=== PATIENT | male | born 1960 | race African-American/Black ===

== ENCOUNTER → 2017-08-28 | Outpatient (CLI) | payer OTHER ==
[2017-08-28 09:51] LABS: BASO % 0.2 %; BASO ABS # 0.02 K/uL (0-0.2); EOS % 3.4 %; HEMOGLOBIN 15.1 g/dL (14.0-18.0); IG# 0.02 K/uL (0.00-0.02); LYMPH % 31.6 %; LYMPH ABS # 2.75 K/uL (1.2-3.4); MEAN CELL VOLUME 85.5 fL (80-100); MEAN CORPUSCULAR HEMOGLOBIN 28.1 pg (25-34); MEAN CORPUSCULAR HGB CONC 32.8 g/dl (32-36); MEAN PLATELET VOLUME 10.1 fL (7.4-10.4); MONO % 9.6 %; MONO ABS # 0.84 K/uL (0.11-0.59); NEUT ABS # 4.78 K/uL (1.4-6.5); PLATELET COUNT 194 K/uL (130-400); RED CELL DISTRIBUTION WIDTH CV 14.9 % (11.5-14.5); RED CELL DISTRIBUTION WIDTH SD 45.9 fL (36.4-46.3); WHITE BLOOD COUNT 8.71 K/uL (4.8-10.8)
== END | disposition home or self-care (01) ==
LOC: C.LABUPUNI 09:37
PROVIDERS: ATTEND Nurse Practitioner Family
DX: Z01.89 Encounter for other specified special examinations (principal)

== ENCOUNTER → 2017-09-04 | Outpatient (CLI) | payer OTHER ==
[2017-09-04 08:37] LABS: BASO % 0.4 %; BASO ABS # 0.03 K/uL (0-0.2); EOS % 4.2 %; EOS ABS # 0.32 K/uL (0-0.5); HEMATOCRIT 47.9 % (42-52); HEMOGLOBIN 16.1 g/dL (14.0-18.0); IG# 0.01 K/uL (0.00-0.02); LYMPH % 31.3 %; LYMPH ABS # 2.39 K/uL (1.2-3.4); MEAN CELL VOLUME 85.1 fL (80-100); MEAN CORPUSCULAR HEMOGLOBIN 28.6 pg (25-34); MEAN CORPUSCULAR HGB CONC 33.6 g/dl (32-36); MEAN PLATELET VOLUME 10.6 fL (7.4-10.4); MONO % 6.9 %; MONO ABS # 0.53 K/uL (0.11-0.59); NEUT % 57.1 %; NEUT ABS # 4.35 K/uL (1.4-6.5); PLATELET COUNT 173 K/uL (130-400); RED CELL DISTRIBUTION WIDTH CV 14.4 % (11.5-14.5); RED CELL DISTRIBUTION WIDTH SD 44.7 fL (36.4-46.3); WHITE BLOOD COUNT 7.63 K/uL (4.8-10.8)
== END ==
LOC: C.LABUPUNI 08:12
PROVIDERS: ATTEND Nurse Practitioner Family
DX: F20.0 Paranoid schizophrenia (principal)

== ENCOUNTER → 2017-09-11 | Outpatient (CLI) | payer OTHER ==
[2017-09-11 09:50] LABS: BASO % 0.4 %; BASO ABS # 0.03 K/uL (0-0.2); HEMATOCRIT 50.2 % (42-52); HEMOGLOBIN 16.4 g/dL (14.0-18.0); IG# 0.02 K/uL (0.00-0.02); LYMPH % 34.9 %; LYMPH ABS # 2.63 K/uL (1.2-3.4); MEAN CELL VOLUME 84.4 fL (80-100); MEAN CORPUSCULAR HEMOGLOBIN 27.6 pg (25-34); MEAN CORPUSCULAR HGB CONC 32.7 g/dl (32-36); MEAN PLATELET VOLUME 10.8 fL (7.4-10.4); MONO % 8.5 %; MONO ABS # 0.64 K/uL (0.11-0.59); NEUT % 51.9 %; NEUT ABS # 3.92 K/uL (1.4-6.5); PLATELET COUNT 167 K/uL (130-400); RED CELL DISTRIBUTION WIDTH CV 14.4 % (11.5-14.5); RED CELL DISTRIBUTION WIDTH SD 44.4 fL (36.4-46.3); WHITE BLOOD COUNT 7.54 K/uL (4.8-10.8)
--- NOTE | 2017-10-16 06:20 | CODING QUERY NO DIAGNOSIS ---
TREATMENT RENDERED WITHOUT A DIAGNOSIS To promote full compliance with coding requirements relating to patient care, physician participation is requested in all cases of masticator uncertainty. Please assist us with providing a diagnosis/symptom for the test(s) below: A diagnosis/symptom was not documented on your Order. A valid diagnosis/symptom is required to bill all insurances. Please remember that we are unable to code a diagnosis of rule out, probable, possible, questionable, or suspected. Tests that require a diagnosis: * CBC WITH DIFF DIAGNOSIS: * DOS: 09/11/17 Provider Signature: Date: Thank you [facility] Once completed, please kindly fax back to [phone] For questions please call [phone]
== END ==
LOC: C.LABUPUNI 09:23
PROVIDERS: ATTEND Nurse Practitioner Family
DX: F20.0 Paranoid schizophrenia (principal)

== ENCOUNTER → 2017-09-18 | Outpatient (CLI) | payer OTHER ==
[2017-09-18 09:10] LABS: BASO % 0.6 %; BASO ABS # 0.04 K/uL (0-0.2); EOS % 3.9 %; EOS ABS # 0.27 K/uL (0-0.5); HEMATOCRIT 50.7 % (42-52); HEMOGLOBIN 16.6 g/dL (14.0-18.0); IG# 0.01 K/uL (0.00-0.02); LYMPH % 38.7 %; LYMPH ABS # 2.71 K/uL (1.2-3.4); MEAN CELL VOLUME 84.9 fL (80-100); MEAN CORPUSCULAR HEMOGLOBIN 27.8 pg (25-34); MEAN CORPUSCULAR HGB CONC 32.7 g/dl (32-36); MEAN PLATELET VOLUME 10.9 fL (7.4-10.4); MONO % 7.7 %; MONO ABS # 0.54 K/uL (0.11-0.59); NEUT ABS # 3.43 K/uL (1.4-6.5); PLATELET COUNT 171 K/uL (130-400); RED CELL DISTRIBUTION WIDTH CV 14.7 % (11.5-14.5); RED CELL DISTRIBUTION WIDTH SD 45.2 fL (36.4-46.3)
== END ==
LOC: C.LABUPUNI 08:43
PROVIDERS: ATTEND Nurse Practitioner Family
DX: F20.0 Paranoid schizophrenia (principal)

== ENCOUNTER → 2017-09-25 | Outpatient (CLI) | payer OTHER ==
[2017-09-25 09:32] LABS: BASO % 0.4 %; BASO ABS # 0.03 K/uL (0-0.2); EOS % 3.1 %; EOS ABS # 0.24 K/uL (0-0.5); HEMATOCRIT 47.2 % (42-52); HEMOGLOBIN 15.7 g/dL (14.0-18.0); IG# 0.02 K/uL (0.00-0.02); LYMPH % 36.5 %; LYMPH ABS # 2.82 K/uL (1.2-3.4); MEAN CELL VOLUME 84.4 fL (80-100); MEAN CORPUSCULAR HEMOGLOBIN 28.1 pg (25-34); MEAN CORPUSCULAR HGB CONC 33.3 g/dl (32-36); MEAN PLATELET VOLUME 10.5 fL (7.4-10.4); MONO % 7.4 %; MONO ABS # 0.57 K/uL (0.11-0.59); NEUT % 52.3 %; NEUT ABS # 4.04 K/uL (1.4-6.5); PLATELET COUNT 164 K/uL (130-400); RED CELL DISTRIBUTION WIDTH CV 14.9 % (11.5-14.5); RED CELL DISTRIBUTION WIDTH SD 45.4 fL (36.4-46.3); WHITE BLOOD COUNT 7.72 K/uL (4.8-10.8)
== END ==
LOC: C.LABUPUNI 08:35
PROVIDERS: ATTEND Nurse Practitioner Family
DX: B18.2 Chronic viral hepatitis C (principal)

== ENCOUNTER → 2017-10-02 | Outpatient (CLI) | payer OTHER ==
[2017-10-02 09:59] LABS: BASO % 0.4 %; BASO ABS # 0.03 K/uL (0-0.2); EOS % 3.7 %; EOS ABS # 0.28 K/uL (0-0.5); HEMATOCRIT 47.3 % (42-52); IG# 0.01 K/uL (0.00-0.02); LYMPH % 40.2 %; LYMPH ABS # 3.03 K/uL (1.2-3.4); MEAN CELL VOLUME 84.5 fL (80-100); MEAN CORPUSCULAR HEMOGLOBIN 28.6 pg (25-34); MEAN CORPUSCULAR HGB CONC 33.8 g/dl (32-36); MEAN PLATELET VOLUME 10.9 fL (7.4-10.4); MONO % 7.7 %; MONO ABS # 0.58 K/uL (0.11-0.59); NEUT % 47.9 %; NEUT ABS # 3.61 K/uL (1.4-6.5); PLATELET COUNT 153 K/uL (130-400); RED CELL DISTRIBUTION WIDTH CV 14.4 % (11.5-14.5); RED CELL DISTRIBUTION WIDTH SD 44.7 fL (36.4-46.3); WHITE BLOOD COUNT 7.54 K/uL (4.8-10.8)
== END ==
LOC: C.LABUPUNI 09:09
PROVIDERS: ATTEND Nurse Practitioner Family
DX: J44.1 Chronic obstructive pulmonary disease with (acute) exacerbation (principal)

== ENCOUNTER → 2017-10-09 | Outpatient (CLI) | payer OTHER ==
[2017-10-09 08:49] LABS: BASO % 0.3 %; BASO ABS # 0.02 K/uL (0-0.2); EOS % 3.2 %; EOS ABS # 0.22 K/uL (0-0.5); HEMATOCRIT 47.5 % (42-52); HEMOGLOBIN 16.1 g/dL (14.0-18.0); IG# 0.02 K/uL (0.00-0.02); LYMPH % 38.5 %; LYMPH ABS # 2.63 K/uL (1.2-3.4); MEAN CELL VOLUME 83.5 fL (80-100); MEAN CORPUSCULAR HEMOGLOBIN 28.3 pg (25-34); MEAN CORPUSCULAR HGB CONC 33.9 g/dl (32-36); MEAN PLATELET VOLUME 11.2 fL (7.4-10.4); MONO % 7.6 %; MONO ABS # 0.52 K/uL (0.11-0.59); NEUT % 50.1 %; NEUT ABS # 3.43 K/uL (1.4-6.5); PLATELET COUNT 139 K/uL (130-400); RED CELL DISTRIBUTION WIDTH CV 14.3 % (11.5-14.5); RED CELL DISTRIBUTION WIDTH SD 43.3 fL (36.4-46.3); WHITE BLOOD COUNT 6.84 K/uL (4.8-10.8)
== END ==
LOC: C.LABUPUNI 08:21
PROVIDERS: ATTEND Nurse Practitioner Family
DX: E78.5 Hyperlipidemia, unspecified (principal)

== ENCOUNTER → 2017-10-16 | Outpatient (CLI) | payer OTHER ==
[2017-10-16 08:41] LABS: BASO % 0.2 %; BASO ABS # 0.02 K/uL (0-0.2); EOS % 2.5 %; EOS ABS # 0.21 K/uL (0-0.5); HEMATOCRIT 47.9 % (42-52); HEMOGLOBIN 16.6 g/dL (14.0-18.0); IG# 0.03 K/uL (0.00-0.02); LYMPH % 23.5 %; LYMPH ABS # 1.97 K/uL (1.2-3.4); MEAN CELL VOLUME 82.7 fL (80-100); MEAN CORPUSCULAR HEMOGLOBIN 28.7 pg (25-34); MEAN CORPUSCULAR HGB CONC 34.7 g/dl (32-36); MEAN PLATELET VOLUME 10.4 fL (7.4-10.4); MONO % 6.8 %; MONO ABS # 0.57 K/uL (0.11-0.59); NEUT % 66.6 %; PLATELET COUNT 150 K/uL (130-400); RED CELL DISTRIBUTION WIDTH CV 14.8 % (11.5-14.5); RED CELL DISTRIBUTION WIDTH SD 44.2 fL (36.4-46.3)
== END ==
LOC: C.LABUPUNI 08:14
PROVIDERS: ATTEND Nurse Practitioner Family
DX: F20.0 Paranoid schizophrenia (principal)

== ENCOUNTER → 2017-10-23 | Outpatient (CLI) | payer OTHER ==
[2017-10-23 09:03] LABS: BASO % 0.2 %; BASO ABS # 0.02 K/uL (0-0.2); EOS % 3.2 %; EOS ABS # 0.32 K/uL (0-0.5); HEMATOCRIT 50.2 % (42-52); IG# 0.02 K/uL (0.00-0.02); LYMPH % 35.8 %; LYMPH ABS # 3.59 K/uL (1.2-3.4); MEAN CELL VOLUME 83.3 fL (80-100); MEAN CORPUSCULAR HEMOGLOBIN 28.2 pg (25-34); MEAN CORPUSCULAR HGB CONC 33.9 g/dl (32-36); MEAN PLATELET VOLUME 10.8 fL (7.4-10.4); MONO % 8.6 %; MONO ABS # 0.86 K/uL (0.11-0.59); NEUT ABS # 5.21 K/uL (1.4-6.5); PLATELET COUNT 186 K/uL (130-400); RED CELL DISTRIBUTION WIDTH CV 14.8 % (11.5-14.5); RED CELL DISTRIBUTION WIDTH SD 44.9 fL (36.4-46.3); WHITE BLOOD COUNT 10.02 K/uL (4.8-10.8)
--- NOTE | 2017-10-28 15:17 | CODING QUERY NO DIAGNOSIS ---
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 Please assist us with providing a diagnosis/symptom for the test(s) below: A diagnosis/symptom was not documented on your Order. A valid diagnosis/symptom is required to bill all insurances. Please remember that we are unable to code a diagnosis of rule out, probable, possible, questionable, or suspected. DOS 10/23/17 Tests that require a diagnosis: * CBC W/AUTO DIFF DIAGNOSIS: Provider Signature: Date: Thank you Mila [facility] Once completed, please kindly fax back to [phone] For questions please call [phone]
== END ==
LOC: C.LABUPUNI 08:40
PROVIDERS: ATTEND Nurse Practitioner Family
DX: M32.9 Systemic lupus erythematosus, unspecified (principal)

== ENCOUNTER → 2017-10-30 | Outpatient (CLI) | payer OTHER ==
[2017-10-30 08:44] LABS: BASO % 0.3 %; BASO ABS # 0.03 K/uL (0-0.2); EOS % 2.5 %; HEMATOCRIT 48.3 % (42-52); HEMOGLOBIN 16.3 g/dL (14.0-18.0); IG# 0.04 K/uL (0.00-0.02); LYMPH % 35.3 %; LYMPH ABS # 4.24 K/uL (1.2-3.4); MEAN CORPUSCULAR HGB CONC 33.7 g/dl (32-36); MEAN PLATELET VOLUME 10.6 fL (7.4-10.4); MONO % 8.3 %; NEUT % 53.3 %; NEUT ABS # 6.39 K/uL (1.4-6.5); PLATELET COUNT 210 K/uL (130-400); RED CELL DISTRIBUTION WIDTH CV 14.5 % (11.5-14.5); RED CELL DISTRIBUTION WIDTH SD 43.9 fL (36.4-46.3)
== END ==
LOC: C.LABUPUNI 07:55
PROVIDERS: ATTEND Nurse Practitioner Family
DX: F20.0 Paranoid schizophrenia (principal)

== ENCOUNTER → 2017-10-31 | Outpatient (CLI) | payer OTHER ==
[2017-10-31 09:46] LABS: BASO % 0.3 %; BASO ABS # 0.02 K/uL (0-0.2); EOS % 3.7 %; EOS ABS # 0.28 K/uL (0-0.5); HEMATOCRIT 45.4 % (42-52); HEMOGLOBIN 15.5 g/dL (14.0-18.0); IG# 0.01 K/uL (0.00-0.02); LYMPH % 35.2 %; MEAN CORPUSCULAR HEMOGLOBIN 28.3 pg (25-34); MEAN CORPUSCULAR HGB CONC 34.1 g/dl (32-36); MEAN PLATELET VOLUME 11.1 fL (7.4-10.4); MONO % 6.5 %; NEUT % 54.2 %; NEUT ABS # 4.15 K/uL (1.4-6.5); PLATELET COUNT 182 K/uL (130-400); RED CELL DISTRIBUTION WIDTH CV 14.5 % (11.5-14.5); RED CELL DISTRIBUTION WIDTH SD 44.5 fL (36.4-46.3); WHITE BLOOD COUNT 7.66 K/uL (4.8-10.8)
[2017-10-31 09:58] LABS: ALBUMIN 3.4 gm/dl (3.4-5.0); AST/SGOT 39 U/L (15-37); BLOOD UREA NITROGEN 15 mg/dl (7-18); CALCIUM 8.2 mg/dl (8.5-10.1); CARBON DIOXIDE 24 mmol/L (21-32); CREATININE 1.21 mg/dl (0.60-1.40); GLUCOSE 69 mg/dl (70-99); POTASSIUM 3.3 mmol/L (3.5-5.1); SODIUM 142 mmol/L (136-145)
[2017-10-31 10:01] LABS: ALKALINE PHOSPHATASE 109 U/L (45-117); ALT/SGPT 59 U/L (12-78)
== END ==
LOC: C.LABUPUNI 09:07
PROVIDERS: ATTEND Nurse Practitioner Family
DX: D72.829 Elevated white blood cell count, unspecified (principal); F20.0 Paranoid schizophrenia

== ENCOUNTER → 2017-11-01 | Outpatient (CLI) | payer OTHER ==
[2017-11-01 10:25] LABS: BLOOD UREA NITROGEN 16 mg/dl (7-18); CALCIUM 8.9 mg/dl (8.5-10.1); CARBON DIOXIDE 21 mmol/L (21-32); CREATININE 1.38 mg/dl (0.60-1.40); GLUCOSE 132 mg/dl (70-99); POTASSIUM 3.6 mmol/L (3.5-5.1); SODIUM 136 mmol/L (136-145)
[2017-11-01 10:31] LABS: HEMATOCRIT 49.1 % (42-52); HEMOGLOBIN 16.5 g/dL (14.0-18.0); MEAN CELL VOLUME 82.7 fL (80-100); MEAN CORPUSCULAR HEMOGLOBIN 27.8 pg (25-34); MEAN CORPUSCULAR HGB CONC 33.6 g/dl (32-36); MEAN PLATELET VOLUME 10.8 fL (7.4-10.4); PLATELET COUNT 149 K/uL (130-400); RED CELL DISTRIBUTION WIDTH CV 14.5 % (11.5-14.5); RED CELL DISTRIBUTION WIDTH SD 44.4 fL (36.4-46.3); WHITE BLOOD COUNT 8.34 K/uL (4.8-10.8)
[2017-11-01 10:50] LABS: BASO % 0.2 %; BASO ABS # 0.02 K/uL (0-0.2); EOS % 3.4 %; EOS ABS # 0.28 K/uL (0-0.5); IG# 0.02 K/uL (0.00-0.02); LYMPH % 25.4 %; LYMPH ABS # 2.12 K/uL (1.2-3.4); MONO % 5.9 %; MONO ABS # 0.49 K/uL (0.11-0.59); NEUT % 64.9 %; NEUT ABS # 5.41 K/uL (1.4-6.5)
== END | disposition home or self-care (01) ==
LOC: C.LABUPUNI 09:30
PROVIDERS: ATTEND Nurse Practitioner Family
DX: B18.2 Chronic viral hepatitis C (principal)

== ENCOUNTER → 2017-11-06 | Outpatient (CLI) | payer OTHER ==
[2017-11-06 08:43] LABS: BASO % 0.3 %; BASO ABS # 0.02 K/uL (0-0.2); EOS % 3.4 %; EOS ABS # 0.24 K/uL (0-0.5); HEMATOCRIT 47.1 % (42-52); IG# 0.01 K/uL (0.00-0.02); LYMPH % 38.7 %; LYMPH ABS # 2.77 K/uL (1.2-3.4); MEAN CELL VOLUME 82.5 fL (80-100); MEAN PLATELET VOLUME 10.6 fL (7.4-10.4); MONO % 8.2 %; MONO ABS # 0.59 K/uL (0.11-0.59); NEUT % 49.3 %; NEUT ABS # 3.53 K/uL (1.4-6.5); PLATELET COUNT 173 K/uL (130-400); RED CELL DISTRIBUTION WIDTH CV 14.5 % (11.5-14.5); RED CELL DISTRIBUTION WIDTH SD 43.4 fL (36.4-46.3); WHITE BLOOD COUNT 7.16 K/uL (4.8-10.8)
== END ==
LOC: C.LABUPUNI 07:43
PROVIDERS: ATTEND Nurse Practitioner Family
DX: E78.5 Hyperlipidemia, unspecified (principal)

== ENCOUNTER → 2017-11-08 | Outpatient (CLI) | payer OTHER ==
[2017-11-08 10:02] LABS: BLOOD UREA NITROGEN 12 mg/dl (7-18); CALCIUM 8.6 mg/dl (8.5-10.1); CARBON DIOXIDE 28 mmol/L (21-32); CREATININE 1.16 mg/dl (0.60-1.40); GLUCOSE 88 mg/dl (70-99); POTASSIUM 3.5 mmol/L (3.5-5.1); SODIUM 141 mmol/L (136-145)
--- NOTE | 2017-11-09 13:49 | CODING QUERY MEDICAL NECESSITY ---
CQTREATMENT RENDERED WITHOUT A DIAGNOSIS To promote full compliance with coding requirements relating to patient care, physician participation is requested in all cases of medical billing coder uncertainty. Please assist us with providing a diagnosis/symptom for the test(s) below: A diagnosis/symptom was not documented on your Order. A valid diagnosis/symptom is required to bill all insurances. Please remember that we are unable to code a diagnosis of rule out, probable, possible, questionable, or suspected. Tests that require a diagnosis: DOS 11/08/17 RENAL PROFILE TESTING Provider Signature: Date: Thank you [facility] Information [facility] Once completed, please kindly fax back to [phone] For questions please call [phone]
== END | disposition home or self-care (01) ==
LOC: C.LABUPUNI 09:28
PROVIDERS: ATTEND Nurse Practitioner Family
DX: I10 Essential (primary) hypertension (principal)

== ENCOUNTER → 2017-11-13 | Outpatient (CLI) | payer OTHER ==
[2017-11-13 09:47] LABS: BASO % 0.3 %; BASO ABS # 0.02 K/uL (0-0.2); EOS % 3.4 %; EOS ABS # 0.25 K/uL (0-0.5); HEMATOCRIT 47.9 % (42-52); HEMOGLOBIN 16.2 g/dL (14.0-18.0); IG# 0.02 K/uL (0.00-0.02); LYMPH % 37.8 %; LYMPH ABS # 2.76 K/uL (1.2-3.4); MEAN CELL VOLUME 82.7 fL (80-100); MEAN CORPUSCULAR HGB CONC 33.8 g/dl (32-36); MEAN PLATELET VOLUME 10.6 fL (7.4-10.4); MONO % 6.4 %; MONO ABS # 0.47 K/uL (0.11-0.59); NEUT % 51.8 %; NEUT ABS # 3.78 K/uL (1.4-6.5); PLATELET COUNT 183 K/uL (130-400); RED CELL DISTRIBUTION WIDTH CV 14.2 % (11.5-14.5); RED CELL DISTRIBUTION WIDTH SD 42.7 fL (36.4-46.3)
== END ==
LOC: C.LABUPUNI 09:14
PROVIDERS: ATTEND Nurse Practitioner Family
DX: F20.0 Paranoid schizophrenia (principal)

== ENCOUNTER → 2017-11-20 | Outpatient (CLI) | payer OTHER ==
[2017-11-20 10:09] LABS: BASO % 0.3 %; BASO ABS # 0.02 K/uL (0-0.2); EOS ABS # 0.29 K/uL (0-0.5); HEMATOCRIT 48.4 % (42-52); HEMOGLOBIN 16.2 g/dL (14.0-18.0); LYMPH % 44.2 %; LYMPH ABS # 3.18 K/uL (1.2-3.4); MEAN CELL VOLUME 84.9 fL (80-100); MEAN CORPUSCULAR HEMOGLOBIN 28.4 pg (25-34); MEAN CORPUSCULAR HGB CONC 33.5 g/dl (32-36); MONO % 6.7 %; MONO ABS # 0.48 K/uL (0.11-0.59); NEUT % 44.8 %; NEUT ABS # 3.23 K/uL (1.4-6.5); PLATELET COUNT 168 K/uL (130-400); RED CELL DISTRIBUTION WIDTH CV 14.5 % (11.5-14.5); RED CELL DISTRIBUTION WIDTH SD 44.9 fL (36.4-46.3)
== END ==
LOC: C.LABUPUNI 09:20
PROVIDERS: ATTEND Nurse Practitioner Family
DX: E78.5 Hyperlipidemia, unspecified (principal)

== ENCOUNTER → 2018-01-22 | Outpatient (CLI) | payer OTHER ==
[2018-01-22 09:43] LABS: BASO % 0.3 %; BASO ABS # 0.02 K/uL (0-0.2); EOS % 3.5 %; EOS ABS # 0.26 K/uL (0-0.5); HEMATOCRIT 48.8 % (42-52); HEMOGLOBIN 16.4 g/dL (14.0-18.0); IG# 0.02 K/uL (0.00-0.02); LYMPH % 39.3 %; LYMPH ABS # 2.89 K/uL (1.2-3.4); MEAN CELL VOLUME 84.3 fL (80-100); MEAN CORPUSCULAR HEMOGLOBIN 28.3 pg (25-34); MEAN CORPUSCULAR HGB CONC 33.6 g/dl (32-36); MEAN PLATELET VOLUME 11.7 fL (7.4-10.4); MONO % 7.5 %; MONO ABS # 0.55 K/uL (0.11-0.59); NEUT % 49.1 %; NEUT ABS # 3.62 K/uL (1.4-6.5); PLATELET COUNT 143 K/uL (130-400); RED CELL DISTRIBUTION WIDTH CV 14.9 % (11.5-14.5); RED CELL DISTRIBUTION WIDTH SD 45.7 fL (36.4-46.3); WHITE BLOOD COUNT 7.36 K/uL (4.8-10.8)
== END ==
LOC: C.LABUPUNI 09:21
PROVIDERS: ATTEND Nurse Practitioner Family
DX: F20.0 Paranoid schizophrenia (principal)

== ENCOUNTER → 2018-01-29 | Outpatient (CLI) | payer OTHER ==
[2018-01-29 10:00] LABS: BASO % 0.4 %; BASO ABS # 0.03 K/uL (0-0.2); EOS % 2.7 %; EOS ABS # 0.21 K/uL (0-0.5); HEMATOCRIT 50.4 % (42-52); HEMOGLOBIN 16.6 g/dL (14.0-18.0); IG# 0.02 K/uL (0.00-0.02); LYMPH % 34.1 %; LYMPH ABS # 2.68 K/uL (1.2-3.4); MEAN CELL VOLUME 84.8 fL (80-100); MEAN CORPUSCULAR HEMOGLOBIN 27.9 pg (25-34); MEAN CORPUSCULAR HGB CONC 32.9 g/dl (32-36); MEAN PLATELET VOLUME 11.5 fL (7.4-10.4); MONO % 7.8 %; MONO ABS # 0.61 K/uL (0.11-0.59); NEUT % 54.7 %; PLATELET COUNT 146 K/uL (130-400); RED CELL DISTRIBUTION WIDTH CV 14.9 % (11.5-14.5); RED CELL DISTRIBUTION WIDTH SD 45.8 fL (36.4-46.3); WHITE BLOOD COUNT 7.85 K/uL (4.8-10.8)
== END ==
LOC: C.LABUPUNI 08:03
PROVIDERS: ATTEND Nurse Practitioner Family
DX: F20.0 Paranoid schizophrenia (principal)

== ENCOUNTER → 2018-02-05 | Outpatient (CLI) | payer OTHER ==
[2018-02-05 10:41] LABS: BASO % 0.3 %; BASO ABS # 0.02 K/uL (0-0.2); EOS % 2.4 %; EOS ABS # 0.19 K/uL (0-0.5); HEMATOCRIT 49.7 % (42-52); HEMOGLOBIN 16.6 g/dL (14.0-18.0); IG# 0.02 K/uL (0.00-0.02); LYMPH % 34.1 %; LYMPH ABS # 2.72 K/uL (1.2-3.4); MEAN CELL VOLUME 84.7 fL (80-100); MEAN CORPUSCULAR HEMOGLOBIN 28.3 pg (25-34); MEAN CORPUSCULAR HGB CONC 33.4 g/dl (32-36); MEAN PLATELET VOLUME 11.6 fL (7.4-10.4); MONO % 7.6 %; MONO ABS # 0.61 K/uL (0.11-0.59); NEUT % 55.3 %; NEUT ABS # 4.42 K/uL (1.4-6.5); PLATELET COUNT 150 K/uL (130-400); RED CELL DISTRIBUTION WIDTH CV 14.9 % (11.5-14.5); RED CELL DISTRIBUTION WIDTH SD 45.7 fL (36.4-46.3); WHITE BLOOD COUNT 7.98 K/uL (4.8-10.8)
== END ==
LOC: C.LABUPUNI 07:54
PROVIDERS: ATTEND Nurse Practitioner Family
DX: F20.0 Paranoid schizophrenia (principal)

== ENCOUNTER → 2018-02-12 | Outpatient (CLI) | payer OTHER ==
[2018-02-12 08:30] LABS: BASO % 0.4 %; BASO ABS # 0.03 K/uL (0-0.2); EOS % 3.4 %; EOS ABS # 0.27 K/uL (0-0.5); HEMATOCRIT 50.3 % (42-52); HEMOGLOBIN 17.2 g/dL (14.0-18.0); IG# 0.02 K/uL (0.00-0.02); LYMPH % 33.2 %; LYMPH ABS # 2.63 K/uL (1.2-3.4); MEAN CORPUSCULAR HEMOGLOBIN 28.7 pg (25-34); MEAN CORPUSCULAR HGB CONC 34.2 g/dl (32-36); MEAN PLATELET VOLUME 11.1 fL (7.4-10.4); MONO % 7.2 %; MONO ABS # 0.57 K/uL (0.11-0.59); NEUT % 55.5 %; PLATELET COUNT 144 K/uL (130-400); RED CELL DISTRIBUTION WIDTH CV 14.6 % (11.5-14.5); RED CELL DISTRIBUTION WIDTH SD 44.7 fL (36.4-46.3); WHITE BLOOD COUNT 7.92 K/uL (4.8-10.8)
== END ==
LOC: C.LABUPUNI 07:43
PROVIDERS: ATTEND Nurse Practitioner Family
DX: F20.0 Paranoid schizophrenia (principal)

== ENCOUNTER → 2018-02-19 | Outpatient (CLI) | payer OTHER ==
[2018-02-19 08:10] LABS: BASO % 0.3 %; BASO ABS # 0.02 K/uL (0-0.2); EOS ABS # 0.21 K/uL (0-0.5); HEMATOCRIT 50.2 % (42-52); HEMOGLOBIN 16.8 g/dL (14.0-18.0); IG# 0.01 K/uL (0.00-0.02); LYMPH % 37.9 %; LYMPH ABS # 2.66 K/uL (1.2-3.4); MEAN CELL VOLUME 84.7 fL (80-100); MEAN CORPUSCULAR HEMOGLOBIN 28.3 pg (25-34); MEAN CORPUSCULAR HGB CONC 33.5 g/dl (32-36); MONO ABS # 0.42 K/uL (0.11-0.59); NEUT % 52.7 %; PLATELET COUNT 135 K/uL (130-400); RED CELL DISTRIBUTION WIDTH CV 14.8 % (11.5-14.5); RED CELL DISTRIBUTION WIDTH SD 45.7 fL (36.4-46.3); WHITE BLOOD COUNT 7.02 K/uL (4.8-10.8)
== END ==
LOC: C.LABUPUNI 07:31
PROVIDERS: ATTEND Nurse Practitioner Family
DX: F20.0 Paranoid schizophrenia (principal)

== ENCOUNTER 2019-10-22 15:25 | Inpatient (IN) ==
[2019-10-22] MEDS ORDERED: LIDOCAINE/EPINEPH/TETRACAINE 1 EA SYR EXT STA (15:37)
[2019-10-22 15:58] LABS: Appearance Urine Clear (Clear); Bilirubin Urine Negative (Negative); Blood Urine Negative (Negative); Color Urine Yellow; Glucose Urine UA Negative (Negative); Ketones Urine Negative (Negative); Leukocyte Esterase Urine Negative (Negative); Nitrite Urine Negative (Negative); Protein Urine Negative (Negative); Specific Gravity Urine 1.007 (1.000-1.030); Urobilinogen Urine Negative (Negative); pH Urine 7.5 (4.5-7.5)
--- NOTE | 2019-10-22 16:07 | XRay Report ---
LEFT HAND 3 VIEWS CLINICAL HISTORY: Third finger injury. FINDINGS: 3 views of the left hand are obtained. No prior studies are available for comparison at the time of dictation. The skeletal structures are well mineralized. No fracture is seen. The joint spac es of the hand are maintained. The overlying soft tissues are normal as visualized. IMPRESSION: No acute bony abnormality is identified. Electronically signed by: Mike Singh M.D. 10/22/2019 4:05 PM
--- NOTE | 2019-10-22 16:09 | Emergency Department Note ---
Impression & Plan Hypoglycemia due to type 2 diabetes mellitus, Schizophrenia, paranoid, chronic, Delusion, Laceration of left hand, Hypoglycemia ED Provider Note Provider: Arya Madison MD DATE OF SERVICE: 10/22/2019 CHIEF COMPLAINT: Left hand injury, mental health issues HISTORY OF PRESENT ILLNESS: Patient is a 60-year-old male presenting via ambulance today after a left hand injury. Patient does have a significant past medical history of COPD, hepatitis, diabetes, sarcoidosis, cardiac disease by report, and paranoid schizophrenia evidently is been having worsening behavior at his facility, [facility]. All the patient by report always has some delusions of demons now they seem to be worsening. Facility by report states that the patient yesterday was holding his eyelids open and staring straight into a light next to him in the bathroom to burn the demons out. Patient himself states that this is a new since spirit today that is always there. Patient states he sees it quite frequently but it does not talk to him. Patient states today it pulled his hand into the window and had a shot on his hand. Nursing staff report that the patient shut the window on his left hand sustaining a small injury. Sent here for further evaluation and psychiatric evaluation. Patient is unsure of his tetanus status and unclear in the notes if he is received 1 in the past 10 years. Patient reports a little bit of pain in the left distal finger but denies other injury. Patient denies any SI or HI at this time. Called [facility] who state no change in insulin regimen lately and that pt bsg 144 at noon. He reportedly ate 100% of lunch and breakfast today. REVIEW OF SYSTEMS: A total of 10 review of systems was obtained and negative except as stated above in the HPI. PAST MEDICAL HISTORY: As noted above MEDICATIONS: Reviewed detention list includes [place] SOCIAL HISTORY: Former smoker, lives at [facility] PHYSICAL EXAM: GENERAL: alert in no acute distress on stretcher with a surgical mask in place Head: normocephalic and atraumatic EYES: No injection, discharge or icterus. ENT: Mucous membranes pink and moist. LUNGS: Airway patent. No retractions. HEART: Regular rate and rhythm. No chest wall tenderness ABDOMEN: Soft and non-tender, without guarding or rebound SKIN: Acyanotic, warm, dry, without rashes EXTREMITIES: Without swelling, tenderness or deformity EXCEPT for some slight abrasions on the middle phalanges of the left index and ring finger. There is a 2 centimeter L-shaped laceration overlying the proximal PIP joint of the left middle finger. Intact sensation and perfusion distally in the fingers. Intact extensor and flexor tendon strength. No evidence of retained foreign body. NEUROLOGICAL: No focal deficits. No aphasia. No facial droop or slurred speech. PSYCH: Denies SI or HI. Flat affect. Some delusions and decreased insightdoes report visual elucidation of demonic spirits and this is what hurt his hand today. Patient's hypertension was referred to [facility] COURSE: 1528 Patient was first seen and H&P performed. 164 Alerted that patient's glucose was 26. Patient somewhat sleepy but with out compliant in room laying on bed. Given 1 container of orange juice via straw and a full tube of oral glucose orally. 1708 Patient still sleepy. 1mg IM glucagon given. 1725 I obtained a 18g IV via US in L forearm. D10 to be hung. Patient glucose 26. 1732 Patient alert awake, eating food tray. Patient still reports that the demons have been chasing him. 1742 BSG now 118 -- will hold D10 bolus (received 80mLs thus far), patient eating tray, will discuss medical admission 175 Discussed with Soraya of [facility] service for further care. Recomended glucose monitoring, one-one on floor and psych consult. 1820 BSG 204, awake and alert sitting on bed. LACERATION REPAIR performed by myself at 1632 hrs: Patient, procedure, and site were verified immediately before the procedure. Appropriate neurovascular exam was performed to test sensation, motor function and perfusion of the L fingers The skin around the wound was prepped with Betadine. Anesthesia was provided using LET gel. Wound was irrigated with a saline. Wound was explored to its base. There was no visible foreign body in the wound. No signs of tendon injury. The laceration was repaired by means of a single layer closure. Skin was closed with 5-0 Ethilon interrupted sutures with a total of 5 placed. Total wound length was 2 cm. Good hemostasis and cosmetic result Patient tolerated the procedure well. Patient sutures should be removed in approximately 10 days. Should be monitored for any concerning evidence of erythema or infection such as purulent discharge. Patient's laboratory studies and imaging reviewed. Differential includes Mood disorder, infection, hypoglycemia, electrolyte abnormalities, cardiac sources, intracerebral event, toxicologic, trauma (including fracture, dislocation, tendon injury), neurologic, as well as other pathologies. IMPRESSION/MEDICAL DECISION MAKING: X-rays obtained of the hand to exclude fracture/dislocation. Wounds were cleaned. The middle finger laceration was cleaned and let gel applied for closure as above performed by myself. I doubt a specific joint injury. X-ray without evidence of fracture dislocation. This is neurovascular intact otherwise. Tetanus is updated. Basic labs and medical clearance completed. Patient did see some slight headache during laceration repair and will answer questions but seems somewhat fatigued. Patient's blood work results with significant hyperglycemia of 26. Seems sudden as patient previously conversant and walked to and provided urine sample in the bathroom under his own power. Patient is a type II diabetic on insulin. Given this finding was given oral glucose as well as orange juice. No significant improvement with his giving an intramuscular glucagon. Still no significant improvement in his hyperglycemia or mental status. Difficulty with IV access. Ultrasound utilized to establish an 18-gauge and left forearm and some D10 was instilled. Patient quickly became alert and sat up and began eating a food tray. Mental status was much more improved. Still complains of d emons chasing him and his recollection of the prior events including the demons slamming the window on his hand are intact but much more alert. Patient denies other complaints at this time. Patient does make delusional and some psychotic statements but has been calm while here. No aggressive behavior reported from facility or noted here. Denies any SI or HI on my of him. Given the refractory and prolonged episode of hypoglycemia as well as a significant insulin regimen feel that further medical monitoring of his glucoses on the floor would be more appropriate than immediate psychiatric inpatient care. Likely would benefit from psychiatric consultation for help with his delusions but as I discussed with the facility he ate a normal lunch and breakfast and had a normal insulin unchanged regimen and suffered significant acute hypoglycemia that was difficult to improve do not feel inpat ient psychiatric care at this juncture is most appropriate. DIAGNOSIS: Hyperglycemia, paranoid schizophrenia, delusions, left hand laceration DISPOSITION: Admission Critical Care I have personally spent 38 minutes of critical care time in the direct management of this patient. This includes bedside care, interpretation of diagnostic studies, and testing, discussion with consultants, patient, and family members, and other required patient management activities. These 38 minutes is in excess of all separately billable procedures. Past Med/Surg History Medical History Alcohol abuse Asthma COPD (chronic obstructive pulmonary disease) Diabetes Diabetes mellitus, type 2 Hepatitis C History of seizures Hypertension Lupus Paranoid schizophrenia Peripheral vascular disease Sleep apnea Family History Denies family history of Myocardial infarction Congenital kidney disease Social History Preferred Language: Vietnamese Communication Ability: Impaired Visual Impairment: No Limitations County Judge Required: No Beliefs That Will Affect Care: None marital status: Single Current Living Situation: Long Term Current Living Situation Comment: reported living at [facility] Feels Safe at Home: Yes Smoking Status: Former smoker Second Hand Exposure: No ; Hx Alcohol Use: No Hx Substance Use: Yes substance use type: prescription drug Substance Use Type Other:: Benzos Allergies Allergies Allergy/AdvReac Type Severity Reaction Status Date / Time No Known Allergies Allergy Verified 10/22/19 16:00 Home Meds Home Medications Medication Instructions Recorded Confirmed acetaminophen [Tylenol] 650 mg PO Q6H PRN 08/19/18 10/22/19 amlodipine 10 mg PO DAILY 08/19/18 10/22/19 bisacodyl 10 mg RI DAILY PRN 08/19/18 10/22/19 clozapine [Clozaril] 200 mg PO HS 08/19/18 10/22/19 glucagon (human recombinant) 1 dose IM DIRECTED PRN 08/19/18 10/22/19 [Glucagon Emergency Kit (human)] insulin glargine [Lantus U-100 20 unit SUBCUT DAILY 08/19/18 10/22/19 Insulin] insulin lispro [Humalog U-100 1 sliding scale dose SUBCUT ACHS 08/19/18 10/22/19 Insulin] magnesium hydroxide [Milk of 30 ml PO DAILY PRN 08/19/18 10/22/19 Magnesia] sodium phosphates [Fleet Enema] 1 applic RI QAM PRN 08/19/18 10/22/19 tiotropium bromide [Spiriva with 1 cap INHALATION DAILY 08/19/18 10/22/19 HandiHaler] albuterol sulfate 90 mcg/actuation 2 puffs INHALATION Q4H PRN gm 06/12/19 10/22/19 aerosol inhaler famotidine 20 mg tablet 20 mg PO BID 06/12/19 10/22/19 ipratropium 0.5 mg-albuterol 3 mg 3 ml INHALATION QID ml 06/12/19 10/22/19 (2.5 mg base)/3 mL nebulization soln metoprolol tartrate 100 mg tablet 150 mg PO BID tab 06/12/19 10/22/19 potassium chloride 40 meq PO BID 10/22/19 10/22/19 Previous Rx's Medication Instructions Recorded hydrochlorothiazide 25 mg tablet 25 mg PO DAILY #30 tab 02/14/19 Results & Data (ED) Vital Signs Vital Signs - 24 hr 10/22/19 15:45 10/22/19 18:21 Temperature 36.9 C Temperature Source Oral Pulse Rate 106 H Pulse Rate [Finger] 62 Respiratory Rate 18 18 Respiratory Effort / Characteristics Non-Labored Spontaneous Non-Labored Spontaneous Respiratory Depth Normal Respiratory Pattern Regular Blood Pressure 165/106 H Blood Pressure [Right Arm] 154/97 H Blood Pressure Mean 125 Blood Pressure Mean [Right Arm] 116 Blood Pressure Position Sitting Blood Pressure Position [Right Arm] Sitting Pulse Oximetry 96 94 Oxygen Delivery Method Room Air Room Air Sepsis Recent Fever Within 48 Hours No Sepsis New/Unexplained Change in Mental Status No Sepsis Action Taken by Nursing No Action Required Laboratory Data Result diagrams: 10/22/19 15:50 10/22/19 15:50 Lab Results 10/22/19 10/22/19 10/22/19 Range/Units 15:40 15:40 15:50 WBC 8.41 (4.8-10.8) K/uL RBC 5.97 (4.7-6.1) M/uL Hgb 17.6 (14.0-18.0) g/dL Hct 52.5 H (42-52) % MCV 87.9 (80-100) fL MCH 29.5 (25-34) pg MCHC 33.5 (32-36) g/dL RDW Std Deviation 43.1 (36.4-46.3) fL RDW Coeff of Marta 13.3 (11.5-14.5) % Plt Count 192 (130-400) K/uL MPV 10.7 H (7.4-10.4) fL Immature Gran % (Auto) 0.4 % Neut % (Auto) 55.9 % Lymph % (Auto) 34.5 % Licking % (Auto) 6.3 % Eos % (Auto) 2.7 % Baso % (Auto) 0.2 % Immature Gran # (Auto) 0.03 H (0.00-0.02) K/uL Neut # (Auto) 4.70 (1.4-6.5) K/uL Lymph # (Auto) 2.90 (1.2-3.4) K/uL Licking # (Auto) 0.53 (0.11-0.59) K/uL Eos # (Auto) 0.23 (0-0.5) K/uL Baso # (Auto) 0.02 (0-0.2) K/uL Sodium (136-145) mmol/L Potassium (3.5-5.1) mmol/L Chloride (98-107) mmol/L Carbon Dioxide (21-32) mmol/L Anion Gap (3-11) BUN (7-18) mg/dl Creatinine (0.6-1.4) mg/dl Est Cr Clr Drug Dosing ml/min Est GFR ( Amer) Est GFR (Non-Af Amer) BUN/Creatinine Ratio (10-20) Glucose (70-99) mg/dl POC Glucose (70-99) mg/dl Calcium (8.5-10.1) mg/dl Total Bilirubin (0.2-1) mg/dl AST (15-37) U/L ALT (12-78) U/L Alkaline Phosphatase (45-117) U/L Total Protein (6.4-8.2) gm/dl Albumin (3.4-5.0) gm/dl Globulin (2.5-4.0) gm/dl Albumin/Globulin Ratio (0.9-2) TSH (0.300-4.500) uIu/ml Urine Color Yellow Urine Appearance Clear (Clear) Urine pH 7.5 (4.5-7.5) Ur Specific Hatch 1.007 (1.000-1.030) Urine Protein Negative (Negative) Urine Glucose (UA) Negative (Negative) Urine Ketones Negative (Negative) Urine Blood Negative (Negative) Urine Nitrite Negative (Negative) Urine Bilirubin Negative (Negative) Urine Urobilinogen Negative (Negative) Ur Leukocyte Esterase Negative (Negative) Salicylates (2.8-20) mg/dl Urine Opiates Screen Neg (Neg) Ur Methadone, Qual Neg (Neg) Acetaminophen (10-30) ug/ml Urine Barbiturates Neg (Neg) Ur Phencyclidine (PCP) Neg (Neg) U Amphetamin/Meth Scrn Neg (Neg) MDMA (Ecstasy) Screen Neg (Neg) U Benzodiazepines Scrn Neg (Neg) Ur Cocaine Metabolite Neg (Neg) U Marijuana (THC) Screen Neg (Neg) Ethyl Alcohol mg/dL (0-3) mg/dl 10/22/19 10/22/19 10/22/19 Range/Units 15:50 15:50 15:50 WBC (4.8-10.8) K/uL RBC (4.7-6.1) M/uL Hgb (14.0-18.0) g/dL Hct (42-52) % MCV (80-100) fL MCH (25-34) pg MCHC (32-36) g/dL RDW Std Deviation (36.4-46.3) fL RDW Coeff of Marta (11.5-14.5) % Plt Count (130-400) K/uL MPV (7.4-10.4) fL Immature Gran % (Auto) % Neut % (Auto) % Lymph % (Auto) % Licking % (Auto) % Eos % (Auto) % Baso % (Auto) % Immature Gran # (Auto) (0.00-0.02) K/uL Neut # (Auto) (1.4-6.5) K/uL Lymph # (Auto) (1.2-3.4) K/uL Licking # (Auto) (0.11-0.59) K/uL Eos # (Auto) (0-0.5) K/uL Baso # (Auto) (0-0.2) K/uL Sodium 139 (136-145) mmol/L Potassium 3.2 L (3.5-5.1) mmol/L Chloride 105 (98-107) mmol/L Carbon Dioxide 31 (21-32) mmol/L Anion Gap 2.0 L (3-11) BUN 8 (7-18) mg/dl Creatinine 1.05 (0.6-1.4) mg/dl Est Cr Clr Drug Dosing 79.7 ml/min Est GFR ( Amer) 90.3 Est GFR (Non-Af Amer) 77.9 BUN/Creatinine Ratio 7.6 L (10-20) Glucose 26 L* (70-99) mg/dl POC Glucose (70-99) mg/dl Calcium 9.1 (8.5-10.1) mg/dl Total Bilirubin 0.7 (0.2-1) mg/dl AST 58 H (15-37) U/L ALT 58 (12-78) U/L Alkaline Phosphatase 114 (45-117) U/L Total Protein 7.8 (6.4-8.2) gm/dl Albumin 3.8 (3.4-5.0) gm/dl Globulin 4.0 (2.5-4.0) gm/dl Albumin/Globulin Ratio 1.0 (0.9-2) TSH 0.623 (0.300-4.500) uIu/ml Urine Color Urine Appearance (Clear) Urine pH (4.5-7.5) Ur Specific Hatch (1.000-1.030) Urine Protein (Negative) Urine Glucose (UA) (Negative) Urine Ketones (Negative) Urine Blood (Negative) Urine Nitrite (Negative) Urine Bilirubin (Negative) Urine Urobilinogen (Negative) Ur Leukocyte Esterase (Negative) Salicylates < 1.7 L (2.8-20) mg/dl Urine Opiates Screen (Neg) Ur Methadone, Qual (Neg) Acetaminophen < 2 L (10-30) ug/ml Urine Barbiturates (Neg) Ur Phencyclidine (PCP) (Neg) U Amphetamin/Meth Scrn (Neg) MDMA (Ecstasy) Screen (Neg) U Benzodiazepines Scrn (Neg) Ur Cocaine Metabolite (Neg) U Marijuana (THC) Screen (Neg) Ethyl Alcohol mg/dL < 3.0 (0-3) mg/dl 10/22/19 10/22/19 10/22/19 Range/Units 16:49 17:02 17:17 WBC (4.8-10.8) K/uL RBC (4.7-6.1) M/uL Hgb (14.0-18.0) g/dL Hct (42-52) % MCV (80-100) fL MCH (25-34) pg MCHC (32-36) g/dL RDW Std Deviation (36.4-46.3) fL RDW Coeff of Marta (11.5-14.5) % Plt Count (130-400) K/uL MPV (7.4-10.4) fL Immature Gran % (Auto) % Neut % (Auto) % Lymph % (Auto) % Licking % (Auto) % Eos % (Auto) % Baso % (Auto) % Immature Gran # (Auto) (0.00-0.02) K/uL Neut # (Auto) (1.4-6.5) K/uL Lymph # (Auto) (1.2-3.4) K/uL Licking # (Auto) (0.11-0.59) K/uL Eos # (Auto) (0-0.5) K/uL Baso # (Auto) (0-0.2) K/uL Sodium (136-145) mmol/L Potassium (3.5-5.1) mmol/L Chloride (98-107) mmol/L Carbon Dioxide (21-32) mmol/L Anion Gap (3-11) BUN (7-18) mg/dl Creatinine (0.6-1.4) mg/dl Est Cr Clr Drug Dosing ml/min Est GFR ( Amer) Est GFR (Non-Af Amer) BUN/Creatinine Ratio (10-20) Glucose (70-99) mg/dl POC Glucose 27 L* 28 L* 26 L* (70-99) mg/dl Calcium (8.5-10.1) mg/dl Total Bilirubin (0.2-1) mg/dl AST (15-37) U/L ALT (12-78) U/L Alkaline Phosphatase (45-117) U/L Total Protein (6.4-8.2) gm/dl Albumin (3.4-5.0) gm/dl Globulin (2.5-4.0) gm/dl Albumin/Globulin Ratio (0.9-2) TSH (0.300-4.500) uIu/ml Urine Color Urine Appearance (Clear) Urine pH (4.5-7.5) Ur Specific Hatch (1.000-1.030) Urine Protein (Negative) Urine Glucose (UA) (Negative) Urine Ketones (Negative) Urine Blood (Negative) Urine Nitrite (Negative) Urine Bilirubin (Negative) Urine Urobilinogen (Negative) Ur Leukocyte Esterase (Negative) Salicylates (2.8-20) mg/dl Urine Opiates Screen (Neg) Ur Methadone, Qual (Neg) Acetaminophen (10-30) ug/ml Urine Barbiturates (Neg) Ur Phencyclidine (PCP) (Neg) U Amphetamin/Meth Scrn (Neg) MDMA (Ecstasy) Screen (Neg) U Benzodiazepines Scrn (Neg) Ur Cocaine Metabolite (Neg) U Marijuana (THC) Screen (Neg) Ethyl Alcohol mg/dL (0-3) mg/dl 10/22/19 10/22/19 Range/Units 17:40 18:19 WBC (4.8-10.8) K/uL RBC (4.7-6.1) M/uL Hgb (14.0-18.0) g/dL Hct (42-52) % MCV (80-100) fL MCH (25-34) pg MCHC (32-36) g/dL RDW Std Deviation (36.4-46.3) fL RDW Coeff of Marta (11.5-14.5) % Plt Count (130-400) K/uL MPV (7.4-10.4) fL Immature Gran % (Auto) % Neut % (Auto) % Lymph % (Auto) % Licking % (Auto) % Eos % (Auto) % Baso % (Auto) % Immature Gran # (Auto) (0.00-0.02) K/uL Neut # (Auto) (1.4-6.5) K/uL Lymph # (Auto) (1.2-3.4) K/uL Licking # (Auto) (0.11-0.59) K/uL Eos # (Auto) (0-0.5) K/uL Baso # (Auto) (0-0.2) K/uL Sodium (136-145) mmol/L Potassium (3.5-5.1) mmol/L Chloride (98-107) mmol/L Carbon Dioxide (21-32) mmol/L Anion Gap (3-11) BUN (7-18) mg/dl Creatinine (0.6-1.4) mg/dl Est Cr Clr Drug Dosing ml/min Est GFR ( Amer) Est GFR (Non-Af Amer) BUN/Creatinine Ratio (10-20) Glucose (70-99) mg/dl POC Glucose 118 H 204 H (70-99) mg/dl Calcium (8.5-10.1) mg/dl Total Bilirubin (0.2-1) mg/dl AST (15-37) U/L ALT (12-78) U/L Alkaline Phosphatase (45-117) U/L Total Protein (6.4-8.2) gm/dl Albumin (3.4-5.0) gm/dl Globulin (2.5-4.0) gm/dl Albumin/Globulin Ratio (0.9-2) TSH (0.300-4.500) uIu/ml Urine Color Urine Appearance (Clear) Urine pH (4.5-7.5) Ur Specific Hatch (1.000-1.030) Urine Protein (Negative) Urine Glucose (UA) (Negative) Urine Ketones (Negative) Urine Blood (Negative) Urine Nitrite (Negative) Urine Bilirubin (Negative) Urine Urobilinogen (Negative) Ur Leukocyte Esterase (Negative) Salicylates (2.8-20) mg/dl Urine Opiates Screen (Neg) Ur Methadone, Qual (Neg) Acetaminophen (10-30) ug/ml Urine Barbiturates (Neg) Ur Phencyclidine (PCP) (Neg) U Amphetamin/Meth Scrn (Neg) MDMA (Ecstasy) Screen (Neg) U Benzodiazepines Scrn (Neg) Ur Cocaine Metabolite (Neg) U Marijuana (THC) Screen (Neg) Ethyl Alcohol mg/dL (0-3) mg/dl Administered Medications Discontinued Medications Dextrose (D10w) Confirm Administered Dose 1,000 ml IV .STK-MED ONE Stop: 10/22/19 17:20 Last Admin: 10/22/19 17:29 Dose: Not Given Documented by: [id number] Diphtheria/Pertussis/Tetanus Vacc (Adacel) 0.5 ml IM .ONCE ONE Stop: 10/22/19 16:42 Last Admin: 10/22/19 17:37 Dose: 0.5 ml Documented by: [id number] Glucagon (Glucagen) 1 mg IM NOW STA Stop: 10/22/19 17:04 Last Admin: 10/22/19 17:08 Dose: 1 mg Documented by: [id number] Glucagon (Glucagen) Confirm Administered Dose 1 mg .ROUTE .STK-MED ONE Stop: 10/22/19 17:05 Last Admin: 10/22/19 17:09 Dose: Not Given Documented by: [id number] Glucose (Glucose 40%) Confirm Administered Dose 15 gm PO .STK-MED ONE Stop: 10/22/19 16:47 Last Admin: 10/22/19 16:55 Dose: 15 gm Documented by: [id number] Glucose (Glucose 40%) 15 gm PO NOW STA Stop: 10/22/19 16:59 Last Admin: 10/22/19 17:09 Dose: Not Given Documented by: [id number] Dextrose (D10w) 250 mls @ 250 mls/hr IV .Q1H ONE Stop: 10/22/19 18:23 Last Infusion: 10/22/19 17:45 Dose: 0 mls/hr Documented by: [id number] Admin: 10/22/19 17:25 Dose: 250 mls/hr Documented by: [id number] Lidocaine (Let Gel 4%/1:100/0.5%) 1 ea EXT NOW STA Stop: 10/22/19 15:38 Last Admin: 10/22/19 15:49 Dose: 1 ea Documented by: [id number] Discharge Plan Visit Data Chief Complaint: Mental Health Evaluation Stated Complaint: MHID, L HAND INJURY ED Provider: Arya Madison Discharge Problem: Hypoglycemia due to type 2 diabetes mellitus, Schizophrenia, paranoid, chronic, Delusion, Laceration of left hand, Hypoglycemia Discharge Instructions Krayudy/Other Patient Handouts: Diphtheria/Tetanus Toxoids Pertussis Vaccine DTP injection Forms Stand Alone Forms: Work/School Release (ED), [facility], Suicide Prevention Resources Prescriptions Prescriptions: No Action famotidine 20 mg tablet 20 mg PO BID RF: 0 hydrochlorothiazide 25 mg tablet 25 mg PO DAILY Qty: 30 RF: 2 albuterol sulfate 90 mcg/actuation HFA aerosol inhaler 2 puffs inhalation Q4H PRN (Reason: shortness of breath or wheezing) RF: 0 ipratropium-albuterol 0.5 mg-3 mg(2.5 mg base)/3 mL solution for nebulization 3 ml inhalation QID RF: 0 acetaminophen [Tylenol] 325 mg Tablet 650 mg PO Q6H PRN (Reason: pain 1-10) RF: 0 Lantus U-100 Insulin 100 unit/mL Solution 20 unit SUBCUT DAILY RF: 0 clozapine [Clozaril] 100 mg Tablet 200 mg PO HS RF: 0 magnesium hydroxide [Milk of Magnesia] 400 mg/5 mL Suspension 30 ml PO DAILY PRN (Reason: Constipation) RF: 0 amlodipine 10 mg Tablet 10 mg PO DAILY RF: 0 bisacodyl 10 mg Suppository 10 mg RI DAILY PRN (Reason: Constipation) RF: 0 Fleet Enema 19-7 gram/118 mL Enema 1 applic RI QAM PRN (Reason: Constipation) RF: 0 Glucagon Emergency Kit (human) 1 mg Recon Soln 1 dose IM DIRECTED PRN (Reason: Hypoglycemia) RF: 0 insulin lispro [Humalog U-100 Insulin] 100 unit/mL Solution 1 sliding scale dose SUBCUT ACHS RF: 0 Spiriva with HandiHaler 18 mcg Capsule, W/Inhalation Device 1 cap INHALATION DAILY RF: 0 metoprolol tartrate 100 mg tablet 150 mg PO BID RF: 0 potassium chloride 20 mEq tablet extended release 40 meq PO BID RF: 0 Referrals Referrals: [facility] [Primary Care Provider] - Discharge Problem: Laceration of left hand Qualifiers: Encounter type: initial encounter Foreign body presence: without foreign body Qualified Code(s): S61.412A - Laceration without foreign body of left hand, initial encounter
[2019-10-22 16:11] LABS: Basophils # (auto) 0.02 K/uL (0-0.2); Basophils % (auto) 0.2 %; Eosinophils # (auto) 0.23 K/uL (0-0.5); Eosinophils % (auto) 2.7 %; Hematocrit (blood only) 52.5 % (42-52); Hemoglobin 17.6 g/dL (14.0-18.0); Immature Granulocytes # (auto) 0.03 K/uL (0.00-0.02); Immature Granulocytes % (auto) 0.4 %; Lymphocytes % (auto) 34.5 %; Mean Corpuscular Hemoglobin 29.5 pg (25-34); Mean Corpuscular Hgb Conc 33.5 g/dL (32-36); Mean Corpuscular Volume 87.9 fL (80-100); Mean Platelet Volume 10.7 fL (7.4-10.4); Monocytes # (auto) 0.53 K/uL (0.11-0.59); Monocytes % (auto) 6.3 %; Neutrophils % (auto) 55.9 %; Platelet Count 192 K/uL (130-400); RDW Coefficient of Variation 13.3 % (11.5-14.5); RDW Standard Deviation 43.1 fL (36.4-46.3); Red Blood Count 5.97 M/uL (4.7-6.1); White Blood Count 8.41 K/uL (4.8-10.8)
[2019-10-22 16:29] LABS: Amphetamines+Metham, Urine Neg (Neg); Barbiturates, Urine Neg (Neg); Benzodiazepine, Urine Neg (Neg); Cocaine, Urine Neg (Neg); MDMA (Ecstacy), Urine Neg (Neg); Methadone, Urine Neg (Neg); Opiate, Urine Neg (Neg); Phencyclidine, Urine Neg (Neg)
[2019-10-22 16:39] LABS: Acetaminophen < 2 ug/ml (10-30)
[2019-10-22 16:40] LABS: Salicylate < 1.7 mg/dl (2.8-20)
[2019-10-22] MEDS ORDERED: DIPHTHERIA/TETANUS/PERTUSSIS 0.5 ML SYR/VIAL IM ONE (16:41)
[2019-10-22 16:44] LABS: Est GFR (African American) 90.3; Est GFR (Non-African American) 77.9; Potassium 3.2 mmol/L (3.5-5.1)
[2019-10-22 16:45] LABS: Albumin Level 3.8 gm/dl (3.4-5.0); BUN Creatinine Ratio 7.6 (10-20); Bilirubin,Total 0.7 mg/dl (0.2-1); Calcium 9.1 mg/dl (8.5-10.1); Creatinine Clr Calc Pharmacy 79.7 ml/min; Thyroid Stimulating Hormone 0.623 uIu/ml (0.300-4.500); Total Protein 7.8 gm/dl (6.4-8.2)
[2019-10-22] MEDS ORDERED: GLUCOSE 40% GEL 15 GM TUBE PO ONE (16:46)
[2019-10-22] MEDS ORDERED: GLUCOSE 40% GEL 15 GM TUBE PO STA (16:58)
[2019-10-22] MEDS ORDERED: GLUCAGON FOR INJ 1 MG VIAL IM STA (17:03)
[2019-10-22] MEDS ORDERED: GLUCAGON FOR INJ 1 MG VIAL ONE (17:04)
[2019-10-22] MEDS ORDERED: DEXTROSE 10% 1,000 ML BAG IV ONE (17:19)
[2019-10-22] MEDS ORDERED: DEXTROSE 10% 250 ML IV ONE (17:24)
--- NOTE | 2019-10-22 18:45 | History & Physical Report ---
Date of Service October 22, 2019 Assessment & Plan (1) Schizophrenia, paranoid, chronic: Pt is 59 y/o M with PMH paranoid schizophrenia, COPD, pulmonary sarcoidosis, insulin dependent diabetes, HTN, sleep apnea, GERD presented to ER secondary to reported increased delusions. Is reported that patient with history of delusions with demons at baseline. 3 days ago staff at [facility] noted patient to be staring into light to "try to read his eyes of demons". Staff report today patient slammed left hand in window causing laceration as pt reported that demons pulled his hand into window. In ER pt cooperative. Denies suicidal or homicidal ideations -one to one observation -continue clozaril -psych consult (2) Hypoglycemia: (3) Diabetes mellitus, type 2: In ER patient became lethargic was found to have a BSG of 26. He was given 15 g glucose, 1 mg glucagon and 250 mL D10W with BSG up to 118 after 1 hour. Patient ate dinner and repeat BSG 204. Pt alert and cooperative. Spoke with [facility]. Pt had Lantus 30 units this am, Humalog 12 units at 7am, and 14 units at 11 am. (Verified pt's insulin regimen) A1c: 6.8 in 07/2018 -Hold home insulin for now -Novolog sliding scale with loose coverage for now, may need to further adjust -Monitor BSGs -A1c in am (4) Laceration of left hand: In ER patient had left middle finger laceration repaired and received Tdap vaccine. (5) Hypokalemia: K: 3.2 -Continue oral potassium supplement (6) Hypertension: -Continue amlodipine, metoprolol, HCTZ (7) COPD (chronic obstructive pulmonary disease): No signs acute exacerbation -Continue home inhalers and duonebs -Continue 1L oxygen with activity. Goal pulse ox 88-92% (8) ANT on CPAP: -CPAP HS DVT Prophylaxis -SCDs Full Code as per discussion with pt Follows with at [facility] for routine care Pt was seen and care coordinated with Dr Lewis. See addendum History of Present Illness Chief Complaint: Left hand injury secondary to delusions Primary Care Provider: [facility] Pt is 59 y/o M with PMH paranoid schizophrenia, COPD, pulmonary sarcoidosis, insulin dependent diabetes, HTN, sleep apnea, GERD presented to ER secondary to reported increased delusions. Is reported that patient with history of delusions with demons at baseline. 3 days ago staff at [facility] noted patient to be staring into light to "try to read his eyes of demaiyana". Staff report today patient slammed left hand in window causing laceration. Patient states demaiyana pulled his hand into window was trying to get spirits out of his hand. Patient states spirits are always in his room. Patient denies suicidal or homicidal ideations. Pt states sometimes gets dizzy and he thinks its when his BSG is low. Patient denies any other complaints at this time. Denies fever/chills, diaphoresis, N/V/D/C, BURNS, dizziness, syncope, vision changes, neck pain, CP, SOB, orthopnea, palpitations, cough, sore throat, choking, otalgia, rhinorrhea, abdominal pain, paresthesias, weakness, extremity weakness, extremity edema, rashes, urinary symptoms. In ER patient became lethargic was found to have a BSG of 26. He was given 15 g glucose, 1 mg glucagon and 250 mL D10W with BSG up to 118. Patient ate dinner and repeat BSG 204. Pt alert and cooperative. It is reported patient ate lunch today In ER patient had left middle finger laceration repaired and received Tdap vaccine. Allergies Allergy/AdvReac Type Severity Reaction Status Date / Time No Known Allergies Allergy Verified 10/22/19 16:00 Home Medications Home Medications Medication Instructions Recorded Confirmed Type acetaminophen [Tylenol] 650 mg PO Q6H PRN 08/19/18 10/22/19 History amlodipine 10 mg PO DAILY 08/19/18 10/22/19 History bisacodyl 10 mg [place] DAILY PRN 08/19/18 10/22/19 History clozapine [Clozaril] 200 mg PO HS 08/19/18 10/22/19 History glucagon (human recombinant) 1 dose IM DIRECTED PRN 08/19/18 10/22/19 History [Glucagon Emergency Kit (human)] insulin glargine [Lantus U-100 30 unit SUBCUT DAILY 08/19/18 10/22/19 History Insulin] insulin lispro [Humalog U-100 1 sliding scale dose SUBCUT ACHS 08/19/18 10/22/19 History Insulin] magnesium hydroxide [Milk of 30 ml PO DAILY PRN 08/19/18 10/22/19 History Magnesia] sodium phosphates [Fleet Enema] 1 applic NH QAM PRN 08/19/18 10/22/19 History tiotropium bromide [Spiriva with 1 cap INHALATION DAILY 08/19/18 10/22/19 History HandiHaler] hydrochlorothiazide 25 mg tablet 25 mg PO DAILY #30 tab 02/14/19 10/22/19 Rx albuterol sulfate 90 mcg/actuation 2 puffs INHALATION Q4H PRN gm 06/12/19 10/22/19 History aerosol inhaler famotidine 20 mg tablet 20 mg PO BID 06/12/19 10/22/19 History ipratropium 0.5 mg-albuterol 3 mg 3 ml INHALATION QID ml 06/12/19 10/22/19 History (2.5 mg base)/3 mL nebulization soln insulin lispro [Humalog U-100 12 unit SUBCUT DAILY 10/22/19 10/22/19 History Insulin] insulin lispro [Humalog U-100 14 unit SUBCUT BID 10/22/19 10/22/19 History Insulin] metoprolol succinate 200 mg PO BID 10/22/19 10/22/19 History potassium chloride 40 meq PO BID 10/22/19 10/22/19 History Past Med/Surg History Medical History (Updated 10/22/19 @ 18:56 by Soraya Wild PA-C) Alcohol abuse Asthma COPD (chronic obstructive pulmonary disease) Diabetes Diabetes mellitus, type 2 Hepatitis C History of seizures Hypertension Hypokalemia Lupus Paranoid schizophrenia Peripheral vascular disease Sleep apnea Family History Denies family history of Myocardial infarction Congenital kidney disease Social History Preferred Language: Maltese Communication Ability: Effective Visual Impairment: No Limitations Mine Deputy Required: No Beliefs That Will Affect Care: None marital status: Single Current Living Situation: [facility] Current Living Situation Comment: reported living at [facility] Feels Safe at Home: Yes Safety Concerns: Feels Safe At This Time Smoking Status: Former smoker Second Hand Exposure: No ; Hx Alcohol Use: No Hx Substance Use: No Review of Systems Review of Systems: All systems reviewed & are unremarkable except as noted in HPI & below Physical Exam Physical Exam: General: no distress, overweight Head: normocephalic, atraumatic Eyes: PERRL, EOM's intact, conjunctiva non-injected, anicteric ENT: normal inspection external ears, nose, mucous membranes moist Neck: supple, trachea midline Lungs: clear, no respiratory distress, no wheezing/rhonchi/rales CV: RRR, no murmur, no pretibial edema Abd: normal BS, soft, non-tender Ext: no cyanosis, no calf tenderness Neuro: Alert, oriented to person, place, cooperative, does report sees "spirits" Skin: warm, dry; left middle finger over PIP dorsal aspect with laceration repaired with sutures without edema or bleeding/discharge Results & Data Results & Data ([facility]) Vital Signs (Past 12 Hours) Vital Signs Temp Pulse Pulse Resp BP BP Pulse Ox 10/22/19 18:21 62 18 154/97 H 94 10/22/19 15:45 36.9 C 106 H 18 165/106 H 96 Laboratory Results Short CBC 10/22/19 10/22/19 Range/Units 15:50 15:50 WBC 8.41 (4.8-10.8) K/uL Hgb 17.6 (14.0-18.0) g/dL Hct 52.5 H (42-52) % Plt Count 192 (130-400) K/uL Glucose 26 L* (70-99) mg/dl BMP 10/22/19 15:50 Sodium 139 Potassium 3.2 L Chloride 105 Carbon Dioxide 31 BUN 8 Creatinine 1.05 Glucose 26 L* Calcium 9.1 Liver Function 10/22/19 Range/Units 15:50 Total Bilirubin 0.7 (0.2-1) mg/dl AST 58 H (15-37) U/L ALT 58 (12-78) U/L Alkaline Phosphatase 114 (45-117) U/L Albumin 3.8 (3.4-5.0) gm/dl Urine 10/22/19 Range/Units 15:40 Urine Color Yellow Urine Appearance Clear (Clear) Urine pH 7.5 (4.5-7.5) Ur Specific [place] 1.007 (1.000-1.030) Urine Protein Negative (Negative) Urine Glucose (UA) Negative (Negative) Diagnostic Findings Left Hand Xray: IMPRESSION: No acute bony abnormality is identified. Supervising Physician Co-Signing Physician Notes I have seen and examined the patient and have discussed the case with the provider above. I agree with the assessment and plan as stated. 59 yo paranoid schizophrenic clearly with delusions ending in harm to himself. Finger lac is closed with sutures. He tells me that he has a tadpole in his eye that he has had there for 5 years. He also states that he feels he is not on enough insulin because he cannot obtain an erection. Blood sugar appears to have stabilized and he is eating well. He denies any symptoms at this time. Physical exam as noted above with trace edema in lower extremities bilaterally. Euvolemic. Appreciate psychiatry evaluation for delusions. One to one obs for now. Monitor blood sugar and provide insulin correction factor only for now. DO Joshua (1) Laceration of left hand Encounter type: initial encounter Foreign body presence: without foreign body Qualified Code(s): S61.412A - Laceration without foreign body of left hand, initial encounter
[2019-10-22] MEDS ORDERED: CARBOHYDRATES FOR HYPOGLYCEMIA PO PRN (19:24)
[2019-10-22] MEDS ORDERED: ACETAMINOPHEN 325 MG TAB PO PRN (19:24)
[2019-10-22] MEDS ORDERED: DEXTROSE 50% 50 ML SYRINGE IV PRN (19:24)
[2019-10-22] MEDS ORDERED: GLUCOSE 40% GEL 15 GM TUBE PO PRN (19:24)
[2019-10-22] MEDS ORDERED: GLUCAGON FOR INJ 1 MG VIAL SQ PRN (19:24)
[2019-10-22] MEDS ORDERED: GLUCOSE 10 TABS/TUBE PO PRN (19:24)
[2019-10-22] MEDS ORDERED: INFLUENZA ADMINISTRATION CHARGE ONE (19:44)
[2019-10-22] MEDS ORDERED: INFLUENZA VIRUS QUAD VACCINE 0.5 ML SYR IM ONE (19:44)
[2019-10-22] MEDS: INSULIN ASPART 100 UNITS/ML 3 ML PEN SC SCH (20:56)
[2019-10-22] MEDS: FAMOTIDINE 20 MG TAB PO SCH (20:58)
[2019-10-22] MEDS: POTASSIUM CHLORIDE 20 MEQ TABCR PO SCH (20:58)
[2019-10-22] MEDS ORDERED: cloZAPine 100 MG TAB PO SCH (21:00)
[2019-10-22] MEDS: METOPROLOL SUCC 50MG EXT REL TAB PO SCH (21:03)
[2019-10-22] MEDS: ALBUT/IPRATROP 3MG/0.5MG NEB 3 ML VIAL INH SCH (22:08)
[2019-10-23] MEDS: ALBUT/IPRATROP 3MG/0.5MG NEB 3 ML VIAL INH SCH ×4 (07:19→19:41)
[2019-10-23 07:20] LABS: Hemoglobin 17.6 g/dL (14.0-18.0); Mean Corpuscular Hemoglobin 28.8 pg (25-34); Mean Corpuscular Hgb Conc 33.2 g/dL (32-36); Mean Corpuscular Volume 86.7 fL (80-100); Mean Platelet Volume 10.7 fL (7.4-10.4); Platelet Count 173 K/uL (130-400); RDW Coefficient of Variation 13.3 % (11.5-14.5); RDW Standard Deviation 42.1 fL (36.4-46.3); Red Blood Count 6.11 M/uL (4.7-6.1); White Blood Count 7.77 K/uL (4.8-10.8)
[2019-10-23 07:46] LABS: BUN Creatinine Ratio 13.7 (10-20); Calcium 8.9 mg/dl (8.5-10.1); Creatinine Clr Calc Pharmacy 80.9 ml/min; Est GFR (African American) 93.5; Est GFR (Non-African American) 80.6; Magnesium 2.1 mg/dl (1.8-2.4); Potassium 3.3 mmol/L (3.5-5.1)
[2019-10-23 07:56] LABS: Estimated Average Glucose 114 mg/dl; Hemoglobin A1C 5.6 % (4.5-5.6)
[2019-10-23] MEDS: METOPROLOL SUCC 50MG EXT REL TAB PO SCH ×2 (08:12→20:56)
[2019-10-23] MEDS: POTASSIUM CHLORIDE 20 MEQ TABCR PO SCH ×2 (08:13→20:56)
[2019-10-23] MEDS: hydroCHLOROthiazide 25 MG TAB PO SCH (08:13)
[2019-10-23] MEDS: UMECLIDINIUM BROMIDE 62.5MCG/BLISTER 7 PUFFS/INHALER INH SCH (08:13)
[2019-10-23] MEDS: AMLODIPINE BESYLATE 5 MG TAB PO SCH (08:13)
[2019-10-23] MEDS: ENOXAPARIN INJ 40 MG/0.4 ML SYR SQ SCH (08:13)
[2019-10-23] MEDS: FAMOTIDINE 20 MG TAB PO SCH ×2 (08:14→20:56)
[2019-10-23] MEDS ORDERED: POTASSIUM CHLORIDE 20 MEQ TABCR PO STA (08:22)
[2019-10-23] MEDS: INSULIN ASPART 100 UNITS/ML 3 ML PEN SC SCH ×4 (08:26→20:59)
--- NOTE | 2019-10-23 11:13 | Psychiatric Consultation ---
Date of Consultation October 23, 2019 Impression / Recommendations Impression Dr. Loulou Mohan was directly involved in review and discussion of the patient's case and participated in medical decision making regarding treatment recommendations. RECOMMENDATIONS: 10/22 - Pt presents with primary concern for multiple left hand lacerations, hypoglycemia, and increase in psychotic behaviors beyond baseline. Pt does have numerous medical comorbidities which may be contributing to change in mental status (hypoglycemia/unstable blood glucose levels, chronic COPD, sleep apnea) - suggest ongoing management of these conditions per primary team. - In order to target increased psychotic behaviors, will increase dose of clozapine to 250mg qHS. Based on response, further titration could be considered if necessary. - Preliminary reports were obtained from [facility] - we are awaiting additional information regarding his psychiatric treatment specifically, as it is uncertain if patient is established with a psychiatrist at this time - CBC w/diff obtained at time of ED presentation - ANC = 4.70 on 10/21 (historical labs reviewed, no evidence of recent neutropenia). Kidney function wnl according to recent labs. - While it is documented that his psychotic behaviors are exacerbated beyond baseline, it is not yet clear that the level of psychosis is sufficient for criteria for involuntary psychiatric admission as patient denies SI/HI or in tentional harm to self and he is documented to be preoccupied with spirits and demons at baseline. We will attempt to gather more information from [facility] to better assess the change in patient's mental status and psychiatric condition. Risk Factors Assessment Do You Have Access To A Gun?: No Psych History Identifying Data 59-year-old male admitted medically on 10/22/2019 after presenting to the ED for medical treatment of a hand laceration. In the ED's patient's blood glucose was found to be 26 and patient was reportedly lethargic. Pt was admitted medically for further monitoring and management and psychiatric consultation, given patient's history of schizophrenia, paranoid type and reports of increased delusional thoughts and psychotic behaviors. Chief Complaint "I came here to get stitches." History of Present Illness Booker Lo is a 59-year-old male admitted medically on 10/22/2019 for monitoring and management of hypoglycemia. Pt initially presented to the ED for medical treatment of a hand laceration, reportedly sustained when a window fell onto his hand while at his residence at [facility]. Pt does have a history of schizophrenia, paranoid type and there are reports of increased psychotic and delusional behavior. While there is no documentation to suggest patient intentionally injured his hand, nursing notes from [facility] suggest the patient claimed the "demon slammed the window on his hand." While in the ED, patient's blood glucose was found to be 26 and patient was reportedly lethargic. Recommendation was for hospital admission to monitor and manage hypoglycemia and psychiatric consultation to further evaluate increased psychotic behaviors. Nursing notes from [facility] were reviewed. Events more specifically related to patient's psychiatric history include: - 10/17/2019: "found resident standing at his dresser, rubbing butter and jelly packets on his eyelids...stated "getting rid of the spirits." - 10/19/2019: "standing on the bathroom counter with his eye on the over counter light...stated that he has bad vessels in his eyes" and "burning the spirits out of his eyes." - 10/20/2019: "no dangerous behavior...talks about witches and evil spirits which is normal for this resident." - 10/21/2019: Doctor informed of "increased behaviors", order placed to consult OP psych for schizophrenia" - 10/22/2019: "VETERINARY LIVESTOCK INSPECTOR informed this RN that resident had pushed open his bedroom window and the window had come down on his left hand causing skin tears on Index finger...and ring finger..and middle finger...When asked what happened, resident stated that the demon slammed the window on his hand, he opened it back up and the demon slammed it down again. Resident is not in any distress at this time. MD is aware and gave new order to have eval done by crisis." *It is documented that Crisis requested a plan regarding patient's hand lacerations prior to conducting a field evaluation. Pt was sent to the ED for further medical treatment and psychiatric evaluation. Pt was cooperative with psychiatric evaluation. He was observed to be calmly sitting on the edge of his bed, finishing up lunch. Pt is somewhat oddly dressed, wearing aviator sunglasses and a hospital towel wrapped around his head. He is pleasant and polite during conversation. Pt states that he came to the hospital "to get stitches" as he reports a window fell on his hand. When asked about this situation, the patient states "it's that ghost, I know it's a bad spirit." Pt denies being told by a spirit to injury his hand or to open the window. He states "that lady, the nurse, came into my room and said 'boy, it's hot in here'. So I turned off the heat and opened up the window. I stuck my hand out to feel the temperature. Then that darn spirit jumped off the wall and came down and smashed the window on me." Pt does differentiate between "dark" and "light" spirits, stating that only the "dark" once would behave in this way. Pt states he has been able to see these demons and spirits "since 1998" when "a dark spirit jumped on my back. But when people come into my room they all get off me and go to the wall." Pt does state that he believes other individuals can also see these spirits, though admits "they hang out with me the most." Pt denies paranoia outside of the context of these spirits, stating "I feel safe at the clinic [[facility]], we have security at night." Pt also admits he feels safe here in the hospital as well. Pt denies any concerns related to his mood. He denies SI/HI or thoughts to harm self or others. Pt denies significant anxiety. He does admit to occasional difficulty sleeping. Pt admits that the clozapine is helpful for sleep, but that he is often awoken by nursing for blood glucose checks and states he has difficulty returning to sleep after this. Pt reports compliance with clozapine, and is uncertain of any previous medication trials. He admits that he previously had outpatient psychiatric appointments, but does not remember who he saw or how long ago these may have been. We discussed recommendation to titrate clozapine to assist with his delusional thinking, and patient verbalized he was agreeable with this plan. Pt did suggest that Valium would be a reasonable option, but was informed it would not be considered at this time. He denies other needs or concerns from our service at this time. Past Psychiatric History Current Psychiatric Diagnosis: Schizophrenia, paranoid type Outpatient Services: Uncertain - it appears clozapine is being maintained by providers at [facility], unclear if patient is following with a psychiatrist as well. Reports history of outpatient psychiatric appointments while residing at [facility]. Previous Psych Admissions: It is reported the patient was admitted at [facility] for 2.5 year - exact dates unknown. Do You Have Access To A Gun?: No History of Previous Suicide Attempt: No Past Medication Trials: Unknown Allergies Allergy/AdvReac Type Severity Reaction Status Date / Time No Known Allergies Allergy Verified 10/22/19 16:00 Home Medications Home Medications Medication Instructions Recorded Confirmed Type acetaminophen [Tylenol] 650 mg PO Q6H PRN 08/19/18 10/22/19 History amlodipine 10 mg PO DAILY 08/19/18 10/22/19 History bisacodyl 10 mg [place] DAILY PRN 08/19/18 10/22/19 History clozapine [Clozaril] 200 mg PO HS 08/19/18 10/22/19 History glucagon (human recombinant) 1 dose IM DIRECTED PRN 08/19/18 10/22/19 History [Glucagon Emergency Kit (human)] insulin glargine [Lantus U-100 30 unit SUBCUT DAILY 08/19/18 10/22/19 History Insulin] insulin lispro [Humalog U-100 1 sliding scale dose SUBCUT ACHS 08/19/18 10/22/19 History Insulin] magnesium hydroxide [Milk of 30 ml PO DAILY PRN 08/19/18 10/22/19 History Magnesia] sodium phosphates [Fleet Enema] 1 applic MI QAM PRN 08/19/18 10/22/19 History tiotropium bromide [Spiriva with 1 cap INHALATION DAILY 08/19/18 10/22/19 History HandiHaler] hydrochlorothiazide 25 mg tablet 25 mg PO DAILY #30 tab 02/14/19 10/22/19 Rx albuterol sulfate 90 mcg/actuation 2 puffs INHALATION Q4H PRN gm 06/12/19 10/22/19 History aerosol inhaler famotidine 20 mg tablet 20 mg PO BID 06/12/19 10/22/19 History ipratropium 0.5 mg-albuterol 3 mg 3 ml INHALATION QID ml 06/12/19 10/22/19 History (2.5 mg base)/3 mL nebulization soln insulin lispro [Humalog U-100 12 unit SUBCUT DAILY 10/22/19 10/22/19 History Insulin] insulin lispro [Humalog U-100 14 unit SUBCUT BID 10/22/19 10/22/19 History Insulin] metoprolol succinate 200 mg PO BID 10/22/19 10/22/19 History potassium chloride 40 meq PO BID 10/22/19 10/22/19 History Family History Pt unsure about family history of mental health conditions. Reports significant family history of drug/alcohol abuse. Denies family history of suicide attempts/completion. Substance Abuse History Patient denies tobacco use, but is a former smoker. He denies alcohol consumption. He admits to remote history of experimentation with illicit substances, but denies recent use. Personal History Living Arrangements: Personal Care Facility ([facility] - resident for over 2 years) Born In: [place], [place] Highest Grade Completed: Did Not Graduate High School (stopped schooling in 11th grade when his mother ) Marital Status: Single Number Of Children: at least 3 known children, per patient Beliefs That Will Affect Care: Spiritual History of Legal Problems: Past - reportedly was at [facility] ~1993 for theft charges. Psychological Trauma History Comment: Mother when patient was young Patient History Medical History Alcohol abuse Asthma COPD (chronic obstructive pulmonary disease) Diabetes Diabetes mellitus, type 2 Hepatitis C History of seizures Hypertension Hypokalemia Lupus Paranoid schizophrenia Peripheral vascular disease Sleep apnea Family History Denies family history of Myocardial infarction Congenital kidney disease Social History Preferred Language: Pakistani Communication Ability: Effective Visual Impairment: No Limitations Health Physics Technician Required: No Beliefs That Will Affect Care: Spiritual marital status: Single Current Living Situation: Longterm Current Living Situation Comment: reported living at [facility] Feels Safe at Home: Yes Safety Concerns: Feels Safe At This Time Smoking Status: Former smoker Second Hand Exposure: No ; Hx Alcohol Use: No Hx Substance Use: No Physical Exam Psychiatric: Orientation: alert, oriented x 3 and cooperative (and pleasant) Apperance: appropriately groomed and appeared stated age; + inappropriately dressed (oddly dressed) Obese male, seated on edge of bed in no acute distress. Pt is appropriately dressed in paper scrubs, but is oddly accessorized. Pt wearing sunglasses and has a towel wrapped around his head. Stubble on face, but otherwise appears to be appropriately groomed. Level of hygiene appears adequate. Eye Contact: + fair eye contact Motor Behavior: no abnormal motor movements (observed while sitting on edge of bed) occasionally throwing orange into the air Speech: normal rate/rhythm/volume of speech (not rapid or pressured, occasionally muffled/difficult to understand) Affect: + blunted affect (not appearing overtly depressed or fatigued) Mood: no depressed mood ("Oh, I'm fine.") Thought Process: goal directed thought process and + circumstantial thought process (frequently incorporating comments about demons and spirits) Thought Content: + preoccupation, + paranoid (believes the demons/spirits "are with me the most, I don't know why") and + delusions Suicidal Thoughts: denies suicidal thoughts, denies suicidal plan and denies suicidal intent Homicidal Thoughts: denies homicidal thoughts Hallucinations: + visual hallucinations (reports seeing demons/spirits on the moreno and on himself); no auditory hallucinations (denies that the demons/spirits command him to complete tasks or talk to him) Cognition: attention grossly intact and language grossly intact Insight: + limited insight (likely chronic ) Judgement: + limited judgement (likely chronic) Vital Signs (Past 24 Hours): Last Vital Signs Temp 36.7 C 10/23/19 11:00 Pulse 58 L 10/23/19 11:00 Resp 18 10/23/19 11:00 BP 144/91 H 10/23/19 11:00 Pulse Ox 94 10/23/19 11:00 Review of Systems Constitutional: denied Cardiovascular: denied Respiratory: denied Gastrointestinal: reports mild nausea following nebulizer treatment this afternoon Neurological: denied Musculoskeletal: reports improvement in left hand pain today Psychiatric: denies symptoms other than stated above Total of at least 10 systems reviewed, pertinent positives as above and in HPI. Results & Data (PSY) Medications Administered Albuterol (Duoneb) 3 ml INH QIDR GURVINDER Stop: 11/21/19 19:59 Last Admin: 10/23/19 07:19 Dose: 3 ml Documented by: [id number] Admin: 10/22/19 22:08 Dose: Not Given Documented by: [id number] Amlodipine Besylate (Norvasc) 10 mg PO DAILY GURVINDER Stop: 11/22/19 08:59 Last Admin: 10/23/19 08:13 Dose: 10 mg Documented by: [id number] Clozapine (Clozapine) 200 mg PO HS GURVINDER Stop: 11/21/19 20:59 Last Admin: 10/22/19 21:05 Dose: 200 mg Documented by: [id number] Enoxaparin Sodium (Lovenox) 40 mg SQ QAM GURVINDER Stop: 11/22/19 08:59 Last Admin: 10/23/19 08:13 Dose: 40 mg Documented by: [id number] Famotidine (Pepcid) 20 mg PO BID GURVINDER Stop: 11/21/19 20:59 Last Admin: 10/23/19 08:14 Dose: 20 mg Documented by: [id number] Admin: 10/22/19 20:58 Dose: 20 mg Documented by: [id number] Hydrochlorothiazide (Hctz) 25 mg PO DAILY GURVINDER Stop: 11/22/19 08:59 Last Admin: 10/23/19 08:13 Dose: 25 mg Documented by: [id number] Insulin Aspart (Novolog Flexpen) 0 units SC ACHS GURVINDER Stop: 11/21/19 20:59 Last Admin: 10/23/19 08:26 Dose: Not Given Documented by: [id number] Cosigned by: [id number] Admin: 10/22/19 20:56 Dose: 5 units Documented by: [id number] Cosigned by: [id number] Metoprolol Succinate (Toprol Xl) 200 mg PO BID GURVINDER Stop: 11/21/19 20:59 Last Admin: 10/23/19 08:12 Dose: 200 mg Documented by: [id number] Admin: 10/22/19 21:03 Dose: 200 mg Documented by: [id number] Potassium Chloride (Klor-Con M20) 40 meq PO BID GURVINDER Stop: 11/21/19 20:59 Last Admin: 10/23/19 08:13 Dose: 40 meq Documented by: [id number] Admin: 10/22/19 20:58 Dose: 40 meq Documented by: [id number] Umeclidinium [place] (Incruse Ellipta) 1 puffs INH DAILY GURVINDER Stop: 11/22/19 08:59 Last Admin: 10/23/19 08:13 Dose: 1 puffs Documented by: [id number] Coding Level of Care Code 49362 [facility] Intl Hosp Care l 3
--- NOTE | 2019-10-23 16:42 | Hospitalist Progress Note ---
Date of Service October 23, 2019 Assessment & Plan (1) Schizophrenia, paranoid, chronic: Present to the ER after having delusion with demons and spirit that led to L hand laceration after slamming with the window to release the spirit Psych on board No plan for inpatient psych therapy since pt denies any intentional harm to self or suicidal ideation Clozapine increased to 250mg qHS. Continue 1 to 1 observation Continue monitor closeley (2) Hypoglycemia: BS on admission dropped to 26 Received glucose 15g and D10W Pt said that he had a low appetite Continue Lantus with sliding scale Continue monitor BS (3) Diabetes mellitus, type 2: Had an episode of hypoglycemia prior to admission Most recent Hba1c 5.6 Continue Lantus sliding scale Monitor BS (4) Laceration of left hand: In ER patient had left middle finger laceration repaired and received Tdap vaccine. Stable (5) Hypokalemia: K: 3.2 this morning Continue oral potassium supplement Monitor BMP (6) Hypertension: Continue amlodipine, metoprolol, HCTZ (7) COPD (chronic obstructive pulmonary disease): No signs acute exacerbation Continue home inhaler and neb treatment Continue oxygen supplement with exertion (8) ANT on CPAP: CPAP HS DVT Prophylaxis SCDs Full Code Admission and Anticipated Discharge Date Admission Date: October 22, 2019 Subjective Pt was seen and examined Sitting in bed with no distress with 1 to 1 sitter Pt said that pain from the hand laceration improves Pt said that the spirit is everywhere He said that he does not hear any voice Denies any chest pain, palpitation, dizziness, SOB, hallucination and suicidal thought Physical Exam Physical Exam: General- No acute distress Head- atraumatic Eyes- PERRL, EOMI, ENT- oropharynx clear Neck- supple, no JVD Lungs- clear to auscultation Heart- regular rhythm; no murmur Abdomen- normal bowel sounds, soft, nontender Extremities- no calf tenderness Neuro- alert, oriented, PERRL, EOMI; no facial palsy; no dysarthria Skin- warm & dry Results & Data Results & Data ([facility]) Vital Signs (Past 12 Hours) Vital Signs Temp Pulse Pulse Pulse Resp BP BP 10/23/19 15:30 61 18 10/23/19 15:07 56 L 18 157/81 H 10/23/19 11:23 57 L 14 10/23/19 11:00 36.7 C 58 L 18 144/91 H 10/23/19 10:17 61 10/23/19 08:10 62 10/23/19 07:22 57 L 18 10/23/19 07:00 36.5 C 58 L 18 152/91 H Pulse Ox 10/23/19 15:30 94 10/23/19 15:07 95 10/23/19 11:23 96 10/23/19 11:00 94 10/23/19 10:17 10/23/19 08:10 10/23/19 07:22 95 10/23/19 07:00 91 (1) Laceration of left hand Encounter type: initial encounter Foreign body presence: without foreign body Qualified Code(s): S61.412A - Laceration without foreign body of left hand, initial encounter
[2019-10-23] MEDS: cloZAPine 100 MG TAB PO SCH (20:56)
[2019-10-23] MEDS: cloZAPine 25 MG TAB PO SCH (20:56)
[2019-10-24 07:25] LABS: Hematocrit (blood only) 49.3 % (42-52); Hemoglobin 16.1 g/dL (14.0-18.0); Mean Corpuscular Hemoglobin 28.2 pg (25-34); Mean Corpuscular Hgb Conc 32.7 g/dL (32-36); Mean Corpuscular Volume 86.3 fL (80-100); Mean Platelet Volume 11.2 fL (7.4-10.4); Platelet Count 170 K/uL (130-400); RDW Coefficient of Variation 13.2 % (11.5-14.5); RDW Standard Deviation 41.9 fL (36.4-46.3); Red Blood Count 5.71 M/uL (4.7-6.1); White Blood Count 5.96 K/uL (4.8-10.8)
[2019-10-24] MEDS: ALBUT/IPRATROP 3MG/0.5MG NEB 3 ML VIAL INH SCH ×4 (07:25→18:45)
[2019-10-24 07:37] LABS: BUN Creatinine Ratio 13.8 (10-20); Calcium 8.7 mg/dl (8.5-10.1); Est GFR (African American) 81.7; Est GFR (Non-African American) 70.5; Potassium 3.1 mmol/L (3.5-5.1)
[2019-10-24] MEDS: UMECLIDINIUM BROMIDE 62.5MCG/BLISTER 7 PUFFS/INHALER INH SCH (08:31)
[2019-10-24] MEDS: FAMOTIDINE 20 MG TAB PO SCH ×2 (08:31→20:59)
[2019-10-24] MEDS: METOPROLOL SUCC 50MG EXT REL TAB PO SCH ×2 (08:31→21:00)
[2019-10-24] MEDS: AMLODIPINE BESYLATE 5 MG TAB PO SCH (08:32)
[2019-10-24] MEDS: hydroCHLOROthiazide 25 MG TAB PO SCH (08:32)
[2019-10-24] MEDS: POTASSIUM CHLORIDE 20 MEQ TABCR PO SCH ×2 (08:32→20:59)
[2019-10-24] MEDS: ENOXAPARIN INJ 40 MG/0.4 ML SYR SQ SCH (08:33)
[2019-10-24] MEDS: INSULIN ASPART 100 UNITS/ML 3 ML PEN SC SCH ×4 (08:35→21:24)
[2019-10-24] MEDS ORDERED: POTASSIUM CHLORIDE 20 MEQ TABCR PO STA (08:43)
--- NOTE | 2019-10-24 11:55 | Psychiatric Progress Note ---
Date of Service October 24, 2019 Impression / Recommendations Impression Supervising psychiatrist was directly involved in review and discussion of the patient's case and participated in medical decision making regarding treatment recommendations. RECOMMENDATIONS: 10/22 - Pt presents with primary concern for multiple left hand lacerations, hypoglycemia, and increase in psychotic behaviors beyond baseline. Pt does have numerous medical comorbidities which may be contributing to change in mental status (hypoglycemia/unstable blood glucose levels, chronic COPD, sleep apnea) - suggest ongoing management of these conditions per primary team. - In order to target increased psychotic behaviors, will increase dose of clozapine to 250mg qHS. Based on response, further titration could be considered if necessary. - Preliminary reports were obtained from [facility] - we are awaiting additional information regarding his psychiatric treatment specifically, as it is uncertain if patient is established with a psychiatrist at this time - CBC w/diff obtained at time of ED presentation - ANC = 4.70 on 10/21 (historical labs reviewed, no evidence of recent neutropenia). Kidney function wnl according to recent labs. - While it is documented that his psychotic behaviors are exacerbated beyond baseline, it is not yet clear that the level of psychosis is sufficient for criteria for involuntary psychiatric admission as patient denies SI/HI or intentional harm to self and he is documented to be preoccupied with spirits and demons at baseline. We will attempt to gather more information from [facility] to better assess the change in patient's mental status and psychiatric condition. 10/23 - Maintain current treatment recommendations - patient tolerated titration of clozapine to 250mg qHS. There is certainly room to continue titration as indicated; however, patient is reported to be in good behavioral control and not demonstrating active response to hallucinations or other safety concerns. - Liaison was able to confirm psychiatric appointment with Dr. Britt at [facility] on 10/27/2019 at 1500. Pt had been seen at the [place] office of [facility] and will continue with Dr. Britt a the [facility] office after discharge. - Change in clozapine dosing should be communicated to Carlito at [facility] to ensure they are aware of adjustments. - Appreciate the opportunity to participate in the care of this patient. Please reach out to our service with any additional questions or updates. - At this particular time, there continues to be no acute criteria for inpatient psychiatric hospitalization Risk Factors Assessment Do You Have Access To A [employer]?: No Interval History Identifying Information 59-year-old male admitted medically on 10/22/2019 after presenting to the ED for medical treatment of a hand laceration. In the ED's patient's blood glucose was found to be 26 and patient was reportedly lethargic. Pt was admitted medically for further monitoring and management and psychiatric consultation, given patient's history of schizophrenia, paranoid type and reports of increased delusional thoughts and psychotic behaviors. Initial consult completed on 10/23/2019 - seen today for follow-up visit. Chief Complaint "Fine, fine." Review of Systems Notes Constitutional: reports improved sleep last evening, stating "can't complain, no problems" Cardiovascular: denied Respiratory: denied Gastrointestinal: denied Neurological: denied Psychiatric: denies symptoms other than stated above Total of at least 10 systems reviewed, pertinent positives as above and in HPI. Subjective Subjective Patient's case was reviewed and discussed during morning report with psychiatric nurse liaison and supervising psychiatrist. Nursing documentation and progress notes were reviewed. No reports of behavioral concerns over night. Pt was seen today to assess progress since admission. Pt states he is "fine, fine." He slept well last evening per his report and denies any side effects related to clozapine dosing being increased to 250mg last evening. Pt's only complaint is "there's not enough food", but otherwise he feels safe here in the hospital. Pt admits that he is seeing spirits "on that wall over there, but I can't see them too good." He states that the spirits do not speak to him and that he is not distressed by them. EDI COORDINATOR performing 1:1 observation states patient has been pleasant and cooperative all morning. Pt was informed of scheduled appointment with Dr. Britt at [facility] on 10/27/2019 and is agreeable with following with a psychiatrist after discharge. Pt denies other needs or concerns today. Physical Exam Psychiatric Orientation: alert, oriented x 3 and cooperative (and pleasant ) Apperance: appropriately dressed (wearing paper scrubs; has a towel convering his head/hair), appropriately groomed and appeared stated age Eye Contact: good eye contact (not wearing sunglasses today) Motor Behavior: steady gait and station and no abnormal motor movements Speech: normal rate/rhythm/volume of speech Affect: euthymic affect and mood congruent with affect Mood: no depressed mood ("fine, fine") and no anxious mood Thought Process: goal directed thought process and + circumstantial thought process Thought Content: + delusions; not paranoid (reports feeling safe both in the hospital and at [facility] ) and no hopelessness Suicidal Thoughts: denies suicidal thoughts and denies suicidal intent Homicidal Thoughts: denies homicidal thoughts Hallucinations: + visual hallucinations ("the spirits on the wall over there, but I can't see them too good"); no auditory hallucinations Cognition: attention grossly intact and language grossly intact Insight: + fair insight (relating to current treatment, though likely limited overall) Judgement: + fair judgement (relating to current treatment, though likely limited overall) Vital Signs (Past 24 Hours) Last Vital Signs Temp 36.4 C L 10/24/19 07:00 Pulse 68 10/24/19 11:29 Resp 20 10/24/19 11:29 BP 138/89 10/24/19 07:00 Pulse Ox 95 10/24/19 11:29 Results & Data ([facility]) Laboratory Results Laboratory Results - last 24 hr 10/23/19 10/23/19 10/24/19 16:39 20:41 07:05 WBC 5.96 RBC 5.71 Hgb 16.1 Hct 49.3 MCV 86.3 MCH 28.2 MCHC 32.7 RDW Std Deviation 41.9 RDW Coeff of Marta 13.2 Plt Count 170 MPV 11.2 H Sodium Potassium Chloride Carbon Dioxide Anion Gap BUN Creatinine Est Cr Clr Drug Dosing Est GFR ( Amer) Est GFR (Non-Af Amer) BUN/Creatinine Ratio Glucose POC Glucose 94 116 H Calcium 10/24/19 10/24/19 10/24/19 07:05 07:51 11:35 WBC RBC Hgb Hct MCV MCH MCHC RDW Std Deviation RDW Coeff of Marta Plt Count MPV Sodium 138 Potassium 3.1 L Chloride 104 Carbon Dioxide 31 Anion Gap 3.0 BUN 16 Creatinine 1.14 Est Cr Clr Drug Dosing 74.0 Est GFR ( Amer) 81.7 Est GFR (Non-Af Amer) 70.5 BUN/Creatinine Ratio 13.8 Glucose 113 H POC Glucose 100 H 129 H Calcium 8.7 Current Inpatient Medications Current Inpatient Medications: Current Inpatient Medications Acetaminophen (Tylenol) 650 mg PO Q4H PRN PRN Reason: Pain or Fever Stop: 11/21/19 19:23 Albuterol (Duoneb) 3 ml INH QIDR [facility] Stop: 11/21/19 19:59 Last Admin: 10/24/19 11:27 Dose: 3 ml Documented by: Amlodipine Besylate (Norvasc) 10 mg PO DAILY [facility] Stop: 11/22/19 08:59 Last Admin: 10/24/19 08:32 Dose: 10 mg Documented by: Clozapine (Clozaril) 50 mg PO HS [facility] Stop: 11/22/19 20:59 Last Admin: 10/23/19 20:56 Dose: 50 mg Documented by: Clozapine (Clozapine) 200 mg PO HS [facility] Stop: 11/22/19 20:59 Last Admin: 10/23/19 20:56 Dose: 200 mg Documented by: Dextrose (Dextrose 50%) 25 - 50 ml IV UD PRN; Protocol PRN Reason: Hypoglycemia Protocol Stop: 11/21/19 19:23 Enoxaparin Sodium (Lovenox) 40 mg SQ QAM [facility] Stop: 11/22/19 08:59 Last Admin: 10/24/19 08:33 Dose: 40 mg Documented by: Famotidine (Pepcid) 20 mg PO BID [facility] Stop: 11/21/19 20:59 Last Admin: 10/24/19 08:31 Dose: 20 mg Documented by: Glucagon (Glucagen) 1 mg SQ UD PRN; Protocol PRN Reason: Hypoglycemia Protocol Stop: 11/21/19 19:23 Glucose (Dex4 Glucose) 4 - 8 tabs PO UD PRN; Protocol PRN Reason: Hypoglycemia Protocol Stop: 11/21/19 19:23 Glucose (Glucose 40%) 15 - 30 gm PO UD PRN; Protocol PRN Reason: Hypoglycemia Protocol Stop: 11/21/19 19:23 Hydrochlorothiazide (Hctz) 25 mg PO DAILY [facility] Stop: 11/22/19 08:59 Last Admin: 10/24/19 08:32 Dose: 25 mg Documented by: Insulin Aspart (Novolog Flexpen) 0 units SC ACHS [facility] Stop: 11/21/19 20:59 Last Admin: 10/24/19 08:35 Dose: Not Given Documented by: Metoprolol Succinate (Toprol Xl) 200 mg PO BID [facility] Stop: 05/22/20 20:59 Last Admin: 10/24/19 08:31 Dose: 200 mg Documented by: Miscellaneous (Carbohydrates For Hypoglycemia) 15 - 30 gm PO UD PRN PRN Reason: Hypoglycemia Protocol Stop: 11/21/19 19:23 Potassium Chloride (Klor-Con M20) 40 meq PO BID [facility] Stop: 11/21/19 20:59 Last Admin: 10/24/19 08:32 Dose: 40 meq Documented by: Umeclidinium [place] (Incruse Ellipta) 1 puffs INH DAILY [facility] Stop: 11/22/19 08:59 Last Admin: 10/24/19 08:31 Dose: 1 puffs Documented by: Post Discharge Appointments Primary Care Physician Name Of Family Doctor: Jorgito Wilson Date of Appointment with PCP: 10/27/19 Time of Appointment with PCP: 1500 Primary Care Release of Information: Obtained, Reviewed and Signed
--- NOTE | 2019-10-24 17:54 | Hospitalist Progress Note ---
Date of Service October 24, 2019 Assessment & Plan (1) Schizophrenia, paranoid, chronic: Present to the ER after having delusion with demons and spirit that led to L hand laceration after slamming with the window to release the spirit Psych on board No plan for inpatient psych therapy since pt denies any intentional harm to self or suicidal ideation Continue Clozapine 250mg qHS, tolerated well case discussed with Psych Clozapine can be increased to 300mg if needed Discontinued 1 to 1 observation Follow up appointment with psych Dr. Britt at [facility] on 10/27/2019 at 1500. Continue monitor (2) Hypoglycemia: BS on admission dropped to 26 Received glucose 15g and D10W Pt said that he had a low appetite Continue Lantus with sliding scale Continue monitor BS (3) Diabetes mellitus, type 2: Had an episode of hypoglycemia prior to admission Most recent Hba1c 5.6 Continue Lantus sliding scale Monitor BS (4) Laceration of left hand: In ER patient had left middle finger laceration repaired and received Tdap vaccine. Stable (5) Hypokalemia: K: 3.1 today Continue oral potassium supplement Monitor BMP (6) Hypertension: Continue amlodipine, metoprolol, HCTZ (7) COPD (chronic obstructive pulmonary disease): No signs acute exacerbation Continue home inhaler and neb treatment Continue oxygen supplement with exertion (8) ANT on CPAP: CPAP HS DVT Prophylaxis SCDs Full Code Disposition [facility] will accept him after he is off 1:1 x 48 hours Admission and Anticipated Discharge Date Admission Date: October 22, 2019 Subjective Pt was seen and examined Sitting at the edge of the bed with no distress On 1 to one observation Staff said that he has been well behave He said that he did not see the spirit in his home today He said that he left the spirit at the other place Denies any hallucination or hearing voice, no suicidal thought Physical Exam Physical Exam: General- No acute distress Head- atraumatic Eyes- PERRL, EOMI, ENT- oropharynx clear Neck- supple, no JVD Lungs- clear to auscultation Heart- regular rhythm; no murmur Abdomen- normal bowel sounds, soft, nontender Extremities- no calf tenderness Neuro- alert, oriented, PERRL, EOMI; no facial palsy; no dysarthria Skin- warm & dry Results & Data Results & Data ([facility]) Vital Signs (Past 12 Hours) Vital Signs Temp Pulse Pulse Pulse Resp BP BP 10/24/19 14:56 36.3 C L 70 18 150/97 H 10/24/19 14:31 72 18 10/24/19 11:29 68 20 10/24/19 11:11 62 10/24/19 08:00 66 10/24/19 07:29 58 L 20 10/24/19 07:00 36.4 C L 60 20 138/89 Pulse Ox 10/24/19 14:56 95 10/24/19 14:31 96 10/24/19 11:29 95 10/24/19 11:11 10/24/19 08:00 10/24/19 07:29 97 10/24/19 07:00 93 (1) Laceration of left hand Encounter type: initial encounter Foreign body presence: without foreign body Qualified Code(s): S61.412A - Laceration without foreign body of left hand, initial encounter
[2019-10-24] MEDS: cloZAPine 25 MG TAB PO SCH (21:00)
[2019-10-24] MEDS: cloZAPine 100 MG TAB PO SCH (21:00)
[2019-10-25] MEDS: ALBUT/IPRATROP 3MG/0.5MG NEB 3 ML VIAL INH SCH ×4 (06:52→19:23)
[2019-10-25 07:05] LABS: BUN Creatinine Ratio 14.3 (10-20); Calcium 8.3 mg/dl (8.5-10.1); Creatinine Clr Calc Pharmacy 80.5 ml/min; Est GFR (African American) 91.3; Est GFR (Non-African American) 78.8; Potassium 3.5 mmol/L (3.5-5.1)
[2019-10-25] MEDS: POTASSIUM CHLORIDE 20 MEQ TABCR PO SCH ×2 (08:47→21:25)
[2019-10-25] MEDS: METOPROLOL SUCC 50MG EXT REL TAB PO SCH ×2 (08:47→21:25)
[2019-10-25] MEDS: ENOXAPARIN INJ 40 MG/0.4 ML SYR SQ SCH (08:48)
[2019-10-25] MEDS: hydroCHLOROthiazide 25 MG TAB PO SCH (08:48)
[2019-10-25] MEDS: FAMOTIDINE 20 MG TAB PO SCH ×2 (08:48→21:25)
[2019-10-25] MEDS: AMLODIPINE BESYLATE 5 MG TAB PO SCH (08:48)
[2019-10-25] MEDS: UMECLIDINIUM BROMIDE 62.5MCG/BLISTER 7 PUFFS/INHALER INH SCH (08:49)
[2019-10-25] MEDS: INSULIN ASPART 100 UNITS/ML 3 ML PEN SC SCH ×4 (09:01→21:30)
--- NOTE | 2019-10-25 16:48 | Hospitalist Progress Note ---
Date of Service October 25, 2019 Assessment & Plan (1) Schizophrenia, paranoid, chronic: Present to the ER after having delusion with demons and spirit that led to L hand laceration after slamming with the window to release the spirit Psych on board No plan for inpatient psych therapy since pt denies any intentional harm to self or suicidal ideation Continue Clozapine 250mg qHS, tolerated well case discussed with Psych Clozapine can be increased to 300mg if needed Has been off 1 to 1 since 10/23 Follow up appointment with psych Dr. Britt at [facility] on 10/27/2019 at 1500. No abnormal behavior or agitation (2) Hypoglycemia: BS on admission dropped to 26 Received glucose 15g and D10W Pt said that he had a low appetite Continue Lantus with sliding scale Continue monitor BS (3) Diabetes mellitus, type 2: Had an episode of hypoglycemia prior to admission Most recent Hba1c 5.6 Continue Lantus sliding scale Monitor BS (4) Laceration of left hand: In ER patient had left middle finger laceration repaired and received Tdap vaccine. Stable (5) Hypokalemia: K: 3.5 today Continue oral potassium supplement Monitor BMP (6) Hypertension: Continue amlodipine, metoprolol, HCTZ (7) COPD (chronic obstructive pulmonary disease): No signs acute exacerbation Continue home inhaler and neb treatment Continue oxygen supplement with exertion (8) ANT on CPAP: CPAP HS DVT Prophylaxis SCDs Full Code Disposition [facility] will accept him after he is off 1:1 x 48 hours Possible discharge tomorrow Admission and Anticipated Discharge Date Admission Date: October 25, 2019 Subjective Pt was seen and examined Lying in bed with no distress He has been sleeping mostly today Denies any chest pain, palpitation, dizziness, hallucination and suicidal thoughts Physical Exam Physical Exam: General- No acute distress Head- atraumatic Eyes- PERRL, EOMI, ENT- oropharynx clear Neck- supple, no JVD Lungs- clear to auscultation Heart- regular rhythm; no murmur Abdomen- normal bowel sounds, soft, nontender Extremities- no calf tenderness Neuro- alert, oriented, PERRL, EOMI; no facial palsy; no dysarthria Skin- warm & dry Results & Data Results & Data ([facility]) Vital Signs (Past 12 Hours) Vital Signs Temp Pulse Pulse Pulse Resp BP BP 10/25/19 15:45 71 10/25/19 15:42 67 18 10/25/19 14:57 37.0 C 69 20 137/81 10/25/19 11:19 36.5 C 63 20 156/102 H 10/25/19 11:13 71 20 10/25/19 10:30 60 10/25/19 07:28 36.3 C L 61 20 165/99 H 10/25/19 06:54 64 16 Pulse Ox 10/25/19 15:45 10/25/19 15:42 96 10/25/19 14:57 95 10/25/19 11:19 94 10/25/19 11:13 93 10/25/19 10:30 10/25/19 07:28 93 10/25/19 06:54 92 (1) Laceration of left hand Encounter type: initial encounter Foreign body presence: without foreign body Qualified Code(s): S61.412A - Laceration without foreign body of left hand, initial encounter
[2019-10-25] MEDS: cloZAPine 100 MG TAB PO SCH (21:24)
[2019-10-25] MEDS: cloZAPine 25 MG TAB PO SCH (21:25)
[2019-10-26] MEDS: ALBUT/IPRATROP 3MG/0.5MG NEB 3 ML VIAL INH SCH ×2 (07:01→11:31)
[2019-10-26] MEDS: INSULIN ASPART 100 UNITS/ML 3 ML PEN SC SCH ×2 (10:20→12:28)
[2019-10-26] MEDS: UMECLIDINIUM BROMIDE 62.5MCG/BLISTER 7 PUFFS/INHALER INH SCH (10:21)
[2019-10-26] MEDS: hydroCHLOROthiazide 25 MG TAB PO SCH (10:21)
[2019-10-26] MEDS: AMLODIPINE BESYLATE 5 MG TAB PO SCH (10:22)
[2019-10-26] MEDS: ENOXAPARIN INJ 40 MG/0.4 ML SYR SQ SCH (10:22)
[2019-10-26] MEDS: POTASSIUM CHLORIDE 20 MEQ TABCR PO SCH (10:22)
[2019-10-26] MEDS: FAMOTIDINE 20 MG TAB PO SCH (10:23)
[2019-10-26] MEDS: METOPROLOL SUCC 50MG EXT REL TAB PO SCH (10:31)
--- NOTE | 2019-10-26 12:10 | Hospitalist Progress Note ---
Date of Service October 26, 2019 Assessment & Plan (1) Schizophrenia, paranoid, chronic: Present to the ER after having delusion with demons and spirit that led to L hand laceration after slamming with the window to release the spirit Psych on board No plan for inpatient psych therapy since pt denies any intentional harm to self or suicidal ideation Continue Clozapine 250mg qHS, tolerated well case discussed with Psych Clozapine can be increased to 300mg if needed as per psych Has been off 1 to 1 since 10/23 Follow up appointment with psych Dr. Britt at [facility] on 10/27/2019 at 1500. No abnormal behavior or agitation (2) Hypoglycemia: BS on admission dropped to 26 Received glucose 15g and D10W Pt said that he had a low appetite Continue Lantus with sliding scale He has been getting novolog 7 units only on average daily with no basal insulin Outpatient dose lantus 30units and with schedule humalog dose Will decrease his lantus to 5 units only for now Continue monitor BS (3) Diabetes mellitus, type 2: Had an episode of hypoglycemia prior to admission Most recent Hba1c 5.6 Continue Lantus sliding scale Will discharge on lantus 5 units for now with humalog sliding scale Continue monitor blood sugar closely and titrate lantus if needed (4) Laceration of left hand: In ER patient had left middle finger laceration repaired and received Tdap vaccine. Bacitracin can apply prn BID Stitches can be removed in the next 2-3 days Stable (5) Hypokalemia: K: 3.5 today Continue oral potassium supplement Monitor BMP (6) Hypertension: Continue amlodipine, metoprolol, HCTZ (7) COPD (chronic obstructive pulmonary disease): No signs acute exacerbation Continue home inhaler and neb treatment Continue oxygen supplement with exertion (8) ANT on CPAP: CPAP HS DVT Prophylaxis SCDs Full Code Disposition Discharge home today Follow up appointment with psych Dr. Britt at [facility] on 10/27/2019 at 1500. Admission and Anticipated Discharge Date Admission Date: October 25, 2019 Subjective Pt was seen and examined. Sitting in bed with no distress Pt said that the spirit is not in the room currently, usually left when someone enters the room He has been off 1 to 1 for about 48hrs He said that he does not hear any voice Denies any chest pain, palpitation, dizziness, hallucination and suicidal thoughts. Physical Exam Physical Exam: General- No acute distress Head- atraumatic Eyes- PERRL, EOMI, ENT- oropharynx clear Neck- supple, no JVD Lungs- clear to auscultation Heart- regular rhythm; no murmur Abdomen- normal bowel sounds, soft, nontender Extremities- no calf tenderness, left dorsal middle finger with stitches at the PIP joint Neuro- alert, oriented, PERRL, EOMI; no facial palsy; no dysarthria Skin- warm & dry Results & Data Results & Data ([facility]) Vital Signs (Past 12 Hours) Vital Signs Temp Pulse Pulse Pulse Resp BP BP 10/26/19 10:30 64 117/84 10/26/19 08:00 59 L 10/26/19 07:37 58 L 18 129/84 10/26/19 07:01 58 L 18 10/26/19 03:39 36.8 C 57 L 18 138/89 10/26/19 01:03 60 Pulse Ox 10/26/19 10:30 10/26/19 08:00 10/26/19 07:37 98 10/26/19 07:01 95 10/26/19 03:39 92 10/26/19 01:03 (1) Laceration of left hand Encounter type: initial encounter Foreign body presence: without foreign body Qualified Code(s): S61.412A - Laceration without foreign body of left hand, initial encounter
--- NOTE | 2019-10-26 17:43 | Discharge Summary ---
Date of Service October 26, 2019 Admission HPI Per Admitting Provider Pt is 59 y/o M with PMH paranoid schizophrenia, COPD, pulmonary sarcoidosis, insulin dependent diabetes, HTN, sleep apnea, GERD presented to ER secondary to reported increased delusions. Is reported that patient with history of delusions with demons at baseline. 3 days ago staff at [facility] noted patient to be staring into light to "try to read his eyes of demaiyana". Staff report today patient slammed left hand in window causing laceration. Patient states demaiyana pulled his hand into window was trying to get spirits out of his hand. Patient states spirits are always in his room. Patient denies suicidal or h omicidal ideations. Pt states sometimes gets dizzy and he thinks its when his BSG is low. Patient denies any other complaints at this time. Denies fever/chills, diaphoresis, N/V/D/C, BURNS, dizziness, syncope, vision changes, neck pain, CP, SOB, orthopnea, palpitations, cough, sore throat, choking, otalgia, rhinorrhea, abdominal pain, paresthesias, weakness, extremity weakness, extremity edema, rashes, urinary symptoms. In ER patient became lethargic was found to have a BSG of 26. He was given 15 g glucose, 1 mg glucagon and 250 mL D10W with BSG up to 118. Patient ate dinner and repeat BSG 204. Pt alert and cooperative. It is reported patient ate lunch today In ER patient had left middle finger laceration repaired and received Tdap vaccine. Admission Exam Per Admitting Provider General: no distress, overweight Head: normocephalic, atraumatic Eyes: PERRL, EOM's intact, conjunctiva non-injected, anicteric ENT: normal inspection external ears, nose, mucous membranes moist Neck: supple, trachea midline Lungs: clear, no respiratory distress, no wheezing/rhonchi/rales CV: RRR, no murmur, no pretibial edema Abd: normal BS, soft, non-tender Ext: no cyanosis, no calf tenderness Neuro: Alert, oriented to person, place, cooperative, does report sees "spirits" Skin: warm, dry; left middle finger over PIP dorsal aspect with laceration repaired with sutures without edema or bleeding/discharge Principal Diagnosis Schizophrenia, paranoid, chronic: Hypoglycemia: Diabetes mellitus, type 2: Laceration of left hand: Hypokalemia: Hypertension: COPD (chronic obstructive pulmonary disease): ANT on CPAP: Discharge Exam General- No acute distress Head- atraumatic Eyes- PERRL, EOMI, ENT- oropharynx clear Neck- supple, no JVD Lungs- clear to auscultation Heart- regular rhythm; no murmur Abdomen- normal bowel sounds, soft, nontender Extremities- no calf tenderness, left dorsal middle finger with stitches at the PIP joint Neuro- alert, oriented, PERRL, EOMI; no facial palsy; no dysarthria Skin- warm & dry Discharge Data Allergies Allergy/AdvReac Type Severity Reaction Status Date / Time No Known Allergies Allergy Verified 10/22/19 16:00 Consultations 10/22/19 17:52 ED Decision to Admit Stat 10/22/19 19:24 Consult Case Management - Discharge Planning Routine Consult Psychiatry Routine Ordered Studies LEFT HAND 3 VIEWS CLINICAL HISTORY: Third finger injury. FINDINGS: 3 views of the left hand are obtained. No prior studies are available for comparison at the time of dictation. The skeletal structures are well mineralized. No fracture is seen. The joint spaces of the hand are maintained. The overlying soft tissues are normal as visualized. IMPRESSION: No acute bony abnormality is identified. Electronically signed by: Mike Singh M.D. 10/22/2019 4:05 PM Dictated: 10/22/19 1604 Transcribed: 10/22/19 1604 Hospital Course (1) Schizophrenia, paranoid, chronic: Present to the ER after having delusion with demons and spirit that led to L hand laceration after slamming with the window to release the spirit Psych on board No plan for inpatient psych therapy since pt denies any intentional harm to self or suicidal ideation Continue Clozapine 250mg qHS, tolerated well case discussed with Psych Clozapine can be increased to 300mg if needed as per psych Has been off 1 to 1 since 10/23 Follow up appointment with psych Dr. Britt at [facility] on 10/27/2019 at 1500. No abnormal behavior or agitation (2) Hypoglycemia: BS on admission dropped to 26 Received glucose 15g and D10W Pt said that he had a low appetite Continue Lantus with sliding scale He has been getting novolog 7 units only on average daily with no basal insulin Outpatient dose lantus 30units and with schedule humalog dose Will decrease his lantus to 5 units only for now Continue monitor BS (3) Diabetes mellitus, type 2: Had an episode of hypoglycemia prior to admission Most recent Hba1c 5.6 Continue Lantus sliding scale Will discharge on lantus 5 units for now with humalog sliding scale Continue monitor blood sugar closely and titrate lantus if needed (4) Laceration of left hand: In ER patient had left middle finger laceration repaired and received Tdap vaccine. Bacitracin can apply prn BID Stitches can be removed in the next 2-3 days Stable (5) Hypokalemia: K: 3.5 today Continue oral potassium supplement Monitor BMP (6) Hypertension: Continue amlodipine, metoprolol, HCTZ (7) COPD (chronic obstructive pulmonary disease): No signs acute exacerbation Continue home inhaler and neb treatment Continue oxygen supplement with exertion (8) ANT on CPAP: CPAP HS DVT Prophylaxis SCDs Full Code Disposition Discharge home today Follow up appointment with psych Dr. Britt at [facility] on 10/27/2019 at 1500. Total Time Total Time Spent Total Time Spent (In Minutes): 35 minutes Total Time Includes: Examination of the Patient, Discharge Planning, Medication Reconciliation, Communication With Other Providers and Other Discharge Plan Discharge Items Patient Disposition: Transfer Jail Fac Reason For Visit: HYPOGLYCEMIA Discharge Diagnosis: Schizophrenia, paranoid, chronic: Hypoglycemia: Diabetes mellitus, type 2: Laceration of left hand: Hypokalemia: Hypertension: COPD (chronic obstructive pulmonary disease): ANT on CPAP: Activity: Resume your previous activity Non-emergency contact: Primary Care Provider and Psychiatrist Call non-emergency contact if: you have any medication questions Follow-up/Referrals: [facility] [Primary Care Provider] - Diet: Carb Consistent or DM2 Addtl Attending Provider Instructions: Follow up with your primary care provider at [facility] Follow up appointment with psych Dr. Britt at [facility] on 10/27/2019 at 1500. Continue monitor your blood sugar Lantus decrease to 5 units daily, please titrate insulin if blood sugar not control Follow up a healthy diabetes diet and limited concentrated sweet intake Fall precaution Continue monitor patient for abnormal behavior Stitches can be removed in about 2 -3 days (left dorsal middle finger) Keep hand clean to avoid the risk of infection Clozapine increased to 250mg at night Pending Studies at Discharge: No Stand-Alone Forms: [facility], Suicide Prevention Resources Skilled Items Patient informed of condition?: Yes DNR: No Discharge Level of Care: Skilled Communicable Disease: No Discharge Prognosis: Stable Lines: None Urinary Catheter: No Medications and DC Order Prescriptions: New clozapine [Clozaril] 25 mg Tablet 50 mg PO HS Qty: 30 RF: 0 bacitracin 500 unit/gram ointment 1 appln TOP BID 3 Days Qty: 14 RF: 0 Continued famotidine 20 mg tablet 20 mg PO BID RF: 0 hydrochlorothiazide 25 mg tablet 25 mg PO DAILY Qty: 30 RF: 2 albuterol sulfate 90 mcg/actuation HFA aerosol inhaler 2 puffs inhalation Q4H PRN (Reason: shortness of breath or wheezing) RF: 0 ipratropium-albuterol 0.5 mg-3 mg(2.5 mg base)/3 mL solution for nebulization 3 ml inhalation QID RF: 0 acetaminophen [Tylenol] 325 mg Tablet 650 mg PO Q6H PRN (Reason: pain 1-10) RF: 0 clozapine [Clozaril] 100 mg Tablet 200 mg PO HS RF: 0 magnesium hydroxide [Milk of Magnesia] 400 mg/5 mL Suspension 30 ml PO DAILY PRN (Reason: Constipation) RF: 0 amlodipine 10 mg Tablet 10 mg PO DAILY RF: 0 bisacodyl 10 mg Suppository [address] DAILY PRN (Reason: Constipation) RF: 0 Fleet Enema 19-7 gram/118 mL Enema [address] QAM PRN (Reason: Constipation) RF: 0 Glucagon Emergency Kit (human) 1 mg Recon Soln 1 dose IM DIRECTED PRN (Reason: Hypoglycemia) RF: 0 insulin lispro [Humalog U-100 Insulin] 100 unit/mL Solution 1 sliding scale dose SUBCUT ACHS RF: 0 Spiriva with HandiHaler 18 mcg Capsule, W/Inhalation Device 1 cap INHALATION DAILY RF: 0 potassium chloride 20 mEq tablet extended release 40 meq PO BID RF: 0 metoprolol succinate 200 mg Tablet Extended Release 24 Hr 200 mg PO BID RF: 0 Changed Lantus U-100 Insulin 100 unit/mL Solution 5 unit SUBCUT DAILY Qty: 0 RF: 0 Discontinued insulin lispro [Humalog U-100 Insulin] 100 unit/mL Solution 12 unit SUBCUT DAILY RF: 0 insulin lispro [Humalog U-100 Insulin] 100 unit/mL Solution 14 unit SUBCUT BID RF: 0 Discharge Orders: Discharge Order (Routine); Ordered 10/26/19 Ordered By: Federica Lim Admission Data Admit Date/Time: 10/25/19 08:07 Attending Provider: Federica Lim Admit Provider: Yin Lewis Primary Care Provider: [facility] Other Providers: Yin Lewis ; Loulou Mohan Other Interventions: Discharge Summary Assessment (RN) Last Done: 10/26/19 13:17 DC Date/Time DO NOT enter until pt leaves facility: 10/26/19 14:00
== END 2019-10-26 14:00 | DRG 885 ==
LOC: ED 15:25 → 2W 15:25 → SUATTDRO 18:26 → 2W 19:12

== ENCOUNTER 2021-08-24 14:21 | Observation (INO) ==
[2021-08-24] MEDS ORDERED: ALBUT/IPRATROP 3MG/0.5MG NEB 3 ML VIAL INH STA (14:52)
[2021-08-24] MEDS ORDERED: methylPREDNISolone 125 MG/2 ML VIAL IV STA (14:52)
--- NOTE | 2021-08-24 15:10 | Emergency Department Note ---
Impression & Plan SOB (shortness of breath), Hypoxia, Multifocal pneumonia ED Provider Note INFORMANT: Nursing, EMS, patient ED PROVIDER(S): Matteo Dutton MD CHIEF COMPLAINT: Shortness of breath PLAN: Disposition: Admitted Condition: Good Outpatient prescription management: none Referral: None MEDICAL DECISION MAKING: Presented due to shortness of breath. He underwent a work-up. The patient had an unremarkable CBC and chemistry panel. Troponin was negative. He was mildly hyperglycemic. ECG did not show an acute ischemic change. Patient's chest x- ray was concerning for pneumonia. He was given cefepime and vancomycin. The patient underwent CT imaging of his chest. This confirmed multifocal pneumonia without evidence of significant pulmonary emboli. Further management in the hospital will be necessary. [facility] Patient was evaluated in ER admitted for further management. Triage Nursing notes reviewed and agree them. Vital Signs: reviewed and remarkable for no significant abnormalities Differential diagnosis: Reactive airway disease, pneumonia, pneumothorax, COPD, CHF, infections, cardiac ischemia, pulmonary embolism, musculoskeletal, gastrointestinal, as well as other pathologies. Diagnostics interpreted by me: ECG: Twelve-lead ECG was normal sinus rhythm at 85 bpm. Left anterior fascicular block. Nonspecific T wave abnormality present. No ST elevation. Normal axis. Cardiac Monitoring: Cardiac monitoring ordered by me: The patient was placed on continuous cardiac monitoring and observed. It revealed a normal sinus rhythm at 78 beats per minute without ectopy or evidence of dysrhythmia. Imaging studies: Chest x-ray concerning for multifocal pneumonia. CT scan of the chest Emphysema with fibrosis and patchy bilateral groundglass and consolidative opacities suggestive of multifocal pneumonia. I refer you to the EMR for further details. HPI: The patient is a 61 year old man who presents to the Emergency Room with complaints of shortness of breath. Patient resides at the [facility] and he was noted to be lethargic and had low O2 saturations. He wears oxygen at night but not during the day. He was placed on 2 L nasal cannula and he went from the 60s to the 90s. Staff notes that he is been having increased weakness. EMS attended to the patient. He was doing well on supplemental oxygen. He had diminished lung sounds and rhonchi noted. Patient denied any chest pain or abdominal pain. There was no reported vomiting. Patient reportedly has a history of garbled speech and that coupled with his medical illness makes the history limited. ROS: See above HPI for pertinent positives & negatives. Limited secondary to medical acuity. PAST MEDICAL HISTORY:See Below , COPD, asthma PAST SURGICAL HISTORY:See Below, FAMILY HISTORY:See Below SOCIAL HISTORY:See Below, resides at the [facility]. HOME MEDICATIONS:See Below ALLERGIES:See Below VITALS:See Below PHYSICAL EXAMINATION: GENERAL: Awake, tired-appearing, in no distress HENT: Normocephalic, atraumatic. Oropharynx unremarkable. EYES: Normal conjunctiva. Sclera non-icteric. NECK: Inspection normal. Non-tender. Supple. No nuchal rigidity. FROM. No masses. RESPIRATORY: Diminished in the bases bilaterally. Scattered rhonchi on the right. Normal respiratory effort. CARDIAC: Normal rate. Normal rhythm. No murmurs. No rubs. Extremities warm and well perfused. Pulses equal. No JVD. GI: Soft, mildly distended. No tenderness to palpation. No rebound or guarding. No masses. RECTAL: Deferred. MUSCULOSKELETAL: Atraumatic. Chest examination reveals no tenderness. The back is symmetrical on inspection without obvious abnormality. There is no CVA tenderness to palpation. No joint edema. LOWER EXTREMITIES: The right leg is slightly larger than the left. There is 1+ edema bilaterally. NEURO: Mildly confused sensorium. No focal sensory or motor deficits noted. SKIN: No rash or jaundice noted. Matteo Dutton MD Past Med/Surg History Medical History (Updated 08/24/21 @ 20:39 by Matteo Dutton MD) Alcohol abuse Asthma COPD (chronic obstructive pulmonary disease) Diabetes Diabetes mellitus, type 2 Hepatitis C History of seizures Hypertension Hypokalemia Lupus Paranoid schizophrenia Peripheral vascular disease Sleep apnea Family History Denies family history of Myocardial infarction Congenital kidney disease Social History Smoking Status: Unknown if ever smoked Second Hand Exposure: No; Hx Alcohol Use: No Hx Substance Use: No Preferred Language: Libyan Communication Ability: Effective Visual Impairment: No Limitations Message Broker Developer Required: No Beliefs That Will Affect Care: Spiritual marital status: Single Current Living Situation: [facility] Current Living Situation Comment: reported living at [facility] Feels Safe at Home: Yes Assistive Devices: None Allergies Allergies Allergy/AdvReac Type Severity Reaction Status Date / Time No Known Allergies Allergy Verified 08/24/21 18:39 Home Meds Home Medications Medication Instructions Recorded Confirmed bisacodyl 10 mg rectal suppository 10 mg ND DAILY PRN 08/19/18 08/24/21 clozapine 100 mg tablet (Clozaril) 100 mg PO HS 08/19/18 08/24/21 magnesium hydroxide 400 mg/5 mL 30 ml PO DAILY PRN 08/19/18 08/24/21 oral suspension (Milk of Magnesia) sodium phosphates 19 gram-7 1 applic ND QAM PRN 08/19/18 08/24/21 gram/118 mL enema (Fleet Enema) tiotropium bromide 18 mcg capsule 1 cap INHALATION DAILY 08/19/18 08/24/21 with inhalation device (Spiriva with HandiHaler) famotidine 20 mg tablet 20 mg PO DAILY 06/12/19 08/24/21 metoprolol succinate 200 mg 200 mg PO BID 10/22/19 08/24/21 tablet,extended release 24 hr potassium chloride 20 mEq 40 meq PO BID 10/22/19 08/24/21 tablet,extended release amlodipine 5 mg tablet 5 mg PO DAILY 09/11/20 08/24/21 aripiprazole 10 mg tablet (Abilify) 10 mg PO DAILY 09/11/20 08/24/21 cholecalciferol (vitamin D3) 125 125 mcg PO DAILY 09/11/20 08/24/21 mcg (5,000 unit) tablet (Vitamin D3) clozapine 200 mg tablet 200 mg PO HS 09/11/20 08/24/21 clozapine 50 mg tablet 50 mg PO HS 09/11/20 08/24/21 divalproex 250 mg tablet,extended 250 mg PO BID 09/11/20 08/24/21 release 24 hr (Depakote ER) hydrochlorothiazide 25 mg tablet 12.5 mg PO DAILY 09/11/20 08/24/21 loratadine 10 mg tablet (Claritin) 10 mg PO DAILY 09/11/20 08/24/21 polyvinyl alcohol 1.4 % eye drops 2 drp OPB QID 09/11/20 08/24/21 (Artificial Tears (polyvinyl alcohol)) albuterol sulfate 90 mcg/actuation 2 puff INHALATION Q4H PRN 08/24/21 08/24/21 aerosol inhaler albuterol sulfate 90 mcg/actuation 2 puff INHALATION Q6H 08/24/21 08/24/21 aerosol inhaler insulin glargine 100 unit/mL 50 - 55 unit SUBCUT BID 08/24/21 08/24/21 subcutaneous solution (Lantus U-100 Insulin) insulin lispro 100 unit/mL See Rx Instructions .ROUTE .COMPLEX 08/24/21 08/24/21 subcutaneous solution (Humalog U-100 Insulin) loperamide 2 mg tablet 2 mg PO DIRECTED PRN MDD 16 08/24/21 08/24/21 MG/24 HOURS semaglutide 1 mg/dose (4 mg/3 mL) 1 mg SUBCUT WK 08/24/21 08/24/21 subcutaneous pen injector (Ozempic) Results & Data (ED) Vital Signs Vital Signs - 24 hr 08/24/21 14:26 08/24/21 14:58 08/24/21 15:00 Temperature 37.1 C Temperature Source Oral Pulse Rate 85 83 84 Pulse Rate from SpO2 Sensor Pulse Rhythm Regular Pulse Strength Normal Respiratory Rate 15 17 18 Respiratory Effort / Characteristics Non-Labored Respiratory Depth Normal Respiratory Pattern Regular Blood Pressure 166/113 H Blood Pressure Mean 130 Blood Pressure Position Sitting Pulse Oximetry 95 Oxygen Delivery Method Room Air Oxygen Flow Rate Sepsis Recent Fever Within 48 Hours No Sepsis New/Unexplained Change in Mental Status N/A Sepsis Action Taken by Nursing No Action Required 08/24/21 15:30 08/24/21 16:00 08/24/21 16:18 Temperature Temperature Source Pulse Rate 80 81 Pulse Rate from SpO2 Sensor 80 Pulse Rhythm Pulse Strength Respiratory Rate 16 17 Respiratory Effort / Characteristics Respiratory Depth Respiratory Pattern Blood Pressure Blood Pressure Mean Blood Pressure Position Pulse Oximetry 97 93 Oxygen Delivery Method Nasal Cannula Oxygen Flow Rate 2 Sepsis Recent Fever Within 48 Hours Sepsis New/Unexplained Change in Mental Status Sepsis Action Taken by Nursing 08/24/21 16:30 08/24/21 16:34 08/24/21 17:00 Temperature Temperature Source Pulse Rate 78 78 77 Pulse Rate from SpO2 Sensor 78 78 77 Pulse Rhythm Pulse Strength Respiratory Rate 16 23 13 Respiratory Effort / Characteristics Respiratory Depth Respiratory Pattern Blood Pressure 128/90 136/98 Blood Pressure Mean 102 110 Blood Pressure Position Pulse Oximetry 100 100 99 Oxygen Delivery Method Oxygen Flow Rate Sepsis Recent Fever Within 48 Hours Sepsis New/Unexplained Change in Mental Status Sepsis Action Taken by Nursing 08/24/21 17:30 08/24/21 18:09 Temperature Temperature Source Pulse Rate 79 Pulse Rate from SpO2 Sensor 78 80 Pulse Rhythm Pulse Strength Respiratory Rate 19 Respiratory Effort / Characteristics Respiratory Depth Respiratory Pattern Blood Pressure 146/99 H Blood Pressure Mean 114 Blood Pressure Position Pulse Oximetry 97 99 Oxygen Delivery Method Oxygen Flow Rate Sepsis Recent Fever Within 48 Hours Sepsis New/Unexplained Change in Mental Status Sepsis Action Taken by Nursing Laboratory Data Result diagrams: 08/24/21 15:25 08/24/21 15:25 Lab Results 08/24/21 08/24/21 08/24/21 Range/Units 15:25 15:25 15:25 WBC 6.76 (4.8-10.8) K/uL RBC 5.93 (4.7-6.1) M/uL Hgb 17.5 (14.0-18.0) g/dL Hct 53.9 H (42-52) % MCV 90.9 (80-100) fL MCH 29.5 (25-34) pg MCHC 32.5 (32-36) g/dL RDW Std Deviation 50.0 H (36.4-46.3) fL RDW Coeff of Marta 15.1 H (11.5-14.5) % Plt Count 149 (130-400) K/uL MPV 12.2 H (7.4-10.4) fL Immature Gran % (Auto) 0.3 % Neut % (Auto) 59.0 % Lymph % (Auto) 29.9 % Parker % (Auto) 7.7 % Eos % (Auto) 3.0 % Baso % (Auto) 0.1 % Neut # (Auto) 3.99 (1.4-6.5) K/uL Lymph # (Auto) 2.02 (1.2-3.4) K/uL Parker # (Auto) 0.52 (0.11-0.59) K/uL Eos # (Auto) 0.20 (0-0.5) K/uL Baso # (Auto) 0.01 (0-0.2) K/uL Immature Gran # (Auto) 0.02 (0.00-0.02) K/uL Sodium 140 (136-145) mmol/L Potassium 4.1 (3.5-5.1) mmol/L Chloride 101 (98-107) mmol/L Carbon Dioxide 30 (21-32) mmol/L Anion Gap 9 (3-11) BUN 9 (6-23) mg/dl Creatinine 1.00 (0.6-1.4) mg/dl Est Cr Clr Drug Dosing 86.5 ml/min Est GFR ( Amer) 94.4 ml/min Est GFR (Non-Af Amer) 81.4 ml/min BUN/Creatinine Ratio 9.0 L (10-20) Glucose 204 H (70-99(Fasting)) mg/dl Calcium 9.1 (8.5-10.1) mg/dl Total Bilirubin 0.5 (0.2-1.0) mg/dl AST 18 (13-39) U/L ALT 29 (7-52) U/L Alkaline Phosphatase 108 H (34-104) U/L Troponin I < 0.03 (0-0.04) ng/ml Total Protein 6.9 (6.0-8.3) gm/dl Albumin 3.9 (3.4-5.0) gm/dl Globulin 3.0 (2.5-4.0) gm/dl Albumin/Globulin Ratio 1.3 (0.9-2) Urine Color Urine Appearance (Clear) Urine pH (4.5-7.5) Ur Specific [place] (1.000-1.030) Urine Protein (Negative) Urine Glucose (UA) (Negative) Urine Ketones (Negative) Urine Blood (Negative) Urine Nitrite (Negative) Urine Bilirubin (Negative) Urine Urobilinogen (Negative) Ur Leukocyte Esterase (Negative) SARS-CoV-2 (PCR) (Negative) Influenza Type A (PCR) (Neg) Influenza Type B (PCR) (Neg) RSV (RT-PCR) (Neg) SARS-CoV-2, RNA, NAAT NEGATIVE (NEGATIVE) 08/24/21 08/24/21 Range/Units 16:20 17:45 WBC (4.8-10.8) K/uL RBC (4.7-6.1) M/uL Hgb (14.0-18.0) g/dL Hct (42-52) % MCV (80-100) fL MCH (25-34) pg MCHC (32-36) g/dL RDW Std Deviation (36.4-46.3) fL RDW Coeff of Marta (11.5-14.5) % Plt Count (130-400) K/uL MPV (7.4-10.4) fL Immature Gran % (Auto) % Neut % (Auto) % Lymph % (Auto) % Parker % (Auto) % Eos % (Auto) % Baso % (Auto) % Neut # (Auto) (1.4-6.5) K/uL Lymph # (Auto) (1.2-3.4) K/uL Parker # (Auto) (0.11-0.59) K/uL Eos # (Auto) (0-0.5) K/uL Baso # (Auto) (0-0.2) K/uL Immature Gran # (Auto) (0.00-0.02) K/uL Sodium (136-145) mmol/L Potassium (3.5-5.1) mmol/L Chloride (98-107) mmol/L Carbon Dioxide (21-32) mmol/L Anion Gap (3-11) BUN (6-23) mg/dl Creatinine (0.6-1.4) mg/dl Est Cr Clr Drug Dosing ml/min Est GFR ( Amer) ml/min Est GFR (Non-Af Amer) ml/min BUN/Creatinine Ratio (10-20) Glucose (70-99(Fasting)) mg/dl Calcium (8.5-10.1) mg/dl Total Bilirubin (0.2-1.0) mg/dl AST (13-39) U/L ALT (7-52) U/L Alkaline Phosphatase (34-104) U/L Troponin I (0-0.04) ng/ml Total Protein (6.0-8.3) gm/dl Albumin (3.4-5.0) gm/dl Globulin (2.5-4.0) gm/dl Albumin/Globulin Ratio (0.9-2) Urine Color Yellow Urine Appearance Clear (Clear) Urine pH 6.0 (4.5-7.5) Ur Specific [place] 1.018 (1.000-1.030) Urine Protein Negative (Negative) Urine Glucose (UA) 1+ H (Negative) Urine Ketones Negative (Negative) Urine Blood Negative (Negative) Urine Nitrite Negative (Negative) Urine Bilirubin Negative (Negative) Urine Urobilinogen Negative (Negative) Ur Leukocyte Esterase Negative (Negative) SARS-CoV-2 (PCR) NEGATIVE (Negative) Influenza Type A (PCR) Negative (Neg) Influenza Type B (PCR) Negative (Neg) RSV (RT-PCR) Negative (Neg) SARS-CoV-2, RNA, NAAT (NEGATIVE) Administered Medications Discontinued Medications Albuterol (Albut/Ipratrop 3mg/0.5mg Neb 3 Ml Vial) 3 ml INH NOW STA Stop: 08/24/21 14:53 Last Admin: 08/24/21 16:11 Dose: 3 ml Documented by: [id number] Cefepime HCl (Maxipime) 2,000 mg in 20 mls @ 5 mls/min IV NOW STA; Protocol Stop: 08/24/21 16:46 Last Admin: 08/24/21 17:07 Dose: 5 mls/min Documented by: [id number] Vancomycin HCl 2,000 mg/ (Sodium Chloride) 540 mls @ 200 mls/hr IV NOW ONE Stop: 08/24/21 19:24 Last Admin: 08/24/21 17:15 Dose: 200 mls/hr Documented by: [id number] Ioversol (Optiray 320 125ml) 119 ml IV ONCE ONE Stop: 08/24/21 18:06 Last Admin: 08/24/21 18:07 Dose: 119 ml Documented by: [id number] Methylprednisolone (Methylprednisolone 125 Mg/2 Ml Vial) 125 mg IV NOW STA Stop: 08/24/21 14:53 Last Admin: 08/24/21 16:12 Dose: 125 mg Documented by: [id number] Imaging Data Radiologist's Impression: Chest X-Ray 08/24/21 14:54 XR chest 1V portable HISTORY: 61 years-old Male Dyspnea acute shortness of breath COMPARISON: Chest radiograph 09/25/2020 TECHNIQUE: Portable AP view of the chest FINDINGS: Cardiac silhouette is enlarged. Bilateral airspace opacities appear similar to the prior study. Mild interstitial coarsening. There is no pneumothorax, or large pleural effusion. Degenerative changes of the shoulders and spine. Surgical clips project at the midline upper chest. IMPRESSION: 1. Multifocal airspace opacities are suspicious for pneumonia. 2. Cardiomegaly. ACT 112: Negative or not required by law. The above report was generated using voice recognition software. It may contain grammatical, syntax or spelling errors. Electronically signed by: Gautam Valencia M.D. 08/24/2021 3:37 PM Chest CTA 08/24/21 16:43 CT angio chest PE protocol CT DOSE: 993.70 mGy.cm HISTORY: 61 years-old Male with hypoxia, abn cxr. Acute hypoxia with shortness of breath TECHNIQUE: Multiple CTA images of the chest were obtained after the intravenous administration of 119 ml Optiray. Coronal and sagittal MIPS were obtained from the axial data set and were submitted for review. All measurements were obtai pablo according to NASCET criteria. A dose lowering technique was utilized adhering to the principles of ALARA. COMPARISON: Chest radiograph of same day and also 09/25/2020 FINDINGS: CTA: Cardiac megaly. Small pericardial effusion. Unremarkable thoracic aorta. Limited visualization of the segmental and subsegmental pulmonary arterial branches secondary to respiratory motion artifact and upper extremities positioning. No definite pulmonary emboli are identified. CT CHEST: No thyroid nodule. Mildly prominent paratracheal and subcarinal lymph nodes measure up to 10 mm. Right-sided calcified pleural plaques. Trace right and small left pleural effusions. No pneumothorax. Respiratory motion artifact limits evaluation of the lungs. Emphysema. Reticular interstitial coarsening is noted with intermixed bilateral groundglass densities and mild consolidation. Central airways appear generally patent. No acute process of the imaged upper abdomen. No acute fracture or suspicious bone lesion. Degenerative changes of the shoulders and spine. IMPRESSION: 1. Limited exam as above. Cardiomegaly without central pulmonary emboli identified. 2. Emphysema with fibrosis and patchy bilateral groundglass and consolidative opacities suggestive of multifocal pneumonia. 3. Trace right and small left pleural effusions with calcified right-sided ple ural plaques. 4. Mild mediastinal adenopathy. ACT 112: Negative or not required by law. The above report was generated using voice recognition software. It may contain grammatical, syntax or spelling errors. Electronically signed by: Gautam Valencia M.D. 08/24/2021 6:52 PM Discharge Plan Visit Data Chief Complaint: Illness Stated Complaint: LEHTARGIC, SOB ED Provider: Matteo Dutton Discharge Problem: SOB (shortness of breath), Hypoxia, Multifocal pneumonia Patient Disposition: Admitted As Inpatient Discharge Instructions Interventions: ED Discharge Assessment Last Done: 08/24/21 19:49
[2021-08-24 15:34] LABS: Basophils # (auto) 0.01 K/uL (0-0.2); Basophils % (auto) 0.1 %; Hematocrit (blood only) 53.9 % (42-52); Hemoglobin 17.5 g/dL (14.0-18.0); Immature Granulocytes # (auto) 0.02 K/uL (0.00-0.02); Immature Granulocytes % (auto) 0.3 %; Lymphocytes # (auto) 2.02 K/uL (1.2-3.4); Lymphocytes % (auto) 29.9 %; Mean Corpuscular Hemoglobin 29.5 pg (25-34); Mean Corpuscular Hgb Conc 32.5 g/dL (32-36); Mean Corpuscular Volume 90.9 fL (80-100); Mean Platelet Volume 12.2 fL (7.4-10.4); Monocytes # (auto) 0.52 K/uL (0.11-0.59); Monocytes % (auto) 7.7 %; Neutrophils # (auto) 3.99 K/uL (1.4-6.5); Platelet Count 149 K/uL (130-400); RDW Coefficient of Variation 15.1 % (11.5-14.5); Red Blood Count 5.93 M/uL (4.7-6.1); White Blood Count 6.76 K/uL (4.8-10.8)
--- NOTE | 2021-08-24 15:38 | XRay Report ---
XR chest 1V portable HISTORY: 61 years-old Male Dyspnea acute shortness of breath COMPARISON: Chest radiograph 09/25/2020 TECHNIQUE: Portable AP view of the chest FINDINGS: Cardiac silhouette is enlarged. Bilateral airspace opacities appear similar to the prior study. Mild interstitial coarsening. There is no pneumothorax, or large pleural effusion. Degenerative changes of the shoulders and spine. Surgical clips project at the midline upper chest. IMPRESSION: 1. Multifocal airspace opacities are suspicious for pneumonia. 2. Cardiomegaly. ACT 112: Negative or not required by law. The above report was generated using voice recognition software. It may contain grammatical, syntax o r spelling errors. Electronically signed by: Gautam Valencia M.D. 08/24/2021 3:37 PM
[2021-08-24 15:56] LABS: Troponin I < 0.03 ng/ml (0-0.04)
[2021-08-24 16:02] LABS: Alanine Aminotransferase 29 U/L (7-52); Albumin Globulin Ratio 1.3 (0.9-2); Albumin Level 3.9 gm/dl (3.4-5.0); Alkaline Phosphatase 108 U/L (34-104); Anion Gap 9 (3-11); Aspartate Aminotransferase 18 U/L (13-39); Bilirubin,Total 0.5 mg/dl (0.2-1.0); Blood Urea Nitrogen 9 mg/dl (6-23); Calcium 9.1 mg/dl (8.5-10.1); Carbon Dioxide 30 mmol/L (21-32); Chloride 101 mmol/L (98-107); Creatinine Clr Calc Pharmacy 86.5 ml/min; Est GFR (African American) 94.4 ml/min; Est GFR (Non-African American) 81.4 ml/min; Glucose 204 mg/dl (70-99(Fasting)); Potassium 4.1 mmol/L (3.5-5.1); Sodium 140 mmol/L (136-145); Total Protein 6.9 gm/dl (6.0-8.3)
[2021-08-24 16:24] LABS: Appearance Urine Clear (Clear); Bilirubin Urine Negative (Negative); Blood Urine Negative (Negative); Color Urine Yellow; Glucose Urine UA 1+ (Negative); Ketones Urine Negative (Negative); Leukocyte Esterase Urine Negative (Negative); Nitrite Urine Negative (Negative); Protein Urine Negative (Negative); Specific Gravity Urine 1.018 (1.000-1.030); Urobilinogen Urine Negative (Negative)
[2021-08-24] MEDS ORDERED: VANCOMYCIN CONSULT ACTIVE PRN (16:43)
[2021-08-24] MEDS ORDERED: VANCOMYCIN HCL 2,000 MG in SODIUM CHLORIDE 0.9% 500 ML IV ONE (16:43)
[2021-08-24] MEDS ORDERED: CEFEPIME 2,000 MG/20 ML VIAL IV STA (16:43)
--- NOTE | 2021-08-24 17:44 | Electrocardiogram Report ---
Test Reason : Blood Pressure : / mmHG Vent. Rate : 085 BPM Atrial Rate : 085 BPM P-R Int : 158 ms QRS Dur : 084 ms QT Int : 392 ms P-R-T Axes : 054 -72 002 degrees QTc Int : 466 ms Normal sinus rhythm Left anterior fascicular block Nonspecific T wave abnormality Poor R wave progression, consider anterior AR vs. lead placement vs. LVH Abnormal ECG When compared with ECG of 25-SEP-2020 00:41, No significant change was found Confirmed by Fidel Farley ([id number]) on 08/24/2021 5:43:40 PM Referred By: REFERRED SELF Confirmed By:Suhas Farley
[2021-08-24] MEDS ORDERED: OPTIRAY 320 125ml IV ONE (18:05)
--- NOTE | 2021-08-24 18:10 | History & Physical Report ---
Date of Service August 24, 2021 Assessment & Plan (1) Multifocal pneumonia: (2) COPD (chronic obstructive pulmonary disease): Plan: Patient is 61 y/o M with PMH paranoid schizophrenia, COPD, pulmonary sarcoidosis, insulin dependent diabetes, HTN, sleep apnea, GERD presented to ER with c/o SOB and noted hypoxia with ambulation today. Reports sats 60's with amublation up to 90's on 2L NC. In ER 95% on 2L NC, no leukocytosis, negative COVID-19 PCR, negative influenza and RSV CTA chest: 1. Limited exam as above. Cardiomegaly without central pulmonary emboli identified. 2. Emphysema with fibrosis and patchy bilateral groundglass and consolidative opacities suggestive of multifocal pneumonia. 3. Trace right and small left pleural effusions with calcified right-sided pleural plaques. 4. Mild mediastinal adenopathy. In ER given cefepime, vancomycin, solumedrol 125mg IV Blood culture pending Sputum culture, MRSA swab pending Continue cefepime, vancomycin Supplemental oxygen Duonebs Incentive spirometry CBC, BMP in am (3) Diabetes mellitus, type 2: Plan: Insulin dependent Hold home insulin Basal bolus insulin per protocol A1c in am (4) Hypertension: Plan: Continue amlodipine, metoprolol succinate, HCTZ (5) ANT on CPAP: Plan: CPAP HS (6) Schizophrenia, paranoid, chronic: Plan: Continue Abilify, clozapine, Depakote DVT Prophylaxis Lovenox SQ Full Code as per discussion with pt and patients form Follows with at [facility] for routine care Pt was seen and care coordinated with Dr Burns. See addendum History of Present Illness Chief Complaint: Hypoxia Primary Care Provider: [facility] Patient is 61 y/o M with PMH paranoid schizophrenia, COPD, pulmonary sarcoidosis, insulin dependent diabetes, HTN, sleep apnea, GERD presented to ER with c/o hypoxia. Additional history obtained from [facility] staff. Reported patient was walking with physical therapy today to ambulate to bathroom and noted to be SOB and pulse ox dropped into the 60's and increased to 90's on 2L oxygen via nasal cannula. In past patient had oxygen 1L to use as needed. Nurse I spoke to from [facility] says he has O2 tank in his room but she has not seen him wearing oxygen. She reports at baseline patient speaks quietly and mumbles and is hard to understand and often need to repeat to understand patient. No change in mental status reported from staff. Denies any known COVID cases. Patient reports coughing today. He sates he feels SOB. He reports he feels weak. He denies CP, fever/chills, N/V/D/C, BURNS, dizziness, CP, sore throat, choking, otalgia, rhinorrhea, abdominal pain, extremity edema, rashes, urinary symptoms. Allergies Allergy/AdvReac Type Severity Reaction Status Date / Time No Known Allergies Allergy Verified 08/24/21 18:39 Home Medications Medication Instructions Recorded Confirmed Type bisacodyl 10 mg rectal suppository 10 mg [place] DAILY PRN 08/19/18 08/24/21 History clozapine 100 mg tablet (Clozaril) 100 mg PO HS 08/19/18 08/24/21 History magnesium hydroxide 400 mg/5 mL 30 ml PO DAILY PRN 08/19/18 08/24/21 History oral suspension (Milk of Magnesia) sodium phosphates 19 gram-7 1 applic KY QAM PRN 08/19/18 08/24/21 History gram/118 mL enema (Fleet Enema) tiotropium bromide 18 mcg capsule 1 cap INHALATION DAILY 08/19/18 08/24/21 History with inhalation device (Spiriva with HandiHaler) famotidine 20 mg tablet 20 mg PO DAILY 06/12/19 08/24/21 History metoprolol succinate 200 mg 200 mg PO BID 10/22/19 08/24/21 History tablet,extended release 24 hr potassium chloride 20 mEq 40 meq PO BID 10/22/19 08/24/21 History tablet,extended release amlodipine 5 mg tablet 5 mg PO DAILY 09/11/20 08/24/21 History aripiprazole 10 mg tablet (Abilify) 10 mg PO DAILY 09/11/20 08/24/21 History cholecalciferol (vitamin D3) 125 125 mcg PO DAILY 09/11/20 08/24/21 History mcg (5,000 unit) tablet (Vitamin D3) clozapine 200 mg tablet 200 mg PO HS 09/11/20 08/24/21 History clozapine 50 mg tablet 50 mg PO HS 09/11/20 08/24/21 History divalproex 250 mg tablet,extended 250 mg PO BID 09/11/20 08/24/21 History release 24 hr (Depakote ER) hydrochlorothiazide 25 mg tablet 12.5 mg PO DAILY 09/11/20 08/24/21 History loratadine 10 mg tablet (Claritin) 10 mg PO DAILY 09/11/20 08/24/21 History polyvinyl alcohol 1.4 % eye drops 2 drp OPB QID 09/11/20 08/24/21 History (Artificial Tears (polyvinyl alcohol)) albuterol sulfate 90 mcg/actuation 2 puff INHALATION Q4H PRN 08/24/21 08/24/21 History aerosol inhaler albuterol sulfate 90 mcg/actuation 2 puff INHALATION Q6H 08/24/21 08/24/21 History aerosol inhaler insulin glargine 100 unit/mL 55 unit SUBCUT DAILY 08/24/21 08/24/21 History subcutaneous solution (Lantus U-100 Insulin) insulin lispro 100 unit/mL See Rx Instructions .ROUTE .COMPLEX 08/24/21 08/24/21 History subcutaneous solution (Humalog U-100 Insulin) loperamide 2 mg tablet 2 mg PO DIRECTED PRN MDD 16 08/24/21 08/24/21 History MG/24 HOURS semaglutide 1 mg/dose (4 mg/3 mL) 1 mg SUBCUT WK 08/24/21 08/24/21 History subcutaneous pen injector (Ozempic) Past Med/Surg History Medical History Alcohol abuse Asthma COPD (chronic obstructive pulmonary disease) Diabetes Diabetes mellitus, type 2 Hepatitis C History of seizures Hypertension Hypokalemia Lupus Paranoid schizophrenia Peripheral vascular disease Sleep apnea Surgical History (Updated 08/24/21 @ 20:49 by Soraya Wild PA-C) No significant past surgical history Family History Denies family history of Myocardial infarction Congenital kidney disease Social History Smoking Status: Unknown if ever smoked Second Hand Exposure: No; Hx Alcohol Use: No Hx Substance Use: No Preferred Language: Lithuanian Communication Ability: Effective Visual Impairment: No Limitations Pilot Teacher Required: No Beliefs That Will Affect Care: Spiritual marital status: Single Current Living Situation: Snf Current Living Situation Comment: reported living at [facility] Feels Safe at Home: Yes Assistive Devices: None Review of Systems Review of Systems: All systems reviewed & are unremarkable except as noted in HPI & below Physical Exam Physical Exam: General: no acute distress, WDWN Head: normocephalic, atraumatic Eyes: PERRL, EOM's intact, conjunctiva non-injected, anicteric ENT: normal inspection external ears, nose, mucous membranes moist Neck: supple, trachea midline Lungs: clear, no respiratory distress, no wheezing/rhonchi/rales CV: RRR, no pretibial edema Abd:protubarnt, normal BS, soft, non-tender Ext: no cyanosis, no calf tenderness Neuro: Alert, patient mumbles and speaks at low volume, is difficult to understand, oriented to person and place, says year is 2020 and then says 2021, unsure of month, no focal deficits noted Skin: warm, dry Results & Data Results & Data ([facility]) Vital Signs (Past 12 Hours) Vital Signs Temp Pulse Resp BP Pulse Ox 08/24/21 16:18 93 08/24/21 16:00 81 17 08/24/21 15:30 80 16 97 08/24/21 15:00 84 18 08/24/21 14:58 83 17 08/24/21 14:26 37.1 C 85 15 166/113 H 95 Laboratory Results Short CBC 08/24/21 Range/Units 15:25 WBC 6.76 (4.8-10.8) K/uL Hgb 17.5 (14.0-18.0) g/dL Hct 53.9 H (42-52) % Plt Count 149 (130-400) K/uL BMP 08/24/21 15:25 Sodium 140 Potassium 4.1 Chloride 101 Carbon Dioxide 30 BUN 9 Creatinine 1.00 Glucose 204 H Calcium 9.1 Cardiac Enzymes 08/24/21 Range/Units 15:25 Troponin I < 0.03 (0-0.04) ng/ml Liver Function 08/24/21 Range/Units 15:25 Total Bilirubin 0.5 (0.2-1.0) mg/dl AST 18 (13-39) U/L ALT 29 (7-52) U/L Alkaline Phosphatase 108 H (34-104) U/L Albumin 3.9 (3.4-5.0) gm/dl Urine 08/24/21 Range/Units 16:20 Urine Color Yellow Urine Appearance Clear (Clear) Urine pH 6.0 (4.5-7.5) Ur Specific [place] 1.018 (1.000-1.030) Urine Protein Negative (Negative) Urine Glucose (UA) 1+ H (Negative) Diagnostic Findings Chest X-Ray 08/24/21 14:54 XR chest 1V portable HISTORY: 61 years-old Male Dyspnea acute shortness of breath COMPARISON: Chest radiograph 09/25/2020 TECHNIQUE: Portable AP view of the chest FINDINGS: Cardiac silhouette is enlarged. Bilateral airspace opacities appear similar to the prior study. Mild interstitial coarsening. There is no pneumothorax, or large pleural effusion. Degenerative changes of the shoulders and spine. Surgical clips project at the midline upper chest. IMPRESSION: 1. Multifocal airspace opacities are suspicious for pneumonia. 2. Cardiomegaly. ACT 112: Negative or not required by law. The above report was generated using voice recognition software. It may contain grammatical, syntax or spelling errors. Electronically signed by: Gautam Valencia M.D. 08/24/2021 3:37 PM Chest CTA 08/24/21 16:43 CT angio chest PE protocol CT DOSE: 993.70 mGy.cm HISTORY: 61 years-old Male with hypoxia, abn cxr. Acute hypoxia with shortness of breath TECHNIQUE: Multiple CTA images of the chest were obtained after the intravenous administration of 119 ml Optiray. Coronal and sagittal MIPS were obtained from the axial data set and were submitted for review. All measurements were obtained according to NASCET criteria. A dose lowering technique was utilized adhering to the principles of ALARA. COMPARISON: Chest radiograph of same day and also 09/25/2020 FINDINGS: CTA: Cardiac megaly. Small pericardial effusion. Unremarkable thoracic aorta. Limited visualization of the segmental and subsegmental pulmonary arterial branches secondary to respiratory motion artifact and upper extremities positioning. No definite pulmonary emboli are identified. CT CHEST: No thyroid nodule. Mildly prominent paratracheal and subcarinal lymph nodes measure up to 10 mm. Right-sided calcified pleural plaques. Trace right and small left pleural effusions. No pneumothorax. Respiratory motion artifact limits evaluation of the lungs. Emphysema. Reticular interstitial coarsening is noted with intermixed bilateral groundglass densities and mild consolidation. Central airways appear generally patent. No acute process of the imaged upper abdomen. No acute fracture or suspicious bone lesion. Degenerative changes of the shoulders and spine. IMPRESSION: 1. Limited exam as above. Cardiomegaly without central pulmonary emboli identified. 2. Emphysema with fibrosis and patchy bilateral groundglass and consolidative opacities suggestive of multifocal pneumonia. 3. Trace right and small left pleural effusions with calcified right-sided pleural plaques. 4. Mild mediastinal adenopathy. ACT 112: Negative or not required by law. The above report was generated using voice recognition software. It may contain grammatical, syntax or spelling errors. Electronically signed by: Gautam Valencia M.D. 08/24/2021 6:52 PM Code Status & VTE Plan VTE Prophylaxis Plan VTE Prophylaxis will be ordered: Yes Supervising Physician Co-Signing Physician Notes Attending addendum: The patient was seen and examined in the emergency room Patient is 61 y/o M with PMH paranoid schizophrenia, COPD, pulmonary sarcoidosis, insulin dependent diabetes, HTN, sleep apnea, GERD presented to ER with c/o hypoxia. He has not been complaining of any significant symptoms He has a schizophrenia and difficulties in clear communication On examination No apparent distress at rest A little drowsy but hemodynamically stable with blood pressure on the upper side at 144/104 Chestdecreased breath sounds bilaterally with coarse crackles at the bases HeartS1-S2, regular Abdomendistended, soft, bowel sounds present Extremitiestrace edema bilaterally with chronic skin changes CNSalert and awake, minimally communicative His admission labs, imaging studies reviewed Has multilobar pneumonia and has been put on intravenous antibiotic Agree with assessment and plan as outlined above by SONDRA Bhatia Dr
[2021-08-24 18:30] LABS: Influenza A virus by PCR Negative (Neg); Influenza B virus by PCR Negative (Neg); RSV by PCR Negative (Neg); SARS CoV2 RNA(COVID-19) InHosp NEGATIVE (Negative)
--- NOTE | 2021-08-24 18:53 | CT Scan Report ---
CT angio chest PE protocol CT DOSE: 993.70 mGy.cm HISTORY: 61 years-old Male with hypoxia, abn cxr. Acute hypoxia with shortness of breath TECHNIQUE: Multiple CTA images of the chest were obtained after the intravenous administration of 119 ml Optiray. Coronal and sagittal MIPS were obtained from the axial data set and were submitted for review. All measurements were obtained according to NASCET criteria. A dose lowering technique was u tilized adhering to the principles of ALARA. COMPARISON: Chest radiograph of same day and also 09/25/2020 FINDINGS: CTA: Cardiac megaly. Small pericardial effusion. Unremarkable thoracic aorta. Limited visualization of the segmental and subsegmental pulmonary arterial branches secondary to respiratory motion artifact and upper extremities positioning. No definite pulmonary emboli are identified. CT CHEST: No thyroid nodule. Mildly prominent paratracheal and subcarinal lymph nodes measure up to 10 mm. Right-sided calcified pleural plaques. Trace right and small left pleural effusions. No pneumothorax. Respiratory motion artifact limits evaluation of the lungs. Emphysema. Reticular interstitial coarse juan is noted with intermixed bilateral groundglass densities and mild consolidation. Central airways appear generally patent. No acute process of the imaged upper abdomen. No acute fracture or suspicious bone lesion. Degenerati ve changes of the shoulders and spine. IMPRESSION: 1. Limited exam as above. Cardiomegaly without central pulmonary emboli identified. 2. Emphysema with fibrosis and patchy bilateral groundglass and consolidative opacities suggestive of multifocal pneumonia. 3. Trace right and small left pleural effusions with calcified right-sided pleural plaques. 4. Mild mediastinal adenopathy. ACT 112: Negative or not required by law. The above report was generated using voice recognition software. It may contain grammatical, syntax o r spelling errors. Electronically signed by: Gautam Valencia M.D. 08/24/2021 6:52 PM
[2021-08-24] MEDS ORDERED: CONSULT PHARMACY STA (20:33)
[2021-08-24] MEDS ORDERED: GLUCOSE 10 TABS/TUBE PO PRN (20:53)
[2021-08-24] MEDS ORDERED: DEXTROSE 50% 50 ML SYRINGE IV PRN (20:53)
[2021-08-24] MEDS ORDERED: CARBOHYDRATES FOR HYPOGLYCEMIA PO PRN (20:53)
[2021-08-24] MEDS ORDERED: GLUCOSE 40% GEL 15 GM TUBE PO PRN (20:53)
[2021-08-24] MEDS ORDERED: GLUCAGON FOR INJ 1 MG VIAL SQ PRN (20:53)
[2021-08-24] MEDS ORDERED: cloZAPine 25 MG TAB PO SCH (21:00)
[2021-08-24] MEDS ORDERED: CLOZAPINE 200 MG PO SCH (21:00)
[2021-08-24] MEDS ORDERED: INSULIN GLARGINE SOLOSTAR 100 UNITS/ML 3 ML PEN SC SCH (21:00)
[2021-08-24] MEDS ORDERED: cloZAPine 100 MG TAB PO SCH (21:00)
[2021-08-24] MEDS ORDERED: ACETAMINOPHEN 325 MG TAB PO PRN (21:04)
[2021-08-24] MEDS ORDERED: ALBUT/IPRATROP 3MG/0.5MG NEB 3 ML VIAL NEB PRN (21:10)
[2021-08-24] MEDS: ARTIFICIAL TEARS OPB SCH (22:22)
[2021-08-24] MEDS: ENOXAPARIN INJ 40 MG/0.4 ML SYR SQ SCH (22:23)
[2021-08-24] MEDS: DIVALPROEX EXTENDED RELEASE 250 MG TABCR PO SCH (22:25)
[2021-08-24] MEDS: METOPROLOL SUCC 50MG EXT REL TAB PO SCH (22:26)
[2021-08-24] MEDS: cloZAPine 25 MG TAB PO SCH (22:27)
[2021-08-24] MEDS: POTASSIUM CHLORIDE CRTAB 20 MEQ TABCR PO SCH (22:27)
[2021-08-24] MEDS: cloZAPine 100 MG TAB PO SCH (22:27)
[2021-08-24] MEDS: INSULIN ASPART PER UNIT SC SCH (22:36)
[2021-08-25] MEDS: CEFEPIME 2,000 MG in SYRINGE 0 ML IV SCH ×3 (01:58→18:20)
[2021-08-25] MEDS ORDERED: VANCOMYCIN HCL 1,000 MG in SODIUM CHLORIDE 0.9% 250 ML IV SCH (05:00)
[2021-08-25] MEDS: ALBUT/IPRATROP 3MG/0.5MG NEB 3 ML VIAL NEB SCH ×4 (07:21→19:37)
[2021-08-25 07:39] LABS: Hematocrit (blood only) 53.6 % (42-52); Hemoglobin 17.6 g/dL (14.0-18.0); Mean Corpuscular Hemoglobin 29.4 pg (25-34); Mean Corpuscular Hgb Conc 32.8 g/dL (32-36); Mean Corpuscular Volume 89.5 fL (80-100); Mean Platelet Volume 10.7 fL (7.4-10.4); Platelet Count 136 K/uL (130-400); RDW Coefficient of Variation 14.7 % (11.5-14.5); RDW Standard Deviation 48.5 fL (36.4-46.3); Red Blood Count 5.99 M/uL (4.7-6.1); White Blood Count 11.74 K/uL (4.8-10.8)
[2021-08-25 07:53] LABS: BUN Creatinine Ratio 14.9 (10-20); Calcium 8.5 mg/dl (8.5-10.1); Creatinine Clr Calc Pharmacy 85.7 ml/min; Est GFR (African American) 93.3 ml/min; Est GFR (Non-African American) 80.5 ml/min; Potassium 4.8 mmol/L (3.5-5.1)
[2021-08-25] MEDS: DIVALPROEX EXTENDED RELEASE 250 MG TABCR PO SCH ×2 (08:29→21:09)
[2021-08-25] MEDS: LORATADINE 10 MG TAB PO SCH (08:30)
[2021-08-25] MEDS: amLODIPine BESYLATE 5 MG TAB PO SCH (08:30)
[2021-08-25] MEDS: ARIPiprazole 10 MG TAB PO SCH (08:30)
[2021-08-25] MEDS: FAMOTIDINE 20 MG TAB PO SCH (08:30)
[2021-08-25] MEDS: hydroCHLOROthiazide 25 MG TAB PO SCH (08:30)
[2021-08-25] MEDS: METOPROLOL SUCC 50MG EXT REL TAB PO SCH ×2 (08:30→21:12)
[2021-08-25] MEDS: CHOLECALCIFEROL 5,000 UNITS 125 MCG TAB PO SCH (08:31)
[2021-08-25] MEDS: INSULIN ASPART PER UNIT SC SCH ×4 (08:35→21:02)
[2021-08-25 08:36] LABS: Estimated Average Glucose 209 mg/dl; Hemoglobin A1C 8.9 % (4.5-5.6)
[2021-08-25] MEDS: POTASSIUM CHLORIDE CRTAB 20 MEQ TABCR PO SCH ×2 (08:37→21:10)
[2021-08-25] MEDS: ARTIFICIAL TEARS OPB SCH ×4 (08:37→21:07)
[2021-08-25] MEDS ORDERED: INSULIN ASPART PER UNIT SC STA (12:08)
--- NOTE | 2021-08-25 15:40 | Hospitalist Progress Note ---
Date of Service August 25, 2021 Assessment & Plan (1) Multifocal pneumonia: Plan: 61 y/o M with PMH of paranoid schizophrenia, COPD, pulmonary sarcoidosis, insulin dependent diabetes, HTN, sleep apnea, GERD presented to ER 08/24 with c/o SOB and noted hypoxia with ambulation on the day of arrival. Reported sats 60's with amublation up to 90's on 2L NC. In ER 95% on 2L NC, no leukocytosis, negative COVID-19 PCR, negative influenza and RSV. Negative for MRSA screen. He is being managed for the following: (1) Multifocal pneumonia: (2) COPD (chronic obstructive pulmonary disease): Patient does not use oxygen at baseline but in the past he had 1 L oxygen to use as needed. Patient from [facility], staff reported his saturation dropping to 60% upon ambulation on the day of arrival, improved to 90% on 2 L oxygen by nasal cannula and was brought to the ED. Patient reports cough with productive sputum, cannot comment on the color of the sputum. B/b crackles on exam Admitting CXR positive for multifocal pneumonia. Admitting CTA chest revealed emphysema with fibrosis and suggestive of multifocal pneumonia associated with trace to small bilateral pleural effusion. Right sided calcified pleural plaques noted. Patient made aware. Mild mediastinal lymphadenopathy noted. Received cefepime, vancomycin and Solu-Medrol in the ED WBC at presentation WNL, up trended today likely secondary to steroid MRSA negative, discontinue vancomycin, continue with Cefepime 08/24 Admitting blood culture: Pending, admitting respiratory culture uncollected, await results. Continue with supplemental oxygen/DuoNeb/incentive spirometer. Monitor labs. Continue supportive management. (3) Diabetes mellitus, type 2: Plan: Insulin dependent Hold home insulin Basal bolus insulin per protocol A1c 8.9% this admission, glycemic pharmacy for Mx and further DC recs. (4) Hypertension: Plan: Fairly under control Continue amlodipine, metoprolol succinate, HCTZ (5) ANT on CPAP: Plan: CPAP HS (6) Schizophrenia, paranoid, chronic: Plan: Continue Abilify, clozapine, Depakote DVT Prophylaxis Lovenox SQ Full Code Follows with at [facility] for routine care. 08/25--> called [facility] [employer] [[phone]] in regard to denied inpatient admission for the patient [per rehabilitation caseworker]. Reference #[id number]. They will call me back in the coming days for [id number]. Interaction ID is "[id number]". Disposition: PT/OT, CM to assist with DC planning. Admission and Anticipated Discharge Date Admission Date: August 24, 2021 Subjective Patient seen and examined at bedside at follow-up of multifocal pneumonia. Patient sitting up in chair, on 2 L nasal cannula oxygen, NAD, no new acute events overnight per RN. Per RN patient is eating okay. It is very hard to get history from patient but he denies any pain or discomfort. Patient reports coughing with sputum but could not comment on the color of the sputum. ROS was limited. Physical Exam Physical Exam: GENERAL: Alert and oriented x3. NAD, on 2L. HEENT: No pallor, no icterus. Pupils equal, round and reactive to light. Oral mucosa moist. NECK: No JVD, no neck masses. HEART: S1 and S2 heard. Regular rate and rhythm. No murmur, no gallop. RESPIRATORY SYSTEM: Normal AP diameter. No accessory muscle use. No wheezing, b/b crackles. ABDOMEN: Soft, bowel sounds present, nontender, no distention. CENTRAL NERVOUS SYSTEM: No facial droop. Speech is clear. Obeys simple commands. Moves extremities. EXTREMITIES: trace ble edema, BLE chronic skin changes, no erythema seen. Results & Data Results & Data ([facility]) Vital Signs (Past 12 Hours) Vital Signs Temp Pulse Pulse Resp BP Pulse Ox 08/25/21 14:55 88 08/25/21 14:47 89 18 96 08/25/21 14:46 36.9 C 89 20 122/84 100 08/25/21 10:59 97 H 20 93 08/25/21 10:57 36.5 C 94 H 20 135/87 98 08/25/21 07:47 36.6 C 75 20 121/82 95 08/25/21 07:31 87 08/25/21 07:22 82 18 84 L 08/25/21 04:20 36.3 C L 81 20 151/94 H 95
[2021-08-25] MEDS: INSULIN GLARGINE SOLOSTAR 100 UNITS/ML 3 ML PEN SC SCH (21:03)
[2021-08-25] MEDS: cloZAPine 25 MG TAB PO SCH (21:08)
[2021-08-25] MEDS: cloZAPine 100 MG TAB PO SCH (21:09)
[2021-08-25] MEDS: ENOXAPARIN INJ 40 MG/0.4 ML SYR SQ SCH (21:10)
[2021-08-26] MEDS: CEFEPIME 2,000 MG in SYRINGE 0 ML IV SCH ×2 (03:10→09:44)
[2021-08-26 06:31] LABS: Hematocrit (blood only) 52.1 % (42-52); Mean Corpuscular Hemoglobin 29.3 pg (25-34); Mean Corpuscular Hgb Conc 32.6 g/dL (32-36); Mean Corpuscular Volume 89.7 fL (80-100); Mean Platelet Volume 11.4 fL (7.4-10.4); Platelet Count 142 K/uL (130-400); RDW Coefficient of Variation 15.4 % (11.5-14.5); RDW Standard Deviation 50.3 fL (36.4-46.3); Red Blood Count 5.81 M/uL (4.7-6.1); White Blood Count 10.96 K/uL (4.8-10.8)
[2021-08-26 06:55] LABS: BUN Creatinine Ratio 20.6 (10-20); Calcium 9.2 mg/dl (8.5-10.1); Creatinine Clr Calc Pharmacy 66.7 ml/min; Est GFR (African American) 68.1 ml/min; Est GFR (Non-African American) 58.8 ml/min; Magnesium 1.8 mg/dl (1.7-2.4); Phosphorus 3.4 mg/dl (2.5-4.9); Potassium 4.1 mmol/L (3.5-5.1)
[2021-08-26] MEDS: ALBUT/IPRATROP 3MG/0.5MG NEB 3 ML VIAL NEB SCH ×3 (07:10→14:54)
[2021-08-26] MEDS: METOPROLOL SUCC 50MG EXT REL TAB PO SCH (09:02)
[2021-08-26] MEDS: LORATADINE 10 MG TAB PO SCH (09:02)
[2021-08-26] MEDS: FAMOTIDINE 20 MG TAB PO SCH (09:02)
[2021-08-26] MEDS: ARIPiprazole 10 MG TAB PO SCH (09:02)
[2021-08-26] MEDS: INSULIN ASPART PER UNIT SC SCH ×2 (09:02→12:21)
[2021-08-26] MEDS: amLODIPine BESYLATE 5 MG TAB PO SCH (09:03)
[2021-08-26] MEDS: hydroCHLOROthiazide 25 MG TAB PO SCH (09:03)
[2021-08-26] MEDS: POTASSIUM CHLORIDE CRTAB 20 MEQ TABCR PO SCH (09:03)
[2021-08-26] MEDS: CHOLECALCIFEROL 5,000 UNITS 125 MCG TAB PO SCH (09:03)
[2021-08-26] MEDS: DIVALPROEX EXTENDED RELEASE 250 MG TABCR PO SCH (09:03)
[2021-08-26] MEDS: ARTIFICIAL TEARS OPB SCH ×2 (09:04→12:21)
[2021-08-26] MEDS: INSULIN GLARGINE SOLOSTAR 100 UNITS/ML 3 ML PEN SC SCH (09:04)
[2021-08-26] MEDS ORDERED: ADVANCED PROBIOTIC 1250 MG CAPSULE PO SCH (12:45)
--- NOTE | 2021-08-26 12:54 | Discharge Summary ---
Date of Service August 26, 2021 Admission HPI Per Admitting Provider Patient is 61 y/o M with PMH paranoid schizophrenia, COPD, pulmonary sarcoidosis, insulin dependent diabetes, HTN, sleep apnea, GERD presented to ER with c/o hypoxia. Additional history obtained from [facility] staff. Reported patient was walking with physical therapy today to ambulate to bathroom and noted to be SOB and pulse ox dropped into the 60's and increased to 90's on 2L oxygen via nasal cannula. In past patient had oxygen 1L to use as needed. Nurse I spoke to from [facility] says he has O2 tank in his room but she has not seen him wearing oxygen. She reports at baseline patient speaks quietly and mumbles and is hard to understand and often need to repeat to understand patient. No change in mental status reported from staff. Denies any known COVID cases. Patient reports coughing today. He sates he feels SOB. He reports he feels weak. He denies CP, fever/chills, N/V/D/C, BURNS, dizziness, CP, sore throat, choking, otalgia, rhinorrhea, abdominal pain, extremity edema, rashes, urinary symptoms. Admission Exam Per Admitting Provider General: no acute distress, WDWN Head: normocephalic, atraumatic Eyes: PERRL, EOM's intact, conjunctiva non-injected, anicteric ENT: normal inspection external ears, nose, mucous membranes moist Neck: supple, trachea midline Lungs: clear, no respiratory distress, no wheezing/rhonchi/rales CV: RRR, no pretibial edema Abd:protubarnt, normal BS, soft, non-tender Ext: no cyanosis, no calf tenderness Neuro: Alert, patient mumbles and speaks at low volume, is difficult to understand, oriented to person and place, says year is 2020 and then says 2021, unsure of month, no focal deficits noted Skin: warm, dry Principal Diagnosis Multifocal pneumonia Discharge Exam GENERAL: Alert and oriented x3. NAD, on 2L. HEENT: No pallor, no icterus. Pupils equal, round and reactive to light. Oral mucosa moist. NECK: No JVD, no neck masses. HEART: S1 and S2 heard. Regular rate and rhythm. No murmur, no gallop. RESPIRATORY SYSTEM: Normal AP diameter. No accessory muscle use. No wheezing, occasional crackles, improving ABDOMEN: Soft, bowel sounds present, nontender, no distention. CENTRAL NERVOUS SYSTEM: No facial droop. Speech is clear. Obeys simple commands. Moves extremities. EXTREMITIES: trace ble edema, BLE chronic skin changes, no erythema seen. Discharge Data Allergies Allergy/AdvReac Type Severity Reaction Status Date / Time No Known Allergies Allergy Verified 08/24/21 18:39 Consultations 08/24/21 17:07 ED Decision to Admit Stat Ordered Studies 08/24/21 16:43 CT angio chest PE protocol Stat Hospital Course (1) Multifocal pneumonia: 61 y/o M with PMH of paranoid schizophrenia, COPD, pulmonary sarcoidosis, insulin dependent diabetes, HTN, sleep apnea, GERD presented to ER 08/24 with c/o SOB and noted hypoxia with ambulation on the day of arrival. Reported sats 60's with amublation up to 90's on 2L NC. In ER he was 95% on 2L NC, no leukocytosis at presentation, negative COVID-19 PCR, negative influenza and RSV. Negative for MRSA screen. He is being managed for the following: (1) Multifocal pneumonia: (2) COPD (chronic obstructive pulmonary disease): Patient does not use oxygen at baseline but in the past he had 1 L oxygen to use as needed. Patient from [facility], staff reported his saturation dropping to 60% upon ambulation on the day of arrival, improved to 90% on 2 L oxygen by nasal cannula and was brought to the ED. Patient reports cough with productive sputum, color of the sputum improving, light yellow on the day of discharge, crackles improving. Patient reports cough improving. Admitting CXR positive for multifocal pneumonia. Patient will need follow-up chest x-ray in 4 to 6 weeks time to document the resolution of pneumonia. Patient made aware. Admitting CTA chest revealed emphysema with fibrosis and suggestive of multifocal pneumonia associated with trace to small bilateral pleural effusion. Right sided calcified pleural plaques noted. Patient made aware. Mild mediastinal lymphadenopathy noted. Patient will have to establish a pulm doctor or follow-up with the pulm doctor as an outpatient, patient made aware. Received cefepime, vancomycin and Solu-Medrol in the ED WBC at presentation WNL, up trended initially, gradually downtrending. MRSA negative,Cefepime 08/24 --> changed to Levaquin 750 mg daily 08/26. Add probiotics for the duration of antibiotic. Admitting blood culture: No growth for 24 hours, await final results., admitting respiratory culture uncollected, await results. Continue with supplemental oxygen/DuoNeb/incentive spirometer. Get CBC in a week time upon discharge. PCP and lung doctor as an outpatient. (3) Diabetes mellitus, type 2: Plan: Insulin dependent Hold home insulin Basal bolus insulin per protocol A1c 8.9% this admission. Follow-up with [facility] for ongoing management of your diabetes. (4) Hypertension: Plan: Fairly under control Continue amlodipine, metoprolol succinate, HCTZ (5) ANT on CPAP: Plan: CPAP HS (6) Schizophrenia, paranoid, chronic: Plan: Continue Abilify, clozapine, Depakote DVT Prophylaxis Lovenox SQ Full Code Follows with at [facility] for routine care. 08/25--> called [employer] [[phone]] in regard to denied inpatient admission for the patient [per cyanide case hardener]. Reference #[id number]. They will call me back in the coming days for [id number]. Interaction ID is "[id number]". Patient is being discharged back to [facility] with following instruction at the point of discharge: Follow-up with your primary care physician within a week time. As discussed at the bedside, your chest imaging/CT scan showed right-sided calcified pleural plaques. This needs to be followed up as an outpatient. Follow-up with your primary care physician or lung doctor. You will need chest x-ray in 4 to 6-week to document the resolution of pneumonia. You will be discharged on antibiotic for 5 more days, complete the course. Closely follow-up with your primary care physician or [facility] for diabetes management. Get your blood work CBC done in a week time. Take medications as prescribed. Total Time Total Time Spent Total Time Spent (In Minutes): 35 Discharge Plan Discharge Items Patient Disposition: Transfer Assisted Fac Reason For Visit: HYPOXIA Discharge Diagnosis: Multifocal pneumonia Activity: Resume your previous activity Non-emergency contact: Primary Care Provider Call non-emergency contact if: you have any medication questions, your symptoms worsen and your temperature is above 101 Follow-up/Referrals: Brittni Sierra [Primary Care Provider] - Jairo Johnson MD [Outside Practitioners] - (Date & Time 12/16/2021 2:00 PM Provider Jairo Johnson MD Department Pulmonary Medicine, [facility] ) Diet: Carb Consistent or DM2 Addtl Attending Provider Instructions: Follow-up with your primary care physician within a week time. As discussed at the bedside, your chest imaging/CT scan showed right-sided calcified pleural plaques. This needs to be followed up as an outpatient. Follow-up with your primary care physician or lung doctor. You will need chest x-ray in 4 to 6-week to document the resolution of pneumonia. You will be discharged on antibiotic for 5 more days, complete the course. Closely follow-up with your primary care physician or [facility] clinic for diabetes management. Get your blood work CBC done in a week time. Take medications as prescribed. Pending Studies at Discharge: Yes (Admitting blood culture final results.) Stand-Alone Forms: My [facility] Skilled Items Patient informed of condition?: Yes DNR: No Discharge Level of Care: Skilled Communicable Disease: No Discharge Prognosis: Stable Lines: None Urinary Catheter: No Medications and DC Order Prescriptions: New levofloxacin 750 mg tablet 750 mg PO DAILY 5 Days Qty: 5 RF: 0 Probiotic 3 billion cell capsule 3,000 mmu cells PO DAILY 7 Days Qty: 7 RF: 0 Continued famotidine 20 mg tablet 20 mg PO DAILY RF: 0 clozapine [Clozaril] 100 mg Tablet 100 mg PO HS RF: 0 magnesium hydroxide [Milk of Magnesia] 400 mg/5 mL Suspension 30 ml PO DAILY PRN (Reason: NO BM 3 DAYS.) RF: 0 bisacodyl 10 mg Suppository 10 mg MO DAILY PRN (Reason: NO BM 4 DAYS) RF: 0 Fleet Enema 19-7 gram/118 mL Enema 1 applic MO QAM PRN (Reason: NO BM 4 DAYS.) RF: 0 Spiriva with HandiHaler 18 mcg Capsule, W/Inhalation Device 1 cap INHALATION DAILY RF: 0 potassium chloride 20 mEq tablet extended release 40 meq PO BID RF: 0 metoprolol succinate 200 mg Tablet Extended Release 24 Hr 200 mg PO BID RF: 0 polyvinyl alcohol [Artificial Tears (polyvin alc)] 1.4 % Drops 2 drp OPB QID RF: 0 amlodipine 5 mg Tablet 5 mg PO DAILY RF: 0 loratadine [Claritin] 10 mg Tablet 10 mg PO DAILY RF: 0 aripiprazole [Abilify] 10 mg Tablet 10 mg PO DAILY RF: 0 divalproex [Depakote ER] 250 mg Tablet Extended Release 24 Hr 250 mg PO BID RF: 0 clozapine 50 mg Tablet 50 mg PO HS RF: 0 clozapine 200 mg Tablet 200 mg PO HS RF: 0 cholecalciferol (vitamin D3) [Vitamin D3] 125 mcg (5,000 unit) Tablet 125 mcg PO DAILY RF: 0 hydrochlorothiazide 25 mg tablet 12.5 mg PO DAILY RF: 0 loperamide 2 mg Tablet 2 mg PO DIRECTED MDD 16 MG/24 HOURS PRN (Reason: LOOSE STOOLS) RF: 0 insulin lispro [Humalog U-100 Insulin] 100 unit/mL Solution See Rx Instructions .ROUTE .COMPLEX RF: 0 albuterol sulfate 90 mcg/actuation Hfa Aerosol Inhaler 2 puff INHALATION Q4H PRN (Reason: Shortness Of Breath Or Wheezing) RF: 0 albuterol sulfate 90 mcg/actuation Hfa Aerosol Inhaler 2 puff INHALATION Q6H RF: 0 Ozempic 1 mg/dose (4 mg/3 mL) Pen Injector 1 mg SUBCUT WK RF: 0 Lantus U-100 Insulin 100 unit/mL solution 55 unit SUBCUT DAILY RF: 0 Discharge Orders: Discharge Order (Routine); Ordered 08/26/21 Ordered By: Paresh Walker Admission Data Admit Date/Time: 08/24/21 18:10 Attending Provider: Paresh Walker Admit Provider: Natividad Burns Primary Care Provider: Brittni Sierra Other Providers: Natividad Burns ; Carlito Sierra
[2021-08-26] MEDS ORDERED: levoFLOXacin 750 MG TAB PO SCH (13:00)
[2021-08-26] MEDS ORDERED: VANCOMYCIN TROUGH ONE (16:30)
== END 2021-08-26 15:30 ==
LOC: ED 14:21 → 2N 18:10 → SUATTDRO 18:10 → INTOOBSV 18:10 → 2N 19:49

== ENCOUNTER 2022-06-06 13:21 | Inpatient (IN) ==
[2022-06-06] MEDS ORDERED: ACETAMINOPHEN 1,000 MG/100 ML VIAL IV STA (14:29)
[2022-06-06] MEDS ORDERED: ALBUT/IPRATROP 3MG/0.5MG NEB 3 ML VIAL NEB STA (14:29)
[2022-06-06] MEDS ORDERED: CEFEPIME 2,000 MG/20 ML VIAL IV STA (14:30)
--- NOTE | 2022-06-06 14:34 | XRay Report ---
XR chest 1V portable HISTORY: 62 years-old Male weakness acute weakness COMPARISON: Chest CT 10/04/2021 TECHNIQUE: AP view of the chest FINDINGS: Emphysema with chronic interstitial lung disease. Cardiomegaly. No pneumothorax or large pleural effu toya. Surgical clips of the anterior lower neck. Degenerative changes of the shoulders and spine. IMPRESSION: 1. Cardiomegaly without acute process. 2. Emphysema with chronic interstitial lung disease. ACT 112: Negative or not required by law. The above report was generated using voice recognition software. It may contain grammatical, syntax o r spelling errors. Electronically signed by: Gautam Valencia M.D. 06/06/2022 2:32 PM
--- NOTE | 2022-06-06 14:42 | Emergency Department Note ---
Impression & Plan Lethargy, Hypoglycemia, SOB (shortness of breath), COVID-19 ED Provider Note NAME: JADEN BARRIOS AGE: 62 SEX: M : 1960 ARRIVES VIA: Ambulance INFORMANT: [Patient][ems, nursing] ED PROVIDER(S): [Mike Dunlap MD] CHIEF COMPLAINT: Lethargic HISTORY OF PRESENT ILLNESS: The patient is a 62-year-old male with a lung disease and schizophrenia. He presents from a local [facility]. The patient tested negative for COVID yesterday but then positive today. He was less responsive and described as lethargic. He had some shaking chills. He was sent for evaluation. The patient admits to feeling short of breath, he does chronically wear 3 L of oxygen. He is a very poor historian, no further history obtainable REVIEW OF SYSTEMS: Unobtainable given his mental state PMHx/PSHx: See Below SOCIAL HISTORY: See Below. PHYSICAL EXAM: GENERAL: Patient is in no acute distress. HEENT: No acute trauma, normocephalic atraumatic, mucous membranes moist, no nasal congestion, no scleral icterus. NECK: No stridor, no adenopathy, no meningismus, trachea is midline. LUNGS: Crackles bilaterally worse on the right, no respiratory distress. Mildly increased respiratory rate HEART: Without murmurs gallops or rubs, regular rate and rhythm. ABDOMEN: Soft, nontender, bowel sounds positive, no peritonitis. EXTREMITIES: No cyanosis or edema, full range of motion of all the joints without pain or difficulty, no signs for acute trauma. NEUROLOGIC: Moves all extremities, awake and alert. SKIN: No rash, no jaundice, no diaphoresis. DIFFERENTIAL DIAGNOSIS: Infection, sepsis, COVID-19, influenza, dehydration, metabolic abnormality, hypo/hyperglycemia, electrolyte disturbance, anemia, hypoxia, cardiac sources, intracerebral event, toxicologic issues, stroke, TIA, as well as other pathologies. EMERGENCY DEPARTMENT COURSE/PROCEDURES: ECG: Indication was shortness of breath. The ECG shows a normal sinus rhythm with a rate of 100. There is no ST elevation, no PVCs. The QTc is 469. Continuous Cardiac Monitoring: An order was placed for continuous cardiac monitoring. The monitor shows a rate of 102 with sinus tachycardia. MEDICAL DECISION MAKING: There is no leukocytosis. The patient does have a high hemoglobin although, this has been documented before. Platelet count slightly low at 126. No renal failure. Glucose was low at 45. A repeat sugar was obtained at bedside and showed a value in the 50s. The patient was given a 25 mL dose of D50. Repeat sugar was 103. The patient remained sleepy and lethargic despite the dextrose administration. Lactic acid level was not elevated making severe sepsis less likely. No concerning liver enzyme elevation. ECG showed a normal sinus rhythm, no ischemia. Cardiac enzyme testing x1 was not consistent with acute cardiac injury. BNP was not elevated making CHF unlikely. The patient appeared to be in a euthyroid state. COVID test returned positive. Influenza and RSV test were negative. Chest x-ray shows some chronic parenchymal lung disease, no pneumothorax. On exam, the patient was somnolent and had crackles on his lung exam. The patient was given IV cefepime as empiric antibiotic coverage. He received IV Tylenol for his mild temperature elevation. He was given a DuoNeb. The patient has chronic lung disease. He is COVID-positive and this has flared up his underlying lung issue. He is more sleepy and was described as lethargic by the nursing staff at his care center. His blood sugar was low. He is not in any condition to be discharged back to the fpc. I do think a hospital stay is warranted. I spoke with the patient and case management, the on-call hospitalist was consulted. Past Med/Surg History Medical History Alcohol abuse Asthma COPD (chronic obstructive pulmonary disease) Diabetes Diabetes mellitus, type 2 Hepatitis C History of seizures Hypertension Hypokalemia Lupus Paranoid schizophrenia Peripheral vascular disease Sleep apnea Surgical History (Updated 08/24/21 @ 20:49 by Soraya Wild PA-C) No significant past surgical history Family History Denies family history of Myocardial infarction Congenital kidney disease Social History Smoking Status: Unknown if ever smoked Second Hand Exposure: No; Hx Alcohol Use: No Hx Substance Use: No Preferred Language: Lithuanian Communication Ability: Impaired Visual Impairment: No Limitations Corporate Recruiter Required: No Beliefs That Will Affect Care: Spiritual marital status: Single Current Living Situation: Correction Current Living Situation Comment: reported living at [facility] Feels Safe at Home: Yes Assistive Devices: Walker Allergies Allergies Allergy/AdvReac Type Severity Reaction Status Date / Time No Known Allergies Allergy Verified 06/06/22 16:08 Home Meds Home Medications Medication Instructions Recorded Confirmed bisacodyl 10 mg rectal suppository 10 mg HI DAILY PRN NO BM 4 DAYS 08/19/18 06/06/22 magnesium hydroxide 400 mg/5 mL 30 ml PO DAILY PRN NO BM 3 DAYS. 08/19/18 06/06/22 oral suspension (Milk of Magnesia) sodium phosphates 19 gram-7 1 applic HI QAM PRN NO BM 4 DAYS. 08/19/18 06/06/22 gram/118 mL enema (Fleet Enema) tiotropium bromide 18 mcg capsule 1 cap inhalation DAILY 08/19/18 06/06/22 with inhalation device (Spiriva with HandiHaler) famotidine 20 mg tablet 20 mg PO DAILY 06/12/19 06/06/22 metoprolol succinate 200 mg 200 mg PO Q12 10/22/19 06/06/22 tablet,extended release 24 hr potassium chloride 20 mEq 40 meq PO BID 10/22/19 06/06/22 tablet,extended release amlodipine 5 mg tablet 5 mg PO DAILY 09/11/20 06/06/22 aripiprazole 10 mg tablet (Abilify) 10 mg PO DAILY 09/11/20 06/06/22 cholecalciferol (vitamin D3) 125 125 mcg PO DAILY 09/11/20 06/06/22 mcg (5,000 unit) tablet (Vitamin D3) clozapine 200 mg tablet 200 mg PO HS 09/11/20 06/06/22 clozapine 50 mg tablet 50 mg PO HS 09/11/20 06/06/22 hydrochlorothiazide 25 mg tablet 12.5 mg PO DAILY 09/11/20 06/06/22 albuterol sulfate 90 mcg/actuation 2 puff inhalation Q4H PRN 08/24/21 06/06/22 aerosol inhaler Shortness Of Breath Or Wheezing albuterol sulfate 90 mcg/actuation 2 puff inhalation Q6H 08/24/21 06/06/22 aerosol inhaler insulin glargine 100 unit/mL 55 unit subcut DAILY 08/24/21 06/06/22 subcutaneous solution (Lantus U-100 Insulin) insulin lispro 100 unit/mL See Rx Instructions .Route .COMPLEX 08/24/21 06/06/22 subcutaneous solution (Humalog U-100 Insulin) loperamide 2 mg tablet 2 mg PO DIRECTED PRN LOOSE 08/24/21 06/06/22 STOOLS semaglutide 1 mg/dose (4 mg/3 mL) 1 mg subcut WK 08/24/21 06/06/22 subcutaneous pen injector (Ozempic) acetaminophen 325 mg tablet 650 mg PO Q6 PRN pain level 1-3 06/06/22 06/06/22 acetaminophen 325 mg tablet 650 mg PO Q6 PRN temp>101 06/06/22 06/06/22 ascorbic acid (vitamin C) 500 mg 500 mg PO DAILY 06/06/22 06/06/22 tablet (Vitamin C) cyclosporine 0.05 % eye drops in a 1 drp OPB BID 06/06/22 06/06/22 dropperette (Restasis) divalproex 125 mg tablet,delayed 125 mg PO DAILY 06/06/22 06/06/22 release insulin lispro 100 unit/mL 1 sliding scale dose subcut TID 06/06/22 06/06/22 subcutaneous solution peg 400-propylene glycol 0.4 %-0.3 1 drp OPB QID 06/06/22 06/06/22 % eye drops (Systane (propylene glycol)) Results & Data (ED) Vital Signs Vital Signs - 24 hr 06/06/22 13:10 06/06/22 13:39 06/06/22 13:39 Temperature 37.9 C H Temperature Source Oral Pulse Rate 100 H Pulse Rate [Apical] 100 H Pulse Rate from SpO2 Sensor Pulse Rhythm Regular Pulse Rhythm [Apical] Regular Pulse Strength Normal Respiratory Rate 18 18 Respiratory Effort / Characteristics Non-Labored Non-Labored Respiratory Depth Normal Normal Respiratory Pattern Regular Regular Blood Pressure 174/108 H Blood Pressure Mean 130 Blood Pressure Position Lying Pulse Oximetry 96 96 Oxygen Delivery Method Nasal Cannula Nasal Cannula Nasal Cannula Oxygen Flow Rate 3 3 3 Sepsis Recent Fever Within 48 Hours No Sepsis New/Unexplained Change in Mental Status N/A Sepsis Action Taken by Nursing No Action Required 06/06/22 14:11 06/06/22 16:48 06/06/22 13:34 Temperature 37.9 C H Temperature Source Oral Pulse Rate 102 H 102 H Pulse Rate [Apical] Pulse Rate from SpO2 Sensor 100 H Pulse Rhythm Regular Pulse Rhythm [Apical] Pulse Strength Respiratory Rate 18 26 H Respiratory Effort / Characteristics Respiratory Depth Respiratory Pattern Blood Pressure Blood Pressure Mean Blood Pressure Position Pulse Oximetry 97 85 L Oxygen Delivery Method Room Air Oxygen Flow Rate Sepsis Recent Fever Within 48 Hours Sepsis New/Unexplained Change in Mental Status Sepsis Action Taken by Nursing 06/06/22 14:00 06/06/22 14:30 06/06/22 15:00 Temperature Temperature Source Pulse Rate 102 H 103 H 103 H Pulse Rate [Apical] Pulse Rate from SpO2 Sensor 103 H Pulse Rhythm Pulse Rhythm [Apical] Pulse Strength Respiratory Rate 28 H 25 H 27 H Respiratory Effort / Characteristics Respiratory Depth Respiratory Pattern Blood Pressure Blood Pressure Mean Blood Pressure Position Pulse Oximetry 93 Oxygen Delivery Method Nasal Cannula Oxygen Flow Rate 3 Sepsis Recent Fever Within 48 Hours Sepsis New/Unexplained Change in Mental Status Sepsis Action Taken by Nursing 06/06/22 15:30 06/06/22 16:00 06/06/22 16:28 Temperature Temperature Source Pulse Rate 96 H 93 H 91 H Pulse Rate [Apical] Pulse Rate from SpO2 Sensor 96 H 94 H 91 H Pulse Rhythm Pulse Rhythm [Apical] Pulse Strength Respiratory Rate 23 27 H 23 Respiratory Effort / Characteristics Respiratory Depth Respiratory Pattern Blood Pressure Blood Pressure Mean Blood Pressure Position Pulse Oximetry 100 98 98 Oxygen Delivery Method Aerosol Mask Aerosol Mask Aerosol Mask Oxygen Flow Rate Sepsis Recent Fever Within 48 Hours Sepsis New/Unexplained Change in Mental Status Sepsis Action Taken by Nursing 06/06/22 16:28 06/06/22 16:30 06/06/22 16:30 Temperature Temperature Source Pulse Rate 92 H Pulse Rate [Apical] Pulse Rate from SpO2 Sensor 92 H Pulse Rhythm Pulse Rhythm [Apical] Pulse Strength Respiratory Rate 22 Respiratory Effort / Characteristics Respiratory Depth Respiratory Pattern Blood Pressure 141/92 H 142/89 H Blood Pressure Mean 108 106 Blood Pressure Position Pulse Oximetry 96 Oxygen Delivery Method Nasal Cannula Oxygen Flow Rate 3 Sepsis Recent Fever Within 48 Hours Sepsis New/Unexplained Change in Mental Status Sepsis Action Taken by Correction Medications Current Medication List: was personally reviewed by me Laboratory Data Attestation: I reviewed the patient's lab results. Result diagrams: 06/06/22 16:17 06/06/22 16:17 Lab Results 06/06/22 06/06/22 06/06/22 Range/Units 14:27 16:17 16:17 WBC 7.66 (4.8-10.8) K/ul RBC 7.08 H (4.63-6.08) M/uL Hgb 20.2 H (14.0-18.0) g/dl Hct 61.6 H (40.1-51.0) % MCV 87.0 (80.0-100.0) fL MCH 28.5 (25.0-34.0) pg MCHC 32.8 (32.0-36.0) g/dL RDW Std Deviation 49.4 H (36.4-46.3) fL RDW Coeff of Marta 17.4 H (11.5-14.5) % Plt Count 126 L (130-400) K/uL MPV 11.0 (9.4-12.4) fL Immature Gran % (Auto) 0.5 % Neut % (Auto) 64.9 % Lymph % (Auto) 20.0 % Estill % (Auto) 12.5 % Eos % (Auto) 1.6 % Baso % (Auto) 0.5 % Neut # (Auto) 4.97 (1.4-6.5) K/uL Lymph # (Auto) 1.53 (1.2-3.4) K/uL Estill # (Auto) 0.96 H (0.24-0.82) K/uL Eos # (Auto) 0.12 (0-0.50) K/uL Baso # (Auto) 0.04 (0-0.2) K/uL Immature Gran # (Auto) 0.04 H (0.00-0.02) K/uL Sodium 139 (136-145) mmol/L Potassium 4.0 (3.5-5.1) mmol/L Chloride 104 (98-107) mmol/L Carbon Dioxide 26 (21-32) mmol/L Anion Gap 9 (3-11) BUN 9 (6-23) mg/dl Creatinine 1.07 (0.6-1.4) mg/dl Est Cr Clr Drug Dosing 85.6 ml/min Est GFR ( Amer) 86.4 ml/min Est GFR (Non-Af Amer) 74.5 ml/min BUN/Creatinine Ratio 8.4 L (10-20) Glucose 45 L* (70-99(Fasting)) mg/dl POC Glucose (70-99) mg/dl Lactate (0.4-2.0) mmol/L Calcium 9.2 (8.5-10.1) mg/dl Magnesium 1.8 (1.7-2.4) mg/dl Total Bilirubin 1.1 H (0.2-1.0) mg/dl AST 26 (13-39) U/L ALT 31 (7-52) U/L Alkaline Phosphatase 96 (34-104) U/L Troponin I High Sens 6.8 (0-20) pg/ml B-Natriuretic Peptide (0-100) pg/ml Total Protein 7.9 (6.0-8.3) gm/dl Albumin 4.3 (3.4-5.0) gm/dl Globulin 3.6 (2.5-4.0) gm/dl Albumin/Globulin Ratio 1.2 (0.9-2) TSH (0.300-4.500) uIu/ml Valproic Acid SARS-CoV-2 (PCR) POSITIVE A* (Negative) Influenza Type A (PCR) Negative (Neg) Influenza Type B (PCR) Negative (Neg) RSV (RT-PCR) Negative (Neg) 06/06/22 06/06/22 06/06/22 Range/Units 16:17 16:17 16:17 WBC (4.8-10.8) K/ul RBC (4.63-6.08) M/uL Hgb (14.0-18.0) g/dl Hct (40.1-51.0) % MCV (80.0-100.0) fL MCH (25.0-34.0) pg MCHC (32.0-36.0) g/dL RDW Std Deviation (36.4-46.3) fL RDW Coeff of Marta (11.5-14.5) % Plt Count (130-400) K/uL MPV (9.4-12.4) fL Immature Gran % (Auto) % Neut % (Auto) % Lymph % (Auto) % Estill % (Auto) % Eos % (Auto) % Baso % (Auto) % Neut # (Auto) (1.4-6.5) K/uL Lymph # (Auto) (1.2-3.4) K/uL Estill # (Auto) (0.24-0.82) K/uL Eos # (Auto) (0-0.50) K/uL Baso # (Auto) (0-0.2) K/uL Immature Gran # (Auto) (0.00-0.02) K/uL Sodium (136-145) mmol/L Potassium (3.5-5.1) mmol/L Chloride (98-107) mmol/L Carbon Dioxide (21-32) mmol/L Anion Gap (3-11) BUN (6-23) mg/dl Creatinine (0.6-1.4) mg/dl Est Cr Clr Drug Dosing ml/min Est GFR ( Amer) ml/min Est GFR (Non-Af Amer) ml/min BUN/Creatinine Ratio (10-20) Glucose (70-99(Fasting)) mg/dl POC Glucose (70-99) mg/dl Lactate 1.2 (0.4-2.0) mmol/L Calcium (8.5-10.1) mg/dl Magnesium (1.7-2.4) mg/dl Total Bilirubin (0.2-1.0) mg/dl AST (13-39) U/L ALT (7-52) U/L Alkaline Phosphatase (34-104) U/L Troponin I High Sens (0-20) pg/ml B-Natriuretic Peptide 41 (0-100) pg/ml Total Protein (6.0-8.3) gm/dl Albumin (3.4-5.0) gm/dl Globulin (2.5-4.0) gm/dl Albumin/Globulin Ratio (0.9-2) TSH 0.556 (0.300-4.500) uIu/ml Valproic Acid SARS-CoV-2 (PCR) (Negative) Influenza Type A (PCR) (Neg) Influenza Type B (PCR) (Neg) RSV (RT-PCR) (Neg) 06/06/22 06/06/22 06/06/22 Range/Units 16:17 17:27 17:54 WBC (4.8-10.8) K/ul RBC (4.63-6.08) M/uL Hgb (14.0-18.0) g/dl Hct (40.1-51.0) % MCV (80.0-100.0) fL MCH (25.0-34.0) pg MCHC (32.0-36.0) g/dL RDW Std Deviation (36.4-46.3) fL RDW Coeff of Marta (11.5-14.5) % Plt Count (130-400) K/uL MPV (9.4-12.4) fL Immature Gran % (Auto) % Neut % (Auto) % Lymph % (Auto) % Estill % (Auto) % Eos % (Auto) % Baso % (Auto) % Neut # (Auto) (1.4-6.5) K/uL Lymph # (Auto) (1.2-3.4) K/uL Estill # (Auto) (0.24-0.82) K/uL Eos # (Auto) (0-0.50) K/uL Baso # (Auto) (0-0.2) K/uL Immature Gran # (Auto) (0.00-0.02) K/uL Sodium (136-145) mmol/L Potassium (3.5-5.1) mmol/L Chloride (98-107) mmol/L Carbon Dioxide (21-32) mmol/L Anion Gap (3-11) BUN (6-23) mg/dl Creatinine (0.6-1.4) mg/dl Est Cr Clr Drug Dosing ml/min Est GFR ( Amer) ml/min Est GFR (Non-Af Amer) ml/min BUN/Creatinine Ratio (10-20) Glucose (70-99(Fasting)) mg/dl POC Glucose 54 L* 103 H (70-99) mg/dl Lactate (0.4-2.0) mmol/L Calcium (8.5-10.1) mg/dl Magnesium (1.7-2.4) mg/dl Total Bilirubin (0.2-1.0) mg/dl AST (13-39) U/L ALT (7-52) U/L Alkaline Phosphatase (34-104) U/L Troponin I High Sens (0-20) pg/ml B-Natriuretic Peptide (0-100) pg/ml Total Protein (6.0-8.3) gm/dl Albumin (3.4-5.0) gm/dl Globulin (2.5-4.0) gm/dl Albumin/Globulin Ratio (0.9-2) TSH (0.300-4.500) uIu/ml Valproic Acid Cancelled SARS-CoV-2 (PCR) (Negative) Influenza Type A (PCR) (Neg) Influenza Type B (PCR) (Neg) RSV (RT-PCR) (Neg) Administered Medications Discontinued Medications Albuterol (Albut/Ipratrop 3mg/0.5mg Neb 3 Ml Vial) 3 ml NEB NOW STA; Protocol Stop: 06/06/22 14:30 Last Admin: 06/06/22 15:10 Dose: 3 ml Documented By: [id number] Dextrose (Dextrose 50% 50 Ml Syringe) 25 ml IV NOW ONE Stop: 06/06/22 17:28 Last Admin: 06/06/22 17:32 Dose: 25 ml Documented By: [id number] Acetaminophen (Ofirmev) 1,000 mg in 100 mls @ 400 mls/hr IV NOW STA Stop: 06/06/22 14:43 Last Infusion: 06/06/22 15:50 Dose: 0 mls/hr Documented By: [id number] Admin: 06/06/22 15:08 Dose: 400 mls/hr Documented By: [id number] Cefepime HCl (Maxipime) 2,000 mg in 20 mls @ 5 mls/min IV NOW STA; Protocol Stop: 06/06/22 14:33 Last Admin: 06/06/22 15:08 Dose: 5 mls/min Documented By: [id number] Imaging Data Radiologist's Impression: Chest X-Ray 06/06/22 14:11 XR chest 1V portable HISTORY: 62 years-old Male weakness acute weakness COMPARISON: Chest CT 10/04/2021 TECHNIQUE: AP view of the chest FINDINGS: Emphysema with chronic interstitial lung disease. Cardiomegaly. No pneumothorax or large pleural effusion. Surgical clips of the anterior lower neck. Degenerative changes of the shoulders and spine. IMPRESSION: 1. Cardiomegaly without acute process. 2. Emphysema with chronic interstitial lung disease. ACT 112: Negative or not required by law. The above report was generated using voice recognition software. It may contain grammatical, syntax or spelling errors. Electronically signed by: Gautam Valencia M.D. 06/06/2022 2:32 PM Discharge Plan Visit Data Chief Complaint: Lethargic Stated Complaint: COVID+, Lethargy, HTN, Tremors ED Provider: Mike Dunlap Discharge Problem: Lethargy, Hypoglycemia, SOB (shortness of breath), COVID-19 Patient Disposition: Admitted As Inpatient Condition: Fair Forms Stand Alone Forms: My [facility] Prescriptions Prescriptions: No Action famotidine 20 mg tablet 20 mg PO DAILY magnesium hydroxide [Milk of Magnesia] 400 mg/5 mL Suspension 30 ml PO DAILY PRN (Reason: NO BM 3 DAYS.) bisacodyl 10 mg Suppository 10 mg HI DAILY PRN (Reason: NO BM 4 DAYS) Fleet Enema 19-7 gram/118 mL Enema 1 applic HI QAM PRN (Reason: NO BM 4 DAYS.) Spiriva with HandiHaler 18 mcg Capsule, W/Inhalation Device 1 cap INHALATION DAILY Rx Instructions: 1 CAP=2 PUFFS potassium chloride 20 mEq tablet extended release 40 meq PO BID metoprolol succinate 200 mg Tablet Extended Release 24 Hr 200 mg PO Q12 amlodipine 5 mg Tablet 5 mg PO DAILY aripiprazole [Abilify] 10 mg Tablet 10 mg PO DAILY clozapine 50 mg Tablet 50 mg PO HS Rx Instructions: take with 200mg clozapine 200 mg Tablet 200 mg PO HS Rx Instructions: take with 50mg cholecalciferol (vitamin D3) [Vitamin D3] 125 mcg (5,000 unit) Tablet 125 mcg PO DAILY hydrochlorothiazide 25 mg tablet 12.5 mg PO DAILY loperamide 2 mg Tablet 2 mg PO DIRECTED MDD 16 MG/24 HOURS PRN (Reason: LOOSE STOOLS) Rx Instructions: give as needed after each loose stool insulin lispro [Humalog U-100 Insulin] 100 unit/mL Solution See Rx Instructions .ROUTE .COMPLEX Rx Instructions: HOLD IF BSG < 100----TAKES 18 UNITS QAM, 16 UNITS BID. ALSO HAS SLIDING SCALE TID. albuterol sulfate 90 mcg/actuation Hfa Aerosol Inhaler 2 puff INHALATION Q4H PRN (Reason: Shortness Of Breath Or Wheezing) albuterol sulfate 90 mcg/actuation Hfa Aerosol Inhaler 2 puff INHALATION Q6H Ozempic 1 mg/dose (4 mg/3 mL) Pen Injector 1 mg SUBCUT WK Rx Instructions: TAKES ON FRIDAYS. insulin glargine [Lantus U-100 Insulin] 100 unit/mL solution 55 unit SUBCUT DAILY acetaminophen 325 mg Tablet 650 mg PO Q6 MDD 3g PRN (Reason: temp>101) acetaminophen 325 mg Tablet 650 mg PO Q6 MDD 3g PRN (Reason: pain level 1-3) divalproex 125 mg tablet,delayed release (DR/EC) 125 mg PO DAILY cyclosporine [Restasis] 0.05 % dropperette 1 drp OPB BID Rx Instructions: allow 15 minutes between administration of other opthalmic eye drops ascorbic acid (vitamin C) [Vitamin C] 500 mg Tablet 500 mg PO DAILY Systane (propylene glycol) 0.4-0.3 % Drops 1 drp OPB QID insulin lispro 100 unit/mL solution 1 sliding scale dose subcut TID Rx Instructions: bsg 100-150=0 units 151-200 = 2 units 201-250 = 4 units 251-300 = 6 units 301-350 = 8 units 351-400 = 10 units 401-500 = 12 units > 500 call md Referrals Referrals: Brittni Sierra [Primary Care Provider] -
[2022-06-06 15:36] LABS: Influenza A virus by PCR Negative (Neg); Influenza B virus by PCR Negative (Neg)
[2022-06-06 15:37] LABS: RSV by PCR Negative (Neg); SARS CoV2 RNA(COVID-19) Ceph POSITIVE (Negative)
[2022-06-06 16:51] LABS: Hematocrit (blood only) 61.6 % (40.1-51.0); Hemoglobin 20.2 g/dl (14.0-18.0); Mean Corpuscular Hemoglobin 28.5 pg (25.0-34.0); Mean Corpuscular Hgb Conc 32.8 g/dL (32.0-36.0); Platelet Count 126 K/uL (130-400); RDW Coefficient of Variation 17.4 % (11.5-14.5); RDW Standard Deviation 49.4 fL (36.4-46.3); Red Blood Count 7.08 M/uL (4.63-6.08); White Blood Count 7.66 K/ul (4.8-10.8)
--- NOTE | 2022-06-06 16:52 | Electrocardiogram Report ---
Test Reason : Blood Pressure : / mmHG Vent. Rate : 100 BPM Atrial Rate : 100 BPM P-R Int : 182 ms QRS Dur : 094 ms QT Int : 364 ms P-R-T Axes : 058 -85 060 degrees QTc Int : 469 ms Normal sinus rhythm Left anterior fascicular block Abnormal ECG When compared with ECG of 24-AUG-2021 14:30, Nonspecific T wave abnormality no longer evident in Inferior leads Nonspecific T wave abnormality, improved in Lateral leads Confirmed by David Lopez ([id number]) on 06/06/2022 4:52:23 PM Referred By: Confirmed By:David Lopez
[2022-06-06 17:22] LABS: Albumin Globulin Ratio 1.2 (0.9-2); Albumin Level 4.3 gm/dl (3.4-5.0); BUN Creatinine Ratio 8.4 (10-20); Bilirubin,Total 1.1 mg/dl (0.2-1.0); Calcium 9.2 mg/dl (8.5-10.1); Creatinine Clr Calc Pharmacy 85.6 ml/min; Est GFR (African American) 86.4 ml/min; Est GFR (Non-African American) 74.5 ml/min; Globulin 3.6 gm/dl (2.5-4.0); Magnesium 1.8 mg/dl (1.7-2.4); Total Protein 7.9 gm/dl (6.0-8.3); Troponin I High Sensitivity 6.8 pg/ml (0-20)
[2022-06-06] MEDS ORDERED: DEXTROSE 50% 50 ML SYRINGE IV ONE (17:27)
[2022-06-06 17:32] LABS: Basophils # (auto) 0.04 K/uL (0-0.2); Basophils % (auto) 0.5 %; Eosinophils # (auto) 0.12 K/uL (0-0.50); Eosinophils % (auto) 1.6 %; Immature Granulocytes # (auto) 0.04 K/uL (0.00-0.02); Immature Granulocytes % (auto) 0.5 %; Lymphocytes # (auto) 1.53 K/uL (1.2-3.4); Monocytes # (auto) 0.96 K/uL (0.24-0.82); Monocytes % (auto) 12.5 %; Neutrophils # (auto) 4.97 K/uL (1.4-6.5); Neutrophils % (auto) 64.9 %
--- NOTE | 2022-06-06 18:04 | History & Physical Report ---
Date of Service June 06, 2022 Assessment & Plan (1) Acute metabolic encephalopathy: (2) Hypoglycemia: (3) COVID-19: (4) SOB (shortness of breath): (5) Diabetes mellitus, type 2: (6) Hypertension: (7) ANT (obstructive sleep apnea): (8) Schizophrenia, paranoid, chronic: Plan This is a 62yo M with a PMH of paranoid schizophrenia, COPD, pulmonary sarcoidosis, insulin dependent diabetes, mild cognitive impairment, HTN, sleep apnea, GERD presenting with lethargy from [facility] in setting of covid-19 infection. Acute metabolic encephalopathy Covid 19 infection Feels SOB but saturating at 96% on 2L NC (baseline O2 requirement) Covid + PCR. CXR with cardiomegaly without acute process. Emphysema with chronic interstitial lung disease Obtained CT head and ABG given somnolent state initially - CT head without acute abn, ABG pH 7.38 --> likely 2/2 hypoglycemia and mentation improved following 25 mL dose of D50 Consider addition of prednisone in AM - currently at respiratory baseline of 3L NC O2 Elevated hgb Hgb of 20 today and has been elevated at 18k or above since April. Peripheral smear ordered to better evaluate. DDx polycythemia vera vs chronic hypoxia 2/2 ant/copd ? Hypoglycemia DM II Initial BSG of 43 - received 25 mL dose of D50 with improved glucose of 103 Hold home agents. BSG AC HS. Hypoglycemia protocol ordered. Insulin ordered per protocol Glycemic consult for guidance on outpatient regimen Schizophrenia, paranoid, chronic Continue Abilify, clozapine, Depakote HTN Continue amlodipine, metoprolol succinate, HCTZ ANT Not on CPAP per [facility]; just uses supplemental O2 DVT Ppx: SQ Lovenox Code status: FULL PCP: [facility] Dispo: Admitted to PCU Patient seen in collaboration with Dr. Lewis. Please see addendum. History of Present Illness Chief Complaint: lethargic Primary Care Provider: [facility] This is a 62yo M with a PMH of paranoid schizophrenia, COPD, pulmonary sarcoidosis, insulin dependent diabetes, mild cognitive impairment, HTN, sleep apnea, GERD presenting with lethargy from [facility]. Patient tested negative for covid yesterday but positive today. Has become progressively lethargic since yesterday and was sent in for further evaluation. Does endorse feeling short of breath but remainder of ROS unobtainable due to patient's somnolent state. Does wear 3L NC O2 at baseline. Called [facility] for further information none of the current staff on this evening has been with him for 2 days so unsure of infecious symptoms. Was told was becoming more lethargic yesterday that progress ed into today. State his cognitive baseline is alert and oriented. He does ambulate. Does not use a CPAP at night, just supplemental O2. Allergies Allergy/AdvReac Type Severity Reaction Status Date / Time No Known Allergies Allergy Verified 06/06/22 16:08 Home Medications Medication Instructions Recorded Confirmed Type bisacodyl 10 mg rectal suppository 10 mg ND DAILY PRN NO BM 4 DAYS 08/19/18 06/06/22 History magnesium hydroxide 400 mg/5 mL 30 ml PO DAILY PRN NO BM 3 DAYS. 08/19/18 06/06/22 History oral suspension (Milk of Magnesia) sodium phosphates 19 gram-7 1 applic ND QAM PRN NO BM 4 DAYS. 08/19/18 06/06/22 History gram/118 mL enema (Fleet Enema) tiotropium bromide 18 mcg capsule 1 cap inhalation DAILY 08/19/18 06/06/22 History with inhalation device (Spiriva with HandiHaler) famotidine 20 mg tablet 20 mg PO DAILY 06/12/19 06/06/22 History metoprolol succinate 200 mg 200 mg PO Q12 10/22/19 06/06/22 History tablet,extended release 24 hr potassium chloride 20 mEq 40 meq PO BID 10/22/19 06/06/22 History tablet,extended release amlodipine 5 mg tablet 5 mg PO DAILY 09/11/20 06/06/22 History aripiprazole 10 mg tablet (Abilify) 10 mg PO DAILY 09/11/20 06/06/22 History cholecalciferol (vitamin D3) 125 125 mcg PO DAILY 09/11/20 06/06/22 History mcg (5,000 unit) tablet (Vitamin D3) clozapine 200 mg tablet 200 mg PO HS 09/11/20 06/06/22 History clozapine 50 mg tablet 50 mg PO HS 09/11/20 06/06/22 History hydrochlorothiazide 25 mg tablet 12.5 mg PO DAILY 09/11/20 06/06/22 History albuterol sulfate 90 mcg/actuation 2 puff inhalation Q6H 08/24/21 06/06/22 History aerosol inhaler insulin glargine 100 unit/mL 55 unit subcut DAILY 08/24/21 06/06/22 History subcutaneous solution (Lantus U-100 Insulin) insulin lispro 100 unit/mL See Rx Instructions .Route .COMPLEX 08/24/21 06/06/22 History subcutaneous solution (Humalog U-100 Insulin) loperamide 2 mg tablet 2 mg PO DIRECTED PRN LOOSE 08/24/21 06/06/22 History STOOLS semaglutide 1 mg/dose (4 mg/3 mL) 1 mg subcut WK 08/24/21 06/06/22 History subcutaneous pen injector (Ozempic) acetaminophen 325 mg tablet 650 mg PO Q6 PRN pain level 1-3 06/06/22 06/06/22 History ascorbic acid (vitamin C) 500 mg 500 mg PO DAILY 06/06/22 06/06/22 History tablet (Vitamin C) cyclosporine 0.05 % eye drops in a 1 drp OPB BID 06/06/22 06/06/22 History dropperette (Restasis) divalproex 125 mg tablet,delayed 125 mg PO DAILY 06/06/22 06/06/22 History release insulin lispro 100 unit/mL 1 sliding scale dose subcut TID 06/06/22 06/06/22 History subcutaneous solution peg 400-propylene glycol 0.4 %-0.3 1 drp OPB QID 06/06/22 06/06/22 History % eye drops (Systane (propylene glycol)) Past Med/Surg History Medical History (Updated 06/06/22 @ 19:06 by Vanesa Odom PA-C) Alcohol abuse Asthma COPD (chronic obstructive pulmonary disease) Diabetes Diabetes mellitus, type 2 Hepatitis C History of seizures Hypertension Hypokalemia Lupus ANT (obstructive sleep apnea) Paranoid schizophrenia Peripheral vascular disease Surgical History No significant past surgical history Family History Denies family history of Myocardial infarction Congenital kidney disease Social History Smoking Status: Former smoker Smoking End Date: 2014; Second Hand Exposure: No; Hx Alcohol Use: Yes (previous) Hx Substance Use: No Preferred Language: Macedonian Communication Ability: Impaired Visual Impairment: No Limitations Reel Winder Required: No Beliefs That Will Affect Care: Spiritual marital status: Single Current Living Situation: Retirement Current Living Situation Comment: reported living at [facility] Feels Safe at Home: Yes Assistive Devices: Walker Review of Systems Review of Systems: Unobtainable due to cognitive status Results & Data Results & Data ([facility]) Vital Signs (Past 12 Hours) Vital Signs Temp Pulse Pulse Resp BP Pulse Ox O2 Del Method 06/06/22 16:30 92 H 22 96 Nasal Cannula 06/06/22 16:30 142/89 H 06/06/22 16:28 141/92 H 06/06/22 16:28 91 H 23 98 Aerosol Mask 06/06/22 16:00 93 H 27 H 98 Aerosol Mask 06/06/22 15:30 96 H 23 100 Aerosol Mask 06/06/22 15:00 103 H 27 H 06/06/22 14:30 103 H 25 H 93 Nasal Cannula 06/06/22 14:00 102 H 28 H 06/06/22 13:34 102 H 26 H 85 L 06/06/22 16:48 37.9 C H 06/06/22 14:11 102 H 18 97 Room Air 06/06/22 13:39 100 H 18 96 Nasal Cannula 06/06/22 13:39 Nasal Cannula 06/06/22 13:10 37.9 C H 100 H 18 174/108 H 96 Nasal Cannula O2 Flow Rate 06/06/22 16:30 3 06/06/22 16:30 06/06/22 16:28 06/06/22 16:28 06/06/22 16:00 06/06/22 15:30 06/06/22 15:00 06/06/22 14:30 3 06/06/22 14:00 06/06/22 13:34 06/06/22 16:48 06/06/22 14:11 06/06/22 13:39 3 06/06/22 13:39 3 06/06/22 13:10 3 Laboratory Results Short CBC 06/06/22 Range/Units 16:17 WBC 7.66 (4.8-10.8) K/ul Hgb 20.2 H (14.0-18.0) g/dl Hct 61.6 H (40.1-51.0) % Plt Count 126 L (130-400) K/uL BMP 06/06/22 16:17 Sodium 139 Potassium 4.0 Chloride 104 Carbon Dioxide 26 BUN 9 Creatinine 1.07 Glucose 45 L* Calcium 9.2 Liver Function 06/06/22 Range/Units 16:17 Total Bilirubin 1.1 H (0.2-1.0) mg/dl AST 26 (13-39) U/L ALT 31 (7-52) U/L Alkaline Phosphatase 96 (34-104) U/L Albumin 4.3 (3.4-5.0) gm/dl Diagnostic Findings Chest X-Ray 06/06/22 14:11 XR chest 1V portable HISTORY: 62 years-old Male weakness acute weakness COMPARISON: Chest CT 10/04/2021 TECHNIQUE: AP view of the chest FINDINGS: Emphysema with chronic interstitial lung disease. Cardiomegaly. No pneumothorax or large pleural effusion. Surgical clips of the anterior lower neck. Degenerative changes of the shoulders and spine. IMPRESSION: 1. Cardiomegaly without acute process. 2. Emphysema with chronic interstitial lung disease. ACT 112: Negative or not required by law. The above report was generated using voice recognition software. It may contain grammatical, syntax or spelling errors. Electronically signed by: Gautam Valencia M.D. 06/06/2022 2:32 PM Code Status & VTE Plan VTE Prophylaxis Plan VTE Prophylaxis will be ordered: Yes Supervising Physician Co-Signing Physician Notes I have seen and examined the patient and have discussed the case with the provider above. I agree with the assessment and plan as stated with the following exceptions. This is a 62 yo man who came in with confusion and lethargy secondary to hypoglycemia in setting of insulin dependent diabetes mellitus and covid-19 infection. Hypoglycemia was corrected, ABG revealed no evidence of acidosis and CT head revealed no acute abnormality. CXR revealed evidence of chronic lung disease. He was able to wake up and respond better to questions and follow instructions. History was still somewhat limited, however, possibly related to underlying intellectual delay as described by staff at nursing facility. Denies pain. On physical exam: CONSTITUTIONAL: WNWD, vitals as above, generally NAD EYES: PERRL, normal conjunctivae, no scleral icterus ENT: external ear and nose normal, MMM NECK: trachea midline RESPIRATORY: clear to auscultation bilaterally, no crackles, rales or wheezes, normal respiratory effort CARDIOVASCULAR: regular rate and rhythm, S1 and 2 heard without murmurs, gallops or rubs, no JVD, no peripheral edema, CHEST: inspection of chest was normal GASTROINTESTINAL: soft, nontender, ND, no guarding MUSCULOSKELETAL: strength 5/5 throughout, head is normocephalic and atraumatic SKIN: warm and dry NEUROLOGIC: CN 2-12 grossly intact, no sensory deficit, normal cognition, normal speech, no tremor PSYCHIATRIC: alert cooperative and answering questions appropriately. Overall this is a 62 yo insulin dependent diabetic man who is also on Ozempic presenting with acute metabolic encephalopathy from hypoglycemia in the setting of a covid-19 infection. Agree with limited insulin until he is more awake and talking. He is on chronic 3 LPM oxygen, so would hold off on steroids to limit additional unwanted confusion and hyperglycemia in the setting of diabetes. Agree with reassessing the need in am. Cont supportive care efforts at this time. DO Joshua
[2022-06-06] MEDS ORDERED: DEXTROSE 50% 50 ML SYRINGE IV PRN (18:05)
[2022-06-06] MEDS ORDERED: CARBOHYDRATES FOR HYPOGLYCEMIA PO PRN (18:05)
[2022-06-06] MEDS ORDERED: GLUCOSE 40% GEL 15 GM TUBE PO PRN (18:05)
[2022-06-06] MEDS ORDERED: GLUCAGON FOR INJ 1 MG VIAL SQ PRN (18:05)
[2022-06-06] MEDS ORDERED: GLUCOSE 10 TAB/TUBE PO PRN (18:05)
[2022-06-06] MEDS ORDERED: PHARMACY GLYCEMIC MGMT CONSULT PRN (19:44)
--- NOTE | 2022-06-06 19:44 | CT Scan Report ---
HEAD CT NONCONTRAST CT DOSE: 691.05 mGy.cm HISTORY: Altered mental status. Lethargy. TECHNIQUE: Multiaxial CT images of the head were performed without the use of intravenous contrast. A utomated exposure control was utilized for this study. A dose lowering technique was utilized adheri ng to the principles of ALARA. Comparison: Head CT 09/11/2020. Findings: The paranasal sinuses and mastoid air cells are clear. The calvarium and skull base are int act. The ventricles and sulci are within normal limits. There is no mass, hematoma, midline shift, or acute infarct. Impression: No acute intracranial abnormality. ACT 112: Negative or not required by law. Electronically signed by: Reilly Snyder M.D. 06/06/2022 7:41 PM
[2022-06-06 19:50] LABS: Base Excess ABG 5.8 mEq/L (-9-1.8); HCO3 ABG 33 mmol/L (19-24); PCO2 ABG 55 mmHg (35-46); PO2 ABG 73 mmHg (80-95); pH ABG 7.38 (7.35-7.45)
[2022-06-06 19:54] LABS: Allen Test Pos (Pos)
[2022-06-06] MEDS ORDERED: ONDANSETRON INJ 2 MG/ML 2 ML VIAL IV PRN (20:33)
[2022-06-06] MEDS ORDERED: ACETAMINOPHEN 325 MG TAB PO PRN (20:33)
[2022-06-06] MEDS ORDERED: POLYETHYLENE (MIRALAX) 17 GM PACK PO PRN (20:33)
[2022-06-06] MEDS ORDERED: INSULIN ASPART PER UNIT SC SCH (21:00)
[2022-06-06] MEDS ORDERED: LANTUS PER UNIT CHARGE SQ SCH (21:00)
[2022-06-06] MEDS ORDERED: D5W AND 1/2NSS 1,000 ML IV SCH (21:30)
[2022-06-06] MEDS: ENOXAPARIN INJ 40 MG/0.4 ML SYR SQ SCH (21:52)
[2022-06-06] MEDS ORDERED: Nursing to Pharmacy Communication SCH (22:30)
[2022-06-06 23:58] LABS: Appearance Urine Clear (Clear); Bacteria Urine Automated Negative (Negative); Bilirubin Urine Negative (Negative); Blood Urine Negative (Negative); Color Urine Dark Yellow; Epithelial Cell Urine Auto 20-30 /lpf (0-5); Glucose Urine UA Negative (Negative); Ketones Urine Trace (Negative); Leukocyte Esterase Urine Negative (Negative); Nitrite Urine Negative (Negative); Protein Urine 1+ (Negative); RBC Urine Automated 0-4 /hpf (0-4); Specific Gravity Urine 1.033 (1.000-1.030); Urobilinogen Urine Negative (Negative)
[2022-06-07] MEDS ORDERED: INSULIN ASPART PER UNIT SC SCH
[2022-06-07 00:20] LABS: Cast Urine Automated 0 /lpf (0-5); Sperm Urine Present (None Prsent)
[2022-06-07] MEDS: INSULIN ASPART PER UNIT SC SCH ×5 (00:25→20:14)
[2022-06-07 07:00] LABS: Hemoglobin 18.9 g/dl (14.0-18.0); Mean Corpuscular Hemoglobin 28.4 pg (25.0-34.0); Mean Corpuscular Hgb Conc 32.6 g/dL (32.0-36.0); Mean Corpuscular Volume 87.2 fL (80.0-100.0); Mean Platelet Volume 10.8 fL (9.4-12.4); Platelet Count 117 K/uL (130-400); RDW Coefficient of Variation 17.2 % (11.5-14.5); RDW Standard Deviation 50.8 fL (36.4-46.3); Red Blood Count 6.65 M/uL (4.63-6.08); White Blood Count 5.46 K/ul (4.8-10.8)
[2022-06-07 07:02] LABS: BUN Creatinine Ratio 11.6 (10-20); Calcium 8.4 mg/dl (8.5-10.1); Creatinine Clr Calc Pharmacy 93.9 ml/min; Est GFR (African American) 99.7 ml/min; Est GFR (Non-African American) 86.1 ml/min; Potassium 3.6 mmol/L (3.5-5.1)
[2022-06-07 07:22] LABS: Estimated Average Glucose 128 mg/dl; Hemoglobin A1C 6.1 % (4.5-5.6)
[2022-06-07] MEDS ORDERED: Nursing to Pharmacy Communication SCH (10:15)
--- NOTE | 2022-06-07 14:08 | Pharmacy Report ---
Pharmacy Glycemic Short Note 2 - Date of Service June 07, 2022 - Glycemic Short BSG Results (Last 24 hours): 06/06/22 06/06/22 06/06/22 16:17 17:27 17:54 Glucose 45 L* POC Glucose 54 L* 103 H 06/06/22 06/07/22 06/07/22 20:37 00:19 05:05 Glucose POC Glucose 80 102 H 96 06/07/22 06/07/22 06:03 11:40 Glucose 95 POC Glucose 74 OUTPATIENT ANTIDIABETIC REGIMEN: * Lantus 55 units daily, Humalog SSI, ozempic * A1c 6.1% ASSESSMENT: * 62 year old male admitted with COVID, hypoglycemia. Pharmacy consulted to help with glycemic management. BSGs in the 40s on arrival, given 1/2 amp dextrose, trending upward to 100s. * Fasting BSG this AM 95 mg/dL - had held basal insulin last evening. BSGs still lower today, trending down to 74 mg/dL with lunch - will continue to hold basal for now until PO intake adequate. Of note, dextrose fluids completed this morning. Removed CR for now - will consider adding back in once BSGs recover PLAN FOR INPATIENT GLYCEMIC CONTROL: * Hold outpatient oral diabetes medications * Basal insulin * Lantus - hold * Bolus insulin * NovoLog per scale ACHS or Q6hrs while NPO * Goal Range: Low 120 mg/dL - High 160 mg/dL * Correction Factor: 25 mg/dL/unit * Nutritional / Prandial insulin per carb ratio of 1 unit per -- grams CHO consumed
--- NOTE | 2022-06-07 14:55 | Hospitalist Progress Note ---
Date of Service June 07, 2022 Assessment & Plan (1) Acute metabolic encephalopathy: (2) Hypoglycemia: (3) COVID-19: (4) SOB (shortness of breath): (5) Diabetes mellitus, type 2: (6) Hypertension: (7) NAT (obstructive sleep apnea): (8) Schizophrenia, paranoid, chronic: Plan This is a 62yo M with a PMH of paranoid schizophrenia, COPD, pulmonary sarcoidosis, insulin dependent diabetes, mild cognitive impairment, HTN, sleep apnea, GERD presenting with lethargy from [facility] in setting of covid-19 infection. Acute metabolic encephalopathy Covid 19 infection Feels SOB but saturating at 96% on 2L NC (baseline O2 requirement) Covid + PCR. CXR with cardiomegaly without acute process. Emphysema with chronic interstitial lung disease At admission, done CT head and ABG given somnolent state initially - CT head without acute abn, ABG pH 7.38 --> likely 2/2 hypoglycemia and mentation improved following 25 mL dose of D50 Patient hemodynamically stable, at baseline oxygen need, will not use a steroid, continue to monitor, incentive spirometer. Encephalopathy improving, avoid hypoglycemic episodes/orange juice or sugar tablets by bedside. Elevated hgb Admitting Hgb of 20, and has been elevated at 18k or above since April. 06/06 peripheral smear reviewed, polycythemia secondary to chronic hypoxia versus polycythemia vera. We will send JAK2 test. Follow lab. Hypoglycemia DM II Initial BSG of 43 - received 25 mL dose of D50 with improved glucose of 103 Hold home agents. BSG AC HS. Hypoglycemia protocol ordered. Insulin ordered per protocol Glycemic consult for guidance on outpatient regimen Schizophrenia, paranoid, chronic Continue Abilify, clozapine, Depakote HTN Continue amlodipine, metoprolol succinate, HCTZ ANT Not on CPAP per [facility]; just uses supplemental O2 DVT Ppx: SQ Lovenox Code status: FULL [facility]: Admitted to PCU , Likely DC in next 1 to 2 days. PT/OT to [facility] to assist with DC planning. Admission and Anticipated Discharge Date Admission Date: June 06, 2022 Subjective Patient seen and examined at bedside as a follow-up of acute metabolic encephalopathy, hypoglycemia, COVID-19 infection. Patient was lying in bed, alert, oriented, but not able to follow conversation, reports no distress, was on 2 L nasal cannula oxygen which is his baseline, reports being hungry, will order his diet, offers no other complaints. Physical Exam Physical Exam: GENERAL: Alert and oriented x3. NAD, on 2L. Appears weak and frail. HEENT: No pallor, no icterus. Pupils equal, round and reactive to light. Oral mucosa moist. NECK: No JVD, no neck masses. HEART: S1 and S2 heard. Regular rate and rhythm. No murmur, no gallop. RESPIRATORY SYSTEM: Normal AP diameter. No accessory muscle use. No wheezing, no crackles. ABDOMEN: Soft, bowel sounds present, nontender, no distention. CENTRAL NERVOUS SYSTEM: No facial droop. Speech is clear. Obeys simple commands. Moves extremities. EXTREMITIES: No edema, no erythema seen. Results & Data Results & Data ([place]) Vital Signs (Past 12 Hours) Vital Signs Temp Pulse Pulse Resp BP Pulse Ox Pulse Ox 06/07/22 11:43 37.2 C 86 18 154/96 H 92 06/07/22 09:00 98 H 06/07/22 08:00 06/07/22 08:00 94 06/07/22 07:56 37.1 C 87 21 150/95 H 94 06/07/22 04:06 37.1 C 84 18 156/93 H 94 O2 Del Method O2 Del Method O2 Flow Rate O2 Flow Rate 06/07/22 11:43 Nasal Cannula 2 06/07/22 09:00 06/07/22 08:00 Nasal Cannula 2 06/07/22 08:00 Nasal Cannula 2 06/07/22 07:56 Nasal Cannula 2 06/07/22 04:06 Nasal Cannula 2
[2022-06-07] MEDS: ENOXAPARIN INJ 40 MG/0.4 ML SYR SQ SCH (20:00)
[2022-06-08 06:33] LABS: BUN Creatinine Ratio 10.4 (10-20); Calcium 8.7 mg/dl (8.5-10.1); Creatinine Clr Calc Pharmacy 84.2 ml/min; Est GFR (African American) 87.4 ml/min; Est GFR (Non-African American) 75.4 ml/min; Hematocrit (blood only) 58.5 % (40.1-51.0); Mean Corpuscular Hemoglobin 28.4 pg (25.0-34.0); Mean Corpuscular Hgb Conc 32.5 g/dL (32.0-36.0); Mean Corpuscular Volume 87.3 fL (80.0-100.0); Mean Platelet Volume 10.5 fL (9.4-12.4); Platelet Count 104 K/uL (130-400); Potassium 3.6 mmol/L (3.5-5.1); RDW Coefficient of Variation 16.9 % (11.5-14.5); RDW Standard Deviation 50.9 fL (36.4-46.3); White Blood Count 5.43 K/ul (4.8-10.8)
[2022-06-08] MEDS: INSULIN ASPART PER UNIT SC SCH ×4 (08:24→21:16)
[2022-06-08] MEDS ORDERED: bisacodyL 10 MG SUPP PR PRN (08:26)
[2022-06-08] MEDS: ARIPiprazole 10 MG TAB PO SCH (09:42)
[2022-06-08] MEDS: DIVALPROEX DELAY RELEASE 125 MG TABEC PO SCH (09:42)
[2022-06-08] MEDS: amLODIPine BESYLATE 5 MG TAB PO SCH (09:42)
[2022-06-08] MEDS: hydroCHLOROthiazide 25 MG TAB PO SCH (09:43)
[2022-06-08] MEDS: FAMOTIDINE 20 MG TAB PO SCH (09:43)
[2022-06-08] MEDS: METOPROLOL SUCC 50MG EXT REL TAB PO SCH ×2 (09:44→21:27)
[2022-06-08] MEDS: POTASSIUM CHLORIDE CRTAB 20 MEQ TABCR PO SCH ×2 (09:44→21:26)
[2022-06-08] MEDS: UMECLIDINIUM BROMIDE 62.5MCG/BLISTER 7 PUFFS/INHALER INH SCH (09:45)
--- NOTE | 2022-06-08 15:59 | Hospitalist Progress Note ---
Date of Service June 08, 2022 Assessment & Plan (1) Acute metabolic encephalopathy: (2) Hypoglycemia: (3) COVID-19: (4) SOB (shortness of breath): (5) Diabetes mellitus, type 2: (6) Hypertension: (7) ANT (obstructive sleep apnea): (8) Schizophrenia, paranoid, chronic: Plan This is a 62yo M with a PMH of paranoid schizophrenia, COPD, pulmonary sarcoidosis, insulin dependent diabetes, mild cognitive impairment, HTN, sleep apnea, GERD presenting with lethargy from [facility] in setting of covid-19 infection. Acute metabolic encephalopathy Covid 19 infection Feels SOB but saturating at 96% on 2L NC (baseline O2 requirement) Covid + PCR. CXR with cardiomegaly without acute process. Emphysema with chronic interstitial lung disease At admission, done CT head and ABG given somnolent state initially - CT head without acute abn, ABG pH 7.38 --> likely 2/2 hypoglycemia and mentation improved following 25 mL dose of D50 Patient hemodynamically stable, at baseline oxygen need, will not use a steroid, continue to monitor, incentive spirometer. Encephalopathy improved, avoid hypoglycemic episodes/orange juice or sugar tablets by bedside. Elevated hgb Admitting Hgb of 20, and has been elevated at 18k or above since April. 06/06 peripheral smear reviewed, polycythemia secondary to chronic hypoxia versus polycythemia vera. f/u 06/08 JAK2 test. Follow lab. Hypoglycemia DM II Initial BSG of 43 - received 25 mL dose of D50 with improved glucose of 103 Hold home agents. BSG AC HS. Hypoglycemia protocol ordered. Insulin ordered per protocol Glycemic consult for guidance on outpatient regimen Schizophrenia, paranoid, chronic Continue Abilify, clozapine, Depakote HTN Continue amlodipine, metoprolol succinate, HCTZ ANT Not on CPAP per [facility]; just uses supplemental O2 DVT Ppx: SQ Lovenox Code status: FULL PCP: [facility] Dispo: Can DC medically. PT/OT to [facility] to assist with DC planning. Admission and Anticipated Discharge Date Admission Date: June 06, 2022 Subjective Patient seen and examined at bedside as a follow-up of acute metabolic encephalopathy, hypoglycemia, COVID-19 infection. Patient was lying in bed, alert, oriented, but not able to follow conversation, reports no distress, was on 2 L nasal cannula oxygen which is his baseline, reports some cough w/ occasional sputum/can't comment on colors, offers no ot her complaints. Physical Exam Physical Exam: GENERAL: Alert and oriented x3. NAD, on 2L. Appears weak and f rail. HEENT: No pallor, no icterus. Pupils equal, round and reactive to light. Oral mucosa moist. NECK: No JVD, no neck masses. HEART: S1 and S2 heard. Regular rate and rhythm. No murmur, no gallop. RESPIRATORY SYSTEM: Normal AP diameter. No accessory muscle use. No wheezing, no crackles. ABDOMEN: Soft, bowel sounds present, nontender, no distention. CENTRAL NERVOUS SYSTEM: No facial droop. Speech is clear. Obeys simple commands. Moves extremities. EXTREMITIES: No edema, no erythema seen. Results & Data Results & Data ([facility]) Vital Signs (Past 12 Hours) Vital Signs Temp Pulse Resp BP Pulse Ox Pulse Ox Pulse Ox 06/08/22 14:42 93 91 06/08/22 11:55 37 C 81 16 141/90 H 95 06/08/22 08:00 06/08/22 08:00 06/08/22 08:21 36.7 C 83 20 145/90 H 98 06/08/22 04:20 36.8 C 80 18 129/79 95 O2 Del Method O2 Del Method O2 Flow Rate O2 Flow Rate O2 Flow Rate O2 Flow Rate 06/08/22 14:42 2 2 06/08/22 11:55 Nasal Cannula 2 06/08/22 08:00 Nasal Cannula 2 06/08/22 08:00 Nasal Cannula 2 06/08/22 08:21 Nasal Cannula 2 06/08/22 04:20 Nasal Cannula
[2022-06-08] MEDS: RESTASIS~ORDER AWAITING ACTION SCH (16:06)
[2022-06-08] MEDS ORDERED: cloZAPine 25 MG TAB PO SCH (21:00)
[2022-06-08] MEDS ORDERED: cloZAPine 100 MG TAB PO SCH (21:00)
[2022-06-08] MEDS: ENOXAPARIN INJ 40 MG/0.4 ML SYR SQ SCH (21:25)
[2022-06-09] MEDS: RESTASIS~ORDER AWAITING ACTION SCH ×2 (01:27→08:19)
[2022-06-09 07:56] LABS: BUN Creatinine Ratio 9.9 (10-20); Calcium 8.6 mg/dl (8.5-10.1); Est GFR (African American) 105.1 ml/min; Est GFR (Non-African American) 90.6 ml/min; Magnesium 1.8 mg/dl (1.7-2.4); Potassium 3.9 mmol/L (3.5-5.1)
[2022-06-09] MEDS: hydroCHLOROthiazide 25 MG TAB PO SCH (08:18)
[2022-06-09] MEDS: ARIPiprazole 10 MG TAB PO SCH (08:18)
[2022-06-09] MEDS: FAMOTIDINE 20 MG TAB PO SCH (08:18)
[2022-06-09] MEDS: DIVALPROEX DELAY RELEASE 125 MG TABEC PO SCH (08:19)
[2022-06-09] MEDS: amLODIPine BESYLATE 5 MG TAB PO SCH (08:19)
[2022-06-09] MEDS: METOPROLOL SUCC 50MG EXT REL TAB PO SCH (08:19)
[2022-06-09] MEDS: UMECLIDINIUM BROMIDE 62.5MCG/BLISTER 7 PUFFS/INHALER INH SCH (08:19)
[2022-06-09] MEDS: POTASSIUM CHLORIDE CRTAB 20 MEQ TABCR PO SCH (08:19)
[2022-06-09] MEDS: INSULIN ASPART PER UNIT SC SCH ×2 (08:20→11:41)
--- NOTE | 2022-06-09 11:07 | Discharge Summary ---
Date of Service June 09, 2022 Admission HPI Per Admitting Provider This is a 62yo M with a PMH of paranoid schizophrenia, COPD, pulmonary sarcoidosis, insulin dependent diabetes, mild cognitive impairment, HTN, sleep apnea, GERD presenting with lethargy from [facility]. Patient tested negative for covid yesterday but positive today. Has become progressively lethargic since yesterday and was sent in for further evaluation. Does endorse feeling short of breath but remainder of ROS unobtainable due to patient's somnolent state. Does wear 3L NC O2 at baseline. Called [facility] for further information none of the current staff on this evening has been with him for 2 days so unsure of infecious symptoms. Was told was becoming more lethargic yesterday that progressed into today. State his cognitive baseline is alert and oriented. He does ambulate. Does not use a CPAP at night, just supplemental O2. Admission Exam Per Admitting Provider GENERAL: Alert and oriented x3. NAD, on 2L. Appears weak and frail. HEENT: No pallor, no icterus. Pupils equal, round and reactive to light. Oral mucosa moist. NECK: No JVD, no neck masses. HEART: S1 and S2 heard. Regular rate and rhythm. No murmur, no gallop. RESPIRATORY SYSTEM: Normal AP diameter. No accessory muscle use. No wheezing, no crackles. ABDOMEN: Soft, bowel sounds present, nontender, no distention. CENTRAL NERVOUS SYSTEM: No facial droop. Speech is clear. Obeys simple commands. Moves extremities. EXTREMITIES: No edema, no erythema seen. Principal Diagnosis Acute metabolic encephalopathy likely secondary to hypoglycemia COVID-19 infection Discharge Exam GENERAL: Alert and oriented x3. NAD, on 2L. HEENT: No pallor, no icterus. Pupils equal, round and reactive to light. Oral mucosa moist. NECK: No JVD, no neck masses. HEART: S1 and S2 heard. Regular rate and rhythm. No murmur, no gallop. RESPIRATORY SYSTEM: Normal AP diameter. No accessory muscle use. No wheezing, no crackles. ABDOMEN: Soft, bowel sounds present, nontender, no distention. CENTRAL NERVOUS SYSTEM: No facial droop. Speech is clear. Obeys simple commands. Moves extremities. EXTREMITIES: No edema, no erythema seen. Discharge Data Allergies Allergy/AdvReac Type Severity Reaction Status Date / Time No Known Allergies Allergy Verified 06/06/22 16:08 Consultations 06/06/22 17:42 ED Decision to Admit Stat Ordered Studies 06/06/22 18:37 CT head/brain wo con Stat Hospital Course (1) Acute metabolic encephalopathy: (2) Hypoglycemia: (3) COVID-19: (4) SOB (shortness of breath): (5) Diabetes mellitus, type 2: (6) Hypertension: (7) ANT (obstructive sleep apnea): (8) Schizophrenia, paranoid, chronic: Plan This is a 62yo M with a PMH of paranoid schizophrenia, COPD, pulmonary sarcoidosis, insulin dependent diabetes, mild cognitive impairment, HTN, sleep apnea, GERD presenting with lethargy from [facility] in setting of covid-19 infection. He was managed for the following: Acute metabolic encephalopathy Covid 19 infection Feels SOB but saturating at 96% on 2L NC (baseline O2 requirement) Covid + PCR. CXR with cardiomegaly without acute process. Emphysema with chronic interstitial lung disease At admission, done CT head and ABG given somnolent state initially - CT head without acute abn, ABG pH 7.38 --> likely 2/2 hypoglycemia and mentation improved following 25 mL dose of D50 Patient hemodynamically stable, at baseline oxygen need, will not use a steroid, continue to monitor, incentive spirometer. Encephalopathy improved, avoid hypoglycemic episodes/orange juice or sugar tablets by bedside. Elevated hgb Admitting Hgb of 20, and has been elevated at 18k or above since April. 06/06 peripheral smear reviewed, polycythemia secondary to chronic hypoxia versus polycythemia vera. f/u 06/08 JAK2 test. Follow lab. Hypoglycemia DM II Initial BSG of 43 - received 25 mL dose of D50 with improved glucose of 103 Hold home agents. BSG AC HS. Hypoglycemia protocol ordered. Insulin ordered per protocol Glycemic consult for guidance on outpatient regimen --> will cut down the lantus to 50% on DC. Schizophrenia, paranoid, chronic Continue Abilify, clozapine, Depakote HTN Continue amlodipine, metoprolol succinate, HCTZ ANT Not on CPAP per [facility]; just uses supplemental O2 DVT Ppx: SQ Lovenox Code status: FULL PCP: [facility] Pt being discharged to [facility] w/ following instructions at the point of discharge: Follow-up with your primary care physician within a week time and likely you will need blood test CBC/CMP/magnesium. You have been diagnosed with COVID on 06/06/2022, maintain self-isolation for 5 days and then maintain mask around people for next 5 days. Your basal insulin has been cut down to 25 units daily from 55 units daily. Continue to follow-up with your PCP for ongoing management of your diabetes. Take your medications as prescribed. Continue with incentive spirometer. Avoid hypoglycemic episodes, have orange juice or sugar tablet readily available all the time. Home Health Attestation I certify that this patient is under my care and that I, or a physicians circulation assistant working with me, had a face to-face encounter that meets the home health [id number] encounter requirements with this patient. The encounter with the patient was in whole, or in part, for the following medical condition, which is the primary reason for home health care (list medical condition): I certify that, based on my findings, the following services are medically necessary home health services: My clinical findings support the need for the above services because: Further, I certify that my clinical findings support that this patient is homebound (i.e. absences from home require considerable and taxing effort and are for medical reasons or sabianism services or infrequently or of short duration when for other reasons) because: Certification for Home Health Services: Based on the above findings, I certify that this patient is confined to the home and needs intermittent alf care, physical therapy and/or speech therapy or continues to need occupational therapy. The patient is under my care, and I have initiated the establishment of the plan of care. This patient will be followed by a physician who will periodically review the plan of care. Total Time Total Time Spent Total Time Spent (In Minutes): 40 Discharge Plan Discharge Items Patient Disposition: Transfer [facility] Reason For Visit: acute on chronic hypoxic resp failure, covid Discharge Diagnosis: Acute metabolic encephalopathy likely secondary to hypoglycemia COVID-19 infection Condition on Discharge: Fair Activity: Resume your previous activity Non-emergency contact: Primary Care Provider Call non-emergency contact if: you have any medication questions, your symptoms worsen and your temperature is above 101 Follow-up/Referrals: Brittni Sierra [Primary Care Provider] - Diet: Carb Consistent or DM2 and Heart Healthy Addtl Attending Provider Instructions: Follow-up with your primary care physician within a week time and likely you will need blood test CBC/CMP/magnesium. You have been diagnosed with COVID on 06/06/2022, maintain self-isolation for 5 days and then maintain mask around people for next 5 days. Your basal insulin has been cut down to 25 units daily from 55 units daily. Continue to follow-up with your PCP for ongoing management of your diabetes. Take your medications as prescribed. Continue with incentive spirometer. Avoid hypoglycemic episodes, have orange juice or sugar tablet readily available all the time. Pending Studies at Discharge: No Stand-Alone Forms: [facility] Skilled Items Patient informed of condition?: Yes DNR: No Discharge Level of Care: Skilled Communicable Disease: Yes Discharge Prognosis: Stable Lines: None Urinary Catheter: No Medications and DC Order Prescriptions: Continued famotidine 20 mg tablet 20 mg PO DAILY magnesium hydroxide [Milk of Magnesia] 400 mg/5 mL Suspension 30 ml PO DAILY PRN (Reason: NO BM 3 DAYS.) bisacodyl 10 mg Suppository 10 mg TN DAILY PRN (Reason: NO BM 4 DAYS) Fleet Enema 19-7 gram/118 mL Enema 1 applic TN QAM PRN (Reason: NO BM 4 DAYS.) Spiriva with HandiHaler 18 mcg Capsule, W/Inhalation Device 1 cap INHALATION DAILY Rx Instructions: 1 CAP=2 PUFFS potassium chloride 20 mEq tablet extended release 40 meq PO BID metoprolol succinate 200 mg Tablet Extended Release 24 Hr 200 mg PO Q12 amlodipine 5 mg Tablet 5 mg PO DAILY aripiprazole [Abilify] 10 mg Tablet 10 mg PO DAILY clozapine 50 mg Tablet 50 mg PO HS Rx Instructions: take with 200mg clozapine 200 mg Tablet 200 mg PO HS Rx Instructions: take with 50mg cholecalciferol (vitamin D3) [Vitamin D3] 125 mcg (5,000 unit) Tablet 125 mcg PO DAILY hydrochlorothiazide 25 mg tablet 12.5 mg PO DAILY loperamide 2 mg Tablet 2 mg PO DIRECTED MDD 16 MG/24 HOURS PRN (Reason: LOOSE STOOLS) Rx Instructions: give as needed after each loose stool insulin lispro [Humalog U-100 Insulin] 100 unit/mL Solution See Rx Instructions .ROUTE .COMPLEX Rx Instructions: HOLD IF BSG < 100----16 UNITS BID. and also has order for 18 u once daily hold for bsg <100 albuterol sulfate 90 mcg/actuation Hfa Aerosol Inhaler 2 puff INHALATION Q6H Ozempic 1 mg/dose (4 mg/3 mL) Pen Injector 1 mg SUBCUT WK Rx Instructions: TAKES ON FRIDAYS. acetaminophen 325 mg Tablet 650 mg PO Q6 MDD 3g PRN (Reason: pain level 1-3) divalproex 125 mg tablet,delayed release (DR/EC) 125 mg PO DAILY cyclosporine [Restasis] 0.05 % dropperette 1 drp OPB BID Rx Instructions: allow 15 minutes between administration of other opthalmic eye drops ascorbic acid (vitamin C) [Vitamin C] 500 mg Tablet 500 mg PO DAILY Systane (propylene glycol) 0.4-0.3 % Drops 1 drp OPB QID insulin lispro 100 unit/mL solution 1 sliding scale dose subcut TID Rx Instructions: bsg 100-150=0 units 151-200 = 2 units 201-250 = 4 units 251-300 = 6 units 301-350 = 8 units 351-400 = 10 units 401-500 = 12 units > 500 call md Changed insulin glargine [Lantus U-100 Insulin] 100 unit/mL solution 25 unit SUBCUT DAILY Qty: 10 0RF Discharge Orders: Discharge Order (Routine); Ordered 06/09/22 Ordered By: Paresh Walker Admission Data Admit Date/Time: 06/06/22 18:03 Attending Provider: Paresh Walker Admit Provider: Yin Lewis Primary Care Provider: Brittni Sierra Other Providers: Yin Lewis
== END 2022-06-09 14:36 | DRG 637 ==
LOC: ED 13:21 → SUATTDRO 18:03 → 2S 18:03

== ENCOUNTER 2025-01-17 21:11 | Inpatient (IN) ==
--- NOTE | 2025-01-17 21:20 | Emergency Department Note ---
Impression & Plan Acute hypoxic respiratory failure, Pneumonia, Acute hypotension, Elevated lactic acid level, Elevated troponin ED Provider Note NAME: JADEN BARRIOS AGE: 64 SEX: M : 1960 ARRIVES VIA: Ambulance INFORMANT: Patient ED PROVIDER(S): Aidan Juarez DO CHIEF COMPLAINT: Altered mental status HPI: Patient is a 64-year-old male with a past medical history of hypoglycemia, metabolic encephalopathy, shortness of breath, multifocal pneumonia, hypertension, diabetes, COPD and schizophrenia who presents to the ER following having a witnessed seizure. Per the report he was acting appropriately at heart side. He then had a seizure. This was witnessed by staff. Apparently it was tonic-clonic. Patient has been confused since then and has never returned to baseline. ADDITIONAL HISTORY OBTAINED: Per HPI Chronic Medical/Social Conditions Affecting Care: Per HPI PAST MEDICAL HISTORY:See Below PAST SURGICAL HISTORY:See Below FAMILY HISTORY:See Below SOCIAL HISTORY:See Below HOME MEDICATIONS:See Below ALLERGIES:See Below VITALS:See Below PHYSICAL EXAMINATION: GENERAL: Sitting up in bed, disheveled, on 6 L nasal cannula, intermittent coughing EYE EXAM: normal conjunctiva. PERRL and EOM's grossly intact. OROPHARYNX: no exudate, no erythema, lips, buccal mucosa, and tongue normal and mucous membranes are moist NECK: supple, no nuchal rigidity, no adenopathy, non-tender LUNGS: Clear to auscultation. Normal chest wall mechanics HEART: no murmurs, S1 normal and S2 normal ABDOMEN: abdomen soft, non-tender, normo-active bowel sounds, no masses, no rebound or guarding. UPPER EXTREMITIES: upper extremities are grossly normal. LOWER EXTREMITIES: No pitting edema. NEURO EXAM: Eyes closed but moving head [id number] and withdraws extremities upper and lower to pain MEDICAL DECISION MAKING: Patient is a 64-year-old male who presents to the ER for the above-stated complaint. IV was established and blood work was obtained. Labs show no significant leukocytosis. Hemoglobin at 18. INR unremarkable. VBG with a pH of 7.4 and a bicarb of 27 and CO2 of 44. BMP with a creatinine of 1.5. Glucose was elevated. Lactic acid was elevated as well. LFTs was fairly unremarkable. Troponin was mildly elevated. Pro-Jas up at 0.7. UA with out white cells to suggest infection. Chest x-ray with bilateral pneumonia. D for this the cause of the hypoxia. Patient remained on 69 L nasal cannula. He will intermittently wake up and talk. Unable to lie flat to obtain a CT of the head. He does not want any intubation per his living will. Patient was discussed with the hospitalist for further evaluation management and treatment. Consults/Care Managements Discussions: Per [facility] Triage Nursing notes reviewed. Limited review of prior medical records performed Vital Signs: reviewed and remarkable for no significant abnormalities Differential diagnosis: Differential diagnoses includes but is not limited to toxic, metabolic, infectious, traumatic, cardiac, neurologic, hematologic, psychiatric and inflammatory etiologies. ER treatment provided: See below Diagnostics interpreted by me include EKG and cardiac monitoring as listed below: -Cardiac Monitoring: An order was placed for continuous cardiac monitoring. The monitor shows a rate of 90 with sinus rhythm. -ECG: Sinus rhythm rate of 92 Normal axis No PVCs QTc 467 -Laboratory studies:Interpreted by me as stated above in MDM and shown below. Imaging studies: Xrays: As interpreted by me: Portable AP upright 1 view of the chest shows bilateral infiltrates CTs show: none Procedures:none Critical Care: I have personally spent 35 minutes of critical care time in the direct management of this patient. This includes bedside care, interpretation of diagnostic studies, and testing, discussion with consultants, patient, and family members, and other required patient management activities. This 35 minutes is in excess of all separately billable procedures. Past Med/Surg History Problem List (Updated 01/18/25 @ 00:17 by Sen Magaña MD) Unresponsive ANT (obstructive sleep apnea) (Chronic) Hypoglycemia Acute metabolic encephalopathy Lethargy (Acute) Hypoglycemia (Acute) SOB (shortness of breath) (Acute) COVID-19 (Acute) SOB (shortness of breath) (Acute) Hypoxia (Acute) Multifocal pneumonia (Acute) Hypertension Hypokalemia Diabetes mellitus, type 2 Delusion (Acute) Laceration of left hand (Acute) Hypoglycemia (Acute) Hypoglycemia due to type 2 diabetes mellitus (Acute) COPD (chronic obstructive pulmonary disease) (Acute) Chronic viral hepatitis (Acute) Diabetes (Acute) Essential hypertension (Acute) ANT on CPAP (Acute) Obesity (Acute) Sarcoidosis of lung (Acute) Schizophrenia, paranoid, chronic (Acute) Uncomplicated asthma (Acute) Medical History (Updated 01/18/25 @ 00:17 by Sen Magaña MD) Peripheral vascular disease Asthma Diabetes History of seizures Lupus COPD (chronic obstructive pulmonary disease) Alcohol abuse Hepatitis C Paranoid schizophrenia Surgical History No significant past surgical history Family History Denies family history of Myocardial infarction Congenital kidney disease Social History Smoking Status: Unknown if ever smoked Second Hand Exposure: No; Do You Dip or Chew Tobacco: No; Hx Alcohol Use: Yes (previous) Hx Substance Use: No Preferred Language: Czech Communication Ability: Impaired Communication Ability Comment: communication currently impaired d/t lethargy Visual Impairment: No Limitations Net Mvc Developer Required: No Beliefs That Will Affect Care: Spiritual marital status: Single Current Living Situation: Custodial Current Living Situation Comment: reported living at [facility] Feels Safe at Home: Declines to Answer Assistive Devices: Walker Allergies Allergies Allergy/AdvReac Type Severity Reaction Status Date / Time No Known Allergies Allergy Verified 01/17/25 21:40 Home Meds Home Medications Medication Instructions Recorded Confirmed famotidine 20 mg tablet 20 mg PO DAILY 06/12/19 01/17/25 metoprolol succinate 200 mg 200 mg PO Q12 10/22/19 01/17/25 tablet,extended release 24 hr potassium chloride 20 mEq 40 meq PO BID 10/22/19 01/17/25 tablet,extended release amlodipine 5 mg tablet 10 mg PO DAILY 09/11/20 01/17/25 aripiprazole 10 mg tablet (Abilify) 10 mg PO DAILY 09/11/20 01/17/25 cholecalciferol (vitamin D3) 125 125 mcg PO DAILY 09/11/20 01/17/25 mcg (5,000 unit) tablet (Vitamin D3) clozapine 200 mg tablet 200 mg PO HS 09/11/20 01/17/25 clozapine 50 mg tablet 50 mg PO HS 09/11/20 01/17/25 hydrochlorothiazide 25 mg tablet 25 mg PO DAILY 09/11/20 01/17/25 albuterol sulfate 90 mcg/actuation 2 puff inhalation Q6H PRN COUGH OR 08/24/21 01/17/25 aerosol inhaler SOB acetaminophen 325 mg tablet 650 mg PO Q6 PRN PAIN LEVEL 1-10 06/06/22 01/17/25 cyclosporine 0.05 % eye drops in a 1 drp OPB BID 06/06/22 01/17/25 dropperette (Restasis) peg 400-propylene glycol 0.4 %-0.3 1 drp OPB QID 06/06/22 01/17/25 % eye drops (Systane (propylene glycol)) acetaminophen 325 mg tablet 650 mg PO Q6 PRN TEMP>101 01/17/25 01/17/25 budesonide-formoterol HFA 80 2 puff inhalation BID 01/17/25 01/17/25 mcg-4.5 mcg/actuation aerosol inhaler (Symbicort) erythromycin 5 mg/gram (0.5 %) eye 1 applic OPB HS 01/17/25 01/17/25 ointment ipratropium 0.5 mg-albuterol 3 mg 3 ml inhalation Q6 COUGH 01/17/25 01/17/25 (2.5 mg base)/3 mL nebulization soln metformin 500 mg tablet 500 mg PO BID 01/17/25 01/17/25 prednisone 20 mg tablet 20 mg PO UD 01/17/25 01/17/25 prednisone 20 mg tablet 40 mg PO DAILY 01/17/25 01/17/25 pseudoephedrine-guaifenesin ER 60 1 tab PO Q12H 01/17/25 01/17/25 mg-600 mg tablet,extend release 12hr (Mucinex D) semaglutide 0.25 mg or 0.5 mg (2 0.5 mg subcut WK 01/17/25 01/17/25 mg/3 mL) subcutaneous pen injector (Ozempic) tiotropium bromide 18 mcg capsule 1 cap inhalation DAILY 01/17/25 01/17/25 with inhalation device (Spiriva with HandiHaler) Results & Data (ED) Vital Signs Vital Signs - 24 hr 01/17/25 21:07 01/17/25 21:14 01/17/25 21:15 Temperature 38.9 C H 38.9 C H 38.9 C H Temperature Source Rectal Myers Cath ( Temp Sensing) Pulse Rate 86 91 H Pulse Rate [Left Finger] 93 H Pulse Rate from SpO2 Sensor 91 H Respiratory Rate 30 H 31 H 22 Respiratory Effort / Characteristics Accessory Muscle Use Labored Accessory Muscle Use Labored Respiratory Depth Shallow Respiratory Pattern Rapid/Shallow Rapid/Shallow Blood Pressure 125/83 Blood Pressure [Right Arm] 125/83 Blood Pressure Mean 110 Blood Pressure Mean [Right Arm] 97 Blood Pressure Position [Right Arm] Pulse Oximetry 92 92 91 Oxygen Delivery Method Nasal Cannula Nasal Cannula Nasal Cannula Oxygen Flow Rate 6 6 Sepsis Recent Fever Within 48 Hours Yes Sepsis New/Unexplained Change in Mental Status Yes Sepsis Action Taken by Nursing Physician Notified End-Tidal CO2 End Tidal CO2 (18-54mmHg) 01/17/25 21:16 01/17/25 21:30 01/17/25 21:30 Temperature 38.3 C H Temperature Source Myers Cath ( Temp Sensing) Pulse Rate 92 H 89 Pulse Rate [Left Finger] 89 Pulse Rate from SpO2 Sensor Respiratory Rate 36 H 32 H Respiratory Effort / Characteristics Accessory Muscle Use Labored Respiratory Depth Shallow Respiratory Pattern Rapid/Shallow Blood Pressure Blood Pressure [Right Arm] 123/80 Blood Pressure Mean Blood Pressure Mean [Right Arm] 94 Blood Pressure Position [Right Arm] Lying Pulse Oximetry 93 92 Oxygen Delivery Method Nasal Cannula Nasal Cannula Oxygen Flow Rate 6 6 Sepsis Recent Fever Within 48 Hours Sepsis New/Unexplained Change in Mental Status Sepsis Action Taken by Nursing End-Tidal CO2 End Tidal CO2 (18-54mmHg) 01/17/25 21:41 01/17/25 21:45 01/17/25 21:46 Temperature 38.2 C H Temperature Source Myers Cath ( Temp Sensing) Pulse Rate 90 Pulse Rate [Left Finger] 94 H Pulse Rate from SpO2 Sensor 90 Respiratory Rate 22 34 H Respiratory Effort / Characteristics Spontaneous Accessory Muscle Use Labored Respiratory Depth Shallow Respiratory Pattern Rapid/Shallow Blood Pressure 113/78 Blood Pressure [Right Arm] 113/78 Blood Pressure Mean 90 Blood Pressure Mean [Right Arm] 89 Blood Pressure Position [Right Arm] Lying Pulse Oximetry 94 93 Oxygen Delivery Method Nasal Cannula Nasal Cannula Room Air Oxygen Flow Rate 9 6 Sepsis Recent Fever Within 48 Hours Sepsis New/Unexplained Change in Mental Status Sepsis Action Taken by Nursing End-Tidal CO2 End Tidal CO2 (18-54mmHg) 01/17/25 22:00 01/17/25 22:00 01/17/25 22:15 Temperature 38.6 C H 38.3 C H 38.2 C H Temperature Source Myers Cath ( Temp Sensing) Myers Cath ( Temp Sensing) Pulse Rate 90 Pulse Rate [Left Finger] 91 H 77 Pulse Rate from SpO2 Sensor 90 Respiratory Rate 31 H 31 H 25 H Respiratory Effort / Characteristics Spontaneous Accessory Muscle Use Labored Spontaneous Accessory Muscle Use Labored Respiratory Depth Shallow Shallow Respiratory Pattern Rapid/Shallow Rapid/Shallow Blood Pressure 108/82 Blood Pressure [Right Arm] 108/82 93/64 L Blood Pressure Mean 88 Blood Pressure Mean [Right Arm] 90 73 Blood Pressure Position [Right Arm] Lying Lying Pulse Oximetry 92 91 91 Oxygen Delivery Method Nasal Cannula Nasal Cannula Nasal Cannula Oxygen Flow Rate 9 9 9 Sepsis Recent Fever Within 48 Hours Sepsis New/Unexplained Change in Mental Status Sepsis Action Taken by Nursing End-Tidal CO2 End Tidal CO2 (18-54mmHg) 28 01/17/25 22:30 01/17/25 22:30 01/17/25 22:33 Temperature 38.6 C H 38.2 C H 38.6 C H Temperature Source Myers Cath ( Temp Sensing) Pulse Rate 85 85 Pulse Rate [Left Finger] 86 Pulse Rate from SpO2 Sensor 86 85 Respiratory Rate 28 H 30 H 30 H Respiratory Effort / Characteristics Spontaneous Accessory Muscle Use Labored Respiratory Depth Shallow Respiratory Pattern Rapid/Shallow Blood Pressure 107/76 87/57 L Blood Pressure [Right Arm] 107/76 Blood Pressure Mean 81 67 Blood Pressure Mean [Right Arm] 86 Blood Pressure Position [Right Arm] Lying Pulse Oximetry 91 92 91 Oxygen Delivery Method Nasal Cannula Nasal Cannula Nasal Cannula Oxygen Flow Rate 9 9 9 Sepsis Recent Fever Within 48 Hours Sepsis New/Unexplained Change in Mental Status Sepsis Action Taken by Nursing End-Tidal CO2 33 31 End Tidal CO2 (18-54mmHg) 01/17/25 22:45 01/17/25 23:00 01/17/25 23:15 Temperature 38.5 C H 38.5 C H 38.4 C H Temperature Source Myers Cath ( Temp Sensing) Myers Cath ( Temp Sensing) Myers Cath ( Temp Sensing) Pulse Rate Pulse Rate [Left Finger] 83 80 79 Pulse Rate from SpO2 Sensor Respiratory Rate 31 H 30 H 28 H Respiratory Effort / Characteristics Spontaneous Accessory Muscle Use Labored Accessory Muscle Use Labored Accessory Muscle Use Labored Respiratory Depth Shallow Shallow Respiratory Pattern Rapid/Shallow Rapid/Shallow Blood Pressure Blood Pressure [Right Arm] 110/65 98/69 L 109/74 Blood Pressure Mean Blood Pressure Mean [Right Arm] 80 78 85 Blood Pressure Position [Right Arm] Lying Lying Pulse Oximetry 92 92 91 Oxygen Delivery Method Nasal Cannula Nasal Cannula Nasal Cannula Oxygen Flow Rate 9 9 9 Sepsis Recent Fever Within 48 Hours Sepsis New/Unexplained Change in Mental Status Sepsis Action Taken by Nursing End-Tidal CO2 End Tidal CO2 (18-54mmHg) 28 29 29 01/17/25 23:30 01/17/25 23:45 01/18/25 00:00 Temperature 38.3 C H 38.2 C H 38.0 C H Temperature Source Myers Cath ( Temp Sensing) Myers Cath ( Temp Sensing) Myers Cath ( Temp Sensing) Pulse Rate Pulse Rate [Left Finger] 78 77 78 Pulse Rate from SpO2 Sensor Respiratory Rate 26 H 25 H 25 H Respiratory Effort / Characteristics Accessory Muscle Use Labored Spontaneous Accessory Muscle Use Labored Accessory Muscle Use Respiratory Depth Shallow Shallow Shallow Respiratory Pattern Rapid/Shallow Rapid/Shallow Blood Pressure Blood Pressure [Right Arm] 92/65 L 93/64 L 95/61 L Blood Pressure Mean Blood Pressure Mean [Right Arm] 74 73 72 Blood Pressure Position [Right Arm] Lying Lying Lying Pulse Oximetry 92 91 91 Oxygen Delivery Method Nasal Cannula Nasal Cannula Nasal Cannula Oxygen Flow Rate 9 9 9 Sepsis Recent Fever Within 48 Hours Sepsis New/Unexplained Change in Mental Status Sepsis Action Taken by Nursing End-Tidal CO2 End Tidal CO2 (18-54mmHg) 28 28 29 Laboratory Data 01/17/25 21:22 01/17/25 21:22 Lab Results 01/17/25 01/17/25 01/17/25 Range/Units 21:22 21:36 21:38 WBC 9.72 (4.8-10.8) K/ul RBC 6.70 H (4.70-6.10) M/uL Hgb 18.6 H (14.0-18.0) g/dl Hct 57.3 H (42.0-52.0) % MCV 85.5 (80.0-100.0) fL MCH 27.8 (25.0-34.0) pg MCHC 32.5 (32.0-36.0) g/dL RDW Std Deviation 45.9 (36.4-46.3) fL RDW Coeff of Marta 16.2 H (11.5-14.5) % Plt Count 153 (130-400) K/uL MPV 10.3 (9.4-12.4) fL Immature Gran % (Auto) 0.6 % Neut % (Auto) 79.1 % Lymph % (Auto) 12.8 % [place] % (Auto) 6.7 % Eos % (Auto) 0.5 % Baso % (Auto) 0.3 % Neut # (Auto) 7.69 H (1.40-6.50) K/uL Lymph # (Auto) 1.24 (1.20-3.40) K/uL [place] # (Auto) 0.65 H (0.11-0.59) K/uL Eos # (Auto) 0.05 (0.00-0.50) K/uL Baso # (Auto) 0.03 (0.00-0.20) K/uL Immature Gran # (Auto) 0.06 (0.01-0.20) K/uL Absolute Nucleated RBC 0.05 (0.00-0.12) K/uL Nucleated RBC % (auto) 0.5 % PT Cancelled INR Cancelled APTT Cancelled PTT Ratio Cancelled VBG pH 7.40 (7.36-7.41) VBG pCO2 44 (38-50) mmHg VBG pO2 49 mmHg VBG HCO3 27 mmol/L VBG O2 Saturation 79.8 % VBG Base Excess 2.0 mEq/L Sodium 140 (136-145) mmol/L Potassium 5.5 H (3.5-5.1) mmol/L Chloride 106 (98-107) mmol/L Carbon Dioxide 24 (21-32) mmol/L Anion Gap 10 (3-11) BUN 31 H (6-23) mg/dl Creatinine 1.56 H (0.6-1.4) mg/dl Est Cr Clr Drug Dosing Not Reportable eGFR 49.60 BUN/Creatinine Ratio 19.9 (10-20) Glucose 231 H (70-99(Fasting)) mg/dl POC Glucose (70-99) mg/dl Lactate 3.0 H* (0.4-2.0) mmol/L Calcium 9.3 (8.6-10.3) mg/dl Magnesium 1.8 (1.7-2.4) mg/dl Total Bilirubin 1.6 H (0.2-1.0) mg/dl Direct Bilirubin 0.6 H (0-0.2) mg/dl AST 16 (13-39) U/L ALT 21 (7-52) U/L Alkaline Phosphatase 73 (34-104) U/L Troponin I High Sens 29.1 H (0-20) pg/ml Total Protein 7.9 (6.0-8.3) gm/dl Albumin 3.7 (3.4-5.0) gm/dl Procalcitonin 0.70 H (0-0.5) ng/ml Urine Color Dark Yellow Urine Appearance Clear (Clear) Urine pH 5.5 (4.5-7.5) Ur Specific [place] 1.026 (1.000-1.030) Urine Protein 2+ H (Negative) Urine Glucose (UA) Negative (Negative) Urine Ketones Trace H (Negative) Urine Blood Negative (Negative) Urine Nitrite Negative (Negative) Urine Bilirubin 1+ H (Negative) Urine Urobilinogen Positive H (Negative) Ur Leukocyte Esterase 1+ H (Negative) Urine WBC (Auto) 0-5 (0-5) /hpf Urine RBC (Auto) 0-2 (0-2) /hpf U Hyaline Cast (Auto) 6-10 H (0-2) /lpf U Epithel Cells (Auto) 0-2 (0-2) /hpf Urine Bacteria (Auto) None Seen (None Seen) Urine Sperm Present A (None Prsent) Urine Comment Valproic Acid < 10 L (50-100) mcg/ml Adenovirus (PCR) Not Detected (NotDetected) B. pertussis DNA (PCR) Not Detected (NotDetected) B.parapertussis DNA PCR Not Detected (NotDetected) C. pneumoniae DNA (PCR) Not Detected (NotDetected) Coronavirus OC43 (PCR) Not Detected (NotDetected) Coronavirus HKU1 (PCR) Not Detected (NotDetected) Coronavirus 229E (PCR) Not Detected (NotDetected) SARS-CoV-2 (PCR) Not Detected (NotDetected) Coronavirus NL63 (PCR) Not Detected (NotDetected) Human Metapneumovir PCR Not Detected (NotDetected) Influenza Type A (PCR) Not Detected (NotDetected) Influenza Type B (PCR) Not Detected (NotDetected) M. pneumoniae (PCR) Not Detected (NotDetected) Parainfluenza 1 (PCR) Not Detected (NotDetected) Parainfluenza 2 (PCR) Not Detected (NotDetected) Parainfluenza 3 (PCR) Not Detected (NotDetected) Parainfluenza 4 (PCR) Not Detected (NotDetected) RSV (PCR) Not Detected (NotDetected) Entero/Rhino (PCR) Not Detected (NotDetected) 01/17/25 01/17/25 01/17/25 Range/Units 21:51 22:37 22:38 WBC (4.8-10.8) K/ul RBC (4.70-6.10) M/uL Hgb (14.0-18.0) g/dl Hct (42.0-52.0) % MCV (80.0-100.0) fL MCH (25.0-34.0) pg MCHC (32.0-36.0) g/dL RDW Std Deviation (36.4-46.3) fL RDW Coeff of Marta (11.5-14.5) % Plt Count (130-400) K/uL MPV (9.4-12.4) fL Immature Gran % (Auto) % Neut % (Auto) % Lymph % (Auto) % [place] % (Auto) % Eos % (Auto) % Baso % (Auto) % Neut # (Auto) (1.40-6.50) K/uL Lymph # (Auto) (1.20-3.40) K/uL [place] # (Auto) (0.11-0.59) K/uL Eos # (Auto) (0.00-0.50) K/uL Baso # (Auto) (0.00-0.20) K/uL Immature Gran # (Auto) (0.01-0.20) K/uL Absolute Nucleated RBC (0.00-0.12) K/uL Nucleated RBC % (auto) % PT 11.7 INR 1.1 APTT 21 PTT Ratio 0.8 VBG pH (7.36-7.41) VBG pCO2 (38-50) mmHg VBG pO2 mmHg VBG HCO3 mmol/L VBG O2 Saturation % VBG Base Excess mEq/L Sodium (136-145) mmol/L Potassium (3.5-5.1) mmol/L Chloride (98-107) mmol/L Carbon Dioxide (21-32) mmol/L Anion Gap (3-11) BUN (6-23) mg/dl Creatinine (0.6-1.4) mg/dl Est Cr Clr Drug Dosing eGFR BUN/Creatinine Ratio (10-20) Glucose (70-99(Fasting)) mg/dl POC Glucose 194 H (70-99) mg/dl Lactate (0.4-2.0) mmol/L Calcium (8.6-10.3) mg/dl Magnesium (1.7-2.4) mg/dl Total Bilirubin (0.2-1.0) mg/dl Direct Bilirubin (0-0.2) mg/dl AST (13-39) U/L ALT (7-52) U/L Alkaline Phosphatase (34-104) U/L Troponin I High Sens 34.9 H (0-20) pg/ml Total Protein (6.0-8.3) gm/dl Albumin (3.4-5.0) gm/dl Procalcitonin (0-0.5) ng/ml Urine Color Urine Appearance (Clear) Urine pH (4.5-7.5) Ur Specific [place] (1.000-1.030) Urine Protein (Negative) Urine Glucose (UA) (Negative) Urine Ketones (Negative) Urine Blood (Negative) Urine Nitrite (Negative) Urine Bilirubin (Negative) Urine Urobilinogen (Negative) Ur Leukocyte Esterase (Negative) Urine WBC (Auto) (0-5) /hpf Urine RBC (Auto) (0-2) /hpf U Hyaline Cast (Auto) (0-2) /lpf U Epithel Cells (Auto) (0-2) /hpf Urine Bacteria (Auto) (None Seen) Urine Sperm (None Prsent) Urine Comment Valproic Acid (50-100) mcg/ml Adenovirus (PCR) (NotDetected) B. pertussis DNA (PCR) (NotDetected) B.parapertussis DNA PCR (NotDetected) C. pneumoniae DNA (PCR) (NotDetected) Coronavirus OC43 (PCR) (NotDetected) Coronavirus HKU1 (PCR) (NotDetected) Coronavirus 229E (PCR) (NotDetected) SARS-CoV-2 (PCR) (NotDetected) Coronavirus NL63 (PCR) (NotDetected) Human Metapneumovir PCR (NotDetected) Influenza Type A (PCR) (NotDetected) Influenza Type B (PCR) (NotDetected) M. pneumoniae (PCR) (NotDetected) Parainfluenza 1 (PCR) (NotDetected) Parainfluenza 2 (PCR) (NotDetected) Parainfluenza 3 (PCR) (NotDetected) Parainfluenza 4 (PCR) (NotDetected) RSV (PCR) (NotDetected) Entero/Rhino (PCR) (NotDetected) 01/17/25 Range/Units 23:19 WBC (4.8-10.8) K/ul RBC (4.70-6.10) M/uL Hgb (14.0-18.0) g/dl Hct (42.0-52.0) % MCV (80.0-100.0) fL MCH (25.0-34.0) pg MCHC (32.0-36.0) g/dL RDW Std Deviation (36.4-46.3) fL RDW Coeff of Marta (11.5-14.5) % Plt Count (130-400) K/uL MPV (9.4-12.4) fL Immature Gran % (Auto) % Neut % (Auto) % Lymph % (Auto) % [place] % (Auto) % Eos % (Auto) % Baso % (Auto) % Neut # (Auto) (1.40-6.50) K/uL Lymph # (Auto) (1.20-3.40) K/uL [place] # (Auto) (0.11-0.59) K/uL Eos # (Auto) (0.00-0.50) K/uL Baso # (Auto) (0.00-0.20) K/uL Immature Gran # (Auto) (0.01-0.20) K/uL Absolute Nucleated RBC (0.00-0.12) K/uL Nucleated RBC % (auto) % PT INR APTT PTT Ratio VBG pH (7.36-7.41) VBG pCO2 (38-50) mmHg VBG pO2 mmHg VBG HCO3 mmol/L VBG O2 Saturation % VBG Base Excess mEq/L Sodium (136-145) mmol/L Potassium (3.5-5.1) mmol/L Chloride (98-107) mmol/L Carbon Dioxide (21-32) mmol/L Anion Gap (3-11) BUN (6-23) mg/dl Creatinine (0.6-1.4) mg/dl Est Cr Clr Drug Dosing eGFR BUN/Creatinine Ratio (10-20) Glucose (70-99(Fasting)) mg/dl POC Glucose (70-99) mg/dl Lactate 2.2 H* (0.4-2.0) mmol/L Calcium (8.6-10.3) mg/dl Magnesium (1.7-2.4) mg/dl Total Bilirubin (0.2-1.0) mg/dl Direct Bilirubin (0-0.2) mg/dl AST (13-39) U/L ALT (7-52) U/L Alkaline Phosphatase (34-104) U/L Troponin I High Sens (0-20) pg/ml Total Protein (6.0-8.3) gm/dl Albumin (3.4-5.0) gm/dl Procalcitonin (0-0.5) ng/ml Urine Color Urine Appearance (Clear) Urine pH (4.5-7.5) Ur Specific [place] (1.000-1.030) Urine Protein (Negative) Urine Glucose (UA) (Negative) Urine Ketones (Negative) Urine Blood (Negative) Urine Nitrite (Negative) Urine Bilirubin (Negative) Urine Urobilinogen (Negative) Ur Leukocyte Esterase (Negative) Urine WBC (Auto) (0-5) /hpf Urine RBC (Auto) (0-2) /hpf U Hyaline Cast (Auto) (0-2) /lpf U Epithel Cells (Auto) (0-2) /hpf Urine Bacteria (Auto) (None Seen) Urine Sperm (None Prsent) Urine Comment Valproic Acid (50-100) mcg/ml Adenovirus (PCR) (NotDetected) B. pertussis DNA (PCR) (NotDetected) B.parapertussis DNA PCR (NotDetected) C. pneumoniae DNA (PCR) (NotDetected) Coronavirus OC43 (PCR) (NotDetected) Coronavirus HKU1 (PCR) (NotDetected) Coronavirus 229E (PCR) (NotDetected) SARS-CoV-2 (PCR) (NotDetected) Coronavirus NL63 (PCR) (NotDetected) Human Metapneumovir PCR (NotDetected) Influenza Type A (PCR) (NotDetected) Influenza Type B (PCR) (NotDetected) M. pneumoniae (PCR) (NotDetected) Parainfluenza 1 (PCR) (NotDetected) Parainfluenza 2 (PCR) (NotDetected) Parainfluenza 3 (PCR) (NotDetected) Parainfluenza 4 (PCR) (NotDetected) RSV (PCR) (NotDetected) Entero/Rhino (PCR) (NotDetected) Administered Medications Discontinued Medications Hydrocortisone Sodium Succinate (Hydrocortisone Sod Succinate 100 Mg/2 Ml Vial) 100 mg IV NOW STA Stop: 01/17/25 23:52 Last Admin: 01/18/25 00:00 Dose: 100 mg Documented By: LOURDES Sodium Chloride (Nss) 1,000 mls @ 999 mls/hr IV .[id number] ONE Stop: 01/17/25 22:17 Last Infusion: 01/17/25 22:37 Dose: Infused Documented By: Admin: 01/17/25 21:36 Dose: 999 mls/hr Documented By: LATONIA Cefepime HCl (Maxipime 2000mg) 2,000 mg in 20 mls @ 5 mls/min IV NOW STA; Protocol Stop: 01/17/25 21:39 Last Admin: 01/17/25 22:05 Dose: 5 mls/min Documented By: LATONIA Vancomycin HCl 1,750 mg/ (Sodium Chloride) 535 mls @ 200 mls/hr IV NOW ONE Stop: 01/18/25 00:16 Last Admin: 01/17/25 23:10 Dose: 200 mls/hr Documented By: LOURDES Acetaminophen (Ofirmev) 1,000 mg in 100 mls @ 400 mls/hr IV NOW STA Stop: 01/17/25 22:12 Last Infusion: 01/17/25 22:20 Dose: Infused Documented By: Admin: 01/17/25 22:02 Dose: 400 mls/hr Documented By: LATONIA Imaging Data Radiologist's Impression: Chest X-Ray 01/17/25 21:16 Exam(s): XR CXR 1 VIEW EXAM: XR Chest, 1 View CLINICAL HISTORY: Reason for exam: Sepsis. TECHNIQUE: Frontal view of the chest. COMPARISON: No relevant prior studies available. FINDINGS: Lungs: Widespread bilateral airspace opacities, [id number], confluent in the right midlung, concerning for pneumonia. Pleural space: No significant pleural effusion. No pneumothorax. Heart: No cardiomegaly or pulmonary vascular congestion. Mediastinum: Thickening of the right paratracheal stripe. Surgical clips at the thoracic inlet. Bones/joints: No acute fracture. No dislocation. IMPRESSION: Widespread bilateral airspace opacities, [id number]-left, confluent in the right midlung, concerning for pneumonia. Imaging follow- up to resolution recommended. Thickening of the right paratracheal stripe. This could be characterized on CT. Electronically signed by: Jocelyn Bonilla M.D. 01/17/25 23:15 PM Discharge Plan Visit Data Chief Complaint: Altered Mental Status Stated Complaint: ?SEIZURE, LABORED BREATHING, HYPOXIA ED Provider: Aidan Juarez Discharge Problem: Acute hypoxic respiratory failure, Pneumonia, Acute hypotension, Elevated lactic acid level, Elevated troponin Condition: Critical Forms Stand Alone Forms: My [facility] Prescriptions Prescriptions: No Action famotidine 20 mg tablet 20 mg PO DAILY potassium chloride 20 mEq tablet extended release 40 meq PO BID metoprolol succinate 200 mg Tablet Extended Release 24 Hr 200 mg PO Q12 amlodipine 5 mg Tablet 10 mg PO DAILY Rx Instructions: 2 TABLET DOSE aripiprazole [Abilify] 10 mg Tablet 10 mg PO DAILY clozapine 50 mg Tablet 50 mg PO HS Rx Instructions: take with 200mg clozapine 200 mg Tablet 200 mg PO HS Rx Instructions: take with 50mg cholecalciferol (vitamin D3) [Vitamin D3] 125 mcg (5,000 unit) Tablet 125 mcg PO DAILY hydrochlorothiazide 25 mg tablet 25 mg PO DAILY albuterol sulfate 90 mcg/actuation Hfa Aerosol Inhaler 2 puff INHALATION Q6H PRN (Reason: COUGH OR SOB) acetaminophen 325 mg Tablet 650 mg PO Q6 MDD 3g PRN (Reason: PAIN LEVEL 1-10) cyclosporine [Restasis] 0.05 % dropperette 1 drp OPB BID Rx Instructions: allow 15 minutes between administration of other opthalmic eye drops Systane (propylene glycol) 0.4-0.3 % Drops 1 drp OPB QID acetaminophen 325 mg Tablet 650 mg PO Q6 MDD 3G PRN (Reason: TEMP>101) metformin 500 mg tablet 500 mg PO BID Ozempic 0.25 mg or 0.5 mg (2 mg/3 mL) pen injector 0.5 mg SUBCUT WK Rx Instructions: EVERY SUNDAY tiotropium bromide [Spiriva with HandiHaler] 18 mcg capsule, w/inhalation device 1 cap INHALATION DAILY budesonide-formoterol [Symbicort] 80-4.5 mcg/actuation HFA aerosol inhaler 2 puff INHALATION BID ipratropium-albuterol 0.5 mg-3 mg(2.5 mg base)/3 mL solution for nebulization 3 ml INHALATION Q6 pseudoephedrine-guaifenesin [Mucinex D] 60-600 mg Tablet Extended Release 12 Hr 1 tab PO Q12H Rx Instructions: START 01/17/25 - TAKE FOR 7 DAYS - END DATE 01/24/25 erythromycin 5 mg/gram (0.5 %) ointment 1 applic OPB HS prednisone 20 mg Tablet 40 mg PO DAILY Rx Instructions: 2 TABLETS ONCE A DAY FOR 2 DAYS START 01/17/25 -END DATE 01/19/25 prednisone 20 mg Tablet 20 mg PO UD Rx Instructions: GIVE 1 TABLET BY MOUTH 1 TIME A DAY FOR 3 DAYS START 01/19/25...END DATE 01/22/25 Referrals Referrals: Brittni Sierra [Primary Care Provider] - Discharge Problem: Pneumonia Qualifiers: Pneumonia type: due to unspecified organism Laterality: unspecified laterality
[2025-01-17] MEDS ORDERED: VANCOMYCIN CONSULT ACTIVE PRN (21:36)
[2025-01-17] MEDS: SODIUM CHLORIDE 0.9% 1,000 ML IV ONE (21:36)
[2025-01-17 21:41] LABS: Base Excess VBG 2.0 mEq/L; HCO3 VBG 27 mmol/L; Oxygen Saturation VBG 79.8 %; PCO2 VBG 44 mmHg (38-50); PO2 VBG 49 mmHg; pH VBG 7.40 (7.36-7.41)
[2025-01-17] MEDS: ACETAMINOPHEN 1,000 MG/100 ML VIAL IV STA (22:02)
[2025-01-17 22:03] LABS: Alanine Aminotransferase 21 U/L (7-52); Alkaline Phosphatase 73 U/L (34-104); Anion Gap 10 (3-11); Bilirubin,Total 1.6 mg/dl (0.2-1.0); Blood Urea Nitrogen 31 mg/dl (6-23); Calcium 9.3 mg/dl (8.6-10.3); Carbon Dioxide 24 mmol/L (21-32); Chloride 106 mmol/L (98-107); Glucose 231 mg/dl (70-99(Fasting)); Magnesium 1.8 mg/dl (1.7-2.4); Potassium 5.5 mmol/L (3.5-5.1); Sodium 140 mmol/L (136-145); Total Protein 7.9 gm/dl (6.0-8.3)
[2025-01-17] MEDS: CEFEPIME 2000MG 2,000 MG/20 ML SYR IV STA (22:05)
[2025-01-17 22:11] LABS: Hematocrit (blood only) 57.3 % (42.0-52.0); Hemoglobin 18.6 g/dl (14.0-18.0); Immature Granulocytes # (auto) 0.06 K/uL (0.01-0.20); Immature Granulocytes % (auto) 0.6 %; Mean Corpuscular Hemoglobin 27.8 pg (25.0-34.0); Mean Corpuscular Volume 85.5 fL (80.0-100.0); Platelet Count 153 K/uL (130-400); RDW Standard Deviation 45.9 fL (36.4-46.3); Red Blood Count 6.70 M/uL (4.70-6.10); White Blood Count 9.72 K/ul (4.8-10.8)
[2025-01-17 22:13] LABS: Appearance Urine Clear (Clear); Bacteria Urine Automated None Seen (None Seen); Epithelial Cell Urine Auto 0-2 /hpf (0-2); Glucose Urine UA Negative (Negative); RBC Urine Automated 0-2 /hpf (0-2); WBC Urine Automated 0-5 /hpf (0-5)
[2025-01-17 22:39] LABS: Chlamydia pneumoniae PCR Not Detected (NotDetected); Coronavirus 229E PCR Not Detected (NotDetected); Coronavirus CoV-2 (COVID19)PCR Not Detected (NotDetected); Coronavirus HKU1 PCR Not Detected (NotDetected); Coronavirus NL63 PCR Not Detected (NotDetected); Coronavirus OC43PCR Not Detected (NotDetected); Human Metapneumovirus PCR Not Detected (NotDetected); Parainfluenza Virus 1 PCR Not Detected (NotDetected); Parainfluenza Virus 2 PCR Not Detected (NotDetected); Parainfluenza Virus 3 PCR Not Detected (NotDetected); Parainfluenza Virus 4 PCR Not Detected (NotDetected); Respiratory Syncytial VirusPCR Not Detected (NotDetected); Rhinovirus/Enterovirus PCR Not Detected (NotDetected)
[2025-01-17] MEDS: VANCOMYCIN HCL 1,750 MG in SODIUM CHLORIDE 0.9% 500 ML IV ONE (23:10)
--- NOTE | 2025-01-17 23:16 | XRay Report ---
Exam(s): XR CXR 1 VIEW EXAM: XR Chest, 1 View CLINICAL HISTORY: Reason for exam: Sepsis. TECHNIQUE: Frontal view of the chest. COMPARISON: No relevant prior studies available. FINDINGS: Lungs: Widespread bilateral airspace opacities, [id number]-left, confluent in the right midlung, concerning for pneumonia. Pleural space: No significant pleural effusion. No pneumothorax. Heart: No cardiomegaly or pulmonary vascular congestion. Mediastinum: Thickening of the right paratracheal stripe. Surgical clips at the thoracic inlet. Bones/joints: No acute fracture. No dislocation. IMPRESSION: Widespread bilateral airspace opacities, opgge-[id number]-[id number]-left, confluent in the right midlung, concerning for pneumonia. Imaging follow- up to resolution recommended. Thickening of the right paratracheal stripe. This could be characterized on CT. Electronically signed by: Jocelyn Bonilla M.D. 01/17/25 23:15 PM
[2025-01-17 23:22] LABS: INR 1.1 (0.9-1.1); Partial Thromboplastin Time 21 Seconds (21-31); Prothrombin Time 11.7 Seconds (9.0-12.0)
--- NOTE | 2025-01-17 23:58 | History & Physical Report ---
Date of Service January 17, 2025 Assessment & Plan (1) Unresponsive: Plan: 64-year-old male with past medical history significant for mild mental retardation, hypertension, diabetes, sarcoidosis, COPD, sleep apnea chronic diastolic CHF, hepatitis C, schizophrenia, tobacco abuse lives at [facility]([place]) was brought in because of altered mental status and acute hypoxic respiratory failure. As per the staff patient had some cold and congestion symptoms yesterday and was put on prednisone and Mucinex . Today evening patient was found on the floor with agonal breathing and hypoxia. There is a question of seizures but per the staff no one witnessed having episode of seizures. Patient was brought to the hospital and currently on 9 L oxygen.Tachypneic. Spiking temperatures. Chest x-ray possible pneumonia. Patient is a conditional code with no artificial ventilation. Patient had a similar episode in 2019 and was admitted here. At that time it happened in setting of hypotension. EEG showed slowing suggestive of mild nonspecific encephalopathy. Had outpatient 72-hour EEG done which showed same and no seizure noted. As per pulmonary notes patient is on 2 L oxygen 22/01 and no flareup of sarcoidosis. Per nursing staff using oxygen 2 L while sleeping. Not using CPAP As per records. During 2019 admission clozapine was held initially due to altered mental status.. As per the staff at the [facility] patient is usually totally independent and had no recent Illness except for some congestion yesterday. Patient opens eyes on sternal rub but goes back to sleep and not responding . Unresponsive Acute hypoxemic respiratory failure currently requiring 9 L oxygen Possible sepsis VBG okay Chest x-ray possible pneumonia Initial lactic is 3 and repeat is 2.2 Blood pressure soft Tachypnea Temp spikes Respiratory BioFire negative ER gave Vanco and cefepime Will continue with Vanco, Zosyn and Doxy Follow cultures If patient can tolerate will get CT chest, CT abdomen pelvis and CT head Close monitor on telemetry Pulmonary consult in a.m. for further recommendations Patient similar episode in 2019 and gradually improved Will also check EEG in a.m. though it was unremarkable in the past Patient was also started on steroids yesterday for congestion. Will place him on IV hydrocortisone for now History of COPD History of pulmonary sarcoidosis Nebs, IV hydrocortisone Home inhalers when able to Pulmonary consult History of schizophrenia Holding home medications for now Diabetes Sliding scale Close monitor History of sleep apnea Uses oxygen while sleeping Mild elevation of troponin Mostly demand ischemia Will follow serial enzymes and echo History of diastolic CHF As per cardiology notes no mention of CHF Will follow echo Monitor for volume overload Hypertension Will hold his amlodipine and hydrochlorothiazide for now Hyperkalemia Potassium 5.5 Will hold his home potassium supplements Will give insulin dextrose and calcium gluconate Follow repeat labs MED Creatinine 1.5 Baseline 0.9 Avoid nephrotoxic agents Follow repeat labs DVT prophylaxis SCDs for now If CT had is negative will place him on Lovenox Disposition Telemetry CODE STATUS conditional code okay for CPR and antibiotics if needed but no intubation [facility] called his guardian last night and left voicemail. Called the ph no on chart and no able to reach anyone at this time. No family per [facility] History of Present Illness Chief Complaint: Altered mental status Primary Care Provider: [facility] 64-year-old male with past medical history significant for mild mental retardation, hypertension, diabetes, sarcoidosis, COPD, sleep apnea chronic diastolic CHF, hepatitis C, schizophrenia, tobacco abuse lives at [facility]([place]) was brought in because of altered mental status and acute hypoxic respiratory failure. As per the staff patient had some cold and congestion symptoms yesterday and was put on prednisone and Mucinex . Today evening patient was found on the floor with agonal breathing and hypoxia. There is a question of seizures but per the staff no one witnessed having episode of seizures. Patient was brought to the hospital and currently on 9 L oxygen.Tachypneic. Spiking temperatures. Chest x-ray possible pneumonia. Patient is a conditional code with no artificial ventilation. Patient had a similar episode in 2019 and was admitted here. At that time it happened in setting of hypotension. EEG showed slowing suggestive of mild nonspecific encephalopathy. Had outpatient 72-hour EEG done which showed same and no seizure noted. As per pulmonary notes patient is on 2 L oxygen 22/01 and no flareup of sarcoidosis. Per nursing staff using oxygen 2 L while sleeping. Not using CPAP As per records. During 2019 admission clozapine was held initially due to altered mental status.. As per the staff at the [facility] patient is usually totally independent and had no recent Illness except for some congestion yesterday. Patient opens eyes on sternal rub but goes back to sleep and not responding . Past medical history. As mentioned above Past surgical history. No surgical history on file. Social history. Currently lives at [facility]. Quit smoking 2014. Smoked 2 pack a day for 42 years. No alcohol use. No drug use. Family history. No family history on file. Allergies Allergy/AdvReac Type Severity Reaction Status Date / Time No Known Allergies Allergy Verified 01/17/25 21:40 Home Medications Medication Instructions Recorded Confirmed Type famotidine 20 mg tablet 20 mg PO DAILY 06/12/19 01/17/25 History metoprolol succinate 200 mg 200 mg PO Q12 10/22/19 01/17/25 History tablet,extended release 24 hr potassium chloride 20 mEq 40 meq PO BID 10/22/19 01/17/25 History tablet,extended release amlodipine 5 mg tablet 10 mg PO DAILY 09/11/20 01/17/25 History aripiprazole 10 mg tablet (Abilify) 10 mg PO DAILY 09/11/20 01/17/25 History cholecalciferol (vitamin D3) 125 125 mcg PO DAILY 09/11/20 01/17/25 History mcg (5,000 unit) tablet (Vitamin D3) clozapine 200 mg tablet 200 mg PO HS 09/11/20 01/17/25 History clozapine 50 mg tablet 50 mg PO HS 09/11/20 01/17/25 History hydrochlorothiazide 25 mg tablet 25 mg PO DAILY 09/11/20 01/17/25 History albuterol sulfate 90 mcg/actuation 2 puff inhalation Q6H PRN COUGH OR 08/24/21 01/17/25 History aerosol inhaler SOB acetaminophen 325 mg tablet 650 mg PO Q6 PRN PAIN LEVEL 1-10 06/06/22 01/17/25 History cyclosporine 0.05 % eye drops in a 1 drp OPB BID 06/06/22 01/17/25 History dropperette (Restasis) peg 400-propylene glycol 0.4 %-0.3 1 drp OPB QID 06/06/22 01/17/25 History % eye drops (Systane (propylene glycol)) acetaminophen 325 mg tablet 650 mg PO Q6 PRN TEMP>101 01/17/25 01/17/25 History budesonide-formoterol HFA 80 2 puff inhalation BID 01/17/25 01/17/25 History mcg-4.5 mcg/actuation aerosol inhaler (Symbicort) erythromycin 5 mg/gram (0.5 %) eye 1 applic OPB HS 01/17/25 01/17/25 History ointment ipratropium 0.5 mg-albuterol 3 mg 3 ml inhalation Q6 COUGH 01/17/25 01/17/25 History (2.5 mg base)/3 mL nebulization soln metformin 500 mg tablet 500 mg PO BID 01/17/25 01/17/25 History prednisone 20 mg tablet 20 mg PO UD 01/17/25 01/17/25 History prednisone 20 mg tablet 40 mg PO DAILY 01/17/25 01/17/25 History pseudoephedrine-guaifenesin ER 60 1 tab PO Q12H 01/17/25 01/17/25 History mg-600 mg tablet,extend release 12hr (Mucinex D) semaglutide 0.25 mg or 0.5 mg (2 0.5 mg subcut WK 01/17/25 01/17/25 History mg/3 mL) subcutaneous pen injector (Ozempic) tiotropium bromide 18 mcg capsule 1 cap inhalation DAILY 01/17/25 01/17/25 History with inhalation device (Spiriva with HandiHaler) Past Med/Surg History Problem List (Updated 01/18/25 @ 00:17 by Sen Magaña MD) Unresponsive ANT (obstructive sleep apnea) (Chronic) Hypoglycemia Acute metabolic encephalopathy Lethargy (Acute) Hypoglycemia (Acute) SOB (shortness of breath) (Acute) COVID-19 (Acute) SOB (shortness of breath) (Acute) Hypoxia (Acute) Multifocal pneumonia (Acute) Hypertension Hypokalemia Diabetes mellitus, type 2 Delusion (Acute) Laceration of left hand (Acute) Hypoglycemia (Acute) Hypoglycemia due to type 2 diabetes mellitus (Acute) COPD (chronic obstructive pulmonary disease) (Acute) Chronic viral hepatitis (Acute) Diabetes (Acute) Essential hypertension (Acute) ANT on CPAP (Acute) Obesity (Acute) Sarcoidosis of lung (Acute) Schizophrenia, paranoid, chronic (Acute) Uncomplicated asthma (Acute) Medical History (Updated 01/18/25 @ 00:17 by Sen Magaña MD) Peripheral vascular disease Asthma Diabetes History of seizures Lupus COPD (chronic obstructive pulmonary disease) Alcohol abuse Hepatitis C Paranoid schizophrenia Surgical History No significant past surgical history Family History Denies family history of Myocardial infarction Congenital kidney disease Social History Smoking Status: Unknown if ever smoked Second Hand Exposure: No; Do You Dip or Chew Tobacco: No; Hx Alcohol Use: No Hx Substance Use: Yes Substance Use Type Other:: Benzos Preferred Language: [place] Communication Ability: Impaired Communication Ability Comment: patient nonverbal at this time. unknown Visual Impairment: No Limitations Egyptologist Required: No Beliefs That Will Affect Care: Spiritual marital status: Single Current Living Situation: Personal Care Facility Current Living Situation Comment: [facility] Feels Safe at Home: Declines to Answer Assistive Devices: Walker Review of Systems Review of Systems: Unobtainable due to reduced consciousness Physical Exam Physical Exam: General- unresponsive Head- atraumatic Eyes- PERRL, Neck- no JVD. Lungs- clear to auscultation mild b/l wheezing Heart- regular rate and rhythm; no murmur, no gallop. Abdomen- sluggish bowel sounds, soft, no distension. Extremities- no pretibial edema,b/l lower extremity chronic skin changes seen Neuro-unresponsive. Skin- dry Results & Data Results & Data Vital Signs (Past 12 Hours) Vital Signs Temp Pulse Pulse Resp BP BP Pulse Ox 01/17/25 23:45 38.2 C H 77 25 H 93/64 L 91 01/17/25 23:30 38.3 C H 78 26 H 92/65 L 92 01/17/25 23:15 38.4 C H 79 28 H 109/74 91 01/17/25 23:00 38.5 C H 80 30 H 98/69 L 92 01/17/25 22:33 38.6 C H 85 30 H 87/57 L 91 01/17/25 22:30 38.6 C H 85 28 H 107/76 91 01/17/25 22:00 38.6 C H 90 31 H 108/82 92 01/17/25 21:46 01/17/25 21:41 90 22 113/78 94 01/17/25 21:30 89 36 H 93 01/17/25 21:16 92 H 01/17/25 21:15 38.9 C H 93 H 22 125/83 91 01/17/25 21:14 38.9 C H 91 H 31 H 125/83 92 01/17/25 21:07 38.9 C H 86 30 H 92 O2 Del Method O2 Flow Rate 01/17/25 23:45 Nasal Cannula 9 01/17/25 23:30 Nasal Cannula 9 01/17/25 23:15 Nasal Cannula 9 01/17/25 23:00 Nasal Cannula 9 01/17/25 22:33 Nasal Cannula 9 01/17/25 22:30 Nasal Cannula 9 01/17/25 22:00 Nasal Cannula 9 01/17/25 21:46 Room Air 01/17/25 21:41 Nasal Cannula 9 01/17/25 21:30 Nasal Cannula 6 01/17/25 21:16 01/17/25 21:15 Nasal Cannula 6 01/17/25 21:14 Nasal Cannula 6 01/17/25 21:07 Nasal Cannula Diagnostic Findings Laboratory Results WBC 9.72 K/ul (4.8-10.8) 01/17/25 21:22 RBC 6.70 M/uL (4.70-6.10) H 01/17/25 21:22 Hgb 18.6 g/dl (14.0-18.0) H 01/17/25 21:22 Hct 57.3 % (42.0-52.0) H 01/17/25 21:22 MCV 85.5 fL (80.0-100.0) 01/17/25 21:22 MCH 27.8 pg (25.0-34.0) 01/17/25 21:22 MCHC 32.5 g/dL (32.0-36.0) 01/17/25 21:22 RDW Std Deviation 45.9 fL (36.4-46.3) 01/17/25 21:22 RDW Coeff of Marta 16.2 % (11.5-14.5) H 01/17/25 21:22 Plt Count 153 K/uL (130-400) 01/17/25 21:22 MPV 10.3 fL (9.4-12.4) 01/17/25 21:22 Immature Gran % (Auto) 0.6 % 01/17/25 21:22 Neut % (Auto) 79.1 % 01/17/25 21:22 Lymph % (Auto) 12.8 % 01/17/25 21:22 [place] % (Auto) 6.7 % 01/17/25 21:22 Eos % (Auto) 0.5 % 01/17/25 21:22 Baso % (Auto) 0.3 % 01/17/25 21:22 Neut # (Auto) 7.69 K/uL (1.40-6.50) H 01/17/25 21:22 Lymph # (Auto) 1.24 K/uL (1.20-3.40) 01/17/25 21:22 [place] # (Auto) 0.65 K/uL (0.11-0.59) H 01/17/25 21:22 Eos # (Auto) 0.05 K/uL (0.00-0.50) 01/17/25 21:22 Baso # (Auto) 0.03 K/uL (0.00-0.20) 01/17/25 21:22 Immature Gran # (Auto) 0.06 K/uL (0.01-0.20) 01/17/25 21:22 Absolute Nucleated RBC 0.05 K/uL (0.00-0.12) 01/17/25 21:22 Nucleated RBC % (auto) 0.5 % 01/17/25 21:22 PT 11.7 Seconds (9.0-12.0) 01/17/25 22:37 INR 1.1 (0.9-1.1) 01/17/25 22:37 APTT 21 Seconds (21-31) 01/17/25 22:37 PTT Ratio 0.8 01/17/25 22:37 VBG pH 7.40 (7.36-7.41) 01/17/25 21:22 VBG pCO2 44 mmHg (38-50) 01/17/25 21:22 VBG pO2 49 mmHg 01/17/25 21:22 VBG HCO3 27 mmol/L 01/17/25 21:22 VBG O2 Saturation 79.8 % 01/17/25 21:22 VBG Base Excess 2.0 mEq/L 01/17/25 21:22 Sodium 140 mmol/L (136-145) 01/17/25 21:22 Potassium 5.5 mmol/L (3.5-5.1) H 01/17/25 21:22 Chloride 106 mmol/L (98-107) 01/17/25 21:22 Carbon Dioxide 24 mmol/L (21-32) 01/17/25 21:22 Anion Gap 10 (3-11) 01/17/25 21:22 BUN 31 mg/dl (6-23) H 01/17/25 21:22 Creatinine 1.56 mg/dl (0.6-1.4) H 01/17/25 21:22 Est Cr Clr Drug Dosing Not Reportable 01/17/25 21:22 eGFR 49.60 01/17/25 21:22 BUN/Creatinine Ratio 19.9 (10-20) 01/17/25 21:22 Glucose 231 mg/dl (70-99(Fasting)) H 01/17/25 21:22 POC Glucose 194 mg/dl (70-99) H 01/17/25 21:51 Lactate 2.2 mmol/L (0.4-2.0) H* 01/17/25 23:19 Calcium 9.3 mg/dl (8.6-10.3) 01/17/25 21:22 Magnesium 1.8 mg/dl (1.7-2.4) 01/17/25 21:22 Total Bilirubin 1.6 mg/dl (0.2-1.0) H 01/17/25 21:22 Direct Bilirubin 0.6 mg/dl (0-0.2) H 01/17/25 21:22 AST 16 U/L (13-39) 01/17/25 21:22 ALT 21 U/L (7-52) 01/17/25 21:22 Alkaline Phosphatase 73 U/L (34-104) 01/17/25 21:22 Troponin I High Sens 34.9 pg/ml (0-20) H 01/17/25 22:38 Total Protein 7.9 gm/dl (6.0-8.3) 01/17/25 21:22 Albumin 3.7 gm/dl (3.4-5.0) 01/17/25 21:22 Procalcitonin 0.70 ng/ml (0-0.5) H 01/17/25 21:22 Urine Color Dark Yellow 01/17/25 21:36 Urine Appearance Clear (Clear) 01/17/25 21:36 Urine pH 5.5 (4.5-7.5) 01/17/25 21:36 Ur Specific [place] 1.026 (1.000-1.030) 01/17/25 21:36 Urine Protein 2+ (Negative) H 01/17/25 21:36 Urine Glucose (UA) Negative (Negative) 01/17/25 21:36 Urine Ketones Trace (Negative) H 01/17/25 21:36 Urine Blood Negative (Negative) 01/17/25 21:36 Urine Nitrite Negative (Negative) 01/17/25 21:36 Urine Bilirubin 1+ (Negative) H 01/17/25 21:36 Urine Urobilinogen Positive (Negative) H 01/17/25 21:36 Ur Leukocyte Esterase 1+ (Negative) H 01/17/25 21:36 Urine WBC (Auto) 0-5 /hpf (0-5) 01/17/25 21:36 Urine RBC (Auto) 0-2 /hpf (0-2) 01/17/25 21:36 U Hyaline Cast (Auto) 6-10 /lpf (0-2) H 01/17/25 21:36 U Epithel Cells (Auto) 0-2 /hpf (0-2) 01/17/25 21:36 Urine Bacteria (Auto) None Seen (None Seen) 01/17/25 21:36 Urine Sperm Present (None Prsent) A 01/17/25 21:36 Urine Comment 01/17/25 21:36 Valproic Acid < 10 mcg/ml (50-100) L 01/17/25 21:38 Adenovirus (PCR) Not Detected (NotDetected) 01/17/25 21:22 B. pertussis DNA (PCR) Not Detected (NotDetected) 01/17/25 21:22 B.parapertussis DNA PCR Not Detected (NotDetected) 01/17/25 21:22 C. pneumoniae DNA (PCR) Not Detected (NotDetected) 01/17/25 21:22 Coronavirus OC43 (PCR) Not Detected (NotDetected) 01/17/25 21:22 Coronavirus HKU1 (PCR) Not Detected (NotDetected) 01/17/25 21:22 Coronavirus 229E (PCR) Not Detected (NotDetected) 01/17/25 21:22 SARS-CoV-2 (PCR) Not Detected (NotDetected) 01/17/25 21:22 Coronavirus NL63 (PCR) Not Detected (NotDetected) 01/17/25 21:22 Human Metapneumovir PCR Not Detected (NotDetected) 01/17/25 21:22 Influenza Type A (PCR) Not Detected (NotDetected) 01/17/25 21:22 Influenza Type B (PCR) Not Detected (NotDetected) 01/17/25 21:22 M. pneumoniae (PCR) Not Detected (NotDetected) 01/17/25 21:22 Parainfluenza 1 (PCR) Not Detected (NotDetected) 01/17/25 21:22 Parainfluenza 2 (PCR) Not Detected (NotDetected) 01/17/25 21:22 Parainfluenza 3 (PCR) Not Detected (NotDetected) 01/17/25 21:22 Parainfluenza 4 (PCR) Not Detected (NotDetected) 01/17/25 21:22 RSV (PCR) Not Detected (NotDetected) 01/17/25 21:22 Entero/Rhino (PCR) Not Detected (NotDetected) 01/17/25 21:22 Impressions Chest X-Ray 01/17/25 21:16 Exam(s): XR CXR 1 VIEW EXAM: XR Chest, 1 View CLINICAL HISTORY: Reason for exam: Sepsis. TECHNIQUE: Frontal view of the chest. COMPARISON: No relevant prior studies available. FINDINGS: Lungs: Widespread bilateral airspace opacities, [id number]-[id number]-eikn-left, confluent in the right midlung, concerning for pneumonia. Pleural space: No significant pleural effusion. No pneumothorax. Heart: No cardiomegaly or pulmonary vascular congestion. Mediastinum: Thickening of the right paratracheal stripe. Surgical clips at the thoracic inlet. Bones/joints: No acute fracture. No dislocation. IMPRESSION: Widespread bilateral airspace opacities, [id number]-[id number]-qwgj-left, confluent in the right midlung, concerning for pneumonia. Imaging follow- up to resolution recommended. Thickening of the right paratracheal stripe. This could be characterized on CT. Electronically signed by: Jocelyn Bonilla M.D. 01/17/25 23:15 PM ECG Additional Comments: ECG. Normal sinus rhythm at a rate of 92. Left intrafascicular block. QTc 467 Code Status & VTE Plan VTE Prophylaxis Plan VTE Prophylaxis will be ordered: Yes
[2025-01-18] MEDS: HYDROCORTISONE SOD SUCCINATE 100 MG/2 ML VIAL IV STA
[2025-01-18] MEDS ORDERED: DEXTROSE 50% 50 ML SYRINGE IV PRN (02:10)
[2025-01-18] MEDS ORDERED: GLUCOSE 40% GEL 15 GM TUBE PO PRN (02:10)
[2025-01-18] MEDS ORDERED: GLUCAGON FOR INJ 1 MG VIAL SQ PRN (02:10)
[2025-01-18] MEDS ORDERED: ACETAMINOPHEN 1,000 MG/100 ML VIAL IV PRN (02:10)
[2025-01-18] MEDS ORDERED: GLUCOSE 10 TAB/TUBE PO PRN (02:10)
[2025-01-18] MEDS ORDERED: CARBOHYDRATES FOR HYPOGLYCEMIA PO PRN (02:10)
[2025-01-18] MEDS ORDERED: LEVALBUTEROL 1.25 MG/3 ML NEB NEB PRN (02:10)
[2025-01-18] MEDS: BUDESONIDE 0.25 MG/2 ML VIAL (PULMICORT) NEB STA (02:22)
[2025-01-18] MEDS: DOXYCYCLINE HYCLATE 100 MG in DEXTROSE 5% MINI-B 100 ML IV SCH (03:20)
[2025-01-18] MEDS: SODIUM CHLORIDE 0.9% 1,000 ML IV SCH (03:20)
[2025-01-18 03:38] LABS: Amphetamines+Metham, Urine Neg (Neg); MDMA (Ecstacy), Urine Neg (Neg); Marijuana, Urine Neg (Neg)
[2025-01-18] MEDS: INSULIN ASPART PER UNIT CHARGE SC SCH ×2 (03:42→17:20)
[2025-01-18] MEDS: 4.5GM X1 IV ONE (04:29)
[2025-01-18] MEDS: BUDESONIDE 0.25 MG/2 ML VIAL (PULMICORT) NEB SCH (06:59)
[2025-01-18] MEDS: FORMOTEROL 20 MCG/2 ML VIAL NEB SCH (06:59)
[2025-01-18] MEDS: LEVALBUTEROL 1.25 MG/3 ML NEB NEB SCH (07:00)
[2025-01-18 07:06] LABS: Hematocrit (blood only) 53.2 % (42.0-52.0); Hemoglobin 16.8 g/dl (14.0-18.0); Immature Granulocytes # (auto) 0.06 K/uL (0.01-0.20); Immature Granulocytes % (auto) 0.6 %; Mean Corpuscular Hemoglobin 27.6 pg (25.0-34.0); Mean Corpuscular Volume 87.5 fL (80.0-100.0); Platelet Count 134 K/uL (130-400); RDW Standard Deviation 47.7 fL (36.4-46.3); Red Blood Count 6.08 M/uL (4.70-6.10); White Blood Count 9.39 K/ul (4.8-10.8)
[2025-01-18 07:21] LABS: Anion Gap 6.0 (3-11); Blood Urea Nitrogen 34.0 mg/dl (6-23); Calcium 8.2 mg/dl (8.6-10.3); Carbon Dioxide 25.0 mmol/L (21-32); Chloride 111.0 mmol/L (98-107); Creatinine Clr Calc Pharmacy 60.9 ml/min; Glucose 176.0 mg/dl (70-99(Fasting)); Magnesium 1.9 mg/dl (1.7-2.4); Potassium 5.4 mmol/L (3.5-5.1); Sodium 142.0 mmol/L (136-145)
--- NOTE | 2025-01-18 07:55 | Hospitalist Progress Note ---
Date of Service January 18, 2025 Assessment & Plan (1) Unresponsive: Plan: 64-year-old male with past medical history significant for mild mental retardation, hypertension, diabetes, sarcoidosis, COPD, sleep apnea chronic diastolic CHF, hepatitis C, schizophrenia, tobacco abuse lives at [facility]([place]) was brought in because of altered mental status and acute hypoxic respiratory failure. As per the staff patient had some cold and congestion symptoms yesterday and was put on prednisone and Mucinex . Today evening patient was found on the floor with agonal breathing and hypoxia. There is a question of seizures but per the staff no one witnessed having episode of seizures. Patient was brought to the hospital and currently onf 9 L oxygen.Tachypneic. Spiking temperatures. Chest x-ray possible pneumonia. Patient is a conditional code with no artificial ventilation. Patient had a similar episode in 2019 and was admitted here. At that time it happened in setting of hypotension. EEG showed slowing suggestive of mild nonspecific encephalopathy. Had outpatient 72-hour EEG results which showed same and no seizure noted. As per pulmonary notes patient is on 2 L oxygen 22/01 and no flareup of sarcoidosis. Per nursing staff using oxygen 2 L while sleeping. Not using CPAP As per records. During 2019 admission clozapine was held initially due to altered mental status.. As per the staff at the [facility] patient is usually totally independent and had no recent Illness except for some congestion yesterday. Patient opens eyes on sternal rub but goes back to sleep and not responding . Unresponsive IMPROVING Acute hypoxemic respiratory failure Suspect aspiration PNA: AMS is improving; responsive to sternal rub and answers very simple questions although still sluggish with response O2 need decreased --> requiring 9 L OxyMask now down to 4 L . SpO2 > 95% Initial lactate was 3--> 1.5 this AM On admission, was tachypneic RR 30s; resolved Bio fire neg, Procalcitonin 0.7 CXR indicating possible pneumonia; MRSA swab neg; D/C Vanco and cont IV Zosyn + Doxy; await cultures Blood cx pending, Ammonia normal VBG normal Troponin 25.4-34.9--25.4-->20.5.; suspect ischemic demand rather than ACS. No need for further trending No arrhythmias overnight and remains NSR Head CT without acute changes Chest CT: Increased small bilateral pleural effusions , BL LE consistent with atelectasis or a combination of atelectasis and pneumonia, Emphysema Small pericardial effusion ; reviewed ECHO does not correlate. NPO until more awake, continue IVF and decrease rate to 80mL/hr History of COPD History of pulmonary sarcoidosis H/O tobacco use smoked 2 ppd x 42 year, quit 2014. Takes Spiriva, Symbicort Has Albuterol PRN at facility Pulm consult; appreciate reccs History of schizophrenia transient alteration of awareness Takes clozapine, elida, this morning; hold for now He was able to tell me that he does take his medicines at heart side but not sure reliable Suspect that much of this may be related to schizophrenia Pjm-jjhdezc-wvzlandge diabetes mellitus type 2: Takes metformin as home meds; hold while inpatient ACHS SSI A1c pending H/O ANT: 2 L NC supplemental O2 at baseline QHS Unsure if patient uses CPAP and is compliant goal rate I fixed everybody I milked some neph tubes to get some drainage my somnolent my unresponsive dainel respond to sternal rub could tell me he was at [facility] Elevated troponin: 25.4-34.9; suspect ischemic demand rather than ACS ECHO EF 60-65%, mild LVH, G1DDX, no valvular pathology noted No arrhythmia since admission Mg+ 1.9 History of diastolic CHF: Follows with [facility]; last seen 07/15/24 No overt reference to any heart failure; appears euvolemic on examination ECHO EF 60-65%, mild LVH, G1DDX, no valvular pathology noted Hyperkalemia: serum potassium 5.5 on admission; potassium 5.4 today Hold home potassium supplements Received IV calcium gluconate in ED no ectopy noted on monitor check BMP @ 1400 MED Creatinine 1.5--> 1.39 today Baseline 0.9; avoid nephrotoxic agents as able Suspect with fluid challenge this will continue to improve; check BMP @ 1400 Disposition: DVT prophylaxis: SCDs for now Code Status: conditional code okay for CPR admits if needed but no intubation PCP: Dr. Thomason I spent a total of 66 minutes coordinating, documenting, and providing care for this patient excluding time spent inthe performance of separately billed services or time spent by another provider/QHP. Admission and Anticipated Discharge Date Admission Date: January 17, 2025 Supervising Physician Co-Signing Physician Notes Attending addendum: The patient was seen and examined in telemetry unit He was admitted with an unresponsive episode and noted to have pneumonia and desaturation Has been feeling better On examination Lying in bed with some distress due to shortness of breath Hemodynamically stable and remains afebrile and requiring 4 L to maintain satu ration via OxyMask Chestcoarse crackles bilaterally at the bases and transmitted sounds anteriorly, trachea HeartS1-S2, regular Abdomenbenign Extremitiestrace edema bilaterally CNSalert and awake and less communicative Recent labs, medications and imaging studies reviewed Presented with unresponsive-episode and acute hypoxic respiratory failure with history of schizophrenia and COPD He has been getting appropriate intravenous antibiotic and has had pulmonary evaluation CT of the head was unremarkable and chest CT showed bibasilar infiltrate His significant other medical comorbid conditions will be appropriately managed as mentioned above Agree with assessment and plan as outlined above by Skye TSANG and take the full responsibility of care in the hospital Dr Malissa Burns Subjective Pt lying in hospital bed diaphragmatic breathing/extra effort. RN also at bedside during my visit. Responded to sternal rub, opened his eyes spontaneously, pupils equal, round and sluggish but responsive. Outlined with patient able to state his name when asked, able to say he is at [facility], he is stating that he has been taking his medications but I am not certain he can be reliable with this answer at this time given his continued somnolent state. Patient denies pain but otherwise unreliable review of systems due to tirednes s. Review of Systems Review of Systems: Unobtainable due to cognitive status Physical Exam Physical Exam: Neuro: AAOx1, pupils equal, round, 2centimeters sluggish to respond, no aphagia, memory changes, CNII-XII grossly intact HEENT: head normocephalic, dry mucus membranes CV: S1/S2, (-) M/G/R, (-) edema, cap refill < 3 seconds Resp: Lungs expiratory wheezes anterior/posterior, weaning down on O2 now on 6 L oxy mask. Some diaphragmatic muscle use with breath. GI: Abdomen Abdomen large, soft nontender to palpation Ensure baseline to determine distention. AX 4 bowel sounds Musculoskeletal: 5/5 B/L UE strength, 5/5 B/L LE strength. No gait disturbance Skin: (-) rashes , (-) erythema. Psych: Somnolent, Sluggish to respond. Results & Data Results & Data Vital Signs (Past 12 Hours) Vital Signs Temp Pulse Pulse Resp BP BP Pulse Ox 01/18/25 07:49 36.5 C 76 22 106/72 100 01/18/25 07:00 75 17 92 01/18/25 05:38 76 01/18/25 05:27 01/18/25 03:54 36.8 C 01/18/25 02:10 36.2 C L 78 24 117/80 90 01/18/25 01:15 37.1 C 76 24 111/70 94 01/18/25 01:07 75 01/18/25 01:00 37.3 C 76 24 99/66 L 93 01/18/25 00:45 37.4 C 77 23 99/64 L 91 01/18/25 00:30 37.7 C H 76 23 94/67 L 91 01/18/25 00:15 37.8 C H 77 23 93/64 L 91 01/18/25 00:00 38.0 C H 78 25 H 95/61 L 91 01/17/25 23:45 38.2 C H 77 25 H 93/64 L 91 01/17/25 23:30 38.3 C H 78 26 H 92/65 L 92 01/17/25 23:15 38.4 C H 79 28 H 109/74 91 01/17/25 23:00 38.5 C H 80 30 H 98/69 L 92 01/17/25 22:45 38.5 C H 83 31 H 110/65 92 01/17/25 22:33 38.6 C H 85 30 H 87/57 L 91 01/17/25 22:30 38.2 C H 86 30 H 107/76 92 01/17/25 22:30 38.6 C H 85 28 H 107/76 91 01/17/25 22:15 38.2 C H 77 25 H 93/64 L 91 01/17/25 22:00 38.3 C H 91 H 31 H 108/82 91 01/17/25 22:00 38.6 C H 90 31 H 108/82 92 01/17/25 21:46 01/17/25 21:45 38.2 C H 94 H 34 H 113/78 93 01/17/25 21:41 90 22 113/78 94 01/17/25 21:30 38.3 C H 89 32 H 123/80 92 01/17/25 21:30 89 36 H 93 01/17/25 21:16 92 H 01/17/25 21:15 38.9 C H 93 H 22 125/83 91 01/17/25 21:14 38.9 C H 91 H 31 H 125/83 92 01/17/25 21:07 38.9 C H 86 30 H 92 O2 Del Method O2 Flow Rate 01/18/25 07:49 Oxymask 01/18/25 07:00 Oxymask 7 01/18/25 05:38 01/18/25 05:27 Oxymask 9 01/18/25 03:54 01/18/25 02:10 Oxymask 9 01/18/25 01:15 Nasal Cannula 9 01/18/25 01:07 01/18/25 01:00 Nasal Cannula 9 01/18/25 00:45 Nasal Cannula 9 01/18/25 00:30 Nasal Cannula 9 01/18/25 00:15 Nasal Cannula 9 01/18/25 00:00 Nasal Cannula 9 01/17/25 23:45 Nasal Cannula 9 01/17/25 23:30 Nasal Cannula 9 01/17/25 23:15 Nasal Cannula 9 01/17/25 23:00 Nasal Cannula 9 01/17/25 22:45 Nasal Cannula 9 01/17/25 22:33 Nasal Cannula 9 01/17/25 22:30 Nasal Cannula 9 01/17/25 22:30 Nasal Cannula 9 01/17/25 22:15 Nasal Cannula 9 01/17/25 22:00 Nasal Cannula 9 01/17/25 22:00 Nasal Cannula 9 01/17/25 21:46 Room Air 01/17/25 21:45 Nasal Cannula 6 01/17/25 21:41 Nasal Cannula 9 01/17/25 21:30 Nasal Cannula 6 01/17/25 21:30 Nasal Cannula 6 01/17/25 21:16 01/17/25 21:15 Nasal Cannula 6 01/17/25 21:14 Nasal Cannula 6 01/17/25 21:07 Nasal Cannula Laboratory Results Short CBC 01/17/25 01/18/25 Range/Units 21:22 06:50 WBC 9.72 9.39 (4.8-10.8) K/ul Hgb 18.6 H 16.8 (14.0-18.0) g/dl Hct 57.3 H 53.2 H (42.0-52.0) % Plt Count 153 134 (130-400) K/uL BMP 01/17/25 01/18/25 21:22 06:50 Sodium 140 142 Potassium 5.5 H 5.4 H Chloride 106 111 H Carbon Dioxide 24 25 BUN 31 H 34 H Creatinine 1.56 H 1.39 Glucose 231 H 176 H Calcium 9.3 8.2 L Liver Function 01/17/25 Range/Units 21:22 Total Bilirubin 1.6 H (0.2-1.0) mg/dl Direct Bilirubin 0.6 H (0-0.2) mg/dl AST 16 (13-39) U/L ALT 21 (7-52) U/L Alkaline Phosphatase 73 (34-104) U/L Albumin 3.7 (3.4-5.0) gm/dl Urine 01/17/25 Range/Units 21:36 Urine Color Dark Yellow Urine Appearance Clear (Clear) Urine pH 5.5 (4.5-7.5) Ur Specific Hardy 1.026 (1.000-1.030) Urine Protein 2+ H (Negative) Urine Glucose (UA) Negative (Negative) Diagnostic Findings Chest X-Ray 01/17/25 21:16 Exam(s): XR CXR 1 VIEW EXAM: XR Chest, 1 View CLINICAL HISTORY: Reason for exam: Sepsis. TECHNIQUE: Frontal view of the chest. COMPARISON: No relevant prior studies available. FINDINGS: Lungs: Widespread bilateral airspace opacities, [id number]-left, confluent in the right midlung, concerning for pneumonia. Pleural space: No significant pleural effusion. No pneumothorax. Heart: No cardiomegaly or pulmonary vascular congestion. Mediastinum: Thickening of the right paratracheal stripe. Surgical clips at the thoracic inlet. Bones/joints: No acute fracture. No dislocation. IMPRESSION: Widespread bilateral airspace opacities, [id number]-left, confluent in the right midlung, concerning for pneumonia. Imaging follow- up to resolution recommended. Thickening of the right paratracheal stripe. This could be characterized on CT. Electronically signed by: Jocelyn Bonilla M.D. 01/17/25 23:15 PM
--- NOTE | 2025-01-18 07:58 | Pulmonary Consultation ---
Date of Consultation January 18, 2025 Assessment & Plan (1) Multifocal pneumonia: (2) Hypoxia: Plan Impression: 64-year-old male with multiple medical issues fairly functional in a care home facility/custodial at baseline admitted with altered levels of consciousness, hypoxemic respiratory failure, and multifocal airspace opacities concerning for aspiration pneumonia. Recommendations: 1. Probable aspiration pneumonia: Patient presented with elevated lactate which is clearing. Patient was initiated on Zosyn and vancomycin which would be adequate for healthcare associated pneumonia/aspiration pneumonia. Continue antibiotics for now pending culture data and response to therapy. Could make a case for steroids for severe pneumonia so continuing hydrocortisone seems reasonable. 2. Hypoxemic respiratory failure: I think the abnormal chest x-ray accounts for the patient's respiratory status and do not see a need to proceed with CT angiogram. 3. History of COPD and sarcoid. These do not appear to be clinically active currently and require no acute intervention. He is not bronchospastic and would defer bronchodilators 4. Management of the patient's other medical issues is deferred to the primary admitting service. Overall the patient's condition is guarded. Discussions with family regarding goals of care would be entirely appropriate. History of Present Illness Attending Physician: Natividad Burns MD History of Present Illness Asked by hospitalist to assist in evaluation management of this patient admitted with seizure and multifocal pneumonia and hypoxemic respiratory failure. History is obtained from the electronic medical record as the patient is unable to provide any significant history and no family is available at bedside. Patient is a 64-year-old male resides at a care home facility. He has mild developmental delay diabetes sarcoid COPD sleep apnea and schizophrenia as well as ongoing tobacco abuse. He reportedly has had some respiratory symptoms for several days prior to admission and was placed on a steroid burst. There was questionable seizure activity with altered was on his consciousness. He is on oxygen at 2 L/min baseline. In the emergency room he was intermittently arousable. DNI status was confirmed. He was placed on oxygen given antibiotics due to multifocal airspace opacities identified on chest x-ray and admitted to the floor. Pulmonary is consulted for additional management. Allergies Allergy/AdvReac Type Severity Reaction Status Date / Time No Known Allergies Allergy Verified 01/17/25 21:40 Home Medications Medication Instructions Recorded Confirmed Type famotidine 20 mg tablet 20 mg PO DAILY 06/12/19 01/17/25 History metoprolol succinate 200 mg 200 mg PO Q12 10/22/19 01/17/25 History tablet,extended release 24 hr potassium chloride 20 mEq 40 meq PO BID 10/22/19 01/17/25 History tablet,extended release amlodipine 5 mg tablet 10 mg PO DAILY 09/11/20 01/17/25 History aripiprazole 10 mg tablet (Abilify) 10 mg PO DAILY 09/11/20 01/17/25 History cholecalciferol (vitamin D3) 125 125 mcg PO DAILY 09/11/20 01/17/25 History mcg (5,000 unit) tablet (Vitamin D3) clozapine 200 mg tablet 200 mg PO HS 09/11/20 01/17/25 History clozapine 50 mg tablet 50 mg PO HS 09/11/20 01/17/25 History hydrochlorothiazide 25 mg tablet 25 mg PO DAILY 09/11/20 01/17/25 History albuterol sulfate 90 mcg/actuation 2 puff inhalation Q6H PRN COUGH OR 08/24/21 01/17/25 History aerosol inhaler SOB acetaminophen 325 mg tablet 650 mg PO Q6 PRN PAIN LEVEL 1-10 06/06/22 01/17/25 History cyclosporine 0.05 % eye drops in a 1 drp OPB BID 06/06/22 01/17/25 History dropperette (Restasis) peg 400-propylene glycol 0.4 %-0.3 1 drp OPB QID 06/06/22 01/17/25 History % eye drops (Systane (propylene glycol)) acetaminophen 325 mg tablet 650 mg PO Q6 PRN TEMP>101 01/17/25 01/17/25 History budesonide-formoterol HFA 80 2 puff inhalation BID 01/17/25 01/17/25 History mcg-4.5 mcg/actuation aerosol inhaler (Symbicort) erythromycin 5 mg/gram (0.5 %) eye 1 applic OPB HS 01/17/25 01/17/25 History ointment ipratropium 0.5 mg-albuterol 3 mg 3 ml inhalation Q6 COUGH 01/17/25 01/17/25 History (2.5 mg base)/3 mL nebulization soln metformin 500 mg tablet 500 mg PO BID 01/17/25 01/17/25 History prednisone 20 mg tablet 20 mg PO UD 01/17/25 01/17/25 History prednisone 20 mg tablet 40 mg PO DAILY 01/17/25 01/17/25 History pseudoephedrine-guaifenesin ER 60 1 tab PO Q12H 01/17/25 01/17/25 History mg-600 mg tablet,extend release 12hr (Mucinex D) semaglutide 0.25 mg or 0.5 mg (2 0.5 mg subcut WK 01/17/25 01/17/25 History mg/3 mL) subcutaneous pen injector (Ozempic) tiotropium bromide 18 mcg capsule 1 cap inhalation DAILY 01/17/25 01/17/25 History with inhalation device (Spiriva with HandiHaler) Patient History Medical History (Updated 01/18/25 @ 00:17 by Sen Magaña MD) Peripheral vascular disease Asthma Diabetes History of seizures Lupus COPD (chronic obstructive pulmonary disease) Alcohol abuse Hepatitis C Paranoid schizophrenia Surgical History No significant past surgical history Family History Denies family history of Myocardial infarction Congenital kidney disease Social History Smoking Status: Unknown if ever smoked Second Hand Exposure: No; Do You Dip or Chew Tobacco: No; Hx Alcohol Use: No Hx Substance Use: Yes Substance Use Type Other:: Benzos Preferred Language: Kiswahili Communication Ability: Impaired Communication Ability Comment: patient nonverbal at this time. unknown Visual Impairment: No Limitations Microwave Engineer Required: No Beliefs That Will Affect Care: Spiritual marital status: Single Current Living Situation: Personal Care Facility Current Living Situation Comment: [facility] Feels Safe at Home: Declines to Answer Assistive Devices: Walker Review of Systems Review of Systems: Unobtainable due to reduced consciousness Physical Exam Constitutional: + lethargic; no acute distress Neck: trachea midline, no thyromegaly Respiratory: no respiratory distress, no labored breathing, no cough and not tachypneic Auscultation: + rhonchi and + wheezes Cardiovascular: RRR, no murmur, no edema Gastrointestinal (Abdomen): normal bowel sounds, soft, nontender, no hepatosplenomegaly Musculoskeletal: Extremities: extremities normal to inspection Skin: no rashes, warm and dry Lymphatic: no cervical lymphadenopathy Results & Data Results & Data Vital Signs (Past 12 Hours) Vital Signs Temp Pulse Pulse Resp BP BP Pulse Ox 01/18/25 07:49 36.5 C 76 22 106/72 100 01/18/25 07:00 75 17 92 01/18/25 05:38 76 01/18/25 05:27 01/18/25 03:54 36.8 C 01/18/25 02:10 36.2 C L 78 24 117/80 90 01/18/25 01:15 37.1 C 76 24 111/70 94 01/18/25 01:07 75 01/18/25 01:00 37.3 C 76 24 99/66 L 93 01/18/25 00:45 37.4 C 77 23 99/64 L 91 01/18/25 00:30 37.7 C H 76 23 94/67 L 91 01/18/25 00:15 37.8 C H 77 23 93/64 L 91 01/18/25 00:00 38.0 C H 78 25 H 95/61 L 91 01/17/25 23:45 38.2 C H 77 25 H 93/64 L 91 01/17/25 23:30 38.3 C H 78 26 H 92/65 L 92 01/17/25 23:15 38.4 C H 79 28 H 109/74 91 01/17/25 23:00 38.5 C H 80 30 H 98/69 L 92 01/17/25 22:45 38.5 C H 83 31 H 110/65 92 01/17/25 22:33 38.6 C H 85 30 H 87/57 L 91 01/17/25 22:30 38.2 C H 86 30 H 107/76 92 01/17/25 22:30 38.6 C H 85 28 H 107/76 91 01/17/25 22:15 38.2 C H 77 25 H 93/64 L 91 01/17/25 22:00 38.3 C H 91 H 31 H 108/82 91 01/17/25 22:00 38.6 C H 90 31 H 108/82 92 01/17/25 21:46 01/17/25 21:45 38.2 C H 94 H 34 H 113/78 93 01/17/25 21:41 90 22 113/78 94 01/17/25 21:30 38.3 C H 89 32 H 123/80 92 01/17/25 21:30 89 36 H 93 01/17/25 21:16 92 H 01/17/25 21:15 38.9 C H 93 H 22 125/83 91 01/17/25 21:14 38.9 C H 91 H 31 H 125/83 92 01/17/25 21:07 38.9 C H 86 30 H 92 O2 Del Method O2 Flow Rate 01/18/25 07:49 Oxymask 01/18/25 07:00 Oxymask 7 01/18/25 05:38 01/18/25 05:27 Oxymask 9 01/18/25 03:54 01/18/25 02:10 Oxymask 9 01/18/25 01:15 Nasal Cannula 9 01/18/25 01:07 01/18/25 01:00 Nasal Cannula 9 01/18/25 00:45 Nasal Cannula 9 01/18/25 00:30 Nasal Cannula 9 01/18/25 00:15 Nasal Cannula 9 01/18/25 00:00 Nasal Cannula 9 01/17/25 23:45 Nasal Cannula 9 01/17/25 23:30 Nasal Cannula 9 01/17/25 23:15 Nasal Cannula 9 01/17/25 23:00 Nasal Cannula 9 01/17/25 22:45 Nasal Cannula 9 01/17/25 22:33 Nasal Cannula 9 01/17/25 22:30 Nasal Cannula 9 01/17/25 22:30 Nasal Cannula 9 01/17/25 22:15 Nasal Cannula 9 01/17/25 22:00 Nasal Cannula 9 01/17/25 22:00 Nasal Cannula 9 01/17/25 21:46 Room Air 01/17/25 21:45 Nasal Cannula 6 01/17/25 21:41 Nasal Cannula 9 01/17/25 21:30 Nasal Cannula 6 01/17/25 21:30 Nasal Cannula 6 01/17/25 21:16 01/17/25 21:15 Nasal Cannula 6 01/17/25 21:14 Nasal Cannula 6 01/17/25 21:07 Nasal Cannula Critical Care Results & Data Vital Signs (Past 12 Hours) Vital Signs Temp Pulse Pulse Resp BP BP Pulse Ox 01/18/25 07:49 36.5 C 76 22 106/72 100 01/18/25 07:00 75 17 92 01/18/25 05:38 76 01/18/25 05:27 01/18/25 03:54 36.8 C 01/18/25 02:10 36.2 C L 78 24 117/80 90 01/18/25 01:15 37.1 C 76 24 111/70 94 01/18/25 01:07 75 01/18/25 01:00 37.3 C 76 24 99/66 L 93 01/18/25 00:45 37.4 C 77 23 99/64 L 91 01/18/25 00:30 37.7 C H 76 23 94/67 L 91 01/18/25 00:15 37.8 C H 77 23 93/64 L 91 01/18/25 00:00 38.0 C H 78 25 H 95/61 L 91 01/17/25 23:45 38.2 C H 77 25 H 93/64 L 91 01/17/25 23:30 38.3 C H 78 26 H 92/65 L 92 01/17/25 23:15 38.4 C H 79 28 H 109/74 91 01/17/25 23:00 38.5 C H 80 30 H 98/69 L 92 01/17/25 22:45 38.5 C H 83 31 H 110/65 92 01/17/25 22:33 38.6 C H 85 30 H 87/57 L 91 01/17/25 22:30 38.2 C H 86 30 H 107/76 92 01/17/25 22:30 38.6 C H 85 28 H 107/76 91 01/17/25 22:15 38.2 C H 77 25 H 93/64 L 91 01/17/25 22:00 38.3 C H 91 H 31 H 108/82 91 01/17/25 22:00 38.6 C H 90 31 H 108/82 92 01/17/25 21:46 01/17/25 21:45 38.2 C H 94 H 34 H 113/78 93 01/17/25 21:41 90 22 113/78 94 01/17/25 21:30 38.3 C H 89 32 H 123/80 92 01/17/25 21:30 89 36 H 93 01/17/25 21:16 92 H 01/17/25 21:15 38.9 C H 93 H 22 125/83 91 01/17/25 21:14 38.9 C H 91 H 31 H 125/83 92 01/17/25 21:07 38.9 C H 86 30 H 92 O2 Del Method O2 Flow Rate 01/18/25 07:49 Oxymask 01/18/25 07:00 Oxymask 7 01/18/25 05:38 01/18/25 05:27 Oxymask 9 01/18/25 03:54 01/18/25 02:10 Oxymask 9 01/18/25 01:15 Nasal Cannula 9 01/18/25 01:07 01/18/25 01:00 Nasal Cannula 9 01/18/25 00:45 Nasal Cannula 9 01/18/25 00:30 Nasal Cannula 9 01/18/25 00:15 Nasal Cannula 9 01/18/25 00:00 Nasal Cannula 9 01/17/25 23:45 Nasal Cannula 9 01/17/25 23:30 Nasal Cannula 9 01/17/25 23:15 Nasal Cannula 9 01/17/25 23:00 Nasal Cannula 9 01/17/25 22:45 Nasal Cannula 9 01/17/25 22:33 Nasal Cannula 9 01/17/25 22:30 Nasal Cannula 9 01/17/25 22:30 Nasal Cannula 9 01/17/25 22:15 Nasal Cannula 9 01/17/25 22:00 Nasal Cannula 9 01/17/25 22:00 Nasal Cannula 9 01/17/25 21:46 Room Air 01/17/25 21:45 Nasal Cannula 6 01/17/25 21:41 Nasal Cannula 9 01/17/25 21:30 Nasal Cannula 6 01/17/25 21:30 Nasal Cannula 6 01/17/25 21:16 01/17/25 21:15 Nasal Cannula 6 01/17/25 21:14 Nasal Cannula 6 01/17/25 21:07 Nasal Cannula Lab & Micro Results (Past 24 Hours) RBC 6.08 M/uL (4.70-6.10) 01/18/25 WBC 9.39 K/ul (4.8-10.8) 01/18/25 Hgb 16.8 g/dl (14.0-18.0) 01/18/25 Hct 53.2 % (42.0-52.0) H 01/18/25 MCV 87.5 fL (80.0-100.0) 01/18/25 MCH 27.6 pg (25.0-34.0) 01/18/25 MCHC 31.6 g/dL (32.0-36.0) L 01/18/25 RDW Standard Deviation 47.7 fL (36.4-46.3) H 01/18/25 RDW Coefficient of Variation 15.5 % (11.5-14.5) H 01/18/25 Plt Count 134 K/uL (130-400) 01/18/25 MPV 9.9 fL (9.4-12.4) 01/18/25 Nucleated Red Blood Cells % (auto) 0.3 % 01/18 Nucleated RBC Absolute Count (auto) 0.03 K/uL (0.00-0.12) 0 01/18/25 Neutrophils (%) (Auto) 76.8 % 01/18/25 Lymphocytes (%) (Auto) 17.6 % 01/18/25 Monocytes # (Auto) 0.43 K/uL (0.11-0.59) 01/18/25 Eosinophils # (Auto) 0.02 K/uL (0.00-0.50) 01/18/25 Immature Granulocyte % (Auto) 0.6 % 01/18/25 Neutrophils # (Auto) 7.21 K/uL (1.40-6.50) H 01/18/25 Lymphocytes # (Auto) 1.65 K/uL (1.20-3.40) 01/18/25 Monocytes # (Auto) 0.43 K/uL (0.11-0.59) 01/18/25 Eosinophils # (Auto) 0.02 K/uL (0.00-0.50) 01/18/25 Basophils # (Auto) 0.02 K/uL (0.00-0.20) 01/18/25 Immature Granulocyte # (Auto) 0.06 K/uL (0.01-0.20) 5 Na 142 mmol/L (136-145) 01/18/25 K 5.4 mmol/L (3.5-5.1) H 01/18/25 Cl 111 mmol/L (98-107) H 01/18/25 CO2 25 mmol/L (21-32) 01/18/25 Anion Gap 6 (3-11) 01/18/25 BUN 34 mg/dl (6-23) H 01/18/25 Creatinine 1.39 mg/dl (0.6-1.4) 01/18/25 BUN/Creatinine Ratio 24.5 (10-20) H 01/18/25 Glu 176 mg/dl (70-99(Fasting)) H 01/18/25 Ca 8.2 mg/dl (8.6-10.3) L 01/18/25 Phosphorus Level 3.3 mg/dl (2.5-4.9) 01/18/25 Total Bilirubin 1.6 mg/dl (0.2-1.0) H 01/17/25 Direct Bilirubin 0.6 mg/dl (0-0.2) H 01/17/25 AST 16 U/L (13-39) 01/17/25 ALT 21 U/L (7-52) 01/17/25 Alkaline Phosphatase 73 U/L (34-104) 01/17/25 TP 7.9 gm/dl (6.0-8.3) 01/17/25 Albumin 3.7 gm/dl (3.4-5.0) 01/17/25 Mg 1.9 mg/dl (1.7-2.4) 01/18/25 06:50 Calcium Level 8.2 mg/dl (8.6-10.3) L 01/18/25 06:50 Prothromb Time International Ratio 1.1 (0.9-1.1) 01/17/25 22:3 7 Venous Blood pH 7.40 (7.36-7.41) 01/17/25 21:22 Venous Blood Partial Pressure CO2 44 mmHg (38-50) 01/17/25 21:2 2 Venous Blood Partial Pressure O2 49 mmHg 01/17/25 21:22 Venous Blood HCO3 27 mmol/L 01/17/25 21:22 Venous Blood Base Excess 2.0 mEq/L 01/17/25 21:22 Venous Blood Oxygen Saturation 79.8 % 01/17/25 21:22 Diagnostic Findings (Past 24 Hours) Chest X-Ray 01/17/25 21:16 Exam(s): XR CXR 1 VIEW EXAM: XR Chest, 1 View CLINICAL HISTORY: Reason for exam: Sepsis. TECHNIQUE: Frontal view of the chest. COMPARISON: No relevant prior studies available. FINDINGS: Lungs: Widespread bilateral airspace opacities, icrti-ltefmom-bloz-left, confluent in the right midlung, concerning for pneumonia. Pleural space: No significant pleural effusion. No pneumothorax. Heart: No cardiomegaly or pulmonary vascular congestion. Mediastinum: Thickening of the right paratracheal stripe. Surgical clips at the thoracic inlet. Bones/joints: No acute fracture. No dislocation. IMPRESSION: Widespread bilateral airspace opacities, nydee-ygxplge-rnqc-left, confluent in the right midlung, concerning for pneumonia. Imaging follow- up to resolution recommended. Thickening of the right paratracheal stripe. This could be characterized on CT. Electronically signed by: Jocelyn Bonilla M.D. 01/17/25 23:15 PM I & O Totals 24 Hours 01/17/25 01/18/25 01/19/25 06:59 06:59 06:59 Intake Total 1835 / 1835 Output Total 470 / 470 Balance 1365 / 1365 Cumulative 01/17/25 21:07 thru 01/18/25 06:20 Intake Total 1835 Output Total 470 Balance 1365 RT Ventilator Mngmt (Last Documented) Ventilator Ordered Settings Respiratory Rate 22 01/18/25 07:49 Ventilator - PT Measurements Respiratory Rate 22 End-Tidal CO2 31 PG Care Time/CCT Total # of Minutes Spent Total Time Spent with Patient: Total time spent is greater than 50% in coordination of care (as documented) at patient's floor/unit and/or counseling patient: Coding Level of Care Code 78015 INT INP/OBS CARE 3/75MIN Diagnoses Multifocal pneumonia J18.9 Hypoxia R09.02
[2025-01-18] MEDS: CALCIUM GLUCONATE 1,000 MG/60 ML BAG IV STA (08:39)
[2025-01-18] MEDS: DEXTROSE 50% 50 ML SYRINGE IV STA (08:41)
[2025-01-18] MEDS: INSULIN HUMAN REGULAR PER UNIT 5 UNITS in SYRINGE 4.95 ML IV STA (08:41)
[2025-01-18] MEDS: HYDROCORTISONE SOD 100 MG in SYRINGE 0 ML IV SCH (08:42)
[2025-01-18] MEDS: PIPERACILLIN/TAZOBACTAM 4.5 GM/100 ML BAG IV SCH (08:43)
[2025-01-18] MEDS ORDERED: HYDROCORTISONE SOD SUCCINATE 100 MG/2 ML VIAL IV SCH (09:00)
[2025-01-18] MEDS ORDERED: ARTIFICIAL TEARS OPB PRN (10:14)
--- NOTE | 2025-01-18 10:23 | Pharmacy Report ---
Pharmacy PK ABX Note - Date of Service January 18, 2025 - Assessment and Plan Assessment 64 year old M receiving Vancomycin + Zosyn + Doxycycline for treatment of pneumonia. * Day #1 of antimicrobial therapy. Tmax of 38.9oC. No leukcytosis. SCr improving. Lactate normalized now. Procal was 0.7. * Blood cultures pending. MRSA nasal swab and respiratory biofire negative. Plan Vancomycin * Loading dose: 1750 mg IV x 1 * Maintenance dose: 750 mg IV every 24 hours * Regimen is predicted to achieve target AUC/RASHMI of 400-600 mg/L.hr * Level will be ordered if therapy extends beyond 48 hours Pharmacy will continue to follow and will adjust dose/frequency as necessary. Thank you. Pharmacy has transitioned to AUC monitoring for vancomycin. AUC/RASHMI is the preferred PK/PD target and is associated with decreased risk of nephrotoxicity compared to traditional trough targets.
--- NOTE | 2025-01-18 11:55 | XCELERA ---
[id number]
--- NOTE | 2025-01-18 12:10 | CT Scan Report ---
Clinical History: Altered mental status Technique: Axial computed tomography images were obtained of the brain without intravenous contrast. Comparison is made to the prior CT dated 06/06/2022 Findings: There is cerebral atrophy, within expected limits for the patient's age. Areas of decreased attenuation are seen within the periventricular white matter, likely representing chronic small vessel ischemic disease. There is no definite sign of acute or old infarction. No intracranial hemorrhage is evident. No definite mass lesion is seen on this noncontrast examination. There is no midline shift or other form of herniation. No hydrocephalus is seen. No fracture is identified. The orbits and the visualized paranasal sinuses appear unremarkable. The mastoid air cells appear clear. Impression: 1. Cerebral atrophy and chronic small vessel ischemic disease 2. Otherwise unremarkable noncontrast CT of the brain Electronically signed by Seth Yanez 01-18-2025 12:10 PM
--- NOTE | 2025-01-18 12:33 | CT Scan Report ---
Clinical history: Pneumonia Technique: Axial computed tomography images were obtained of the chest without intravenous contrast Comparison is made to the prior CT dated 10/04/2021 Findings: There are increased small bilateral pleural effusions, left larger than right. There are unchanged pleural-based calcifications along the posterior right lower lobe. There is no pneumothorax. There is emphysema. There is worsened bilateral lower lobe and lingular atelectasis. No endobronchial lesion is seen There is no mediastinal, hilar, or axillary adenopathy. The thoracic aorta is of normal caliber. There is a small pericardial effusion The visualized upper abdomen appears unremarkable. No fracture is seen. No focal osseous lesion is evident Impression: 1. Increased small bilateral pleural effusions 2. Bilateral lower lobe and lingular opacities, consistent with atelectasis or a combination of atelectasis and pneumonia 3. Emphysema 4. Small pericardial effusion ACT 112: Positive. There are findings on this exam that require communication between the performing entity and the patient following Patient Test Result Information Act ([place] ACT 112) guidelines. Electronically signed by Seth Yanez 01-18-2025 12:33 PM
[2025-01-18 15:29] LABS: Anion Gap 6.0 (3-11); Blood Urea Nitrogen 30.0 mg/dl (6-23); Calcium 8.4 mg/dl (8.6-10.3); Carbon Dioxide 26.0 mmol/L (21-32); Chloride 112.0 mmol/L (98-107); Creatinine Clr Calc Pharmacy 67.2 ml/min; Glucose 143.0 mg/dl (70-99(Fasting)); Potassium 4.0 mmol/L (3.5-5.1); Sodium 144.0 mmol/L (136-145)
[2025-01-18] MEDS ORDERED: Nursing to Pharmacy Communication SCH (16:15)
--- NOTE | 2025-01-18 16:53 | Electrocardiogram Report ---
Test Reason : Blood Pressure : */* mmHG Vent. Rate : 92 BPM Atrial Rate : 92 BPM P-R Int : 150 ms QRS Dur : 74 ms QT Int : 378 ms P-R-T Axes : 53 -87 18 degrees QTcB Int : 467 ms Normal sinus rhythm Left anterior fascicular block Abnormal ECG When compared with ECG of 06-Jun-2022 13:32, Nonspecific T wave abnormality no longer evident in Lateral leads Confirmed by Phong Loomis ([id number]) on 01/18/2025 4:53:18 PM Referred By: REFERRED SELF Confirmed By: Phong Loomis
[2025-01-19 06:37] LABS: Hematocrit (blood only) 52.3 % (42.0-52.0); Hemoglobin 17.2 g/dl (14.0-18.0); Mean Corpuscular Hemoglobin 27.9 pg (25.0-34.0); Mean Corpuscular Volume 84.8 fL (80.0-100.0); Platelet Count 142 K/uL (130-400); RDW Standard Deviation 44.6 fL (36.4-46.3); Red Blood Count 6.17 M/uL (4.70-6.10); White Blood Count 10.85 K/ul (4.8-10.8)
[2025-01-19 06:59] LABS: Bilirubin,Total 0.9 mg/dl (0.2-1.0)
[2025-01-19 07:00] LABS: Alanine Aminotransferase 18.0 U/L (7-52); Albumin Globulin Ratio 0.9 (0.9-2); Alkaline Phosphatase 56.0 U/L (34-104); Anion Gap 7.0 (3-11); Blood Urea Nitrogen 17.0 mg/dl (6-23); Calcium 8.0 mg/dl (8.6-10.3); Carbon Dioxide 29.0 mmol/L (21-32); Chloride 106.0 mmol/L (98-107); Creatinine Clr Calc Pharmacy 92.9 ml/min; Globulin 3.8 gm/dl (2.5-4.0); Glucose 169.0 mg/dl (70-99(Fasting)); Magnesium 1.7 mg/dl (1.7-2.4); Potassium 3.1 mmol/L (3.5-5.1); Sodium 142.0 mmol/L (136-145); Total Protein 7.1 gm/dl (6.0-8.3)
[2025-01-19 08:18] LABS: Hemoglobin A1C 7.0 % (4.5-5.6)
[2025-01-19] MEDS ORDERED: POTASSIUM CHLORIDE CRTAB 20 MEQ TABCR PO SCH (09:00)
[2025-01-19] MEDS: UMECLIDINIUM BROMIDE 62.5MCG/BLISTER 7 PUFFS/INHALER INH SCH (09:26)
[2025-01-19] MEDS: POTASSIUM CHLORIDE 20 MEQ/15 ML UDC PO STA ×2 (09:26→12:32)
--- NOTE | 2025-01-19 10:34 | Pulmonology Progress Note ---
Date of Service January 19, 2025 Assessment & Plan (1) Multifocal pneumonia: (2) Hypoxia: (3) ANT on CPAP: (4) Sarcoidosis of lung: (5) Acute respiratory failure with hypoxia: Plan Impression: 64-year-old male with multiple medical issues fairly functional in a nursing home facility/[facility] at baseline admitted with altered levels of consciousness, hypoxemic respiratory failure, and multifocal airspace opacities concerning for aspiration pneumonia. CT chest 01/18/2025 personally reviewed: Centrilobular and paraseptal emphysema appreciated bilaterally Bilateral apical pleural scarring with bronchiectatic changes in the lingula Volume loss in the right upper lobe Consolidative process appreciated in the right lower lobe superior segment as well as left lower lobe Significant mediastinal lymphadenopathy 2D echo 01/18/2025: EF 60-65%, mild concentric LVH, grade 1 diastolic dysfunction --Acute hypoxic respiratory failure Multifactorial Multifocal pneumonia HFpEF BNP 76 on 01/19/2025 Procalcitonin 0.7, nasal MRSA negative Respiratory BioFire negative for everything on 01/17/2025 -- COPD with emphysema On Symbicort 80 and Spiriva at home Does not seem to be in exacerbation -- History of sarcoidosis Stage IV --ANT Unsure if he is using CPAP at home Would recommend CPAP/BiPAP nightly and as needed shortness of breath Plan: In/out: +2.4 L since coming to the hospital Follow-up BNP Continue with nebulized bronchodilators while in the hospital Decrease hydrocortisone to 50 every 6 hours, will start tapering tomorrow Continue with antibiotics with atypical coverage Case was discussed with primary team as well as RN I spent more than 50 minutes looking in the chart, images, discussing with outgoing physician, discussing the plan of care with the patient, RN as well as primary team Please note the above document was generated using voice recognition software. It may contain grammatical, syntax or spelling errors.Any formal questions or concerns about the content, text or information contained within the body of this dictation should be directly addressed to the provider for clarification. Admission and Anticipated Discharge Date Admission Date: January 17, 2025 Subjective Patient seen and examined at bedside. No acute distress, no adverse events overnight Case was discussed with outgoing color developer He was saturating 96% on 5 L nasal cannula, I went down to 3 L He has flat mood. Stated that he is still having cough and bringing up phlegm. Denied any nausea or vomiting Appetite is fair Has been diuresing well Shortness of breath has improved Review of Systems 2 Review of Systems: All systems reviewed & are unremarkable except as noted in Subjective Physical Exam 2 Physical Exam: Constitutional: No acute distress HEENT: EOMI, PERRLA Respiratory system: Decreased air entry bilaterally, no wheeze, no rhonchi, positive crackles bilaterally CVS: S1-S2 positive, no murmurs or gallops Abdomen: Soft, nontender, nondistended, positive bowel sounds x4 Extremities: +2 pulses bilaterally radialis/ dorsalis pedis, no cyanosis, minimal pitting edema bilateral lower extremity Neuro: Awake alert oriented to self and place Psych: Flat mood and affect G/U: Positive Myers Skin: no rashes, warm and dry Lymphatic: no cervical or axillary lymphadenopathy Results & Data Results & Data Vital Signs (Past 12 Hours) Vital Signs Temp Pulse Pulse Resp BP Pulse Ox O2 Del Method 01/19/25 07:16 36.7 C 80 20 133/84 92 Nasal Cannula 01/19/25 07:11 83 18 93 Nasal Cannula 01/19/25 03:10 36.6 C 66 19 139/86 96 Nasal Cannula 01/18/25 23:24 76 O2 Flow Rate 01/19/25 07:16 01/19/25 07:11 2 01/19/25 03:10 4 01/18/25 23:24 Laboratory Results 01/19/25 06:25 01/19/25 06:25 PG Care Time/CCT Total # of Minutes Spent Total Time Spent with Patient: Total time spent is greater than 50% in coordination of care (as documented) at patient's floor/unit and/or counseling patient: Coding Level of Care Code 67773 SUB INP/OBS CARE 3/50MIN Diagnoses Multifocal pneumonia J18.9 Hypoxia R09.02 ANT on CPAP G47.33; Z99.89 Sarcoidosis of lung D86.0 Acute respiratory failure with hypoxia J96.01
--- NOTE | 2025-01-19 10:49 | Hospitalist Progress Note ---
Date of Service January 19, 2025 Assessment & Plan (1) Unresponsive: Plan: This is a 64-year-old male with past medical history significant for mild mental retardation, hypertension, diabetes, sarcoidosis, COPD, sleep apnea chronic diastolic CHF, hepatitis C, schizophrenia, tobacco abuse lives at [facility] ([place]) was brought in because of altered mental status and acute hypoxic respiratory failure. Patient was brought to the hospital and initially required 9 L oxygen. Tachypneic. Spiking temperatures. Chest x-ray possible pneumonia. Patient is a conditional code with no artificial ventilation. Patient had a similar episode in 2019 and was admitted here. At that time it happened in setting of hypotension. EEG showed slowing suggestive of mild nonspecific encephalopathy. Had outpatient 72-hour EEG results which showed same and no seizure noted. As per pulmonary notes patient is on 2 L oxygen 22/01 and no flare-up of sarcoidosis. Per nursing staff using oxygen 2 L while sleeping. Not using CPAP As per records. During 2019 admission clozapine was held initially due to altered mental status. As per the staff at the [facility], patient is usually totally independent and had no recent illness except for some congestion yesterday. Acute metabolic encephalopathy --> resolving Acute hypoxemic respiratory failure Suspect aspiration PNA AMS is improving; eyes are opened and more responsive O2 need decreased --> requiring 9 L OxyMask now down to 3 L . SpO2 > 95% Initial lactate was 3--> normalized On admission, was tachypneic RR 30s -> resolved Bio fire neg, Procalcitonin 0.7 CXR indicating possible pneumonia; MRSA swab neg; D/C Vanco and cont IV Zosyn + Doxy; await cultures Blood cx pending, Ammonia normal, VBG normal Head CT without acute changes Chest CT: Increased small bilateral pleural effusions , BL LE consistent with atelectasis or a combination of atelectasis and pneumonia, Emphysema Small pericardial effusion; echo with grade 1 diastolic dysfunction Requiring incr. 3-> 5L NC today periodically, dc'd fluids, + 1.1 L in last 24 hr. Giving Lasix 40mg x 1 this afternoon Pulm consulted - continue abx with atypical coverage, nebulized brochodilators, decrease hydrocortisone to 50 Q6H Strict I&Os Advanced to clear liquids History of COPD History of pulmonary sarcoidosis H/O tobacco use Smoked 2 ppd x 42 year, quit 2014 Takes Spiriva, Symbicort Has Albuterol PRN at facility Pulm consult; appreciate recs History of schizophrenia Transient alteration of awareness Takes clozapine, Abilify; hold for now He was able to tell me that he does take his medicines at [facility] Routine psych consult for med recs now that patient's mentation improving Gxb-royeoaf-[id number] diabetes mellitus type 2: Takes metformin as home meds; hold while inpatient ACHS SSI A1c pending H/O ANT: 2 L NC supplemental O2 at baseline QHS Pulm recommending CPAP/BiPAP nightly and as needed shortness of breath Elevated troponin: 25.4-34.9; suspect ischemic demand rather than ACS ECHO EF 60-65%, mild LVH, G1DDX, no valvular pathology noted No arrhythmia since admission History of diastolic CHF: Follows with [facility]; last seen 07/15/24 ECHO EF 60-65%, mild LVH, G1 diastolic dysfunction, no valvular pathology noted Hypokalemia Initially hyperkalemic on admission - 5.5-> 5.4 with supplementation held -> 3.1 today Repleted 80meq today Repeat BMP in AM MED Creatinine 1.5--> resolved Baseline 0.9; avoid nephrotoxic agents as able Disposition: DVT prophylaxis: SQ Lovenox Code Status: conditional code okay for CPR admits if needed but no intubation PCP: Dr. Thomason Patient seen in collaboration with Dr. Burns. Please see addendum. I spent a total of 55 minutes coordinating, documenting, and providing care for this patient excluding time spent in the performance of separately billed services or time spent by another provider/QHP. Admission and Anticipated Discharge Date Admission Date: January 17, 2025 Supervising Physician Co-Signing Physician Notes Attending addendum: The patient was seen and examined in telemetry unit He was admitted with an unresponsive episode and noted to have pneumonia and desaturation Has been feeling better On examination Lying in bed with some distress due to shortness of breath Hemodynamically stable and remains afebrile and requiring 4 L to maintain saturation via OxyMask Chestcoarse crackles bilaterally at the bases and transmitted sounds anteriorly, trachea HeartS1-S2, regular Abdomenbenign Extremitiestrace edema bilaterally CNSalert and awake and less communicative Recent labs, medications and imaging studies reviewed Presented with unresponsive-episode and acute hypoxic respiratory failure with history of schizophrenia and COPD He has been getting appropriate intravenous antibiotic and has had pulmonary evaluation CT of the head was unremarkable and chest CT showed bibasilar infiltrate His significant other medical comorbid conditions will be appropriately managed as mentioned above Agree with assessment and plan as outlined above by Skye TSANG and take the full responsibility of care in the hospital Dr Malissa Burns 01/19/2025 The patient was seen and examined in telemetry unit He has been much better today and answer all of the questions Still has cough with phlegm and minimal shortness of breath On examinationremains hemodynamically stable and is afebrile Chest examination showed coarse crackles bibasilarly His labs, medications reviewed Has multifocal pneumonia complicated by sarcoidosis of lung and ANT on CPAP Decreased responsiveness likely contributed by infection and schizophrenia which has improved Agree with assessment and plan as outlined above by Vanesa Odom PA-C and take the full responsibility of care in the hospital DR Malissa Burns Subjective Patient seen and examined today- more alert, responds to questions. Still SOB but on 3L NC O2. Coughing frequently. No F/C, CP, N/V, abd pain, francisco catheter in place Review of Systems Review of Systems: At least ten systems reviewed and negative except as noted in the HPI. Physical Exam Physical Exam: Gen: WD/WN, NAD, sitting in bedside chair, A&Ox3, flat affect HEENT: Normocephalic, atraumatic, mucous membranes moist Lung: Diminished breath sounds bilaterally, bibasilar crackles, no wheezing or rhonchi Heart: Regular rate, regular rhythm Abdomen: Soft, NT, ND +BS x 4 Extremities: trace BLE edema Skin: Warm, no rash Results & Data Results & Data Vital Signs (Past 12 Hours) Vital Signs Temp Pulse Pulse Resp BP Pulse Ox O2 Del Method 01/19/25 07:16 36.7 C 80 20 133/84 92 Nasal Cannula 01/19/25 07:11 83 18 93 Nasal Cannula 01/19/25 03:10 36.6 C 66 19 139/86 96 Nasal Cannula 01/18/25 23:24 76 O2 Flow Rate 01/19/25 07:16 01/19/25 07:11 2 01/19/25 03:10 4 01/18/25 23:24 Laboratory Results Short CBC 01/19/25 Range/Units 06:25 WBC 10.85 H (4.8-10.8) K/ul Hgb 17.2 (14.0-18.0) g/dl Hct 52.3 H (42.0-52.0) % Plt Count 142 (130-400) K/uL BMP 01/18/25 01/19/25 14:20 06:25 Sodium 144 142 Potassium 4.0 D 3.1 L D Chloride 112 H 106 Carbon Dioxide 26 29 BUN 30 H 17 Creatinine 1.26 0.91 D Glucose 143 H 169 H Calcium 8.4 L 8.0 L Liver Function 01/19/25 Range/Units 06:25 Total Bilirubin 0.9 D (0.2-1.0) mg/dl AST 14 (13-39) U/L ALT 18 (7-52) U/L Alkaline Phosphatase 56 (34-104) U/L Albumin 3.3 L (3.4-5.0) gm/dl
[2025-01-19] MEDS: HYDROCORTISONE SOD 50 MG in SYRINGE 0 ML IV SCH (14:25)
[2025-01-19] MEDS: FUROSEMIDE 40 MG/4 ML VIAL IV ONE (15:15)
[2025-01-20 06:23] LABS: Hematocrit (blood only) 53.8 % (42.0-52.0); Hemoglobin 17.7 g/dl (14.0-18.0); Mean Corpuscular Hemoglobin 27.7 pg (25.0-34.0); Mean Corpuscular Volume 84.1 fL (80.0-100.0); Platelet Count 143 K/uL (130-400); RDW Standard Deviation 44.1 fL (36.4-46.3); Red Blood Count 6.40 M/uL (4.70-6.10); White Blood Count 11.07 K/ul (4.8-10.8)
[2025-01-20 06:41] LABS: Anion Gap 9.0 (3-11); Blood Urea Nitrogen 14.0 mg/dl (6-23); Calcium 8.4 mg/dl (8.6-10.3); Carbon Dioxide 32.0 mmol/L (21-32); Chloride 101.0 mmol/L (98-107); Creatinine Clr Calc Pharmacy 100.0 ml/min; Glucose 235.0 mg/dl (70-99(Fasting)); Magnesium 1.6 mg/dl (1.7-2.4); Potassium 3.0 mmol/L (3.5-5.1); Sodium 142.0 mmol/L (136-145)
--- NOTE | 2025-01-20 07:59 | Hospitalist Progress Note ---
Date of Service January 20, 2025 Assessment & Plan (1) Unresponsive: Plan: This is a 64-year-old male with past medical history significant for mild mental retardation, hypertension, diabetes, sarcoidosis, COPD, sleep apnea chronic diastolic CHF, hepatitis C, schizophrenia, tobacco abuse lives at [facility] ([place]) was brought in because of altered mental status and acute hypoxic respiratory failure. Patient was brought to the hospital and initially required 9 L oxygen. Tachypneic. Spiking temperatures. Chest x-ray possible pneumonia, meeting sepsis criteria on admission. Patient is a conditional code with no artificial ventilation. Patient had a similar episode in 2019 and was admitted here. At that time it happened in setting of hypotension. EEG showed slowing suggestive of mild nonspecific encephalopathy. Had outpatient 72-hour EEG results which showed same and no seizure noted. As per pulmonary notes patient is on 2 L oxygen 22/01 and no flare-up of sarcoidosis. Per nursing staff using oxygen 2 L while sleeping. Not using CPAP As per records. During 2019 admission clozapine was held initially due to altered mental status. As per the staff at the [facility], patient is usually totally independent and had no recent illness except for some congestion yesterday. Acute metabolic encephalopathy --> resolving Acute hypoxemic respiratory failure Sepsis--POA 2/2 Multifocal PNA AMS is improving; eyes are opened and more responsive O2 need decreased --> requiring 9 L OxyMask now down to 2-3 L NC O2 with SpO2 > 95% Initial lactate was 3--> normalized Bio fire neg, Procalcitonin 0.7 CXR indicating possible pneumonia; MRSA swab neg; D/C Vanco and cont IV Zosyn + Doxy; await cultures Blood cx negative to date, VBG normal Head CT without acute changes Chest CT: Increased small bilateral pleural effusions , BL LE consistent with atelectasis or a combination of atelectasis and pneumonia, Emphysema Small pericardial effusion; echo with grade 1 diastolic dysfunction Pulm consulted - continue abx with atypical coverage, nebulized bronchodilators, decreased hydrocortisone to 50 Q8H Given Lasix 40mg x 1 on 01/19 given and diuresed well overnight (-1.7 L), clinically improved Gave an additional 20mg IV Lasix today; Strict I&Os Video swallow consult per speech - no aspiration but some esophageal dysfunction noted. Soft bite size diet with side of gravy, thin liquids, per speech History of COPD History of pulmonary sarcoidosis H/O tobacco use Smoked 2 ppd x 42 year, quit 2015 Takes Spiriva, Symbicort Has Albuterol PRN at facility Pulm consult; appreciate recs History of schizophrenia Transient alteration of awareness Clozapine, Abilify held on admission due to somnolence Psych consult for med recs now that patient's mentation improving - resume Abilify at home dose, reduce Clozapine to 150mg HS to avoid excessive sedation If psychosis worsens, consider returning Clozapine back to previous dose of 250mg but will trial lower dose first Ckx-rwpbyqi-kgdypnxcp diabetes mellitus type 2: Takes metformin as home meds; hold while inpatient ACHS SSI A1c 7.0 H/O ANT: 2 L NC supplemental O2 at baseline QHS Pulm recommending CPAP/BiPAP nightly and as needed shortness of breath Elevated troponin: 25.4-34.9; suspect ischemic demand rather than ACS ECHO EF 60-65%, mild LVH, G1DDX, no valvular pathology noted No arrhythmia since admission History of diastolic CHF: Follows with [facility]; last seen 07/15/24 ECHO EF 60-65%, mild LVH, G1 diastolic dysfunction, no valvular pathology noted Hypokalemia Initially hyperkalemic on admission - 5.5-> 5.4 with supplementation held --> now hypokalemic. Repleted this AM, home supplementation resumed Repeat BMP in AM Hypomagnesemia Mg 1.6 - repleted MED Creatinine 1.5--> resolved Baseline 0.9; avoid nephrotoxic agents as able Disposition: DVT prophylaxis: SQ Lovenox Code Status: conditional code okay for CPR admits if needed but no intubation PCP: Dr. Thomason Patient seen in collaboration with Dr. Ny. Please see addendum. I spent a total of 50 minutes coordinating, documenting, and providing care for this patient excluding time spent in the performance of separately billed services or time spent by another provider/QHP. Admission and Anticipated Discharge Date Admission Date: January 17, 2025 Supervising Physician Co-Signing Physician Notes Patient is seen and examined at bedside. States feeling better today. Still has some cough with expectoration. Also admits to have some right-sided chest discomfort with cough. Otherwise no other complaints. Saturating well on 2 L supplemental oxygen. On exam patient is moderately built and nourished, chronically appearing, normocephalic atraumatic, EOMI, decreased breath sounds, basal crackles, S1-S2, no murmur, no pedal edema, abdomen soft, nontender, normal bowel sounds, alert, awake, oriented, grossly no focal deficits. Patient is being managed for acute on chronic respiratory failure with hypoxia secondary to multifocal pneumonia, HFpEF In setting of COPD with emphysema, sarcoidosis, ANT. Continue broad-spectrum antibiotics continue decrease IV hydrocortisone to every 8 hours, Continue nebs. Appreciate pulmonary input. Monitor volume status, IV Lasix. Patient is on 2 L supplemental oxygen at bedtime. Wean oxygen during daytime as able. Appreciate psychiatry input. Adjust medications as advised. Replete electrolytes as needed. I personally interviewed and examined the patient at bedside. I have reviewed the advanced practitioner's documentation on the date of service referred in note and agree with plan. Patient's care is coordinated with Vanesa Odom PA-C. Please refer to the documentation above for details of patient's presentation and for discussion of other issues. I spent a total [id number] coordinating, documenting, and providing care for this patient excluding time spent in the performance of separately billed services or time spent by another provider/QHP. Subjective Patient seen and examined at bedside. Appears improved from yesterday, states his breathing has improved. NAEO. Saturating at 85% on 2-3L today. Coughing has improved, still feels weak. No F/C, CP, N/V, abd pain, diarrhea or constipation. Review of Systems Review of Systems: At least ten systems reviewed and negative except as noted in the HPI. Physical Exam Physical Exam: Gen: WD/WN, NAD, sitting in bedside chair, A&Ox3, appears more alert but flat affect HEENT: Normocephalic, atraumatic, mucous membranes moist Lung: Diminished breath sounds bilaterally, bibasilar crackles, no wheezing or rhonchi Heart: Regular rate, regular rhythm Abdomen: Soft, NT, ND +BS x 4 Extremities: no BLE edema Skin: Warm, no rash Results & Data Results & Data Vital Signs (Past 12 Hours) Vital Signs Temp Pulse Pulse Resp BP Pulse Ox O2 Del Method 01/20/25 07:38 36.6 C 101 H 18 135/86 93 Nasal Cannula 01/20/25 07:18 78 18 97 Nasal Cannula 01/20/25 03:15 71 18 96 01/20/25 02:57 36.3 C L 74 18 151/92 H 97 CPAP 01/19/25 23:05 36.3 C L 75 16 130/87 94 CPAP 01/19/25 22:32 78 01/19/25 22:30 77 15 94 01/19/25 20:00 Nasal Cannula O2 Flow Rate 01/20/25 07:38 3 01/20/25 07:18 3 01/20/25 03:15 2 01/20/25 02:57 2 01/19/25 23:05 2 01/19/25 22:32 01/19/25 22:30 2 01/19/25 20:00 3 Laboratory Results Short CBC 01/20/25 Range/Units 05:46 WBC 11.07 H (4.8-10.8) K/ul Hgb 17.7 (14.0-18.0) g/dl Hct 53.8 H (42.0-52.0) % Plt Count 143 (130-400) K/uL BMP 01/20/25 05:46 Sodium 142 Potassium 3.0 L Chloride 101 Carbon Dioxide 32 BUN 14 Creatinine 0.86 Glucose 235 H Calcium 8.4 L Diagnostic Findings Chest X-Ray 01/17/25 21:16 Exam(s): XR CXR 1 VIEW EXAM: XR Chest, 1 View CLINICAL HISTORY: Reason for exam: Sepsis. TECHNIQUE: Frontal view of the chest. COMPARISON: No relevant prior studies available. FINDINGS: Lungs: Widespread bilateral airspace opacities, kyjst-cusuoei-lyww-left, confluent in the right midlung, concerning for pneumonia. Pleural space: No significant pleural effusion. No pneumothorax. Heart: No cardiomegaly or pulmonary vascular congestion. Mediastinum: Thickening of the right paratracheal stripe. Surgical clips at the thoracic inlet. Bones/joints: No acute fracture. No dislocation. IMPRESSION: Widespread bilateral airspace opacities, ispth-wyklpug-uksc-left, confluent in the right midlung, concerning for pneumonia. Imaging follow- up to resolution recommended. Thickening of the right paratracheal stripe. This could be characterized on CT. Electronically signed by: Jocelyn Bonilla M.D. 01/17/25 23:[address] 01/18/25 10:02 Clinical history: Pneumonia Technique: Axial computed tomography images were obtained of the chest without intravenous contrast Comparison is made to the prior CT dated 10/04/2021 Findings: There are increased small bilateral pleural effusions, left larger than right. There are unchanged pleural-based calcifications along the posterior right lower lobe. There is no pneumothorax. There is emphysema. There is worsened bilateral lower lobe and lingular atelectasis. No endobronchial lesion is seen There is no mediastinal, hilar, or axillary adenopathy. The thoracic aorta is of normal caliber. There is a small pericardial effusion The visualized upper abdomen appears unremarkable. No fracture is seen. No focal osseous lesion is evident Impression: 1. Increased small bilateral pleural effusions 2. Bilateral lower lobe and lingular opacities, consistent with atelectasis or a combination of atelectasis and pneumonia 3. Emphysema 4. Small pericardial effusion ACT 112: Positive. There are findings on this exam that require communication between the performing entity and the patient following Patient Test Result Information Act ([place] ACT 112) guidelines. Electronically signed by Seth Yanez 01-18-2025 12:[address] 01/18/25 10:02 Clinical History: Altered mental status Technique: Axial computed tomography images were obtained of the brain without intravenous contrast. Comparison is made to the prior CT dated 06/06/2022 Findings: There is cerebral atrophy, within expected limits for the patient's age. Areas of decreased attenuation are seen within the periventricular white matter, likely representing chronic small vessel ischemic disease. There is no definite sign of acute or old infarction. No intracranial hemorrhage is evident. No definite mass lesion is seen on this noncontrast examination. There is no midline shift or other form of herniation. No hydrocephalus is seen. No fracture is identified. The orbits and the visualized paranasal sinuses appear unremarkable. The mastoid air cells appear clear. Impression: 1. Cerebral atrophy and chronic small vessel ischemic disease 2. Otherwise unremarkable noncontrast CT of the brain Electronically signed by Seth Yanez 01-18-2025 12:10 PM Videofluoroscopic Swallow 01/20/25 10:00 FL video swallow CLINICAL HISTORY: assess for aspiration. TECHNIQUE: Video fluoroscopic evaluation of swallowing was performed in the AP and lateral projections by the speech pathology staff. The patient is fed nectar-thick and thin liquid barium, a barium coated wafer, and barium pudding. FLUOROSCOPY TIME: 1 minute 19 seconds. COMPARISON: None FINDINGS: There is no aspiration. There is reduced esophageal motility. IMPRESSION: No aspiration seen. ACT 112: Negative or not required by law. Electronically signed by: Otf Hanna M.D. 01/20/2025 12:02 PM
--- NOTE | 2025-01-20 08:14 | Pulmonology Progress Note ---
Date of Service January 20, 2025 Assessment & Plan (1) Multifocal pneumonia: (2) Hypoxia: (3) ANT on CPAP: (4) Sarcoidosis of lung: (5) Acute respiratory failure with hypoxia: Plan Impression: 64-year-old male with multiple medical issues fairly functional in a residential facility/[facility] at baseline admitted with altered levels of consciousness, hypoxemic respiratory failure, and multifocal airspace opacities concerning for aspiration pneumonia. CT chest 01/18/2025 personally reviewed: Centrilobular and paraseptal emphysema appreciated bilaterally Bilateral apical pleural scarring with bronchiectatic changes in the lingula Volume loss in the right upper lobe Consolidative process appreciated in the right lower lobe superior segment as well as left lower lobe Significant mediastinal lymphadenopathy 2D echo 01/18/2025: EF 60-65%, mild concentric LVH, grade 1 diastolic dysfunction --Acute hypoxic respiratory failure Multifactorial Multifocal pneumonia HFpEF BNP 76 on 01/19/2025 Procalcitonin 0.7, nasal MRSA negative Respiratory BioFire negative for everything on 01/17/2025 -- COPD with emphysema On Symbicort 80 and Spiriva at home Does not seem to be in exacerbation -- History of sarcoidosis Stage IV --ANT Unsure if he is using CPAP at home Would recommend CPAP/BiPAP nightly and as needed shortness of breath Plan: In/out: -1.7 L, urine output 4400 mL, +1 L since coming to the hospital Continue with nebulized bronchodilators while in the hospital Decrease hydrocortisone to 50 every 8 hours Continue with antibiotics with atypical coverage Case was discussed with primary team as well as RN Please note the above document was generated using voice recognition software. It may contain grammatical, syntax or spelling errors.Any formal questions or concerns about the content, text or information contained within the body of this dictation should be directly addressed to the provider for clarification. Admission and Anticipated Discharge Date Admission Date: January 17, 2025 Subjective Patient seen and examined at bedside. No acute distress, no adverse events overnight He was in a better mood today. Saturation was 98% on 3 L, and went down to 2 L Denied any nausea vomiting Has been afebrile Has been diuresing well Review of Systems 2 Review of Systems: All systems reviewed & are unremarkable except as noted in Subjective Physical Exam 2 Physical Exam: Constitutional: No acute distress HEENT: EOMI, PERRLA Respiratory system: Decreased air entry bilaterally, no wheeze, no rhonchi, positive crackles bilaterally CVS: S1-S2 positive, no murmurs or gallops Abdomen: Soft, nontender, nondistended, positive bowel sounds x4 Extremities: +2 pulses bilaterally radialis/ dorsalis pedis, no cyanosis, minimal pitting edema bilateral lower extremity Neuro: Awake alert oriented to self and place Psych: Flat mood and affect G/U: Positive Myers Skin: no rashes, warm and dry Lymphatic: no cervical or axillary lymphadenopathy Results & Data Results & Data Vital Signs (Past 12 Hours) Vital Signs Temp Pulse Pulse Resp BP Pulse Ox O2 Del Method 01/20/25 07:38 36.6 C 101 H 18 135/86 93 Nasal Cannula 01/20/25 07:18 78 18 97 Nasal Cannula 01/20/25 03:15 71 18 96 01/20/25 02:57 36.3 C L 74 18 151/92 H 97 CPAP 01/19/25 23:05 36.3 C L 75 16 130/87 94 CPAP 01/19/25 22:32 78 01/19/25 22:30 77 15 94 O2 Flow Rate 01/20/25 07:38 3 01/20/25 07:18 3 01/20/25 03:15 2 01/20/25 02:57 2 01/19/25 23:05 2 01/19/25 22:32 01/19/25 22:30 2 Laboratory Results 01/20/25 05:46 01/20/25 05:46 PG Care Time/CCT Total # of Minutes Spent Total Time Spent with Patient: Total time spent is greater than 50% in coordination of care (as documented) at patient's floor/unit and/or counseling patient: Coding Level of Care Code 39980 SUB INP/OBS CARE 2/35MIN Diagnoses Multifocal pneumonia J18.9 Hypoxia R09.02 ANT on CPAP G47.33; Z99.89 Sarcoidosis of lung D86.0 Acute respiratory failure with hypoxia J96.01
[2025-01-20] MEDS: POTASSIUM CHLORIDE / WTR 10 MEQ/100 ML PLCT IV SCH (08:40)
[2025-01-20] MEDS: MAGNESIUM SULFATE / D5W 1 GM/100 ML BAG IV SCH (08:40)
[2025-01-20] MEDS: POTASSIUM CHLORIDE CRTAB 20 MEQ TABCR PO SCH (08:53)
[2025-01-20] MEDS: FUROSEMIDE INJ 20 MG/2 ML VIAL IV ONE (11:06)
--- NOTE | 2025-01-20 11:41 | Psychiatric Consultation ---
Date of Consultation January 20, 2025 Impression / Recommendations Impression Diagnostically presents as psychiatrically stable today but carries diagnosis of schizophrenia and per chart has been stable on clozapine and Abilify for many years. Given improvement in his confusion/delirium, likely from aspiration pneumonia, agree with restarting his psychiatric medications. While rare, clozapine, due to it's highly sedative effects and propensity to cause sialorrhea, can increase the risk for aspiration pneumonia. Given this recommend trial of lower dose of clozapine with option for [facility] to re- titrate the dose should symptoms of psychosis emerge. Continue Abilify at current dose. ANC reviewed and stable, QTc <500ms, and Na+ stable for ongoing use of antipsychotics. No current safety concerns, he is psychiatrically stable to return to [facility] once medically stable. Overall, I spent a total of 60 minutes with this case including review of chart records, review of labwork, review of EKG QTc, direct evaluation of the patient at bedside, counseling the patient, discussion of the patient with the hospitalist provider, discussion with the psychiatric liason during clinical rounds and documentation in the electronic health record. (1) Acute respiratory failure with hypoxia: (2) Schizophrenia, paranoid, chronic: Plan -Decrease clozapine to 150mg HS -Continue Abilify 10mg daily (dual antipsychotic being used for clozapine augmentation) Psych History Identifying Data Booker is a 64-year-old man with past medical history significant for mild intellectual disability, hypertension, diabetes, sarcoidosis, COPD, sleep apnea chronic diastolic CHF, hepatitis C, schizophrenia, tobacco use who lives at [facility]([place]) and was brought in because of altered mental status and acute hypoxic respiratory failure. Psychiatry consulted for medication recommendations now that his mental status has been improving. Chief Complaint "Alright". History of Present Illness Ronan is unclear about his past psychiatric diagnosis of schizophrenia but reports being stable on psychiatric medications for a long time. He is fully oriented and knows that his K+ was low today. He plans to return to [facility] "once you tell me I'm ready". He denies any medication side effects. He denies any symptoms of depression nor anxiety nor psychosis. He denies any thoughts of SI. No evidence for hallucinations and he denies this. Allergies Allergy/AdvReac Type Severity Reaction Status Date / Time No Known Allergies Allergy Verified 01/17/25 21:40 Home Medications Medication Instructions Recorded Confirmed Type famotidine 20 mg tablet 20 mg PO DAILY 06/12/19 01/17/25 History metoprolol succinate 200 mg 200 mg PO Q12 10/22/19 01/17/25 History tablet,extended release 24 hr potassium chloride 20 mEq 40 meq PO BID 10/22/19 01/17/25 History tablet,extended release amlodipine 5 mg tablet 10 mg PO DAILY 09/11/20 01/17/25 History aripiprazole 10 mg tablet (Abilify) 10 mg PO DAILY 09/11/20 01/17/25 History cholecalciferol (vitamin D3) 125 125 mcg PO DAILY 09/11/20 01/17/25 History mcg (5,000 unit) tablet (Vitamin D3) clozapine 200 mg tablet 200 mg PO HS 09/11/20 01/17/25 History clozapine 50 mg tablet 50 mg PO HS 09/11/20 01/17/25 History hydrochlorothiazide 25 mg tablet 25 mg PO DAILY 09/11/20 01/17/25 History albuterol sulfate 90 mcg/actuation 2 puff inhalation Q6H PRN COUGH OR 08/24/21 01/17/25 History aerosol inhaler SOB acetaminophen 325 mg tablet 650 mg PO Q6 PRN PAIN LEVEL 1-10 06/06/22 01/17/25 History cyclosporine 0.05 % eye drops in a 1 drp OPB BID 06/06/22 01/17/25 History dropperette (Restasis) peg 400-propylene glycol 0.4 %-0.3 1 drp OPB QID 06/06/22 01/17/25 History % eye drops (Systane (propylene glycol)) acetaminophen 325 mg tablet 650 mg PO Q6 PRN TEMP>101 01/17/25 01/17/25 History budesonide-formoterol HFA 80 2 puff inhalation BID 01/17/25 01/17/25 History mcg-4.5 mcg/actuation aerosol inhaler (Symbicort) erythromycin 5 mg/gram (0.5 %) eye 1 applic OPB HS 01/17/25 01/17/25 History ointment ipratropium 0.5 mg-albuterol 3 mg 3 ml inhalation Q6 COUGH 01/17/25 01/17/25 History (2.5 mg base)/3 mL nebulization soln metformin 500 mg tablet 500 mg PO BID 01/17/25 01/17/25 History prednisone 20 mg tablet 20 mg PO UD 01/17/25 01/17/25 History prednisone 20 mg tablet 40 mg PO DAILY 01/17/25 01/17/25 History pseudoephedrine-guaifenesin ER 60 1 tab PO Q12H 01/17/25 01/17/25 History mg-600 mg tablet,extend release 12hr (Mucinex D) semaglutide 0.25 mg or 0.5 mg (2 0.5 mg subcut WK 01/17/25 01/17/25 History mg/3 mL) subcutaneous pen injector (Ozempic) tiotropium bromide 18 mcg capsule 1 cap inhalation DAILY 01/17/25 01/17/25 History with inhalation device (Spiriva with HandiHaler) Patient History Medical History (Updated 01/19/25 @ 14:32 by Marcelino Posada MD, [facility]) Peripheral vascular disease Asthma Diabetes History of seizures Lupus COPD (chronic obstructive pulmonary disease) Alcohol abuse Hepatitis C Paranoid schizophrenia Surgical History No significant past surgical history Family History Denies family history of Myocardial infarction Congenital kidney disease Social History Smoking Status: Unknown if ever smoked Second Hand Exposure: No; Do You Dip or Chew Tobacco: No; Hx Alcohol Use: No Hx Substance Use: Yes Substance Use Type Other:: Benzos Preferred Language: Romanian Communication Ability: Impaired Communication Ability Comment: patient nonverbal at this time. unknown Visual Impairment: No Limitations Mds Nurse Required: No Beliefs That Will Affect Care: Spiritual marital status: Single Current Living Situation: Personal Care Facility Current Living Situation Comment: Mariela Feels Safe at Home: Declines to Answer Assistive Devices: Walker and Wheelchair Physical Exam Vital Signs (Past 24 Hours): Last Vital Signs Temp 36.4 C L 01/20/25 10:57 Pulse 72 01/20/25 11:25 Resp 18 01/20/25 11:25 BP 145/85 H 01/20/25 10:57 Pulse Ox 95 01/20/25 11:25 O2 Del Method Nasal Cannula 01/20/25 11:25 O2 Flow Rate 2 01/20/25 11:25 Results & Data (PSY) Medications Administered Aripiprazole (Aripiprazole 10 Mg Tab) 10 mg PO DAILY GURVINDER Stop: 02/18/25 08:59 Last Admin: 01/20/25 08:53 Dose: 10 mg Documented By: Admin: 01/19/25 09:26 Dose: 10 mg Documented By: FELIX Budesonide (Budesonide 0.25 Mg/2 Ml Vial (Pulmicort)) 0.25 mg NEB BIDR GURVINDER Stop: 02/17/25 06:59 Last Admin: 01/20/25 07:14 Dose: 0.25 mg Documented By: susanna Admin: 01/19/25 19:08 Dose: 0.25 mg Documented By: Admin: 01/19/25 07:10 Dose: 0.25 mg Documented By: Admin: 01/18/25 19:09 Dose: 0.25 mg Documented By: Admin: 01/18/25 06:59 Dose: 0.25 mg Documented By: ELIE Clozapine (Clozapine 25 Mg Tab) 50 mg PO HS [facility]; Protocol Stop: 02/17/25 20:59 Last Admin: 01/19/25 21:38 Dose: 50 mg Documented By: Admin: 01/18/25 21:11 Dose: 50 mg Documented By: NIKHIL Clozapine (Clozapine 100 Mg Tab) 200 mg PO [facility] Stop: 02/17/25 20:59 Last Admin: 01/19/25 21:38 Dose: 200 mg Documented By: Admin: 01/18/25 21:11 Dose: 200 mg Documented By: NIKHIL Formoterol Fumarate (Formoterol 20 Mcg/2 Ml Vial) 20 mcg NEB BIDR GURVINDER Stop: 02/17/25 06:59 Last Admin: 01/20/25 07:14 Dose: 20 mcg Documented By: susanna Admin: 01/19/25 19:08 Dose: 20 mcg Documented By: Admin: 01/19/25 07:10 Dose: 20 mcg Documented By: Admin: 01/18/25 19:07 Dose: 20 mcg Documented By: Admin: 01/18/25 06:59 Dose: 20 mcg Documented By: ELIE Guaifenesin/Codeine Phosphate (Guaifenesin/Codeine 100mg/10mg 5ml Udc) 5 ml PO Q6H PRN PRN Reason: Cough Stop: 02/18/25 16:55 Last Admin: 01/20/25 08:56 Dose: 5 ml Documented By: GERARDO Piperacillin Sod/Tazobactam Sod (Zosyn) 4.5 gm in 100 mls @ 25 mls/hr IV Q8H GURVINDER; Protocol Stop: 01/23/25 09:59 Last Admin: 01/20/25 09:01 Dose: 25 mls/hr Documented By: Infusion: 01/20/25 06:00 Dose: Infused Documented By: Admin: 01/20/25 01:56 Dose: 25 mls/hr Documented By: Infusion: 01/19/25 21:40 Dose: Infused Documented By: Admin: 01/19/25 17:37 Dose: 25 mls/hr Documented By: Infusion: 01/19/25 13:36 Dose: Infused Documented By: Admin: 01/19/25 09:26 Dose: 25 mls/hr Documented By: Infusion: 01/19/25 06:09 Dose: Infused Documented By: Admin: 01/19/25 01:52 Dose: 25 mls/hr Documented By: Infusion: 01/18/25 21:50 Dose: Infused Documented By: Admin: 01/18/25 18:11 Dose: 25 mls/hr Documented By: Infusion: 01/18/25 12:43 Dose: Infused Documented By: Admin: 01/18/25 08:43 Dose: 25 mls/hr Documented By: AMB Doxycycline Hyclate 100 mg/ (Dextrose) 100 mls @ 50 mls/hr IV Q12H GURVINDER; Protocol Stop: 01/23/25 02:29 Last Infusion: 01/20/25 04:23 Dose: Infused Documented By: Admin: 01/20/25 01:56 Dose: 50 mls/hr Documented By: Infusion: 01/19/25 16:38 Dose: Infused Documented By: Admin: 01/19/25 14:28 Dose: 50 mls/hr Documented By: Infusion: 01/19/25 04:49 Dose: Infused Documented By: Admin: 01/19/25 01:52 Dose: 50 mls/hr Documented By: Infusion: 01/18/25 19:00 Dose: Infused Documented By: Admin: 01/18/25 16:04 Dose: 50 mls/hr Documented By: MARY ANNE Infusion: 01/18/25 05:06 Dose: Infused Documented By: Admin: 01/18/25 03:20 Dose: 50 mls/hr Documented By: NIKHIL Magnesium Sulfate/Dextrose (Magnesium Sulfate / D5w) 1 gm in 100 mls @ 50 mls/hr IV Q2H GURVINDER Stop: 01/20/25 11:59 Last Admin: 01/20/25 11:05 Dose: 50 mls/hr Documented By: dandre Infusion: 01/20/25 10:40 Dose: Infused Documented By: dandre Admin: 01/20/25 08:40 Dose: 50 mls/hr Documented By: GERARDO Potassium Chloride (K Fili / Wtr) 10 meq in 100 mls @ 100 mls/hr IV Q1H GURVINDER Stop: 01/20/25 11:59 Last Admin: 01/20/25 11:05 Dose: 100 mls/hr Documented By: dandre Infusion: 01/20/25 10:43 Dose: Infused Documented By: dandre Admin: 01/20/25 09:43 Dose: 100 mls/hr Documented By: dandre Infusion: 01/20/25 09:40 Dose: Infused Documented By: dandre Admin: 01/20/25 08:40 Dose: 100 mls/hr Documented By: GERARDO Insulin Aspart (Insulin Aspart Per Unit Charge) 0 units SC ACHS GURVINDER Stop: 02/17/25 16:29 Last Admin: 01/20/25 11:07 Dose: 6 units Documented By: dandre Co-signed By: GERARDO Admin: 01/20/25 08:38 Dose: 1 units Documented By: GERARDO Co-signed By: MARITO Admin: 01/19/25 21:37 Dose: 3 units Documented By: SHELIA Co-signed By: JING(2) Admin: 01/19/25 17:37 Dose: 2 units Documented By: FELIX Co-signed By: MARITO Admin: 01/19/25 12:32 Dose: 4 units Documented By: FELIX Co-signed By: MARITO Admin: 01/19/25 07:30 Dose: Not Given Documented By: Admin: 01/18/25 21:35 Dose: 2 units Documented By: NIKHIL Co-signed By: ELINA Admin: 01/18/25 17:20 Dose: Not Given Documented By: AMB Levalbuterol HCl (Levalbuterol 1.25 Mg/3 Ml Neb) 1.25 mg NEB QIDR GURVINDER Stop: 02/17/25 06:59 Last Admin: 01/20/25 11:24 Dose: 1.25 mg Documented By: dmw Admin: 01/20/25 08:59 Dose: Not Given Documented By: dmw Admin: 01/19/25 19:09 Dose: Not Given Documented By: Admin: 01/19/25 14:09 Dose: 1.25 mg Documented By: Admin: 01/19/25 10:50 Dose: 1.25 mg Documented By: Admin: 01/19/25 07:10 Dose: Not Given Documented By: Admin: 01/18/25 19:07 Dose: Not Given Documented By: Admin: 01/18/25 15:26 Dose: 1.25 mg Documented By: Admin: 01/18/25 11:28 Dose: 1.25 mg Documented By: Admin: 01/18/25 07:00 Dose: Not Given Documented By: ELIE Potassium Chloride (Potassium Chloride Crtab 20 Meq Tabcr) 40 meq PO DAILY GURVINDER Stop: 02/19/25 08:59 Last Admin: 01/20/25 08:53 Dose: 40 meq Documented By: GERARDO Umeclidinium Worthington (Umeclidinium [place] 62.5mcg/Blister 7 Puffs/Inhaler) 1 puffs INH DAILY GURVINDER Stop: 02/18/25 08:59 Last Admin: 01/20/25 08:52 Dose: 1 puffs Documented By: Admin: 01/19/25 09:26 Dose: 1 puffs Documented By: AM Coding Level of Care Code 76545 IN/OBS CONSULT LVL 4,60M Diagnoses Acute respiratory failure with hypoxia J96.01 Schizophrenia, paranoid, chronic F20.0
--- NOTE | 2025-01-20 12:03 | Fluoroscopy Report ---
FL video swallow CLINICAL HISTORY: assess for aspiration. TECHNIQUE: Video fluoroscopic evaluation of swallowing was performed in the AP and lateral projection s by the speech pathology staff. The patient is fed nectar-thick and thin liquid barium, a barium coa chichi wafer, and barium pudding. FLUOROSCOPY TIME: 1 minute 19 seconds. COMPARISON: None FINDINGS: There is no aspiration. There is reduced esophageal motility. IMPRESSION: No aspiration seen. ACT 112: Negative or not required by law. Electronically signed by: Otf Hanna M.D. 01/20/2025 12:02 PM
[2025-01-20] MEDS: HYDROCORTISONE SOD 50 MG in SYRINGE 0 ML IV SCH (14:05)
[2025-01-20] MEDS: ENOXAPARIN INJ 40 MG/0.4 ML SYR SQ SCH (16:52)
[2025-01-21 07:16] LABS: Hematocrit (blood only) 54.5 % (42.0-52.0); Hemoglobin 17.6 g/dl (14.0-18.0); Mean Corpuscular Hemoglobin 27.5 pg (25.0-34.0); Mean Corpuscular Volume 85.2 fL (80.0-100.0); Platelet Count 134 K/uL (130-400); RDW Standard Deviation 45.6 fL (36.4-46.3); Red Blood Count 6.40 M/uL (4.70-6.10); White Blood Count 8.93 K/ul (4.8-10.8)
[2025-01-21] MEDS: POTASSIUM CHLORIDE CRTAB 20 MEQ TABCR PO SCH (08:02)
[2025-01-21] MEDS: POLYETHYLENE (MIRALAX) 17 GM PACK PO PRN (08:02)
[2025-01-21] MEDS: DOCUSATE SODIUM 100 MG CAP PO SCH (08:02)
[2025-01-21 08:13] LABS: Anion Gap 8.0 (3-11); Blood Urea Nitrogen 16.0 mg/dl (6-23); Calcium 8.7 mg/dl (8.6-10.3); Carbon Dioxide 33.0 mmol/L (21-32); Chloride 101.0 mmol/L (98-107); Creatinine Clr Calc Pharmacy 99.1 ml/min; Glucose 233.0 mg/dl (70-99(Fasting)); Magnesium 2.0 mg/dl (1.7-2.4); Potassium 3.3 mmol/L (3.5-5.1); Sodium 142.0 mmol/L (136-145)
--- NOTE | 2025-01-21 15:13 | Hospitalist Progress Note ---
Date of Service January 21, 2025 Assessment & Plan (1) Unresponsive: Plan: This is a 64-year-old male with past medical history significant for mild mental retardation, hypertension, diabetes, sarcoidosis, COPD, sleep apnea chronic diastolic CHF, hepatitis C, schizophrenia, tobacco abuse lives at [facility] ([place]) was brought in because of altered mental status and acute hypoxic respiratory failure. Patient was brought to the hospital and initially required 9 L oxygen. Tachypneic. Spiking temperatures. Chest x-ray possible pneumonia, meeting sepsis criteria on admission. Patient is a conditional code with no artificial ventilation. Patient had a similar episode in 2019 and was admitted here. At that time it happened in setting of hypotension. EEG showed slowing suggestive of mild nonspecific encephalopathy. Had outpatient 72-hour EEG results which showed same and no seizure noted. As per pulmonary notes patient is on 2 L oxygen 22/01 and no flare-up of sarcoidosis. Per nursing staff using oxygen 2 L while sleeping. Not using CPAP As per records. During 2019 admission clozapine was held initially due to altered mental status. As per the staff at the [facility], patient is usually totally independent and had no recent illness except for some congestion yesterday. Acute metabolic encephalopathy Acute hypoxemic respiratory failure: Multifactorial Sepsis--POA 2/2 Multifocal PNA Chronic oxygen dependency: On 2 L at bedtime --Chest CT:Increased small bilateral pleural effusions. Bilateral lower lobe and lingular opacities, consistent with atelectasis or a combination of atelectasis and pneumonia. Emphysema. Small pericardial effusion --CT Head:Cerebral atrophy and chronic small vessel ischemic disease. Otherwise unremarkable noncontrast CT of the brain --Video Swallow:No aspiration seen but some esophageal dysfunction -- Bio fire negative --Procalcitonin 0.70 --Blood cultures negative to date -- Nasal MRSA negative --IV vancomycin discontinued -- Continue Zosyn, doxycycline -- Appreciate pulmonology input --Continue nebs, home inhalers --Saturating well on 2 L supplemental oxygen --Continue bite sized with side of gravy, thin liquids per speech therapy --Received IV Lasix to help with volume status --Monitor volume status closely Will repeat chest x-ray tomorrow History of COPD History of pulmonary sarcoidosis H/O tobacco use H/O ANT on CPAP Smoked 2 ppd x 42 year, quit 2014 Takes Spiriva, Symbicort Has Albuterol PRN at facility Pulm consult; appreciate recs Titrate down Solu-Medrol as able History of schizophrenia Transient alteration of awareness Clozapine, Abilify held on admission due to somnolence Psych consult for med recs now that patient's mentation improving - resume Abilify at home dose, reduce Clozapine to 150mg HS to avoid excessive sedation If psychosis worsens, consider returning Clozapine back to previous dose of 250mg but will trial lower dose first Monitor [id number] diabetes mellitus type 2: Takes metformin as home meds; hold while inpatient ACHS SSI A1c 7.0 Continue insulin per protocol H/O ANT: 2 L NC supplemental O2 at baseline QHS Pulm recommending CPAP/BiPAP nightly and as needed shortness of breath Elevated troponin: 25.4-34.9; suspect ischemic demand rather than ACS ECHO EF 60-65%, mild LVH, G1DDX, no valvular pathology noted No arrhythmia since admission History of diastolic CHF: Follows with [facility]; last seen 07/15/24 ECHO EF 60-65%, mild LVH, G1 diastolic dysfunction, no valvular pathology noted Only on HCTZ 25 mg daily at home Monitor volume status Hypokalemia Initially hyperkalemic on admission - 5.5-> 5.4 with supplementation held --> now hypokalemic. Repleted this AM, home supplementation resumed Monitor and replete Hypomagnesemia Monitor and replete MED Creatinine 1.5--> resolved Baseline 0.9; avoid nephrotoxic agents as able Monitor renal function DVT Px: SQ Lovenox Code Status: conditional code okay for CPR admits if needed but no intubation Admission and Anticipated Discharge Date Admission Date: January 17, 2025 Subjective Patient is seen and examined at bedside Cough slowly improving Denies any chest pain, dyspnea, nausea, vomiting, abdominal pain today Saturating well on 2 L supplemental oxygen Leukocytosis resolved Review of Systems Review of Systems: All systems reviewed & are unremarkable except as noted in Subjective Physical Exam Physical Exam: Physical Exam: Vitals signs as noted above General Appearance:Moderately built and nourished, no apparent distress, chronically appearing Head: normocephalic, Atraumatic Eyes: normal inspection, EOMI Neck: supple, Trachea midline Respiratory/Chest: Decreased breath sounds, CTA, No accessory muscle use Cardiovascular: S1, S2, No murmur Abdomen/GI:Soft, Non tender, Bowel sounds present Extremities/Musculoskeletal:normal inspection, trace edema Neurologic/Psych:AAOX3, grossly no focal neurological deficits Skin: normal color, warm Results & Data Results & Data Vital Signs (Past 12 Hours) Vital Signs Temp Pulse Pulse Resp BP BP Pulse Ox 01/21/25 11:27 68 18 93 01/21/25 10:44 36.6 C 78 19 142/87 H 94 01/21/25 08:00 01/21/25 08:00 77 01/21/25 07:32 36.7 C 79 20 151/88 H 95 01/21/25 07:07 70 18 92 01/21/25 03:15 65 15 95 01/21/25 03:08 36.9 C 65 18 154/75 H 95 O2 Del Method O2 Flow Rate 01/21/25 11:27 Nasal Cannula 2 01/21/25 10:44 Nasal Cannula 2 01/21/25 08:00 Nasal Cannula 2 01/21/25 08:00 01/21/25 07:32 Nasal Cannula 2 01/21/25 07:07 Nasal Cannula 2 01/21/25 03:15 2 01/21/25 03:08 CPAP Laboratory Results Short CBC 01/21/25 Range/Units 06:26 WBC 8.93 (4.8-10.8) K/ul Hgb 17.6 (14.0-18.0) g/dl Hct 54.5 H (42.0-52.0) % Plt Count 134 (130-400) K/uL BMP 01/21/25 01/21/25 06:26 07:38 Sodium Cancelled 142 Potassium Cancelled 3.3 L Chloride Cancelled 101 Carbon Dioxide Cancelled 33 H BUN Cancelled 16 Creatinine Cancelled 0.87 Glucose Cancelled 233 H Calcium Cancelled 8.7
--- NOTE | 2025-01-21 17:12 | Pulmonology Progress Note ---
Date of Service January 21, 2025 Assessment & Plan (1) Multifocal pneumonia: (2) Hypoxia: (3) ANT on CPAP: (4) Sarcoidosis of lung: (5) Acute respiratory failure with hypoxia: Plan Impression: 64-year-old male with multiple medical issues fairly functional in a prison facility/senior care at baseline admitted with altered levels of consciousness, hypoxemic respiratory failure, and multifocal airspace opacities concerning for aspiration pneumonia. CT chest 01/18/2025 personally reviewed: Centrilobular and paraseptal emphysema appreciated bilaterally Bilateral apical pleural scarring with bronchiectatic changes in the lingula Volume loss in the right upper lobe Consolidative process appreciated in the right lower lobe superior segment as well as left lower lobe Significant mediastinal lymphadenopathy 2D echo 01/18/2025: EF 60-65%, mild concentric LVH, grade 1 diastolic dysfunction --Acute hypoxic respiratory failure Multifactorial Multifocal pneumonia HFpEF BNP 76 on 01/19/2025 Procalcitonin 0.7, nasal MRSA negative Respiratory BioFire negative for everything on 01/17/2025 -- COPD with emphysema On Symbicort 80 and Spiriva at home Does not seem to be in exacerbation -- History of sarcoidosis Stage IV --ANT Unsure if he is using CPAP at home Would recommend CPAP/BiPAP nightly and as needed shortness of breath Plan: In/out: +140, urine output 1950 Continue with nebulized bronchodilators while in the hospital Decrease hydrocortisone to 50 every 12 hours. Tapered off over the next 3 days Complete the course of antibiotics with atypical coverage Case was discussed with primary team as well as RN No further recommendation from pulmonary perspective, will sign off Please call directly with any questions Please note the above document was generated using voice recognition software. It may contain grammatical, syntax or spelling errors.Any formal questions or concerns about the content, text or information contained within the body of this dictation should be directly addressed to the provider for clarification. Admission and Anticipated Discharge Date Admission Date: January 17, 2025 Subjective Patient seen and examined at bedside. No acute distress, no adverse events overnight Patient was saturating well on 2 L nasal cannula. I think it is reasonable to try to see if the patient can be taken off of oxygen. Denied any chest pain Still complaining of cough but no difficulty bringing up the phlegm Denies any hemoptysis Fair appetite Review of Systems 2 Review of Systems: All systems reviewed & are unremarkable except as noted in Subjective Physical Exam 2 Physical Exam: Constitutional: No acute distress HEENT: EOMI, PERRLA Respiratory system: Decreased air entry bilaterally, no wheeze, no rhonchi, positive crackles bilaterally CVS: S1-S2 positive, accentuated P2 Abdomen: Soft, nontender, nondistended, positive bowel sounds x4 Extremities: +2 pulses bilaterally radialis/ dorsalis pedis, no cyanosis, no edema Neuro: Awake alert oriented to self and place Psych: Flat mood and affect G/U: Positive Myers Skin: no rashes, warm and dry Lymphatic: no cervical or axillary lymphadenopathy Results & Data Results & Data Vital Signs (Past 12 Hours) Vital Signs Temp Pulse Pulse Resp BP BP Pulse Ox 01/21/25 15:51 36.7 C 70 18 157/93 H 99 01/21/25 15:40 74 17 96 01/21/25 11:27 68 18 93 01/21/25 10:44 36.6 C 78 19 142/87 H 94 01/21/25 08:00 01/21/25 08:00 77 01/21/25 07:32 36.7 C 79 20 151/88 H 95 01/21/25 07:07 70 18 92 O2 Del Method O2 Flow Rate 01/21/25 15:51 Nasal Cannula 2 01/21/25 15:40 Nasal Cannula 2 01/21/25 11:27 Nasal Cannula 2 01/21/25 10:44 Nasal Cannula 2 01/21/25 08:00 Nasal Cannula 2 01/21/25 08:00 01/21/25 07:32 Nasal Cannula 2 01/21/25 07:07 Nasal Cannula 2 Laboratory Results 01/21/25 06:26 01/21/25 07:38 PG Care Time/CCT Total # of Minutes Spent Total Time Spent with Patient: Total time spent is greater than 50% in coordination of care (as documented) at patient's floor/unit and/or counseling patient: Coding Level of Care Code 32897 SUB INP/OBS CARE 2/35MIN Diagnoses Multifocal pneumonia J18.9 Hypoxia R09.02 ANT on CPAP G47.33; Z99.89 Sarcoidosis of lung D86.0 Acute respiratory failure with hypoxia J96.01
[2025-01-21] MEDS: HYDROCORTISONE SOD 50 MG in SYRINGE 0 ML IV SCH (22:30)
[2025-01-22 06:27] LABS: Hematocrit (blood only) 53.0 % (42.0-52.0); Hemoglobin 17.1 g/dl (14.0-18.0); Mean Corpuscular Hemoglobin 27.2 pg (25.0-34.0); Mean Corpuscular Volume 84.4 fL (80.0-100.0); Platelet Count 146 K/uL (130-400); RDW Standard Deviation 44.5 fL (36.4-46.3); Red Blood Count 6.28 M/uL (4.70-6.10); White Blood Count 9.42 K/ul (4.8-10.8)
[2025-01-22 06:46] LABS: Anion Gap 7.0 (3-11); Blood Urea Nitrogen 17.0 mg/dl (6-23); Calcium 8.5 mg/dl (8.6-10.3); Carbon Dioxide 32.0 mmol/L (21-32); Chloride 103.0 mmol/L (98-107); Creatinine Clr Calc Pharmacy 112.0 ml/min; Glucose 216.0 mg/dl (70-99(Fasting)); Potassium 3.8 mmol/L (3.5-5.1); Sodium 142.0 mmol/L (136-145)
--- NOTE | 2025-01-22 07:52 | XRay Report ---
EXAM: XR chest 1V portable CLINICAL HISTORY: f/u TECHNIQUE: An X-ray image of the chest is obtained in AP projection. COMPARISON: Xray 06/06/2024, 01/17/2025 CT FINDINGS: Pulmonary Parenchyma: Regressive course of the previously seen widespread airspace opacities more on the right lung, now seen faint small sized opacities scattered in both lungs Resolution of the previously noted mild right-sided pleural effusion Stable appearance of the previously noted thickened right paratracheal stripe. No evidence of pleural effusion or pleural thickening. Heart and Mediastinum: Heart size and shape are normal. No mediastinal widening or masses. No hilar or mediastinal lymphadenopathy. Bony Thorax: Bony thorax appears intact without fractures or deformities. Soft Tissues: Metallic clips are seen at the lower neck, likely related to thyroid surgery IMPRESSION: 1. Regressive course of the previously seen widespread airspace opacities more on the right lung, now seen faint small sized opacities scattered in both lungs 2. Resolution of the previously noted mild right-sided pleural effusion 3. Stable appearance of the previously noted thickened right paratracheal stripe. Electronically signed by Dom Ernst 01-22-2025 07:52 AM
--- NOTE | 2025-01-22 07:53 | Pulmonology Progress Note ---
Date of Service January 22, 2025 Assessment & Plan (1) Multifocal pneumonia: (2) Hypoxia: (3) ANT on CPAP: (4) Sarcoidosis of lung: (5) Acute respiratory failure with hypoxia: Plan Impression: 64-year-old male with multiple medical issues fairly functional in a correction facility/group home at baseline admitted with altered levels of consciousness, hypoxemic respiratory failure, and multifocal airspace opacities concerning for aspiration pneumonia. CT chest 01/18/2025 personally reviewed: Centrilobular and paraseptal emphysema appreciated bilaterally Bilateral apical pleural scarring with bronchiectatic changes in the lingula Volume loss in the right upper lobe Consolidative process appreciated in the right lower lobe superior segment as well as left lower lobe Significant mediastinal lymphadenopathy 2D echo 01/18/2025: EF 60-65%, mild concentric LVH, grade 1 diastolic dysfunction --Acute on chronic hypoxic respiratory failure Baseline on 2 L oxygen Multifactorial Multifocal pneumonia HFpEF BNP 76 on 01/19/2025 Procalcitonin 0.7, nasal MRSA negative Respiratory BioFire negative for everything on 01/17/2025 -- COPD with emphysema On Symbicort 80 and Spiriva at home Does not seem to be in exacerbation -- History of sarcoidosis Stage IV --ANT Unsure if he is using CPAP at home Would recommend CPAP/BiPAP nightly and as needed shortness of breath Plan: In/out: +140, urine output 1950 Chest x-ray on personal review from today shows improvement compared to the time of presentation, patchy opacities appreciated bilaterally especially in the upper lobes which are likely chronic Continue with nebulized bronchodilators while in the hospital Taper hydrocortisone off over the next 3 days Complete the course of antibiotics with atypical coverage Case was discussed with primary team as well as RN No further recommendation from pulmonary perspective, will sign off Please call directly with any questions Please note the above document was generated using voice recognition software. It may contain grammatical, syntax or spelling errors.Any formal questions or concerns about the content, text or information contained within the body of this dictation should be directly addressed to the provider for clarification. Admission and Anticipated Discharge Date Admission Date: January 17, 2025 Subjective Patient seen and examined at bedside. No acute distress, no adverse events overnight He was saturating well on 1 and half liters. RN was in the room at the time of examination Overall stated that breathing is getting better Did use CPAP overnight although he is not liking it but he is trying to use it Denied any chest pain No nausea vomiting Fair appetite Review of Systems 2 Review of Systems: All systems reviewed & are unremarkable except as noted in Subjective Physical Exam 2 Physical Exam: Constitutional: No acute distress HEENT: EOMI, PERRLA Respiratory system: Decreased air entry bilaterally, no wheeze, no rhonchi, positive crackles bilaterally CVS: S1-S2 positive, accentuated P2 Abdomen: Soft, nontender, nondistended, positive bowel sounds x4 Extremities: +2 pulses bilaterally radialis/ dorsalis pedis, no cyanosis, no edema Neuro: Awake alert oriented to self and place Psych: Flat mood and affect G/U: Positive Myers Skin: no rashes, warm and dry Lymphatic: no cervical or axillary lymphadenopathy Results & Data Results & Data Vital Signs (Past 12 Hours) Vital Signs Temp Pulse Pulse Resp BP Pulse Ox O2 Del Method 01/22/25 07:31 36.6 C 80 22 162/90 H 91 Nasal Cannula 01/22/25 07:07 68 20 96 Nasal Cannula 01/22/25 03:01 70 16 95 01/22/25 02:48 36.5 C 70 20 155/84 H 94 CPAP 01/21/25 22:37 36.9 C 84 18 157/74 H 95 Nasal Cannula 01/21/25 21:59 86 01/21/25 20:28 67 18 94 Nasal Cannula 01/21/25 20:00 Nasal Cannula O2 Flow Rate 01/22/25 07:31 2 01/22/25 07:07 2 01/22/25 03:01 2 01/22/25 02:48 01/21/25 22:37 2 01/21/25 21:59 01/21/25 20:28 2 01/21/25 20:00 2 Laboratory Results 01/22/25 05:26 01/22/25 05:26 PG Care Time/CCT Total # of Minutes Spent Total Time Spent with Patient: Total time spent is greater than 50% in coordination of care (as documented) at patient's floor/unit and/or counseling patient: Coding Level of Care Code 67315 SUB INP/OBS CARE 2/35MIN Diagnoses Multifocal pneumonia J18.9 Hypoxia R09.02 ANT on CPAP G47.33; Z99.89 Sarcoidosis of lung D86.0 Acute respiratory failure with hypoxia J96.01
[2025-01-22] MEDS: METOPROLOL SUCC 50MG EXT REL TAB PO SCH (10:05)
--- NOTE | 2025-01-22 15:03 | Hospitalist Progress Note ---
Date of Service January 22, 2025 Assessment & Plan (1) Unresponsive: Plan: This is a 64-year-old male with past medical history significant for mild mental retardation, hypertension, diabetes, sarcoidosis, COPD, sleep apnea chronic diastolic CHF, hepatitis C, schizophrenia, tobacco abuse lives at [facility] ([place]) was brought in because of altered mental status and acute hypoxic respiratory failure. Patient was brought to the hospital and initially required 9 L oxygen. Tachypneic. Spiking temperatures. Chest x-ray possible pneumonia, meeting sepsis criteria on admission. Patient is a conditional code with no artificial ventilation. Patient had a similar episode in 2019 and was admitted here. At that time it happened in setting of hypotension. EEG showed slowing suggestive of mild nonspecific encephalopathy. Had outpatient 72-hour EEG results which showed same and no seizure noted. As per pulmonary notes patient is on 2 L oxygen 22/01 and no flare-up of sarcoidosis. Per nursing staff using oxygen 2 L while sleeping. Not using CPAP As per records. During 2019 admission clozapine was held initially due to altered mental status. As per the staff at the [facility], patient is usually totally independent and had no recent illness except for some congestion yesterday. Acute metabolic encephalopathy Acute hypoxemic respiratory failure: Multifactorial Sepsis--POA 2/2 Multifocal PNA Chronic oxygen dependency: On 2 L at bedtime --Chest CT:Increased small bilateral pleural effusions. Bilateral lower lobe and lingular opacities, consistent with atelectasis or a combination of atelectasis and pneumonia. Emphysema. Small pericardial effusion --CT Head:Cerebral atrophy and chronic small vessel ischemic disease. Otherwise unremarkable noncontrast CT of the brain --Video Swallow:No aspiration seen but some esophageal dysfunction -- Bio fire negative --Procalcitonin 0.70 --Blood cultures negative to date -- Nasal MRSA negative --IV vancomycin discontinued -- Continue Zosyn, doxycycline -- Appreciate pulmonology input --Continue nebs, home inhalers --Saturating well on 2 L supplemental oxygen --Continue bite sized with side of gravy, thin liquids per speech therapy --Received IV Lasix to help with volume status. Resume home HCTZ tomorrow --Monitor volume status closely Chest x-ray today showed improved opacities Will transition IV hydrocortisone to prednisone tomorrow History of COPD History of pulmonary sarcoidosis H/O tobacco use H/O ANT on CPAP Smoked 2 ppd x 42 year, quit 2014 Takes Spiriva, Symbicort Has Albuterol PRN at facility Pulm consult; appreciate recs Decrease IV Solu-Medrol to daily Hypertension Initially antihypertensives held due to hypotension on presentation Resume amlodipine, metoprolol succinate Resume HCTZ tomorrow Monitor and adjust medications as needed History of schizophrenia Transient alteration of awareness Clozapine, Abilify held on admission due to somnolence Psych consult for med recs now that patient's mentation improving - resume Abilify at home dose, reduce Clozapine to 150mg HS to avoid excessive sedation If psychosis worsens, consider returning Clozapine back to previous dose of 250mg but will trial lower dose first Monitor Njl-llbpxwy-euoqukpta diabetes mellitus type 2: Takes metformin as home meds; hold while inpatient ACHS SSI A1c 7.0 Continue insulin per protocol H/O ANT: 2 L NC supplemental O2 at baseline QHS Pulm recommending CPAP/BiPAP nightly and as needed shortness of breath Elevated troponin: 25.4-34.9; suspect ischemic demand rather than ACS ECHO EF 60-65%, mild LVH, G1DDX, no valvular pathology noted No arrhythmia since admission History of diastolic CHF: Follows with [facility]iology; last seen 07/15/24 ECHO EF 60-65%, mild LVH, G1 diastolic dysfunction, no valvular pathology noted Only on HCTZ 25 mg daily at home Monitor volume status Hypokalemia Initially hyperkalemic on admission - 5.5-> 5.4 with supplementation held --> now hypokalemic. Repleted this AM, home supplementation resumed Monitor and replete Hypomagnesemia Monitor and replete MED Creatinine 1.5--> resolved Baseline 0.9; avoid nephrotoxic agents as able Monitor renal function DVT Px: SQ Lovenox Code Status: conditional code okay for CPR admits if needed but no intubation Admission and Anticipated Discharge Date Admission Date: January 17, 2025 Subjective Patient is seen and examined at bedside No new complaints Chest x-ray today showed improved opacities Still has some cough with expectoration Denies any chest pain, dyspnea, nausea, vomiting, abdominal pain today Saturating well on 2 L supplemental oxygen Review of Systems Review of Systems: All systems reviewed & are unremarkable except as noted in Subjective Physical Exam Physical Exam: Physical Exam: Vitals signs as noted above General Appearance:Moderately built and nourished, no apparent distress, chronically appearing Head: normocephalic, Atraumatic Eyes: normal inspection, EOMI Neck: supple, Trachea midline Respiratory/Chest: Decreased breath sounds, CTA, No accessory muscle use Cardiovascular: S1, S2, No murmur Abdomen/GI:Soft, Non tender, Bowel sounds present Extremities/Musculoskeletal:normal inspection, trace edema Neurologic/Psych:AAOX3, grossly no focal neurological deficits Skin: normal color, warm Results & Data Results & Data Vital Signs (Past 12 Hours) Vital Signs Temp Pulse Pulse Resp BP BP Pulse Ox 01/22/25 13:00 77 01/22/25 11:24 36.8 C 72 20 173/99 H 99 01/22/25 10:47 68 18 96 01/22/25 08:00 68 01/22/25 07:31 36.6 C 80 22 162/90 H 91 01/22/25 07:07 68 20 96 01/22/25 03:01 70 16 95 O2 Del Method O2 Flow Rate 01/22/25 13:00 01/22/25 11:24 Nasal Cannula 2 01/22/25 10:47 Nasal Cannula 2 01/22/25 08:00 01/22/25 07:31 Nasal Cannula 2 01/22/25 07:07 Nasal Cannula 2 01/22/25 03:01 2 Laboratory Results Short CBC 01/22/25 Range/Units 05:26 WBC 9.42 (4.8-10.8) K/ul Hgb 17.1 (14.0-18.0) g/dl Hct 53.0 H (42.0-52.0) % Plt Count 146 (130-400) K/uL BMP 01/22/25 05:26 Sodium 142 Potassium 3.8 Chloride 103 Carbon Dioxide 32 BUN 17 Creatinine 0.77 Glucose 216 H Calcium 8.5 L
[2025-01-23 08:44] LABS: Anion Gap 7.0 (3-11); Calcium 8.7 mg/dl (8.6-10.3); Carbon Dioxide 29.0 mmol/L (21-32); Chloride 104.0 mmol/L (98-107); Potassium 3.6 mmol/L (3.5-5.1); Sodium 140.0 mmol/L (136-145)
[2025-01-23] MEDS: hydroCHLOROthiazide 25 MG TAB PO SCH (08:45)
[2025-01-23] MEDS: HYDROCORTISONE SOD 50 MG in SYRINGE 0 ML IV SCH (08:46)
[2025-01-23 08:50] LABS: Blood Urea Nitrogen 16.0 mg/dl (6-23); Creatinine Clr Calc Pharmacy 102.8 ml/min; Glucose 181.0 mg/dl (70-99(Fasting))
--- NOTE | 2025-01-23 16:21 | Hospitalist Progress Note ---
Date of Service January 23, 2025 Assessment & Plan (1) Unresponsive: Plan: This is a 64-year-old male with past medical history significant for mild mental retardation, hypertension, diabetes, sarcoidosis, COPD, sleep apnea chronic diastolic CHF, hepatitis C, schizophrenia, tobacco abuse lives at [facility] ([place]) was brought in because of altered mental status and acute hypoxic respiratory failure. Patient was brought to the hospital and initially required 9 L oxygen. Tachypneic. Spiking temperatures. Chest x-ray possible pneumonia, meeting sepsis criteria on admission. Patient is a conditional code with no artificial ventilation. Patient had a similar episode in 2019 and was admitted here. At that time it happened in setting of hypotension. EEG showed slowing suggestive of mild nonspecific encephalopathy. Had outpatient 72-hour EEG results which showed same and no seizure noted. As per pulmonary notes patient is on 2 L oxygen 22/01 and no flare-up of sarcoidosis. Per nursing staff using oxygen 2 L while sleeping. Not using CPAP As per records. During 2019 admission clozapine was held initially due to altered mental status. As per the staff at the [facility], patient is usually totally independent and had no recent illness except for some congestion yesterday. Acute metabolic encephalopathy Acute hypoxemic respiratory failure: Multifactorial Sepsis--POA 2/2 Multifocal PNA Chronic oxygen dependency: On 2 L at bedtime --Chest CT:Increased small bilateral pleural effusions. Bilateral lower lobe and lingular opacities, consistent with atelectasis or a combination of atelectasis and pneumonia. Emphysema. Small pericardial effusion --CT Head:Cerebral atrophy and chronic small vessel ischemic disease. Otherwise unremarkable noncontrast CT of the brain --Video Swallow:No aspiration seen but some esophageal dysfunction -- Bio fire negative --Procalcitonin 0.70 --Blood cultures negative -- Nasal MRSA negative --IV vancomycin discontinued -- Continue Zosyn, doxycycline -- Appreciate pulmonology input --Continue nebs, home inhalers -- Weaned off of supplemental oxygen during daytime. Can continue 2 L at bedtime --Continue bite sized with side of gravy, thin liquids per speech therapy --Received IV Lasix to help with volume status. Resumed home HCTZ --Monitor volume status closely Chest x-ray today showed improved opacities IV Solu-Medrol changed to prednisone, continue taper Transfer to [facility] today PT OT prior to discharge History of COPD History of pulmonary sarcoidosis H/O tobacco use H/O ANT on CPAP Smoked 2 ppd x 42 year, quit 2015 Takes Spiriva, Symbicort Has Albuterol PRN at facility Pulm consult; appreciate recs Continue prednisone taper as above Hypertension Initially antihypertensives held due to hypotension on presentation Continue amlodipine, metoprolol succinate, HCTZ Monitor and adjust medications as needed History of schizophrenia Transient alteration of awareness Clozapine, Abilify held on admission due to somnolence Psych consult for med recs now that patient's mentation improving - resume Abilify at home dose, reduce Clozapine to 150mg HS to avoid excessive sedation If psychosis worsens, consider returning Clozapine back to previous dose of 250mg but will trial lower dose first Monitor Wgf-[id number]-muqsmjmxd diabetes mellitus type 2: Takes metformin as home meds; hold while inpatient ACHS SSI A1c 7.0 Continue insulin per protocol H/O ANT: 2 L NC supplemental O2 at baseline QHS Pulm recommending CPAP/BiPAP nightly and as needed shortness of breath Elevated troponin: 25.4-34.9; suspect ischemic demand rather than ACS ECHO EF 60-65%, mild LVH, G1DDX, no valvular pathology noted No arrhythmia since admission History of diastolic CHF: Follows with [facility] Cardiology; last seen 07/15/24 ECHO EF 60-65%, mild LVH, G1 diastolic dysfunction, no valvular pathology noted Only on HCTZ 25 mg daily at home Monitor volume status Hypokalemia Initially hyperkalemic on admission - 5.5-> 5.4 with supplementation held --> now hypokalemic. Repleted this AM, home supplementation resumed Monitor and replete Hypomagnesemia Monitor and replete MED Creatinine 1.5--> resolved Baseline 0.9; avoid nephrotoxic agents as able Monitor renal function DVT Px: SQ Lovenox Code Status: conditional code okay for CPR admits if needed but no intubation Disposition PT OT prior to discharge Admission and Anticipated Discharge Date Admission Date: January 17, 2025 Subjective Patient is seen and examined at bedside States feeling very tired today Still has minimal cough but otherwise no other complaints Weaned off of supplemental oxygen today Denies any chest pain, dyspnea, nausea, vomiting, abdominal pain today Review of Systems Review of Systems: All systems reviewed & are unremarkable except as noted in Subjective Physical Exam Physical Exam: Physical Exam: Vitals signs as noted above General Appearance:Moderately built and nourished, no apparent distress, chronically appearing Head: normocephalic, Atraumatic Eyes: normal inspection, EOMI Neck: supple, Trachea midline Respiratory/Chest: Decreased breath sounds, CTA, No accessory muscle use Cardiovascular: S1, S2, No murmur Abdomen/GI:Soft, Non tender, Bowel sounds present Extremities/Musculoskeletal:normal inspection, trace edema Neurologic/Psych:AAOX3, grossly no focal neurological deficits Skin: normal color, warm Results & Data Results & Data Vital Signs (Past 12 Hours) Vital Signs Temp Pulse Pulse Resp BP Pulse Ox O2 Del Method 01/23/25 15:12 37.1 C 71 19 151/92 H 93 Room Air 01/23/25 15:00 75 01/23/25 15:00 78 18 93 Room Air 01/23/25 14:00 Room Air 01/23/25 11:28 36.7 C 71 19 148/87 H 90 Room Air 01/23/25 10:06 65 16 94 Nasal Cannula 01/23/25 07:17 36.7 C 69 20 142/80 H 99 Nasal Cannula 01/23/25 07:12 71 15 95 Nasal Cannula 01/23/25 05:40 67 O2 Flow Rate 01/23/25 15:12 01/23/25 15:00 01/23/25 15:00 01/23/25 14:00 0 01/23/25 11:28 01/23/25 10:06 1 01/23/25 07:17 2 01/23/25 07:12 2 01/23/25 05:40 Laboratory Results [facility] 01/23/25 07:57 Sodium 140 Potassium 3.6 Chloride 104 Carbon Dioxide 29 BUN 16 Creatinine 0.84 Glucose 181 H Calcium 8.7
[2025-01-24] MEDS: FAMOTIDINE 20 MG TAB PO SCH (08:52)
[2025-01-24] MEDS: predniSONE 20 MG TAB PO SCH (08:53)
--- NOTE | 2025-01-24 14:34 | Hospitalist Progress Note ---
Date of Service January 24, 2025 Assessment & Plan (1) Unresponsive: Plan: This is a 64-year-old male with past medical history significant for mild mental retardation, hypertension, diabetes, sarcoidosis, COPD, sleep apnea chronic diastolic CHF, hepatitis C, schizophrenia, tobacco abuse lives at [facility] ([place]) was brought in because of altered mental status and acute hypoxic respiratory failure. Patient was brought to the hospital and initially required 9 L oxygen. Tachypneic. Spiking temperatures. Chest x-ray possible pneumonia, meeting sepsis criteria on admission. Patient is a conditional code with no artificial ventilation. Patient had a similar episode in 2019 and was admitted here. At that time it happened in setting of hypotension. EEG showed slowing suggestive of mild nonspecific encephalopathy. Had outpatient 72-hour EEG results which showed same and no seizure noted. As per pulmonary notes patient is on 2 L oxygen 22/01 and no flare-up of sarcoidosis. Per nursing staff using oxygen 2 L while sleeping. Not using CPAP As per records. During 2019 admission clozapine was held initially due to altered mental status. As per the staff at the [facility], patient is usually totally independent and had no recent illness except for some congestion yesterday. Acute metabolic encephalopathy Acute hypoxemic respiratory failure: Multifactorial Sepsis--POA 2/2 Multifocal PNA Chronic oxygen dependency: On 2 L at bedtime Physical deconditioning --Chest CT:Increased small bilateral pleural effusions. Bilateral lower lobe and lingular opacities, consistent with atelectasis or a combination of atelectasis and pneumonia. Emphysema. Small pericardial effusion --CT Head:Cerebral atrophy and chronic small vessel ischemic disease. Otherwise unremarkable noncontrast CT of the brain --Video Swallow:No aspiration seen but some esophageal dysfunction -- Bio fire negative --Procalcitonin 0.70 --Blood cultures negative -- Nasal MRSA negative --IV vancomycin discontinued -- Continue Zosyn, doxycycline> transition to oral antibiotics tomorrow to complete 10-day course -- Appreciate pulmonology input --Continue nebs, home inhalers -- Weaned off of supplemental oxygen during daytime. Can continue 2 L at bedtime --Continue bite sized with side of gravy, thin liquids per speech therapy --Received IV Lasix to help with volume status. Resumed home HCTZ --Monitor volume status closely --Continue to taper down prednisone Waiting for placement History of COPD History of pulmonary sarcoidosis H/O tobacco use H/O ANT on CPAP Smoked 2 ppd x 42 year, quit 2015 Takes Spiriva, Symbicort Has Albuterol PRN at facility Pulm consult; appreciate recs Continue prednisone taper as above Hypertension Initially antihypertensives held due to hypotension on presentation Continue amlodipine, metoprolol succinate, HCTZ Monitor and adjust medications as needed History of schizophrenia Transient alteration of awareness Clozapine, Abilify held on admission due to somnolence Psych consult for med recs now that patient's mentation improving - resume Abilify at home dose, reduce Clozapine to 150mg HS to avoid excessive sedation If psychosis worsens, consider returning Clozapine back to previous dose of 250mg but will trial lower dose first Monitor Vic-wdcjdil-npxabhtma diabetes mellitus type 2: Takes metformin as home meds; hold while inpatient ACHS SSI A1c 7.0 Continue insulin per protocol H/O ANT: 2 L NC supplemental O2 at baseline QHS Pulm recommending CPAP/BiPAP nightly and as needed shortness of breath Elevated troponin: 25.4-34.9; suspect ischemic demand rather than ACS ECHO EF 60-65%, mild LVH, G1DDX, no valvular pathology noted No arrhythmia since admission History of diastolic CHF: Follows with [facility]iology; last seen 07/15/24 ECHO EF 60-65%, mild LVH, G1 diastolic dysfunction, no valvular pathology noted Only on HCTZ 25 mg daily at home Monitor volume status Hypokalemia Initially hyperkalemic on admission - 5.5-> 5.4 with supplementation held --> now hypokalemic. Repleted this AM, home supplementation resumed Monitor and replete Hypomagnesemia Monitor and replete MED Creatinine 1.5--> resolved Baseline 0.9; avoid nephrotoxic agents as able Monitor renal function DVT Px: SQ Lovenox Code Status: conditional code okay for CPR admits if needed but no intubation Disposition PT OT prior to discharge Admission and Anticipated Discharge Date Admission Date: January 17, 2025 Subjective Patient is seen and examined at bedside No new complaints Lying comfortably in bed during my encounter No significant cough today Denies any chest pain, dyspnea, nausea, vomiting, abdominal pain today Waiting for placement Review of Systems Review of Systems: All systems reviewed & are unremarkable except as noted in Subjective Physical Exam Physical Exam: Physical Exam: Vitals signs as noted above General Appearance:Moderately built and nourished, no apparent distress, chronically appearing Head: normocephalic, Atraumatic Eyes: normal inspection, EOMI Neck: supple, Trachea midline Respiratory/Chest: Decreased breath sounds, CTA, No accessory muscle use Cardiovascular: S1, S2, No murmur Abdomen/GI:Soft, Non tender, Bowel sounds present Extremities/Musculoskeletal:normal inspection, trace edema Neurologic/Psych:AAOX3, grossly no focal neurological deficits Skin: normal color, warm Results & Data Results & Data Vital Signs (Past 12 Hours) Vital Signs Temp Pulse Pulse Resp BP Pulse Ox O2 Del Method 01/24/25 11:51 Nasal Cannula 01/24/25 11:07 68 16 98 Nasal Cannula 01/24/25 07:44 37.0 C 65 18 156/94 H 97 Nasal Cannula 01/24/25 07:26 72 16 86 L Room Air 01/24/25 02:47 62 18 92 O2 Flow Rate 01/24/25 11:51 2 01/24/25 11:07 2 01/24/25 07:44 2 01/24/25 07:26 01/24/25 02:47 2
[2025-01-25] MEDS: AMOXICILLIN/CLAVULANATE 875 MG TAB PO SCH (08:21)
[2025-01-25] MEDS: predniSONE 20 MG TAB PO SCH (08:21)
[2025-01-25] MEDS: DOXYCYCLINE HYCLATE 100 MG CAP PO SCH (08:21)
--- NOTE | 2025-01-25 14:58 | Hospitalist Progress Note ---
Date of Service January 25, 2025 Assessment & Plan (1) Unresponsive: Plan: This is a 64-year-old male with past medical history significant for mild mental retardation, hypertension, diabetes, sarcoidosis, COPD, sleep apnea chronic diastolic CHF, hepatitis C, schizophrenia, tobacco abuse lives at [facility] ([place]) was brought in because of altered mental status and acute hypoxic respiratory failure. Patient was brought to the hospital and initially required 9 L oxygen. Tachypneic. Spiking temperatures. Chest x-ray possible pneumonia, meeting sepsis criteria on admission. Patient is a conditional code with no artificial ventilation. Patient had a similar episode in 2019 and was admitted here. At that time it happened in setting of hypotension. EEG showed slowing suggestive of mild nonspecific encephalopathy. Had outpatient 72-hour EEG results which showed same and no seizure noted. As per pulmonary notes patient is on 2 L oxygen 22/01 and no flare-up of sarcoidosis. Per nursing staff using oxygen 2 L while sleeping. Not using CPAP As per records. During 2019 admission clozapine was held initially due to altered mental status. As per the staff at the [facility], patient is usually totally independent and had no recent illness except for some congestion yesterday. Acute metabolic encephalopathy Acute hypoxemic respiratory failure: Multifactorial Sepsis--POA 2/2 Multifocal PNA Chronic oxygen dependency: On 2 L at bedtime Physical deconditioning --Chest CT:Increased small bilateral pleural effusions. Bilateral lower lobe and lingular opacities, consistent with atelectasis or a combination of atelectasis and pneumonia. Emphysema. Small pericardial effusion --CT Head:Cerebral atrophy and chronic small vessel ischemic disease. Otherwise unremarkable noncontrast CT of the brain --Video Swallow:No aspiration seen but some esophageal dysfunction -- Bio fire negative --Procalcitonin 0.70 --Blood cultures negative -- Nasal MRSA negative --IV vancomycin discontinued -- Continue Zosyn, doxycycline> transition to oral antibiotics to complete 10- day course -- Appreciate pulmonology input --Continue nebs, home inhalers -- Weaned off of supplemental oxygen during daytime. Can continue 2 L at bedtime --Continue bite sized with side of gravy, thin liquids per speech therapy --Received IV Lasix to help with volume status. Resumed home HCTZ --Monitor volume status closely --Continue to taper down prednisone Likely to discharge to personal care facility when accepted Stable for discharge History of COPD History of pulmonary sarcoidosis H/O tobacco use H/O ANT on CPAP Smoked 2 ppd x 42 year, quit 2015 Takes Spiriva, Symbicort Has Albuterol PRN at facility Pulm consult; appreciate recs Continue prednisone taper as above Hypertension Initially antihypertensives held due to hypotension on presentation Continue amlodipine, metoprolol succinate, HCTZ Monitor and adjust medications as needed History of schizophrenia Transient alteration of awareness Clozapine, Abilify held on admission due to somnolence Psych consult for med recs now that patient's mentation improving - resume Abilify at home dose, reduce Clozapine to 150mg HS to avoid excessive sedation If psychosis worsens, consider returning Clozapine back to previous dose of 250mg but will trial lower dose first Monitor [id number] diabetes mellitus type 2: Takes metformin as home meds; hold while inpatient ACHS SSI A1c 7.0 Continue insulin per protocol H/O ANT: 2 L NC supplemental O2 at baseline QHS Pulm recommending CPAP/BiPAP nightly and as needed shortness of breath Elevated troponin: 25.4-34.9; suspect ischemic demand rather than ACS ECHO EF 60-65%, mild LVH, G1DDX, no valvular pathology noted No arrhythmia since admission History of diastolic CHF: Follows with [facility]; last seen 07/15/24 ECHO EF 60-65%, mild LVH, G1 diastolic dysfunction, no valvular pathology noted Only on HCTZ 25 mg daily at home Monitor volume status Hypokalemia Initially hyperkalemic on admission - 5.5-> 5.4 with supplementation held --> now hypokalemic. Repleted this AM, home supplementation resumed Monitor and replete Hypomagnesemia Monitor and replete MED Creatinine 1.5--> resolved Baseline 0.9; avoid nephrotoxic agents as able Monitor renal function DVT Px: SQ Lovenox Code Status: conditional code okay for CPR admits if needed but no intubation Disposition PT OT prior to discharge Admission and Anticipated Discharge Date Admission Date: January 17, 2025 Subjective Patient is seen and examined at bedside States feeling well today Sitting in chair during my encounter cough much improved Denies any chest pain, dyspnea, nausea, vomiting, abdominal pain today Waiting for placement Review of Systems Review of Systems: All systems reviewed & are unremarkable except as noted in Subjective Physical Exam Physical Exam: Physical Exam: Vitals signs as noted above General Appearance:Moderately built and nourished, no apparent distress, chronically appearing Head: normocephalic, Atraumatic Eyes: normal inspection, EOMI Neck: supple, Trachea midline Respiratory/Chest: Decreased breath sounds, CTA, No accessory muscle use Cardiovascular: S1, S2, No murmur Abdomen/GI:Soft, Non tender, Bowel sounds present Extremities/Musculoskeletal:normal inspection, trace edema Neurologic/Psych:AAOX3, grossly no focal neurological deficits Skin: normal color, warm Results & Data Results & Data Vital Signs (Past 12 Hours) Vital Signs Temp Pulse Resp BP Pulse Ox O2 Del Method O2 Flow Rate 01/25/25 07:30 36.7 C 65 18 155/100 H 96 Nasal Cannula 2 01/25/25 07:03 72 17 99 Nasal Cannula 2
[2025-01-25] MEDS ORDERED: AMOXICILLIN/CLAVULANATE 875 MG TAB PO SCH (17:00)
[2025-01-25] MEDS ORDERED: PHARMACY GLYCEMIC MGMT CONSULT PRN (17:23)
[2025-01-25 18:25] LABS: Base Excess VBG 0.6 mEq/L; HCO3 VBG 25 mmol/L; Oxygen Saturation VBG 97.5 %; PCO2 VBG 36 mmHg (38-50); PO2 VBG 87 mmHg; pH VBG 7.44 (7.36-7.41)
[2025-01-25 18:55] LABS: Anion Gap 9 (3-11); Blood Urea Nitrogen 23 mg/dl (6-23); Calcium 9.3 mg/dl (8.6-10.3); Carbon Dioxide 24 mmol/L (21-32); Chloride 99 mmol/L (98-107); Creatinine Clr Calc Pharmacy 64.0 ml/min; Glucose 578 mg/dl (70-99(Fasting)); Sodium 132 mmol/L (136-145)
[2025-01-25] MEDS: INSULIN ASPART PER UNIT CHARGE SC STA (20:12)
[2025-01-25 20:37] VITALS: RESP 18
[2025-01-25 20:40] LABS: Base Excess VBG 3.2 mEq/L; HCO3 VBG 28 mmol/L; Oxygen Saturation VBG 91.1 %; PCO2 VBG 42 mmHg (38-50); PO2 VBG 59 mmHg; pH VBG 7.43 (7.36-7.41)
[2025-01-25 20:56] LABS: Anion Gap 8.0 (3-11); Blood Urea Nitrogen 22.0 mg/dl (6-23); Calcium 9.5 mg/dl (8.6-10.3); Carbon Dioxide 26.0 mmol/L (21-32); Chloride 99.0 mmol/L (98-107); Creatinine Clr Calc Pharmacy 68.0 ml/min; Glucose 429.0 mg/dl (70-99(Fasting)); Magnesium 2.0 mg/dl (1.7-2.4); Potassium 4.2 mmol/L (3.5-5.1); Sodium 133.0 mmol/L (136-145)
[2025-01-25] MEDS ORDERED: DOXYCYCLINE HYCLATE 100 MG CAP PO SCH (21:00)
[2025-01-25] MEDS: INSULIN HUMAN REGULAR PER UNIT 10 UNITS in SYRINGE 9.9 ML IV ONE (22:30)
[2025-01-26] MEDS: INSULIN ASPART PER UNIT CHARGE SC SCH (00:35)
[2025-01-26 07:20] VITALS: PULSE 66; TEMP 98.1; O2SAT 90
--- NOTE | 2025-01-26 07:43 | Pharmacy Report ---
Pharmacy Glycemic Short Note 2 - Date of Service January 26, 2025 - Glycemic Short BSG Results (Last 24 hours): 01/25/25 01/25/25 01/25/25 11:34 16:33 17:05 Glucose POC Glucose 191 H 425 H* 482 H* 01/25/25 01/25/25 01/25/25 17:54 19:41 20:24 Glucose 578 H* 429 H* POC Glucose 401 H* 01/25/25 01/25/25 01/26/25 21:31 23:53 04:19 Glucose POC Glucose 278 H 126 H 93 01/26/25 07:21 Glucose POC Glucose 120 H OUTPATIENT ANTIDIABETIC REGIMEN: * Ozempic 0.5mg SQ weekly * Metformin 500mg PO BID * A1c 7% 01/18/25 ASSESSMENT: * 64 yo M, PMHx for mild mental retardation, HTN, Type 2 diabetes, sarcoidosis, COPD, sleep apnea chronic diastolic CHF, hepatitis C, schizophrenia, tobacco abuse lives at [facility] ([place]) was brought in because of altered mental status and acute hypoxic respiratory failure. * Patient with steroid induced hyperglycemia, on Prednisone 20mg PO daily, and only correctional NovoLog insulin. * Hyperglycemic last night with BSGs of 400-500s, given total of 29 units of SQ NovoLog insulin, and is now euglycemic this morning. * Will begin with a low dose of basal insulin, add a carb ratio to the NovoLog parameters at this time, and adjust as steroids are adjusted. PLAN FOR INPATIENT GLYCEMIC CONTROL: * Hold outpatient diabetes medications * Basal insulin * Lantus 10 units SQ Daily * Bolus insulin * NovoLog per scale ACHS or Q6hrs while NPO * Goal Range: Low 110 mg/dL - High 140 mg/dL * Correction Factor: 20 mg/dL/unit * Nutritional / Prandial insulin per carb ratio of 1 unit per 7 grams CHO consumed
[2025-01-26] MEDS: LANTUS PER UNIT CHARGE SQ SCH (08:08)
[2025-01-26 11:39] LABS: Anion Gap 8.0 (3-11); Blood Urea Nitrogen 16.0 mg/dl (6-23); Calcium 9.4 mg/dl (8.6-10.3); Carbon Dioxide 28.0 mmol/L (21-32); Chloride 103.0 mmol/L (98-107); Creatinine Clr Calc Pharmacy 93.9 ml/min; Glucose 164.0 mg/dl (70-99(Fasting)); Potassium 3.8 mmol/L (3.5-5.1); Sodium 139.0 mmol/L (136-145)
--- NOTE | 2025-01-26 12:24 | Hospitalist Progress Note ---
Date of Service January 26, 2025 Assessment & Plan (1) Unresponsive: Plan: This is a 64-year-old male with past medical history significant for mild mental retardation, hypertension, diabetes, sarcoidosis, COPD, sleep apnea chronic diastolic CHF, hepatitis C, schizophrenia, tobacco abuse lives at [facility] ([place]) was brought in because of altered mental status and acute hypoxic respiratory failure. Patient was brought to the hospital and initially required 9 L oxygen. Tachypneic. Spiking temperatures. Chest x-ray possible pneumonia, meeting sepsis criteria on admission. Patient is a conditional code with no artificial ventilation. Patient had a similar episode in 2019 and was admitted here. At that time it happened in setting of hypotension. EEG showed slowing suggestive of mild nonspecific encephalopathy. Had outpatient 72-hour EEG results which showed same and no seizure noted. As per pulmonary notes patient is on 2 L oxygen 22/01 and no flare-up of sarcoidosis. Per nursing staff using oxygen 2 L while sleeping. Not using CPAP As per records. During 2019 admission clozapine was held initially due to altered mental status. As per the staff at the [facility], patient is usually totally independent and had no recent illness except for some congestion yesterday. Acute metabolic encephalopathy Acute hypoxemic respiratory failure: Multifactorial Sepsis--POA 2/2 Multifocal PNA Chronic oxygen dependency: On 2 L at bedtime Physical deconditioning --Chest CT:Increased small bilateral pleural effusions. Bilateral lower lobe and lingular opacities, consistent with atelectasis or a combination of atelectasis and pneumonia. Emphysema. Small pericardial effusion --CT Head:Cerebral atrophy and chronic small vessel ischemic disease. Otherwise unremarkable noncontrast CT of the brain --Video Swallow:No aspiration seen but some esophageal dysfunction -- Bio fire negative --Procalcitonin 0.70 --Blood cultures negative -- Nasal MRSA negative --IV vancomycin discontinued -- Continue Zosyn, doxycycline> transition to oral antibiotics to complete 10- day course -- Appreciate pulmonology input --Continue nebs, home inhalers -- Saturating well on 2 L supplemental oxygen --Continue bite sized with side of gravy, thin liquids per speech therapy --Received IV Lasix to help with volume status. Resumed home HCTZ --Will complete antibiotic, prednisone taper course in 2 days -- Plan to discharge to personal care facility today History of COPD History of pulmonary sarcoidosis H/O tobacco use H/O ANT on CPAP Smoked 2 ppd x 42 year, quit 2015 Takes Spiriva, Symbicort Has Albuterol PRN at facility Pulm consult; appreciate recs Continue prednisone taper as above Continue supplemental oxygen to keep saturations 88 to 92% Hypertension Initially antihypertensives held due to hypotension on presentation Continue amlodipine, metoprolol succinate, HCTZ Monitor and adjust medications as needed Blood pressure stable History of schizophrenia Transient alteration of awareness Clozapine, Abilify held on admission due to somnolence Psych consult for med recs now that patient's mentation improving - resume Abilify at home dose, reduce Clozapine to 150mg HS to avoid excessive sedation If psychosis worsens, consider returning Clozapine back to previous dose of 250mg but will trial lower dose first Monitor Mgv-[id number]-lebsyfuhf diabetes mellitus type 2: Takes metformin as home meds; hold while inpatient ACHS SSI A1c 7.0 Continue insulin per protocol H/O ANT: 2 L NC supplemental O2 at baseline QHS Pulm recommending CPAP/BiPAP nightly and as needed shortness of breath Elevated troponin: 25.4-34.9; suspect ischemic demand rather than ACS ECHO EF 60-65%, mild LVH, G1DDX, no valvular pathology noted No arrhythmia since admission History of diastolic CHF: Follows with [facility]; last seen 07/15/24 ECHO EF 60-65%, mild LVH, G1 diastolic dysfunction, no valvular pathology noted Only on HCTZ 25 mg daily at home Monitor volume status Hypokalemia Initially hyperkalemic on admission - 5.5-> 5.4 with supplementation held --> now hypokalemic. Repleted this AM, home supplementation resumed Monitor and replete Hypomagnesemia Monitor and replete MED Creatinine 1.5--> resolved Baseline 0.9; avoid nephrotoxic agents as able Monitor renal function DVT Px: SQ Lovenox Code Status: conditional code okay for CPR admits if needed but no intubation Disposition Personal care facility Admission and Anticipated Discharge Date Admission Date: January 17, 2025 Subjective Patient is seen and examined at bedside Offers no new complaints Denies any chest pain, dyspnea, nausea, vomiting, abdominal pain Plan to discharge back to personal care facility today Review of Systems Review of Systems: All systems reviewed & are unremarkable except as noted in Subjective Physical Exam Physical Exam: Physical Exam: Vitals signs as noted above General Appearance:Moderately built and nourished, no apparent distress, chronically appearing Head: normocephalic, Atraumatic Eyes: normal inspection, EOMI Neck: supple, Trachea midline Respiratory/Chest: Decreased breath sounds, CTA, No accessory muscle use Cardiovascular: S1, S2, No murmur Abdomen/GI:Soft, Non tender, Bowel sounds present Extremities/Musculoskeletal:normal inspection, trace edema Neurologic/Psych:AAOX3, grossly no focal neurological deficits Skin: normal color, warm Results & Data Results & Data Vital Signs (Past 12 Hours) Vital Signs Temp Pulse Resp BP Pulse Ox O2 Del Method O2 Flow Rate 01/26/25 07:41 Nasal Cannula 2 01/26/25 07:20 66 18 90 Room Air 01/26/25 07:19 36.7 C 66 18 154/86 H 90 Room Air Laboratory Results [facility] 01/25/25 01/25/25 01/25/25 17:54 19:21 20:24 Sodium 132 L 133 L Potassium TNP 4.1 4.2 Chloride 99 99 Carbon Dioxide 24 26 BUN 23 22 Creatinine 1.35 1.27 Glucose 578 H* 429 H* Calcium 9.3 9.5 01/26/25 10:45 Sodium 139 Potassium 3.8 Chloride 103 Carbon Dioxide 28 BUN 16 Creatinine 0.92 D Glucose 164 H Calcium 9.4
--- NOTE | 2025-01-26 12:35 | Discharge Summary ---
Date of Service January 26, 2025 Admission HPI Per Admitting Provider 64-year-old male with past medical history significant for mild mental retardation, hypertension, diabetes, sarcoidosis, COPD, sleep apnea chronic diastolic CHF, hepatitis C, schizophrenia, tobacco abuse lives at [facility]) was brought in because of altered mental status and acute hypoxic respiratory failure. As per the staff patient had some cold and congestion symptoms yesterday and was put on prednisone and Mucinex . Today evening patient was found on the floor with agonal breathing and hypoxia. There is a question of seizures but per the staff no one witnessed having episode of seizures. Patient was brought to the hospital and currently on 9 L oxygen.Tachypneic. Spiking temperatures. Chest x-ray possible pneumonia. Patient is a conditional code with no artificial ventilation. Patient had a similar episode in 2019 and was admitted here. At that time it happened in setting of hypotension. EEG showed slowing suggestive of mild nonspecific encephalopathy. Had outpatient 72-hour EEG done which showed same and no seizure noted. As per pulmonary notes patient is on 2 L oxygen 22/01 and no flareup of sarcoidosis. Per nursing staff using oxygen 2 L while sleeping. Not using CPAP As per records. During 2019 admission clozapine was held initially due to altered mental status.. As per the staff at the [facility] patient is usually totally independent and had no recent Illness except for some congestion yesterday. Patient opens eyes on sternal rub but goes back to sleep and not responding . Past medical history. As mentioned above Past surgical history. No surgical history on file. Social history. Currently lives at [facility]. Quit smoking 2014. Smoked 2 pack a day for 42 years. No alcohol use. No drug use. Family history. No family history on file. Admission Exam Per Admitting Provider General- unresponsive Head- atraumatic Eyes- PERRL, Neck- no JVD. Lungs- clear to auscultation mild b/l wheezing Heart- regular rate and rhythm; no murmur, no gallop. Abdomen- sluggish bowel sounds, soft, no distension. Extremities- no pretibial edema,b/l lower extremity chronic skin changes seen Neuro-unresponsive. Skin- dry Principal Diagnosis Acute metabolic encephalopathy Acute hypoxemic respiratory failure Sepsis Multifocal pneumonia Acute kidney injury Electrolyte abnormalities Discharge Data Allergies Allergy/AdvReac Type Severity Reaction Status Date / Time No Known Allergies Allergy Verified 01/17/25 21:40 Consultations 01/17/25 22:27 ED Decision to Admit Stat 01/18/25 08:00 Consult Pulmonology Routine 01/19/25 15:28 Consult Psychiatry Routine Procedures Performed Laboratory Results WBC 9.42 K/ul (4.8-10.8) 01/22/25 05:26 RBC 6.28 M/uL (4.70-6.10) H 01/22/25 05:26 Hgb 17.1 g/dl (14.0-18.0) 01/22/25 05:26 POC Hgb 20.1 g/dl (14.0-18.0) H* 01/17/25 21:27 Hct 53.0 % (42.0-52.0) H 01/22/25 05:26 POC Hct 59 % (42-52) H 01/17/25 21:27 MCV 84.4 fL (80.0-100.0) 01/22/25 05:26 MCH 27.2 pg (25.0-34.0) 01/22/25 05:26 MCHC 32.3 g/dL (32.0-36.0) 01/22/25 05:26 RDW Std Deviation 44.5 fL (36.4-46.3) 01/22/25 05:26 RDW Coeff of Marta 15.0 % (11.5-14.5) H 01/22/25 05:26 Plt Count 146 K/uL (130-400) 01/22/25 05:26 MPV 10.5 fL (9.4-12.4) 01/22/25 05:26 Immature Gran % (Auto) 0.6 % 01/18/25 06:50 Neut % (Auto) 76.8 % 01/18/25 06:50 Lymph % (Auto) 17.6 % 01/18/25 06:50 Roberts % (Auto) 4.6 % 01/18/25 06:50 Eos % (Auto) 0.2 % 01/18/25 06:50 Baso % (Auto) 0.2 % 01/18/25 06:50 Neut # (Auto) 7.21 K/uL (1.40-6.50) H 01/18/25 06:50 Lymph # (Auto) 1.65 K/uL (1.20-3.40) 01/18/25 06:50 Roberts # (Auto) 0.43 K/uL (0.11-0.59) 01/18/25 06:50 Eos # (Auto) 0.02 K/uL (0.00-0.50) 01/18/25 06:50 Baso # (Auto) 0.02 K/uL (0.00-0.20) 01/18/25 06:50 Immature Gran # (Auto) 0.06 K/uL (0.01-0.20) 01/18/25 06:50 Absolute Nucleated RBC 0.02 K/uL (0.00-0.12) 01/20/25 05:46 Nucleated RBC % (auto) 0.2 % 01/20/25 05:46 PT 11.7 Seconds (9.0-12.0) 01/17/25 22:37 INR 1.1 (0.9-1.1) 01/17/25 22:37 APTT 21 Seconds (21-31) 01/17/25 22:37 PTT Ratio 0.8 01/17/25 22:37 VBG pH 7.43 (7.36-7.41) H 01/25/25 20:24 VBG pCO2 42 mmHg (38-50) 01/25/25 20:24 VBG pO2 59 mmHg 01/25/25 20:24 VBG HCO3 28 mmol/L 01/25/25 20:24 VBG O2 Saturation 91.1 % 01/25/25 20:24 VBG Base Excess 3.2 mEq/L 01/25/25 20:24 POC Sodium 143 mmol/L (135-144) 01/17/25 21:27 Sodium 139 mmol/L (136-145) 01/26/25 10:45 POC Potassium 5.7 mmol/L (3.3-5.0) H 01/17/25 21: Potassium 3.8 mmol/L (3.5-5.1) 01/26/25 10:45 POC Chloride 109 mmol/L (101-112) 01/17/25 21:27 Chloride 103 mmol/L (98-107) 01/26/25 10:45 Carbon Dioxide 28 mmol/L (21-32) 01/26/25 10:45 POC Total CO2 22 mmol/L (24-31) L 01/17/25 21: Anion Gap 8 (3-11) 01/26/25 10:45 POC Anion Gap 18.0 mmol/L (16-25) 01/17/25 21: POC BUN 32 mg/dl (7-18) H 01/17/25 21: BUN 16 mg/dl (6-23) 01/26/25 10:45 Creatinine 0.92 mg/dl (0.6-1.4) D 01/26/25 10:45 POC Creatinine 1.5 mg/dl (0.6-1.3) H 01/17/25 21: Est Cr Clr Drug Dosing 93.9 ml/min 01/26/25 10:45 eGFR 93.47 01/26/25 10:45 BUN/Creatinine Ratio 17.4 (10-20) 01/26/25 10:45 Glucose 164 mg/dl (70-99(Fasting)) H 01/26/25 10:45 POC Glucose 111 mg/dl (70-99) H 01/26/25 11:21 POC Glucose (other) 222 mg/dl (70-99) H 01/17/25 21: Estimat Average Glucose 154 mg/dl 01/18/25 06:50 Hemoglobin A1c 7.0 % (4.5-5.6) H 01/18/25 06:50 Lactate 1.5 mmol/L (0.4-2.0) 01/18/25 08:07 Calcium 9.4 mg/dl (8.6-10.3) 01/26/25 10:45 POC Ioniz Calcium [place] 1.13 mmol/l (1.12-1.32) 01/17/25 21: Phosphorus 2.6 mg/dl (2.5-4.9) 01/25/25 20:24 Magnesium 2.0 mg/dl (1.7-2.4) 01/25/25 20:24 Total Bilirubin 0.9 mg/dl (0.2-1.0) D 01/19/25 06:25 Direct Bilirubin 0.6 mg/dl (0-0.2) H 01/17/25 21:22 AST 14 U/L (13-39) 01/19/25 06:25 ALT 18 U/L (7-52) 01/19/25 06:25 Alkaline Phosphatase 56 U/L (34-104) 01/19/25 06:25 Ammonia 36.0 umol/L (18-72) 01/18/25 08:07 Troponin I High Sens 20.5 pg/ml (0-20) H 01/18/25 10:55 B-Natriuretic Peptide 76 pg/ml (0-100) 01/19/25 10:46 Total Protein 7.1 gm/dl (6.0-8.3) 01/19/25 06:25 Albumin 3.3 gm/dl (3.4-5.0) L 01/19/25 06:25 Globulin 3.8 gm/dl (2.5-4.0) 01/19/25 06:25 Albumin/Globulin Ratio 0.9 (0.9-2) 01/19/25 06:25 Procalcitonin 0.70 ng/ml (0-0.5) H 01/17/25 21:22 Urine Color Dark Yellow 01/17/25 21:36 Urine Appearance Clear (Clear) 01/17/25 21:36 Urine pH 5.5 (4.5-7.5) 01/17/25 21:36 Ur Specific [place] 1.026 (1.000-1.030) 01/17/25 21:36 Urine Protein 2+ (Negative) H 01/17/25 21:36 Urine Glucose (UA) Negative (Negative) 01/17/25 21:36 Urine Ketones Trace (Negative) H 01/17/25 21:36 Urine Blood Negative (Negative) 01/17/25 21:36 Urine Nitrite Negative (Negative) 01/17/25 21:36 Urine Bilirubin 1+ (Negative) H 01/17/25 21:36 Urine Urobilinogen Positive (Negative) H 01/17/25 21:36 Ur Leukocyte Esterase 1+ (Negative) H 01/17/25 21:36 Urine WBC (Auto) 0-5 /hpf (0-5) 01/17/25 21:36 Urine RBC (Auto) 0-2 /hpf (0-2) 01/17/25 21:36 U Hyaline Cast (Auto) 6-10 /lpf (0-2) H 01/17/25 21:36 U Epithel Cells (Auto) 0-2 /hpf (0-2) 01/17/25 21:36 Urine Bacteria (Auto) None Seen (None Seen) 01/17/25 21:36 Urine Sperm Present (None Prsent) A 01/17/25 21:36 Urine Comment 01/17/25 21:36 Nasal Screen MRSA (PCR) Negative (Negative) 01/18/25 Unknown Urine Opiates Screen Neg (Neg) 01/18/25 Unknown Ur Methadone, Qual Neg (Neg) 01/18/25 Unknown Urine Fentanyl Screen Neg (Neg) 01/18/25 Unknown Urine Barbiturates Neg (Neg) 01/18/25 Unknown Valproic Acid < 10 mcg/ml (50-100) L 01/17/25 21:38 Ur Phencyclidine (PCP) Neg (Neg) 01/18/25 Unknown U Amphetamin/Meth Scrn Neg (Neg) 01/18/25 Unknown MDMA (Ecstasy) Screen Neg (Neg) 01/18/25 Unknown U Benzodiazepines Scrn Neg (Neg) 01/18/25 Unknown Ur Cocaine Metabolite Neg (Neg) 01/18/25 Unknown U Marijuana (THC) Screen Neg (Neg) 01/18/25 Unknown Adenovirus (PCR) Not Detected (NotDetected) 01/17/25 21:22 B. pertussis DNA (PCR) Not Detected (NotDetected) 01/17/25 21:22 B.parapertussis DNA PCR Not Detected (NotDetected) 01/17/25 21:22 C. pneumoniae DNA (PCR) Not Detected (NotDetected) 01/17/25 21:22 Coronavirus OC43 (PCR) Not Detected (NotDetected) 01/17/25 21:22 Coronavirus HKU1 (PCR) Not Detected (NotDetected) 01/17/25 21:22 Coronavirus 229E (PCR) Not Detected (NotDetected) 01/17/25 21:22 SARS-CoV-2 (PCR) Not Detected (NotDetected) 01/17/25 21:22 Coronavirus NL63 (PCR) Not Detected (NotDetected) 01/17/25 21:22 Human Metapneumovir PCR Not Detected (NotDetected) 01/17/25 21:22 Influenza Type A (PCR) Not Detected (NotDetected) 01/17/25 21:22 Influenza Type B (PCR) Not Detected (NotDetected) 01/17/25 21:22 M. pneumoniae (PCR) Not Detected (NotDetected) 01/17/25 21:22 Parainfluenza 1 (PCR) Not Detected (NotDetected) 01/17/25 21:22 Parainfluenza 2 (PCR) Not Detected (NotDetected) 01/17/25 21:22 Parainfluenza 3 (PCR) Not Detected (NotDetected) 01/17/25 21:22 Parainfluenza 4 (PCR) Not Detected (NotDetected) 01/17/25 21:22 RSV (PCR) Not Detected (NotDetected) 01/17/25 21:22 Entero/Rhino (PCR) Not Detected (NotDetected) 01/17/25 21:[address] 01/18/25 10:02 Clinical history: Pneumonia Technique: Axial computed tomography images were obtained of the chest without intravenous contrast Comparison is made to the prior CT dated 10/04/2021 Findings: There are increased small bilateral pleural effusions, left larger than right. There are unchanged pleural-based calcifications along the posterior right lower lobe. There is no pneumothorax. There is emphysema. There is worsened bilateral lower lobe and lingular atelectasis. No endobronchial lesion is seen There is no mediastinal, hilar, or axillary adenopathy. The thoracic aorta is of normal caliber. There is a small pericardial effusion The visualized upper abdomen appears unremarkable. No fracture is seen. No focal osseous lesion is evident Impression: 1. Increased small bilateral pleural effusions 2. Bilateral lower lobe and lingular opacities, consistent with atelectasis or a combination of atelectasis and pneumonia 3. Emphysema 4. Small pericardial effusion ACT 112: Positive. There are findings on this exam that require communication between the performing entity and the patient following Patient Test Result Information Act ([place] ACT 112) guidelines. Electronically signed by Seth Yanez 01-18-2025 12:[address] 01/18/25 10:02 Clinical History: Altered mental status Technique: Axial computed tomography images were obtained of the brain without intravenous contrast. Comparison is made to the prior CT dated 06/06/2022 Findings: There is cerebral atrophy, within expected limits for the patient's age. Areas of decreased attenuation are seen within the periventricular white matter, likely representing chronic small vessel ischemic disease. There is no definite sign of acute or old infarction. No intracranial hemorrhage is evident. No definite mass lesion is seen on this noncontrast examination. There is no midline shift or other form of herniation. No hydrocephalus is seen. No fracture is identified. The orbits and the visualized paranasal sinuses appear unremarkable. The mastoid air cells appear clear. Impression: 1. Cerebral atrophy and chronic small vessel ischemic disease 2. Otherwise unremarkable noncontrast CT of the brain Electronically signed by Seth Yanez 01-18-2025 12:10 PM Videofluoroscopic Swallow 01/20/25 10:00 FL video swallow CLINICAL HISTORY: assess for aspiration. TECHNIQUE: Video fluoroscopic evaluation of swallowing was performed in the AP and lateral projections by the speech pathology staff. The patient is fed nectar-thick and thin liquid barium, a barium coated wafer, and barium pudding. FLUOROSCOPY TIME: 1 minute 19 seconds. COMPARISON: None FINDINGS: There is no aspiration. There is reduced esophageal motility. IMPRESSION: No aspiration seen. ACT 112: Negative or not required by law. Electronically signed by: Otf Hanna M.D. 01/20/2025 12:02 PM Chest X-Ray 01/22/25 07:00 EXAM: XR chest 1V portable CLINICAL HISTORY: f/u TECHNIQUE: An X-ray image of the chest is obtained in AP projection. COMPARISON: Xray 06/06/2024, 01/17/2025 CT FINDINGS: Pulmonary Parenchyma: Regressive course of the previously seen widespread airspace opacities more on the right lung, now seen faint small sized opacities scattered in both lungs Resolution of the previously noted mild right-sided pleural effusion Stable appearance of the previously noted thickened right paratracheal stripe. No evidence of pleural effusion or pleural thickening. Heart and Mediastinum: Heart size and shape are normal. No mediastinal widening or masses. No hilar or mediastinal lymphadenopathy. Bony Thorax: Bony thorax appears intact without fractures or deformities. Soft Tissues: Metallic clips are seen at the lower neck, likely related to thyroid surgery IMPRESSION: 1. Regressive course of the previously seen widespread airspace opacities more on the right lung, now seen faint small sized opacities scattered in both lungs 2. Resolution of the previously noted mild right-sided pleural effusion 3. Stable appearance of the previously noted thickened right paratracheal stripe. Electronically signed by Dom Ernst 01-22-2025 07:52 AM Ordered Studies 01/18/25 10:02 CT chest diagnostic wo con Urgent Head CT [CT head/brain wo con] Urgent 01/20/25 10:00 FL video swallow Routine Hospital Course (1) Unresponsive: This is a 64-year-old male with past medical history significant for mild mental retardation, hypertension, diabetes, sarcoidosis, COPD, sleep apnea chronic diastolic CHF, hepatitis C, schizophrenia, tobacco abuse lives at [facility] ([facility]) was brought in because of altered mental status and acute hypoxic respiratory failure. Patient was brought to the hospital and initially required 9 L oxygen. Tachypneic. Spiking temperatures. Chest x-ray possible pneumonia, meeting sepsis criteria on admission. Patient is a conditional code with no artificial ventilation. Patient had a similar episode in 2019 and was admitted here. At that time it happened in setting of hypotension. EEG showed slowing suggestive of mild nonspecific encephalopathy. Had outpatient 72-hour EEG results which showed same and no seizure noted. As per pulmonary notes patient is on 2 L oxygen 22/01 and no flare-up of sarcoidosis. Per nursing staff using oxygen 2 L while sleeping. Not using CPAP As per records. During 2019 admission clozapine was held initially due to altered mental status. As per the staff at the [facility], patient is usually totally independent and had no recent illness except for some congestion yesterday. Acute metabolic encephalopathy Acute hypoxemic respiratory failure: Multifactorial Sepsis--POA 2/2 Multifocal PNA Chronic oxygen dependency: On 2 L at bedtime Physical deconditioning --Chest CT:Increased small bilateral pleural effusions. Bilateral lower lobe and lingular opacities, consistent with atelectasis or a combination of atelectasis and pneumonia. Emphysema. Small pericardial effusion --CT Head:Cerebral atrophy and chronic small vessel ischemic disease. Otherwise unremarkable noncontrast CT of the brain --Video Swallow:No aspiration seen but some esophageal dysfunction -- Bio fire negative --Procalcitonin 0.70 --Blood cultures negative -- Nasal MRSA negative --IV vancomycin discontinued -- Continue Zosyn, doxycycline> transition to oral antibiotics to complete 10- day course -- Appreciate pulmonology input --Continue nebs, home inhalers -- Saturating well on 2 L supplemental oxygen --Continue bite sized with side of gravy, thin liquids per speech therapy --Received IV Lasix to help with volume status. Resumed home HCTZ --Will complete antibiotic, prednisone taper course in 2 days -- Plan to discharge to personal care facility today History of COPD History of pulmonary sarcoidosis H/O tobacco use H/O ANT on CPAP Smoked 2 ppd x 42 year, quit 2014 Takes Spiriva, Symbicort Has Albuterol PRN at facility Pulm consult; appreciate recs Continue prednisone taper as above Continue supplemental oxygen to keep saturations 88 to 92% Hypertension Initially antihypertensives held due to hypotension on presentation Continue amlodipine, metoprolol succinate, HCTZ Monitor and adjust medications as needed Blood pressure stable History of schizophrenia Transient alteration of awareness Clozapine, Abilify held on admission due to somnolence Psych consult for med recs now that patient's mentation improving - resume Abilify at home dose, reduce Clozapine to 150mg HS to avoid excessive sedation If psychosis worsens, consider returning Clozapine back to previous dose of 250mg but will trial lower dose first Monitor Hdy-[id number]-[id number] diabetes mellitus type 2: Takes metformin as home meds; hold while inpatient ACHS SSI A1c 7.0 Continue insulin per protocol H/O ANT: 2 L NC supplemental O2 at baseline QHS Pulm recommending CPAP/BiPAP nightly and as needed shortness of breath Elevated troponin: 25.4-34.9; suspect ischemic demand rather than ACS ECHO EF 60-65%, mild LVH, [id number], no valvular pathology noted No arrhythmia since admission History of diastolic CHF: Follows with [facility] Cardiology; last seen 07/15/24 ECHO EF 60-65%, mild LVH, G1 diastolic dysfunction, no valvular pathology noted Only on HCTZ 25 mg daily at home Monitor volume status Hypokalemia Initially hyperkalemic on admission - 5.5-> 5.4 with supplementation held --> now hypokalemic. Repleted this AM, home supplementation resumed Monitor and replete Hypomagnesemia Monitor and replete MED Creatinine 1.5--> resolved Baseline 0.9; avoid nephrotoxic agents as able Monitor renal function DVT Px: SQ Lovenox Code Status: conditional code okay for CPR admits if needed but no intubation Disposition Personal care facility Total Time Total Time Spent Total Time Spent (In Minutes): 49 minutes Discharge Plan Discharge Items Patient Disposition: Personal Custodial Reason For Visit: AMS, ACUTE HYPOXEMIC RESP FAILURE Discharge Diagnosis: Acute metabolic encephalopathy Acute hypoxemic respiratory failure Sepsis Multifocal pneumonia Acute kidney injury Electrolyte abnormalities Condition on Discharge: Critical Activity: Per Instructions section Exercise/Sports: Gradually increase as tolerated Non-emergency contact: Primary Care Provider and [employer] Tester Call non-emergency contact if: you have any medication questions, your symptoms worsen, your pain is concerning for you and you have a fever Follow-up/Referrals: Brittni Sierra [Primary Care Provider] - Diet: Carb Consistent or DM2 and Heart Healthy Diet Texture: Dental soft (bite-sized) Addtl Attending Provider Instructions: -- Follow-up with your primary care physician in 1 week --Consider to follow-up with your car examiner in 3 to 4 weeks with repeat imaging to ensure resolution of pneumonia -- Follow-up with your psychiatrist as needed -- Complete the antibiotic course, prednisone tapering course for 2 more days as prescribed --Use supplemental oxygen 2 L via nasal cannula to keep saturations 88 to 92% -- Your clozapine dose is decreased to 150 mg at bedtime by your psychiatrist to minimize excessive sedation. -- Monitor your blood glucose levels regularly as advised. Discuss with your primary care physician for further adjustment of medications as needed. Seek immediate medical attention if your symptoms reoccur or worsen Please review medication list provided on discharge for any medication changes as instructed. Please call if you have any questions or problems. You can reach a [facility] hospitalist on duty at [facility] 24 hours a day by calling [phone] Pending Studies at Discharge: No Stand-Alone Forms: My [facility], Smoking Cessation Skilled Items Patient informed of condition?: Yes DNR: No Discharge Level of Care: Other Communicable Disease: No Discharge Prognosis: Stable Lines: None Urinary Catheter: No Medications and DC Order Prescriptions: New doxycycline hyclate 100 mg Capsule 100 mg PO BID Qty: 4 0RF amoxicillin-pot clavulanate 875-125 mg Tablet 1 tab PO BIDM Qty: 4 0RF prednisone 10 mg Tablet 10 mg PO DAILY Qty: 2 0RF Continued famotidine 20 mg tablet 20 mg PO DAILY potassium chloride 20 mEq tablet extended release 40 meq PO BID metoprolol succinate 200 mg Tablet Extended Release 24 Hr 200 mg PO Q12 amlodipine 5 mg Tablet 10 mg PO DAILY Rx Instructions: 2 TABLET DOSE aripiprazole [Abilify] 10 mg Tablet 10 mg PO DAILY cholecalciferol (vitamin D3) [Vitamin D3] 125 mcg (5,000 unit) Tablet 125 mcg PO DAILY hydrochlorothiazide 25 mg tablet 25 mg PO DAILY albuterol sulfate 90 mcg/actuation Hfa Aerosol Inhaler 2 puff INHALATION Q6H PRN (Reason: COUGH OR SOB) acetaminophen 325 mg Tablet 650 mg PO Q6 MDD 3g PRN (Reason: PAIN LEVEL 1-10) cyclosporine [Restasis] 0.05 % dropperette 1 drp OPB BID Rx Instructions: allow 15 minutes between administration of other opthalmic eye drops Systane (propylene glycol) 0.4-0.3 % Drops 1 drp OPB QID acetaminophen 325 mg Tablet 650 mg PO Q6 MDD 3G PRN (Reason: TEMP>101) metformin 500 mg tablet 500 mg PO BID Ozempic 0.25 mg or 0.5 mg (2 mg/3 mL) pen injector 0.5 mg SUBCUT WK Rx Instructions: EVERY SUNDAY tiotropium bromide [Spiriva with HandiHaler] 18 mcg capsule, w/inhalation device 1 cap INHALATION DAILY budesonide-formoterol [Symbicort] 80-4.5 mcg/actuation HFA aerosol inhaler 2 puff INHALATION BID ipratropium-albuterol 0.5 mg-3 mg(2.5 mg base)/3 mL solution for nebulization 3 ml INHALATION Q6 pseudoephedrine-guaifenesin [Mucinex D] 60-600 mg Tablet Extended Release 12 Hr 1 tab PO Q12H Rx Instructions: START 01/17/25 - TAKE FOR 7 DAYS - END DATE 01/24/25 erythromycin 5 mg/gram (0.5 %) ointment 1 applic OPB HS Changed clozapine 200 mg Tablet 150 mg PO HS Qty: 0 0RF Rx Instructions: take with 50mg Discontinued clozapine 50 mg Tablet 50 mg PO HS Rx Instructions: take with 200mg prednisone 20 mg Tablet 40 mg PO DAILY Rx Instructions: 2 TABLETS ONCE A DAY FOR 2 DAYS START 01/17/25 -END DATE 01/19/25 prednisone 20 mg Tablet 20 mg PO UD Rx Instructions: GIVE 1 TABLET BY MOUTH 1 TIME A DAY FOR 3 DAYS START 01/19/25...END DATE 01/22/25 Discharge Orders: Discharge Order (Routine); Ordered 01/26/25 Ordered By: Saroj Ny Admission Data Admit Date/Time: 01/17/25 23:51 Attending Provider: Saroj Ny Admit Provider: Sen Magaña Primary Care Provider: Brittni Sierra Other Providers: Sen Magaña; Rodolfo Zamora; Yudelka Velez; Otf Cutler; Rosalva Escamilla; Carolyne Burnette; Mathew Coker; Alexandra Silva; Jackie Lopez
[2025-01-26 13:29] VITALS: BP 142/92
[2025-01-26] MEDS ORDERED: LANTUS PER UNIT CHARGE SQ SCH (21:00)
== END 2025-01-26 14:26 | DRG 871 ==
LOC: ED 21:11 → SUATTDRO 23:51 → 2S 23:51 → 3W 01-23 19:44